=== PATIENT | female | born 1980 | race Caucasian/White ===

== ENCOUNTER 2023-12-16 10:34 | Outpatient (OUT) | payer OTHER, SELFPAY ==
--- NOTE | 2023-12-16 10:42 | XR_ITS ---
The [place] [id number] Patient Name: YUNIER GAINES MRN: [id number] date: 1980 Sex: F Assigned Patient Location: [facility] Current Patient Location: [facility] Accession/Order Number: [id number] Exam Date: 12/16/2023 10:50 Report Date: 12/16/2023 13:11 At the request of: BRAYDON VALADEZ Procedure: XR foot LT min 3V PROCEDURE: XR foot LT min 3V COMPARISON: None. HISTORY: History Left 5th Metatarsal Fracture FINDINGS: BONES:No acute fracture or dislocation. Remote fixation of the calcaneus with 2 cannulated screws. Remote fixation of the fifth metatarsal with a screw at the base. Mild degenerative changes most significant first metatarsal-phalangeal joint. Mild enthesopathic spurring plantar calcaneus SOFT TISSUES:Negative. No visible soft tissue swelling. EFFUSION:None visible. OTHER: Negative. XR/XR foot LT min 3V IMPRESSION: No acute fracture Electronically authenticated by: BELKYS DAVILA Date: 12/16/2023 13:11
== END 2023-12-16 10:35 | disposition home or self-care (01) ==
LOC: RAD 10:37
PROVIDERS: PCP Family Medicine; Visit Provider Nurse Practitioner Family
DX: M79.672 Pain in left foot (principal)
CPT/HCPCS: 73630

== ENCOUNTER 2024-03-02 15:14 | Outpatient (OUT) | payer OTHER, SELFPAY | END 2024-03-02 15:15 | disposition home or self-care (01) | LOC: CARD 15:19 | PROVIDERS: PCP Family Medicine; Visit Provider Family Medicine | DX: I10 Essential (primary) hypertension (principal) | CPT/HCPCS: 93246 ==

== ENCOUNTER 2024-03-16 08:49 | Outpatient (OUT) | payer OTHER, SELFPAY ==
--- NOTE | 2024-03-16 | XR_ITS ---
The [address] [address] Patient Name: YUNIER GAINES MRN: [id number] date: 1980 Sex: F Assigned Patient Location: Current Patient Location: Accession/Order Number: [id number] Exam Date: 03/16/2024 08:50 Report Date: 03/17/2024 13:01 At the request of: MO LAFLEUR Procedure: XR foot LT min 3V PROCEDURE: XR foot LT min 3V COMPARISON: 12/16/2023 HISTORY: LEFT FOOT PAIN FINDINGS: BONES:Acute calcaneal osteotomy transfixed with 2 cannulated screws. Remote fracture base of fifth metatarsal fixed with a single screw. No acute fracture or dislocation. Moderate degenerative change first metatarsal-phalangeal joint with subchondral cystic changes and joint space narrowing SOFT TISSUES:Negative. No visible soft tissue swelling. EFFUSION:None visible. OTHER: Negative. XR/XR foot LT min 3V IMPRESSION: Stable degenerative and postsurgical change Electronically authenticated by: BELKYS DAVILA Date: 03/17/2024 13:01
--- OUTSIDE RECORDS SUMMARY | 2024-03-16 09:06 | XMS_ITS | CCD ---
Author Organization [facility] CliniSynd Care Team Providers Care Certified Coding Specialist Name Role Phone Blake Dallas Unavailable RIMMA FISH Unavailable Unavailab RIMMA Quintana Unavailable Unavailab Blake Lagos Primary Care Provider [phone] BLAKE DALLAS Primary Care Unavailable RIMMA ARDON Attending Unavailable Blake Dallas Primary Care Provider COCO PINO Attending Unavailable BRONSON DAVE Consulting UnavailBLAKE Ordaz Primary Care Unavailable SYSTEM, PROVIDER NOT IN Referring Unavaila IGNACIO Piña Admitting Unavailable Blake Dallas MD Primary Care Provider [phone] FELICITAS FREEDMAN JR Attending Unavailable BLAKE DALLAS Primary Care Unavailable DR BLAKE DALLAS Primary Care Unavailable JADEN LARSEN Attending Unavailable JADEN LARSEN Admitting Unavailable Messi, DR Marcos Consulting Unavailable JADEN LARSEN Consulting Unavailable DR BLAKE DALLAS Primary Care Unavailable Messi, DR Marcos Consulting Unavailable JADEN LARSEN Attending Unavailable JADEN LARSEN Admitting Unavailable JADEN LARSEN Consulting Unavailable CELENA, DR MATTHEWS Consulting Unavailable CELENA, DR MATTHEWS Attending Unavailable DR BLAKE DALLAS Admitting Unavailable DR BLAKE DALLAS Primary Care Unavailable RADHA, DR ANNA Linares Admitting Unavailchilango GARCIA, DR ANNA Linares Attending UnavailMARIA ELENA Garces Consulting Unavailable CELENA, DR MATTHEWS Primary Care Unavailable VALERIE PUGA Consulting Unavailable DR BLAKE DALLAS Primary Care Unavailable MO LAFLEUR Attending Unavailable MO LAFLEUR Admitting Unavailable MO LAFLEUR Consulting Unavailable DR BLAKE DALLAS Primary Care Unavailable Messi, DR Marcos Consulting Unavailable MO LAFLEUR Attending Unavailable MO LAFLEUR Admitting Unavailable MO LAFLEUR Consulting Unavailable MYAH, LEATHA Consulting Unavailable DARWICH, MAAMUN Consulting Unavailable TARIK, AMAR Consulting Unavailable CELENA, DR MATTHEWS Attending Unavailable CELENA, DR MATTHEWS Admitting Unavailable HOY, DR MATTHEWS Primary Care Unavailable HOY, DR MATTHEWS Primary Care Unavailable CHAVA, JADEN Attending Unavailable CHAVA, JADEN Admitting Unavailable WEST, DR BELKYS Herzog Consulting Unavailable CHAVA, JADEN Consulting Unavailable CELENA, DR MATTHEWS Primary Care Unavailable WEST, DR BELKYS Herzog Consulting Unavailable CHAVA, JADEN Attending Unavailable CHAVA, JADEN Admitting Unavailable CHAVA, JADEN Consulting Unavailable Unavailable Primary Care Provider UnavailDarius Garcia MD Unavailable PROVIDER, UNKNOWN Attending Unavailable PROVIDER, UNKNOWN Admitting Unavailable BELBAYRON, DARIUS Toure Admitting Unavailable BELBAYRON, DARIUS Toure Attending Unavailable BELBAYRON, DARIUS Toure Referring Unavailable PROVIDER, UNKNOWN Attending Unavailable PROVIDER, UNKNOWN Admitting Unavailable PROVIDER, UNKNOWN Attending Unavailable DARIUS POOLE Admitting Unavailable PROVIDER, UNKNOWN Admitting Unavailable PROVIDER, UNKNOWN Attending Unavailable PROVIDER, UNKNOWN Attending Unavailable PROVIDER, UNKNOWN Admitting Unavailable PROVIDER, UNKNOWN Attending Unavailable PROVIDER, UNKNOWN Admitting Unavailable ZUMBAR, ERNA Referring Unavailable Unavailable Primary Care Provider UnavailErna Rivera Attending Unavailable Zumbar, Erna Referring Unavailable Zumbar, Erna Admitting Unavailable Blake Dallas Referring Unavailable ZumbarErna Attending Unavailable Zumbar, Erna Admitting Unavailable Homatilde Blake Referring Unavailable Mckeon, Brigitte Admitting Unavailable Mckeon Brigitte Attending Unavailable Linda Brigitte Attending Unavailable Linda Brigitte Admitting Unavailable lBake Dallas Referring Unavailable MD Erna Zavala Admitting Unavailable Zumbday, Erna Attending Unavailable BETSY BILLY Referring Unavailable Blake Dallas Referring Unavailable MD Erna Zavala Admitting Unavailable Zumbar, Erna Attending Unavailable Zumbar, Erna Attending Unavailable Zumbar, Erna Referring Unavailable Zumbar, Erna Admitting Unavailable Zumbar, Erna Admitting Unavailable Sally, Erna Attending Unavailable MARICEL CARABALLO Attending Unavailable Hoy MD, Blake M Primary Care Provider [phone] JEANNA XIAOXI Referring Unavailable NISREEN REY Attending Unavailable HOY, BLAKE M Primary Care Unavailable Celena CID, Blake M Primary Care Provider [phone] Darius Poole MD Unavailable JEANNA, XIAOXI Referring Unavailable HOY, BLAKE M Primary Care Unavailable JEANNA, XIAOXI Referring Unavailable ORLIN BOWMAN Attending Unavailable HOY, BLAKE M Primary Care Unavailable HALEY NICHOLSON Attending Unavailable HOY, BLAKE M Primary Care Unavailable JEANNA, XIAOXI Attending Unavailable HOY, BLAKE M Primary Care Unavailable GREG HIDALGO Attending Unavailable JEANNA, NEHAI Attending Unavailable JEANNA, XIAOXI Admitting Unavailable ALLYSON, BETSY Referring Unavailable ALLYSON, BETSY Referring Unavailable ALLYSON, BETSY Referring Unavailable ALLYSON, BETSY Referring Unavailable ALLYSON, BETSY Referring Unavailable HOY, BLAKE M Primary Care Unavailable GREG HIDALGO Referring Unavailable GREG HIDALGO Attending Unavailable ALLYSON, BETSY Referring Unavailable PEDRO JENKINSTH Garth Referring Unavailable ALLYSON, BETSY Referring Unavailable ALLYSON, BETSY Referring Unavailable FAY MILES Attending Unavailable FAY MILES Referring Unavailable HALEY NICHOLSON Attending Unavailable SELF Referring Unavailable SEEMA MAYNARD Attending Unavailable JIM CAMPOS Attending Unavailable HOY, BLAKE M Primary Care Unavailable JEANNA, XIAOXI Attending Unavailable JEANNA, XIAOXI Referring Unavailable DEVNANI, FAY Referring Unavailable KONYA, VIET L Attending Unavailable NENAEN, SYLVESTER Referring Unavailable ALLYSON, BETSY Referring Unavailable ALLYSON, BETSY Referring Unavailable ALLYSON, BETSY Referring Unavailable ALLYSON, BETSY Referring Unavailable ALLYSON, BETSY Referring Unavailable ALLYSON, BETSY Referring Unavailable ALLYSON, BETSY Referring Unavailable ALLYSON, BETSY Referring Unavailable ALLYSON, BETSY Referring Unavailable ALLYSON, BETSY Referring Unavailable ALLYSON, BETSY Referring Unavailable HOY, BLAKE M Primary Care Unavailable JEANNA, XIAOXI Referring Unavailable HOY, BLAKE M Primary Care Unavailable JEANNA, XIAOXI Referring Unavailable HOY, BLAKE M Primary Care Unavailable JEANNA, XIAOXI Attending Unavailable JEANNA, XIAOXI Referring Unavailable HOY, BLAKE M Primary Care Unavailable JEANNA, XIAOXI Referring Unavailable DEIRDRE SR Attending Unavailable HOY, BLAKE M Primary Care Unavailable KATIE DOOLEY Attending Unavailable JEANNA, XIAOXI Referring Unavailable BLANCO, JIM Referring Unavailable MALI, CYNTHIA Attending Unavailable ALLYSON, BETSY Referring Unavailable ALLYSON, BETSY Referring Unavailable ALLYSON, BETSY Referring Unavailable JEANNA, XIAOXI Attending Unavailable BLANCO, JIM Attending Unavailable MALI, CYNTHIA Attending Unavailable HOY, BLAKE M Primary Care Unavailable JEANNA, XIAOXI Referring Unavailable HOY, BLAKE M Primary Care Unavailable BULOW, ROSANNE Attending Unavailable JEANNA, XIAOXI Referring Unavailable HOY, BLAKE M Primary Care Unavailable JEANNA, XIAOXI Referring Unavailable ORLIN BOWMAN Attending Unavailable SANDI WEBER Attending Unavailable HOY, BLAKE M Primary Care Unavailable HOY, BLAKE M Primary Care Unavailable BULOW, ROSANNE Referring Unavailable DEVNANI, FAY Referring Unavailable ROYACHANDANI, HALEY Attending Unavailable LOUDEN, SYLVESTER Attending Unavailable HOY, BLAKE M Primary Care Unavailable JEANNA, XIAOXI Referring Unavailable LOUDEN, SYLVESTER Referring Unavailable DEVNANI, FAY Referring Unavailable DEVNANI, FAY Attending Unavailable LOUDEN, SYLVESTER Referring Unavailable MALI, CYNTHIA Attending Unavailable BLANCO, JIM Referring Unavailable EDWARD HERNANDEZ Attending Unavailable ALLYSON, BETSY Referring Unavailable MULANANDPRINCESS, HALEY Attending Unavailable VIET JENKINS Referring Unavailable Allergies Allergy Classification Reported Allergen(s) Allergy Type Date of Onset Reaction(s) Facility Penicillins (antibiotic) (2 sources) Penicillins Drug Allergy 6 Shortness Of Breath, GI Upset [facility] (20 sources) Penicillin G; 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: [PENICILLIN G] Drug Allergy 7 GI Upset [facility] Work Phone: (5 sources) Penicillins; 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: [PENICILLINS] Propensity to adverse reactions to drug 6 Shortness Of Breath, Rash, GI Intolerance [facility] [place], [place] (2 sources) Penicillin Drug Allergy 7 [facility] (7 sources) Penicillins Propensity to adverse reactions to drug 6 Upset Stomach, Rash, Difficulty Breathing [facility] Work Phone: (8 sources) Non-steroidal anti-inflammato ry agent; 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: [NSAIDS (NON-STEROIDAL ANTI-INFLAMMATO RY DRUG)] Propensity to adverse reactions to drug 4 Unknown [facility] Medications Current Medications Medication Drug Class(es) Dates Sig (Normalized) Sig (Original) acetaminophen 325 mg oral tablet (3 sources) Start: 11-20-2022 End: 12-20-2022 take 2 tablets by mouth every six hours as needed for pain acetaminophen (TYLENOL) 325 mg tablet Take 2 Tablets by mouth every 6 hours as needed for Pain or Fever. 240 Tablet 0 11/20/2022 12/20/2022 Active Start: 05-13-2020 End: 05-23-2020 take 2 tablets by mouth every four hours as needed acetaminophen (TYLENOL) 325 MG tablet Take 2 (two) tablets (650 mg total) by mouth every 4 (four) hours as needed . 30 tablet 0 05/13/2020 05/23/2020 Active Start: 05-12-2020 End: 05-13-2020 take 1 tablet by mouth every four hours as needed 650 mg, Oral, Every 4 hours PRN, mild pain, fever 100.4 F or greater, headaches, Starting 05/12/20 at 0305 apixaban 5 mg oral tablet (4 sources) Factor Xa Inhibitor Start: 05-13-2020 End: 06-12-2020 take 1 tablet by mouth twice daily apixaban (ELIQUIS) 5 mg Tab Take 1 (one) tablet (5 mg total) by mouth 2 (two) times a day . 60 tablet 2 05/13/2020 06/12/2020 Active Start: 05-13-2020 End: 05-20-2020 take 2 tablets by mouth twice daily apixaban (ELIQUIS) 5 mg Tab Take 2 (two) tablets (10 mg total) by mouth 2 (two) times a day for 7 days . 28 tablet 0 05/13/2020 05/20/2020 Active Start: 05-13-2020 End: 05-13-2020 apixaban (ELIQUIS) tablet 10 mg brexpiprazole 0.5 mg oral tablet (18 sources) Atypical Antipsychotic Start: 12-14-2023 take 1 tablet by mouth once REXULTI 0.5 mg tablet Take 1 tablet by mouth every afternoon. 12/14/2023 Active Start: 12-03-2023 take 1 tablet by mouth once RE XULTI 1 mg tablet Take 1 tablet by mouth every afternoon. 12/03/2023 Active busPIRone hydrochloride 10 mg oral tablet (20 sources) Start: 03-27-2023 take 1 tablet by mouth three times daily busPIRone (BUSPAR) 10 mg tablet Take 10 mg by mouth three times daily. 03/27/2023 Active Start: 03-12-2023 take 1 tablet by guille th every twelve hours busPIRone (BUSPAR) 5 mg tablet Take 1 tablet by mouth every 12 (twelve) hours. 0 03/12/2023 Active Comment on above: Take 1 tablet by guille th every 12 (twelve) hours. Take 10 mg by mouth three times daily. cetirizine hydrochloride 10 mg oral tablet (20 sources) Histamine-1 Receptor Antagonist Start: take 1 tablet by mouth once cetirizine (ZYRTEC) 10 mg tablet Take 1 tablet by mouth every afternoon. 01/16/2023 Active Comment on above: Take 1 tablet by guille th every afternoon. citalopram 40 mg oral tablet (7 sources) Serotonin Reuptake Inhibitor take 1 tablet by mouth once daily citalopram (CeleXA) 40 MG tablet citalopram 40 mg tablet TAKE 1 TABLET BY MOUTH EVERY DAY 0 Active CPAP/BIPAP/OTHER (20 sources) Start: End: CPAP/BIPAP/OTHER Auto [facility] 7 [facility] 08/11/2023 12/26/2050 Active Start: 08-11-2023 End: 12-26-2050 CPAP/BIPAP/OTHER Auto CPAP 7 to 15 cm H2O DME: [facility] 1 Each 0 08/11/2023 12/26/2050 Suspended Start: 08-11-2023 End: 12-26-2050 CPAP/BIPAP/OTHER Auto CPAP 7 to 15 cm H2O DME: [facility] 1 Each 0 08/11/2023 12/26/2050 Active Start: 07-13-2023 End: 08-11-2023 CPAP/BIPAP/OTHER Indications : PAKO (obstructive sleep apnea) Type .CPAPSettings into a note to see current settings/supplies/DME information. 1 Each 0 07/13/2023 08/11/2023 Discontinued Start: 07-13-2023 End: 11-27-2050 CPAP/BIPAP/OTHER Indications : PAKO (obstructive sleep apnea) Type .CPAPSettings into a note to see current settings/supplies/DME information. 1 Each 0 07/13/2023 11/27/2050 Active Start: 05-18-2023 End: 08-11-2023 CPAP/BIPAP/OTHER Indications : PAKO (obstructive sleep apnea) Type .CPAPSettings into a note to see current settings/supplies/DME information. 1 Each 0 05/18/2023 08/11/2023 Discontinued Start: 05-18-2023 End: 10-02-2050 CPAP/BIPAP/OTHER Indications : PAKO (obstructive sleep apnea) Type .CPAPSettings into a note to see current settings/supplies/DME information. 1 Each 0 05/18/2023 10/02/2050 Active Start: 03-30-2023 End: 08-11-2023 CPAP/BIPAP/OTHER Indications : PAKO (obstructive sleep apnea) , PAKO on CPAP Type .CPAPSettings into a note to see current settings/supplies/DME information. 1 Each 0 03/30/2023 08/11/2023 Discontinued Start: 03-30-2023 End: 08-14-2050 CPAP/BIPAP/OTHER Indications : PAKO (obstructive sleep apnea) , PAKO on CPAP Type .CPAPSettings into a note to see current settings/supplies/DME information. 1 Each 0 03/30/2023 08/14/2050 Active Start: 03-02-2023 End: 08-11-2023 CPAP/BIPAP/OTHER Indications : PAKO on CPAP Type .CPAPSettings into a note to see current settings/supplies/DME information. 1 Each 0 03/02/2023 08/11/2023 Discontinued Start: 03-02-2023 End: 07-17-2050 CPAP/BIPAP/OTHER Indications : PAKO on CPAP Type .CPAPSettings into a note to see current settings/supplies/DME information. 1 Each 0 03/02/2023 07/17/2050 Active Comment on above: Type .CPAPSettings i nto a note to see current settings/supplies/DME information. Auto CPAP 7 to 15 cm H2O DME: [facility] dienogest / Estradiol (4 sources) Progestin, Estrogen Start: 03-18-2018 estradiol Valerate-dienogest (NATAZIA) 3/2-2/2-3/1 MG TABS tablet Take 1 tablet by mouth 0 03/18/2018 Active Start: 03-18-2018 take 1 tablet by guille th once daily NATAZIA 3/2-2/2-3/1 MG Tab Take 1 tablet by mouth daily. 3 03/18/2018 Active End: 05-13-2020 take 1 tablet by mouth once daily estradiol valerate-dienogest (Natazia) 3 mg/2 mg-2 mg/ 2 mg-3 mg/1 mg Tab Take 1 tablet by mouth daily . 0 05/13/2020 Discontinued (Stop Taking at Discharge) docusate sodium 100 mg oral capsule (2 sources) Start: 05-13-2020 End: 05-24-2020 take 1 capsule by mouth once daily docusate sodium (COLACE) 100 MG capsule Take 1 (one) capsule (100 mg total) by mouth daily for 10 days Start: 05/14/20. 10 capsule 0 05/14/2020 05/24/2020 Active 0.4 ml enoxaparin sodium 100 mg/ml prefilled syringe (7 sources) Low Molecular Weight Heparin Start: 09-29-2023 End: 10-27-2023 inject 0.4 mL by subcutaneous injection twice daily enoxaparin (LOVENOX) 40 mg/0.4 mL Inject 0.4 mL subcutaneously two times a day for 28 days. (Inject entire contents of one(1) syringe) 22.4 mL 0 09/29/2023 10/27/2023 Active Start: 09-29-2023 End: 10-27-2023 inject 40 mg by subcutaneous injection every twelve hours enoxaparin (LOVENOX) 40 mg/0.4 mL Inject 0.4 mL subcutaneously every 12 hours for 28 days. 22.4 mL 0 09/29/2023 10/27/2023 Active Start: 05-11-2020 End: 05-11-2020 enoxaparin (LOVENOX) injecti on 135 mg Comment on above: Inject 0.4 mL subcut aneously two times a day for 28 days. (Inject entire contents of one(1) syringe) Inject 0.4 mL subcut aneously every 12 hours for 28 days. 1 ml hydrOXYzine hydrochloride 25 mg/ml injection (20 sources) Antihistamine inject 25 mg by intramuscular injection once hydrOXYzine HCl (VISTARIL) 25 mg/mL injection Inject 25 mg intramuscularly one time only. Active Comment on above: Inject 25 mg intramu scularly one time only. montelukast 10 mg oral tablet (20 sources) Leukotriene Receptor Antagonist Start: 2022 take 1 tablet by mouth once montelukast (SINGULAIR) 10 mg tablet Take 1 tablet by mouth every afternoon. 01/16/2023 Active Start: 03-19-2018 End: 05-13-2020 montelukast (SINGULAIR) 10 M G tablet Take 10 mg by mouth 0 03/19/2018 Active Comment on above: Take 1 tablet by guille th every afternoon. omeprazole 20 mg delayed release oral capsule (16 sources) Proton Pump Inhibitor Start: 4 End: 4 take 2 capsules by mouth once daily omeprazole (PRILOSEC) 20 mg capsule Take 2 capsules by mouth once daily. 61 capsule 5 09/29/2023 03/27/2024 Active Comment on above: Take 2 capsules by m outh once daily. ondansetron 4 mg oral tablet (16 sources) Serotonin-3 Receptor Antagonist Start: 4 take 1 tablet by mouth every six hours as needed ondansetron (ZOFRAN) 4 mg tablet Take 1 tablet by mouth every 6 hours as needed for nausea/vomiting 20 tablet 1 09/29/2023 Active Comment on above: Take 1 tablet by guille th every 6 hours as needed for nausea/vomiting polyethylene glycol 3350 19291 mg powder for oral solution (3 sources) Osmotic Laxative Start: 3 End: 3 polyethylene glycol (GNP ClearLax) 17 GM/SCOOP powder Dissolve 17 g in 8 ounces of liquid and drink daily. 510 g 0 11/20/2022 12/20/2022 Active Start: 05-13-2020 End: 05-20-2020 polyethylene glycol (MIRALAX ) 17 gram powder Take 17 (seventeen) g by mouth daily as needed (Constipation) . 7 packet 1 05/13/2020 05/20/2020 Active prazosin 1 mg oral capsule (20 sources) alpha-Adrenergic Joe Start: 03-12-2023 take 1 capsule by mouth once daily at bedtime prazosin (MINIPRESS) 1 mg cap Take 1 mg by mouth daily at bedtime. 03/12/2023 Active Comment on above: Take 1 mg by mouth d aily at bedtime. sertraline 50 mg oral tablet (20 sources) Serotonin Reuptake Inhibitor Start: 03-12-2023 take 1 tablet by mouth three times daily sertraline (ZOLOFT) 50 mg tablet Take 50 mg by mouth three times a day. 03/12/2023 Active Start: 03-12-2023 take 1 tablet by mouth once se rtraline (ZOLOFT) 50 mg tablet Take 1 tablet by mouth every afternoon. 0 03/12/2023 Active Comment on above: Take 1 tablet by guille th every afternoon. Take 50 mg by mouth three times a day. topiramate 25 mg oral tablet (20 sources) Start: 11-04-2023 topiramate (TOPAMAX) 25 mg tablet Indications: Class 3 obesity (HCC) Take 1 tablet nightly x 2 weeks and then increase to 2 tablets nightly 180 tablet 1 11/04/2023 Active Start: 08-12-2023 topiramate (TO PAMAX) 25 mg tablet Indications: Class 3 severe obesity with serious comorbidity and body mass index (BMI) of 45.0 to 49.9 in adult, unspecified obesity type (HCC) Take 1 tablet nightly x 2 weeks, then increase to 2 tablets nightly 180 tablet 0 08/12/2023 Suspended Comment on above: Take 1 tablet nightl y x 2 weeks, then increase to 2 tablets nightly ursodiol 300 mg oral capsule (16 sources) Bile Acid Start: 09-29-2023 End: 03-27-2024 take 1 capsule by mouth twice daily ursodiol (ACTIGALL) 300 mg capsule Take 1 capsule by mouth two times a day. 181 capsule 1 09/29/2023 03/27/2024 Active Comment on above: Take 1 capsule by mo uth two times a day. VITAMIN B COMPLEX-100 ORAL (20 sources) VITAMIN B COMPLEX-100 ORAL Take by mouth. Active VITAMIN B COMPLE X-100 ORAL Take by mouth. 0 Suspended VITAMIN B COMPLE X-100 ORAL Take by mouth. 0 Active Comment on above: Take by mouth. Completed/Discontinued Medications Medication Drug Class(es) Dates Sig (Normalized) Sig (Original) albuterol 0.833 mg/ml / ipratropium bromide 0.167 mg/ml inhalant solution (2 sources) Anticholinergic, beta2-Adrenergic Agonist Start: 05-11-2020 End: 05-11-2020 ipratropium-albute rol (DUONEB) nebulizer solution 1 ampule betamethasone 3 mg/ml / betamethasone acetate 3 mg/ml injectable suspension (2 sources) Corticosteroid Start: 03-03-2024 End: 03-03-2024 betamethasone acetate-betamethas one sodium phosphate 12 mg injection (CELESTONE) Start: 03-03-2024 End: 03-03-2024 inject 1 dose by intramuscular injection once 12 mg, INTRAMUSCULAR, ONCE, 1 dose, On [facility] 03/03/24 at 1030, Protect From Light. Bupivacaine (2 sources) Amide Local Anesthetic Start: 03-03-2024 End: 03-03-2024 bupivacaine 0.5 % 15 mg injection (MARCAINE MDV) Start: 03-03-2024 End: 03-03-2024 inject 1 dose by intramuscular injection once 15 mg (3 mL), INTRAMUSCULAR, ONCE, 1 dose, On [place] 03/03/24 at 1030 carvedilol 25 mg oral tablet (20 sources) alpha-Adrenergic Joe, beta-Adrenergic Joe Start: 01-14-2023 End: 09-29-2023 take 1 tablet by mouth every twelve hours carvedilol (COREG) 25 mg tablet Take 1 tablet by mouth every 12 hours 6am/6pm. 0 01/14/2023 09/29/2023 Discontinued Start: 05-12-2020 End: 05-13-2020 take 25 mg by mouth twice daily at mealtime 25 mg, Oral, Daily, First dose on 05/12/20 at 0900 Give carvedilol with food to reduce risk of hypotension / dizziness. Separate from admin of LUIS inhibitors by two hours. Start: 03-17-2018 take 1 tablet by guille th twice daily carvedilol (COREG) 25 MG tablet Take 25 mg by mouth 2 times daily 0 03/17/2018 Active take 1 tablet by guille once daily CARvedilol (COREG) 25 MG tablet carvedilol 25 mg tablet Take 1 tablet every day by oral route. 0 Active Comment on above: Take 1 tablet by guille every 12 hours 6am/6pm. celecoxib 200 mg oral capsule (20 sources) Nonsteroidal Anti-inflammatory Drug Start: 2022 End: 2023 take 1 capsule by mouth twice daily celecoxib (CELEBREX) 200 mg capsule take 1 capsule by mouth twice a day 60 capsule 0 05/15/2023 09/29/2023 Discontinued Comment on above: Take 1 capsule by [facility] twice daily. take 1 capsule by [facility] twice a day cyclobenzaprine hydrochloride 10 mg oral tablet (20 sources) Muscle Relaxant Start: 2022 End: 2023 cyclobenzaprine (FLEXERIL) 10 mg tablet doxepin hydrochloride 25 mg oral capsule (6 sources) Tricyclic Antidepressant doxepin capsule 25 mg Take 50 mg by mouth. 0 Active Comment on above: Take 50 mg by mouth. 0.5 ml dulaglutide 3 mg/ml auto-injector (14 sources) GLP-1 Receptor Agonist Start: 2022 inject 1.5 mg by subcutaneous injection every week dulaglutide (TRULICITY) 1.5 mg/0.5 mL pen injector Inject 1.5 mg subcutaneously one time a week. 4 Each 2 03/31/2023 Active Start: 03-18-2023 End: 04-17-2023 dulaglutide (TRULICITY) 0.75 mg/0.5 mL pen injector Indications: Class 3 severe obesity with serious comorbidity and body mass index (BMI) of 50.0 to 59.9 in adult, unspecified obesity type (HCC) Inject 0.75 mg subcutaneously one time a week. 4 Each 0 03/18/2023 03/31/2023 Discontinued Comment on above: Inject 0.75 mg subcu taneously one time a week. Inject 1.5 mg subcut aneously one time a week. dulaglutide (TRULICITY) 3 mg/0.5 mL pen injector (15 sources) Start: End: inject 3 mg by subcutaneous injection every week dulaglutide (TRULICITY) 3 mg/0.5 mL pen injector Indications: Body mass index 50.0-59.9, adult (HCC) Inject 3 mg subcutaneously one time a week. 4 Each 1 06/01/2023 06/16/2023 Discontinued Start: 06-01-2023 inject 3 mg by subcu taneous injection every week dulaglutide (TRULICITY) 3 mg/0.5 mL pen injector Indications: Body mass index 50.0-59.9, adult (HCC) Inject 3 mg subcutaneously one time a week. 4 Each 1 06/01/2023 Active Start: 05-04-2023 End: 06-01-2023 inject 3 mg by subcutaneous injection every week dulaglutide (TRULICITY) 3 mg/0.5 mL pen injector Inject 3 mg subcutaneously one time a week. 2 mL 0 05/04/2023 06/01/2023 Discontinued Start: 05-04-2023 End: 06-03-2023 inject 3 mg by subcutaneous injection every week dulaglutide (TRULICITY) 3 mg/0.5 mL pen injector Inject 3 mg subcutaneously one time a week. 2 mL 0 05/04/2023 06/03/2023 Active Comment on above: Inject 3 mg subcutan eously one time a week. dulaglutide (TRULICITY) 4.5 mg/0.5 mL pen injector (17 sources) Start: inject 4.5 mg by subcutaneous injection every week dulaglutide (TRULICITY) 4.5 mg/0.5 mL pen injector Indications: Obesity, Class III, BMI 40-49.9 (morbid obesity) (HCC) Inject 4.5 mg subcutaneously one time a week. 4 Each 2 09/14/2023 Suspended Start: 09-14-2023 inject 4.5 mg by sub cutaneous injection every week dulaglutide (TRULICITY) 4.5 mg/0.5 mL pen injector Indications: Obesity, Class III, BMI 40-49.9 (morbid obesity) (HCC) Inject 4.5 mg subcutaneously one time a week. 4 Each 2 09/14/2023 Active Start: 08-12-2023 End: 09-11-2023 inject 4.5 mg by subcutaneous injection every week dulaglutide (TRULICITY) 4.5 mg/0.5 mL pen injector Indications: Obesity, Class III, BMI 40-49.9 (morbid obesity) (HCC) Inject 4.5 mg subcutaneously one time a week. 4 Each 2 08/12/2023 09/11/2023 Discontinued Start: 08-12-2023 inject 4.5 mg by sub cutaneous injection every week dulaglutide (TRULICITY) 4.5 mg/0.5 mL pen injector Indications: Obesity, Class III, BMI 40-49.9 (morbid obesity) (HCC) Inject 4.5 mg subcutaneously one time a week. 4 Each 2 08/12/2023 Active Start: 06-16-2023 End: 08-12-2023 inject 4.5 mg by subcutaneous injection every week dulaglutide (TRULICITY) 4.5 mg/0.5 mL pen injector Indications: Obesity, Class III, BMI 40-49.9 (morbid obesity) (HCC) Inject 4.5 mg subcutaneously one time a week. 4 Each 2 06/16/2023 08/12/2023 Discontinued Start: 06-16-2023 inject 4.5 mg by sub cutaneous injection every week dulaglutide (TRULICITY) 4.5 mg/0.5 mL pen injector Indications: Obesity, Class III, BMI 40-49.9 (morbid obesity) (HCC) Inject 4.5 mg subcutaneously one time a week. 4 Each 2 06/16/2023 Active Comment on above: Inject 4.5 mg subcut aneously one time a week. gelatin adsorbable (GELFOAM) sponge 1 each (1 source) Start: 2020 End: 2020 gelatin adsorbable (GELFOAM) sponge 1 each 250 ml heparin sodium, porcine 100 unt/ml injection (1 source) Unfractionated Heparin, Anti-coagulant Start: 2019 End: 2019 heparin (porcine) 25,000 unit/250 mL in 0.45% NaCl infusion heparin bolus from bag 0-10,000 Units (1 source) Start: 2019 End: 2019 heparin bolus from bag 0-10,000 Units iopamidol (ISOVUE-370) 76 % injection 100 mL (1 source) Start: 2019 End: 2019 iopamidol (ISOVUE-370) 76 % injection 100 mL Lidocaine (2 sources) Antiarrhythmic, Amide Local Anesthetic Start: 2023 End: 2023 lidocaine 10 mg/mL (1 %) 50 mg injection (XYLOCAINE) lisinopril 40 mg oral tablet (2 sources) Angiotensin Converting Enzyme Inhibitor End: 2019 lisinopril (PRINIVIL;ZESTRIL) 40 MG tablet Take 40 mg by mouth 0 05/11/2020 Discontinued loratadine 10 mg oral tablet (1 source) Start: 2019 End: 2019 take 10 mg by mouth once daily 10 mg, Oral, Daily, First dose on 05/12/20 at 0900 methylPREDNISolone 125 mg injection (1 source) Corticosteroid Start: 2019 End: 2019 methylPREDNISolone sodium (SOLU-MEDROL) injection 125 mg perflutren lipid microspheres (DEFINITY) 0.143 mg/mL solution 0-10 mL of mixture (1 source) Start: 2019 End: 2019 perflutren lipid microspheres (DEFINITY) 0.143 mg/mL solution 0-10 mL of mixture perflutren lipid microspheres 1.3 mL in NaCl (PF) 0.9% 10 mL injection (DEFINITY) (1 source) Start: 2022 End: 2022 perflutren lipid microspheres 1.3 mL in NaCl (PF) 0.9% 10 mL injection (DEFINITY) 1 ml triamcinolone acetonide 40 mg/ml injection (2 sources) Corticosteroid Start: 2023 End: 2023 triamcinolone acetonide 40 mg injection (KeNALog 40) Problems Active Problems Problem Classification Problem Date Documented Da te Episodic/Chronic Abdominal pain (4 sources) Unspecified abdominal pain; 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: [UNSPECIFIED ABDOMINAL PAIN] Onset: 01-01-2022 Episodic Acquired foot deformities (20 sources) Hallux rigidus, right foot; 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: [Acquired right hallux valgus] Onset: 02-26-2021 04-02-2023 Chronic Acquired foot deformities (20 sources) Hallux valgus (acquired), left foot; 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: [Acquired left hallux valgus] Onset: 02-26-2021 04-02-2023 Chronic Acute bronchitis (1 source) Acute bronchitis, unspecified; 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: [ACUTE BRONCHITIS UNSPECIFIED] Onset: 02-06-2022 Episodic Administrative/social admission (5 sources) Patient encounter status; 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: [Dietary counseling and surveillance] 06-04-2023 Episodic Anxiety disorders (20 sources) Anxiety disorder, unspecified; 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: [Anxiety disorder] Onset: 02-26-2021 04-02-2023 Chronic Asthma (20 sources) Mild intermittent asthma; 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: [Mild intermittent asthma, uncomplicated] Onset: 09-22-2023 09-22-2023 Chronic Cardiac dysrhythmias (2 sources) Bradycardia; 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: [Bradycardia, unspecified] Onset: 10-22-2022 Episodic Essential hypertension (20 sources) Hypertensive disorder; 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: [Essential (primary) hypertension] Onset: 02-26-2021 04-02-2023 Chronic Fracture of lower limb (15 sources) Displaced fracture of fifth metatarsal bone, left foot, subsequent encounter for fracture with nonunion; 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: [Displaced fracture of fifth metatarsal bone, left foot, subsequent encounter for fracture with routine healing] Onset: 04-19-2020 Episodic Malaise and fatigue (1 source) Fatigue; 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: [Other fatigue] 03-02-2023 Episodic Mood disorders (20 sources) Moderate major depression, single episode; 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: [Major depressive disorder, single episode, moderate] Onset: 04-19-2020 06-05-2023 Chronic Nausea and vomiting (1 source) Nausea with vomiting, unspecified; 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: [NAUSEA WITH VOMITING UNSPECIFIED] Onset: 01-03-2022 Episodic Open wounds of extremities (1 source) Open wound of finger; 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: [Unspecified open wound of unspecified finger without damage to nail, initial encounter] Episodic Osteoarthritis (20 sources) Osteoarthritis of right patellofemoral joint; 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: [Unilateral primary osteoarthritis, right knee] Onset: 03-26-2023 03-24-2023 Chronic Other aftercare (1 source) Other correction (current) drug therapy; 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: [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] Onset: 01-03-2022 Episodic Other aftercare (1 source) jail (current) use of antithrombotics/anti platelets; 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: [LONG-TERM ANTITHROMBOT/ANTIPLA TLETS] Onset: 01-03-2022 Episodic Other connective tissue disease (1 source) Full thickness rotator cuff tear Episodic Other gastrointestinal disorders (1 source) Abnormal intestinal absorption; 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: [Intestinal malabsorption, unspecified] 10-14-2023 Chronic Other gastrointestinal disorders (3 sources) History of sleeve gastrectomy; 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: [Bariatric surgery status] 11-03-2023 Episodic Other gastrointestinal disorders (1 source) History of bariatric surgical procedure; 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: [Bariatric surgery status] 11-06-2023 Episodic Other hereditary and degenerative nervous system conditions (20 sources) Restless legs; 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: [Restless legs syndrome] Onset: 05-18-2023 03-02-2023 Chronic Other hereditary and degenerative nervous system conditions (1 source) Restless legs syndrome; 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: [RLS (restless legs syndrome)] Onset: 03-11-2023 Chronic Other lower respiratory disease (1 source) H/O: asthma; 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: [History of asthma] Episodic Other nervous system disorders (20 sources) Complex regional pain syndrome type I of left lower limb; 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: [Complex regional pain syndrome I of left lower limb] Onset: 02-12-2023 02-12-2023 Chronic Other nervous system disorders (5 sources) Complex regional pain syndrome of lower limb; 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: [Complex regional pain syndrome I of left lower limb] Onset: 04-19-2020 05-13-2023 Chronic Other nervous system disorders (1 source) Complex regional pain syndrome I of left lower limb; 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: [Complex regional pain syndrome type 1 of left lower extremity] Onset: 02-12-2023 Chronic Other non-traumatic joint disorders (1 source) Shoulder pain; 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: [Shoulder Pain] Onset: 06-23-2018 Episodic Other non-traumatic joint disorders (2 sources) Subtalar joint unstable; 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: [Other instability, left foot] 02-15-2024 Episodic Other nutritional; endocrine; and metabolic disorders (6 sources) Morbid (severe) obesity due to excess calories; 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: [MORBID SEVERE OBES D/T EXCESS TONIO] Onset: 02-26-2021 Chronic Other nutritional; endocrine; and metabolic disorders (4 sources) Body mass index (BMI) 45.0-49.9, adult; 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: [BODY MASS INDEX BMI 45.0-49.9 ADULT] Onset: 02-26-2021 Chronic Other nutritional; endocrine; and metabolic disorders (20 sources) Body mass index 40+ - severely obese; 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: [Morbid (severe) obesity due to excess calories] Onset: 05-05-2023 03-02-2023 Chronic Other nutritional; endocrine; and metabolic disorders (20 sources) Severe obesity; 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: [Morbid (severe) obesity due to excess calories] Onset: 09-28-2023 03-18-2023 Chronic Other nutritional; endocrine; and metabolic disorders (1 source) Obesity; 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: [Obesity, unspecified] 08-19-2023 Chronic Other nutritional; endocrine; and metabolic disorders (1 source) Obesity caused by energy imbalance; 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: [Morbid (severe) obesity due to excess calories] Onset: 09-28-2023 09-28-2023 Chronic Other nutritional; endocrine; and metabolic disorders (2 sources) Obese class III; 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: [Morbid (severe) obesity due to excess calories] 11-03-2023 Chronic Other nutritional; endocrine; and metabolic disorders (1 source) Obese class II; 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: [Obesity, unspecified] 12-22-2023 Chronic Other nutritional; endocrine; and metabolic disorders (1 source) Obesity, unspecified; 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: [Obesity, unspecified classification, unspecified obesity type, unspecified whether serious comorbidity present] Onset: 08-19-2023 Chronic Other nutritional; endocrine; and metabolic disorders (1 source) Body mass index (BMI) 50.0-59.9, adult; 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: [Class 3 severe obesity with serious comorbidity and body mass index (BMI) of 50.0 to 59.9 in adult, unspecified obesity type (HCC)] Onset: 04-30-2023 Chronic Residual codes; unclassified (1 source) Sleep apnea, unspecified; 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: [SLEEP APNEA UNSPECIFIED] Onset: 02-26-2021 Chronic Residual codes; unclassified (20 sources) Obstructive sleep apnea syndrome; 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: [Obstructive sleep apnea (adult) (pediatric)] Onset: 02-26-2021 03-02-2023 Chronic Residual codes; unclassified (1 source) Parasomnia; 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: [Parasomnia, unspecified] 03-02-2023 Chronic Residual codes; unclassified (2 sources) Obstructive sleep apnea (adult) (pediatric); 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: [PAKO (obstructive sleep apnea)] Onset: 03-12-2023 Chronic Residual codes; unclassified (1 source) Pain; 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: [Pain, unspecified] 03-24-2023 Episodic Spondylosis; intervertebral disc disorders; other back problems (20 sources) Post-surgery back pain; 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: [Postlaminectomy syndrome, not elsewhere classified] Onset: 09-26-2022 Chronic Unclassified (1 source) Shoulder Pain / [id number]() Onset: 06-23-2018 Unclassified (2 sources) CONTACT W/AND (SUSP) EXPOS COVID-19; 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: [CONTACT W/AND (SUSP) EXPOS COVID-19] Onset: 02-06-2022 Unclassified (13 sources) 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: 08-31-2023 08-31-2023 Viral infection (1 source) COVID-19; 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: [COVID-19] Onset: 02-06-2022 Past or Other Problems Problem Classification Problem Date Documented Da te Episodic/Chronic Acquired foot deformities (1 source) Other acquired deformities of left foot; 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: [OTHER ACQUIRED DEFORMITIES LT FOOT] Onset: 02-26-2021 Episodic Calculus of urinary tract (20 sources) Calculus of kidney; 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: [Kidney stone] Onset: 01-03-2022 04-02-2023 Episodic Fracture of lower limb (14 sources) Closed fracture of fifth metatarsal bone; 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: [Displaced fracture of fifth metatarsal bone, right foot, initial encounter for closed fracture] Onset: 02-18-2021 Resolved: 04-02-2023 04-02-2023 Episodic Other aftercare (1 source) jail (current) use of anticoagulants; 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: [LONG-TERM CURRNT USE ANTICOAGULANTS] Onset: 02-26-2021 Episodic Other aftercare (20 sources) Long-term current use of anticoagulant; 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: [jail (current) use of anticoagulants] Onset: 02-26-2021 Resolved: 09-22-2023 04-02-2023 Episodic Other connective tissue disease (13 sources) Myofascial pain; 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: [Myalgia, other site] Onset: 11-24-2023 11-24-2023 Episodic Other gastrointestinal disorders (1 source) Bariatric surgery status; 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: [S/P laparoscopic sleeve gastrectomy] Onset: 09-28-2023 Episodic Other infections; including parasitic (20 sources) Personal history of other infectious and parasitic diseases; 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: [History of 2019 novel coronavirus disease (COVID-19)] Onset: 02-06-2022 Resolved: 09-22-2023 04-02-2023 Episodic Phlebitis; thrombophlebitis and thromboembolism (20 sources) Personal history of other venous thrombosis and embolism; 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: [H/O: cardiovascular disease] Onset: 04-19-2020 04-02-2023 Episodic Pulmonary heart disease (20 sources) Acute pulmonary embolism; 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: [Other pulmonary embolism with acute cor pulmonale] Onset: 04-19-2020 Resolved: 09-22-2023 04-02-2023 Chronic Pulmonary heart disease (6 sources) Pulmonary embolism; 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: [Acute pulmonary embolism] Onset: 05-12-2020 05-13-2020 Episodic Residual codes; unclassified (1 source) Pain, unspecified; 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: [Pain] Onset: 03-24-2023 Episodic Screening and history of mental health and substance abuse codes (20 sources) Personal history of nicotine dependence; 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: [Personal history of tobacco use] Onset: 01-03-2022 Resolved: 09-22-2023 04-02-2023 Episodic Spondylosis; intervertebral disc disorders; other back problems (20 sources) Backache; 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: [Dorsalgia, unspecified] Onset: 08-25-2022 Episodic Sprains and strains (15 sources) Lumbar sprain; 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: [Sprain of ligaments of lumbar spine, initial encounter] Onset: 04-19-2020 05-13-2023 Episodic Unclassified (1 source) CONTACT W/AND (SUSP) EXPOS COVID-19; 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: [CONTACT W/AND (SUSP) EXPOS COVID-19] Onset: 02-03-2022 Results Test Name Value Interpretation Reference Range Facility CNOVon 03-03-[address] [facility] 25(OH)D3 SerPl-mCncon 2023 25-hydroxyvitamin D3 [Mass/Vol] 22.0 ng/mL Low 31.0-80.0 [facility] Comment on above: Order Comment: Speci men Type: BLOOD SPECIMENOrdering Facility: [facility] Address: [address] [place], [place] [address] [address] Result Comment: Clas sification of 25 OH Vitamin D status:Deficiency/Insufficiency: < or = 30 ng/ml.Sufficiency/Optimal Levels: 31-80 ng/mLToxicity: > 100 ng/mL.Test performed by chemiluminescent immunoassay. Performed By: #### 1 989-3 ####[facility] LABCLIA [id number] [place] [address] [place] CBC W Auto Differential pane l (Bld)on 03-02-2024 Basophils (Bld) [#/Vol] 0.05 10*3/uL Normal <0.11 [facility] Comment on above: Order Comment: Speci men Type: BLOOD SPECIMENOrdering Facility: [facility] Address: [address] [place] [address] Performed By: #### 5 7021-8 ####[facility] LABIA [id number] [place] [address] [place] Basophils/100 WBC (Bld) 0.6 % Normal [facility] Comment on above: Order Comment: Speci men Type: BLOOD SPECIMENOrdering Facility: [facility] Address: [address] [place] [address] Performed By: #### 5 7021-8 ####[facility] LABIA [id number] [place] [address] [place] Differential cell count method Nom (Bld) Auto Normal [facility] Comment on above: Order Comment: Speci men Type: BLOOD SPECIMENOrdering Facility: [facility] Address: [address] [place] [address] Performed By: #### 5 7021-8 ####[facility] LABIA [id number] [place] [address] [place] Eosinophils (Bld) [#/Vol] 0.26 10*3/uL Normal <0.46 [facility] Comment on above: Order Comment: Speci men Type: BLOOD SPECIMENOrdering Facility: [facility] Address: [address] [place] [address] Performed By: #### 5 7021-8 ####[facility] LABCLIA [id number] [place] [address] [place] Eosinophils/100 WBC (Bld) 3.0 % Normal [facility] Comment on above: Order Comment: Speci men Type: BLOOD SPECIMENOrdering Facility: [facility] Address: [address] [place] [address] Performed By: #### 5 7021-8 ####[facility] LABCLIA [id number] [place] [address] [place] Erythrocyte distribution width (RBC) [Ratio] 13.1 % Normal 11.5-15.0 [facility] Comment on above: Order Comment: Speci men Type: BLOOD SPECIMENOrdering Facility: [facility] Address: [address] [place] [address] Performed By: #### 5 7021-8 ####[facility] LABIA [id number] [place] [address] [place] Hematocrit (Bld) [Volume fraction] 41.9 % Normal 36.0-46.0 [facility] Comment on above: Order Comment: Speci men Type: BLOOD SPECIMENOrdering Facility: [facility] Address: [address] [place] [address] Performed By: #### 5 7021-8 ####[facility] LABCLIA [id number] [place] [address] [place] Hemoglobin (Bld) [Mass/Vol] 13.7 g/dL Normal 11.5-15.5 [facility] Comment on above: Order Comment: Speci men Type: BLOOD SPECIMENOrdering Facility: [facility] Address: [address] [place] [address] Performed By: #### 5 7021-8 ####[facility] LABIA [id number] [place] [address] [place] Immature granulocytes (Bld) [#/Vol] 10*3/uL Normal <0.10 [facility] Comment on above: Order Comment: Speci men Type: BLOOD SPECIMENOrdering Facility: [facility] Address: [address] [place] [address] Performed By: #### 5 7021-8 ####[facility] LABCLIA [id number] [place] [address] [place] Immature granulocytes/100 WBC (Bld) 0.2 % Normal [facility] Comment on above: Order Comment: Speci men Type: BLOOD SPECIMENOrdering Facility: [facility] Address: [address] [place] [address] Performed By: #### 5 7021-8 ####[facility] LABCLIA [id number] [place] [address] [place] Lymphocytes (Bld) [#/Vol] 2.20 10*3/uL Normal 1.00-4.00 [facility] Comment on above: Order Comment: Speci men Type: BLOOD SPECIMENOrdering Facility: [facility] Address: [address] [place] [address] Performed By: #### 5 7021-8 ####[facility] LABCLIA [id number] [place] [address] [place] Lymphocytes/100 WBC (Bld) 25.5 % Normal [facility] Comment on above: Order Comment: Speci men Type: BLOOD SPECIMENOrdering Facility: [facility] Address: [address] [place] [address] Performed By: #### 5 7021-8 ####[facility] LABCLIA [id number] [place] [address] [place] MCH (RBC) [Entitic mass] 29.8 pg Normal 26.0-34.0 [facility] Comment on above: Order Comment: Speci men Type: BLOOD SPECIMENOrdering Facility: [facility] Address: [address] [place] [address] Performed By: #### 5 7021-8 ####[facility] LABIA [id number] [place] [address] [place] MCHC (RBC) [Mass/Vol] 32.7 g/dL Normal 30.5-36.0 [facility] Comment on above: Order Comment: Speci men Type: BLOOD SPECIMENOrdering Facility: [facility] Address: [address] [place] [address] Performed By: #### 5 7021-8 ####[facility] LABIA [id number] [place] [address] [place] MCV (RBC) [Entitic vol] 91.1 fL Normal 80.0-100.0 [facility] Comment on above: Order Comment: Speci men Type: BLOOD SPECIMENOrdering Facility: [facility] Address: [address] [place] [address] Performed By: #### 5 7021-8 ####[facility] LABIA [id number] [place] [address] [place] Monocytes (Bld) [#/Vol] 0.46 10*3/uL Normal <0.87 [facility] Comment on above: Order Comment: Speci men Type: BLOOD SPECIMENOrdering Facility: [facility] Address: [address] [place] [address] Performed By: #### 5 7021-8 ####[facility] LABCLIA [id number] [place] [address] [place] Monocytes/100 WBC (Bld) 5.3 % Normal [facility] Comment on above: Order Comment: Speci men Type: BLOOD SPECIMENOrdering Facility: [facility] Address: [address] [place] [address] Performed By: #### 5 7021-8 ####[facility] LABCLIA [id number] [place] [address] [place] Neutrophils (Bld) [#/Vol] 5.65 10*3/uL Normal 1.45-7.50 [facility] Comment on above: Order Comment: Speci men Type: BLOOD SPECIMENOrdering Facility: [facility] Address: [address] [place] [address] Performed By: #### 5 7021-8 ####[facility] LABCLIA [id number] [place] [address] [place] Neutrophils/100 WBC (Bld) 65.4 % Normal [facility] Comment on above: Order Comment: Speci men Type: BLOOD SPECIMENOrdering Facility: [facility] Address: [address] [place] [address] Performed By: #### 5 7021-8 ####[facility] LABCLIA [id number] [place] [address] [place] Nucleated RBC (Bld) [#/Vol] 10*3/uL Normal <0.01 [facility] Comment on above: Order Comment: Speci men Type: BLOOD SPECIMENOrdering Facility: [facility] Address: [address] [place] [address] Performed By: #### 5 7021-8 ####[facility] LABCLIA [id number] [place] [address] [place] Nucleated RBC/100 WBC (Bld) [Ratio] 0.0 /[address] [facility] Comment on above: Order Comment: Speci men Type: BLOOD SPECIMENOrdering Facility: [facility] Address: [address] [place] [address] Performed By: #### 5 7021-8 ####[facility] LABCLIA [id number] [place] [address] [place] Platelet mean volume (Bld) [Entitic vol] 11.4 fL Normal 9.0-12.7 [facility] Comment on above: Order Comment: Speci men Type: BLOOD SPECIMENOrdering Facility: [facility] Address: [address] [place] [address] Performed By: #### 5 7021-8 ####[facility] LABCLIA [id number] [place] [address] [place] Platelets (Bld) [#/Vol] 215 10*3/uL Normal 150-400 [facility] Comment on above: Order Comment: Speci men Type: BLOOD SPECIMENOrdering Facility: [facility] Address: [address] [place] [address] Performed By: #### 5 7021-8 ####[facility] LABIA [id number] [place] [address] [place] RBC (Bld) [#/Vol] 4.60 10*6/uL Normal 3.90-5.20 [facility] Comment on above: Order Comment: Speci men Type: BLOOD SPECIMENOrdering Facility: [facility] Address: [address] [place] [address] Performed By: #### 5 7021-8 ####[facility] LABIA [id number] [place] [address] [place] WBC (Bld) [#/Vol] 8.64 10*3/uL Normal 3.70-11.00 [facility] Comment on above: Order Comment: Speci men Type: BLOOD SPECIMENOrdering Facility: [facility] Address: [address] [place] [address] Performed By: #### 5 7021-8 ####[facility] LABIA [id number] [place] [address] [place] Comprehensive metabolic 2000 panelon 03-02-2024 Albumin [Mass/Vol] 3.9 g/dL Normal 3.9-4.9 [facility] Comment on above: Order Comment: Speci men Type: BLOOD SPECIMENOrdering Facility: [facility] Address: [address] [place] [address] Performed By: #### 2 284-8, 9, 73635-0 ####[facility] LABCLIA [id number] [place] [address] [place] ALP [Catalytic activity/Vol] 70 U/L Normal 34-123 [facility] Comment on above: Order Comment: Speci men Type: BLOOD SPECIMENOrdering Facility: [facility] Address: [address] [place] [address] Performed By: #### 2 284-8, 9, ####[facility] LABCLIA [id number] [place] [address] [place] ALT [Catalytic activity/Vol] 14 U/L Normal 7-38 [facility] Comment on above: Order Comment: Speci men Type: BLOOD SPECIMENOrdering Facility: [facility] Address: [address] [place] [address] Performed By: #### 2 284-8, 9, ####[facility] LABCLIA [id number] [place] [address] [place] Anion gap [Moles/Vol] 7 mmol/L Low 8-15 [facility] Comment on above: Order Comment: Speci men Type: BLOOD SPECIMENOrdering Facility: [facility] Address: [address] [place] [address] Performed By: #### 2 284-8, 2132-03, 22335-8 ####[facility] LABCLIA [id number] [place] [address] [place] AST [Catalytic activity/Vol] 14 U/L Normal 13-35 [facility] Comment on above: Order Comment: Speci men Type: BLOOD SPECIMENOrdering Facility: [facility] Address: [address] [place] [address] Performed By: #### 2 284-8, 9, 52002-9 ####[facility] LABCLIA [id number] [place] [address] [place] Bilirubin [Mass/Vol] 0.6 mg/dL Normal 0.2-1.3 [facility] Comment on above: Order Comment: Speci men Type: BLOOD SPECIMENOrdering Facility: [facility] Address: [address] [place] [address] Performed By: #### 2 284-8, 9, ####[facility] LABCLIA [id number] [place] [address] [place] Calcium [Mass/Vol] 9.3 mg/dL Normal 8.5-10.2 [facility] Comment on above: Order Comment: Speci men Type: BLOOD SPECIMENOrdering Facility: [facility] Address: [address] [place] [address] Performed By: #### 2 284-8, 2132-03, ####[facility] LABIA [id number] [place] [address] [place] Chloride [Moles/Vol] 105 mmol/L Normal 98-107 [facility] Comment on above: Order Comment: Speci men Type: BLOOD SPECIMENOrdering Facility: [facility] Address: [address] [place] [address] Performed By: #### 2 284-8, 9, ####[facility] LABIA [id number] [place] [address] [place] CO2 [Moles/Vol] 28 mmol/L Normal 22-30 [facility] Comment on above: Order Comment: Speci men Type: BLOOD SPECIMENOrdering Facility: [facility] Address: [address] [place] [address] Performed By: #### 2 284-8, 9, 29142-9 ####[facility] LABCLIA [id number] [address] [address] [place] Creatinine [Mass/Vol] 0.72 mg/dL Normal 0.58-0.96 [facility] Comment on above: Order Comment: Alison wray Type: BLOOD SPECIMENOrdering Facility: [facility] Address: [address] [place] [address] Performed By: #### 2 284-8, 9, 98757-4 ####[facility] LABIA [id number] [address] Creatinine and Glomerular filtration rate.predicted panel (S/P/Bld) 107 mL/min/1.73m??? Normal >=60 [facility] Comment on above: Order Comment: Alison wray Type: BLOOD SPECIMENOrdering Facility: [facility] Address: [address] [place] [address] Result Comment: Becka mated Glomerular Filtration Rate (eGFR) is calculated using the 2020 CKD-EPI creatinine equation. This equation utilizes serum creatinine, sex, and age as parameters. The creatinine assay has traceable calibration to isotope dilution-mass spectrometry. Refer to KDIGO guidelines for clinical interpretation. In patients with unstable renal function, e.g. those with acute kidney injury, the eGFR may not accurately reflect actual GFR. Performed By: #### 2 284-8, 2132-03, ####[facility] LABIA [id number] [place] [address] [place] Glucose [Mass/Vol] 92 mg/dL Normal 74-99 [facility] Comment on above: Order Comment: Alison wray Type: BLOOD SPECIMENOrdering Facility: [facility] Address: [address] [place] [address] Result Comment: The [place] Diabetes Association (ADA) provides guidance for cutoff values for fasting glucose and random glucose. The ADA defines fasting as no caloric intake for at least 8 hours. Fasting plasma glucose results between 100 to 125 mg/dL indicate increased risk for diabetes (prediabetes).Fasting plasma glucose results greater than or equal to 126 mg/dL meet the criteria for diagnosis of diabetes. In the absence of unequivocal hyperglycemia, results should be confirmed by repeat testing. In a patient with classic symptoms of hyperglycemia or hyperglycemic crisis, random plasma glucose results greater than or equal to 200 mg/dL meet the criteria for diagnosis of diabetes.Reference: Standards of Medical Care in Diabetes 2016, [place] Diabetes Association. Diabetes Care. 2016.39(Suppl 1). Performed By: #### 2 284-8, 2132-03, ####[facility] LABCLIA [id number] [place] [address] [place] Potassium [Moles/Vol] 5.3 mmol/L High 3.7-5.1 [facility] Comment on above: Order Comment: Speci men Type: BLOOD SPECIMENOrdering Facility: [facility] Address: [address] [place] [address] Performed By: #### 2 284-8, 2132-03, ####[facility] LABCLIA [id number] [place] [address] [place] Protein [Mass/Vol] 6.1 g/dL Low 6.3-8.0 [facility] Comment on above: Order Comment: Speci men Type: BLOOD SPECIMENOrdering Facility: [facility] Address: [address] [place] [address] Performed By: #### 2 284-8, 2132-03, ####[facility] LABCLIA [id number] [place] [address] [place] Sodium [Moles/Vol] 140 mmol/L Normal 136-144 [facility] Comment on above: Order Comment: Speci men Type: BLOOD SPECIMENOrdering Facility: [facility] Address: [address] [place] [address] Performed By: #### 2 284-8, 2132-03, ####[facility] LABCLIA [id number] [address] [address] [place] Urea nitrogen [Mass/Vol] 14 mg/dL Normal 7-21 [facility] Comment on above: Order Comment: Speci men Type: BLOOD SPECIMENOrdering Facility: [facility] Address: [address] [place] [address] Performed By: #### 2 284-8, 9, 21558-4 ####[facility] LABCLIA [id number] [place] [address] [place] Ferritin SerPl-mCncon 2023 Ferritin [Mass/Vol] 178.0 ng/mL Normal 14.7-205.1 [facility] Comment on above: Order Comment: Speci men Type: BLOOD SPECIMENOrdering Facility: [facility] Address: [address] [place] [address] Performed By: #### 2 4331-1, 3016-3, 41454-7, 2276-4 ####[facility] LABCLIA [id number] [place] [address] [place] Folate SerPl-mCncon 03-02-20 Folate [Mass/Vol] 8.3 ng/mL Normal >4.7 [facility] Comment on above: Order Comment: Speci men Type: BLOOD SPECIMENOrdering Facility: [facility] Address: [address] [place] [address] Performed By: #### 2 284-8, 9, 30526-5 ####[facility] LABCLIA [id number] [place] [address] [place] HbA1c (Bld)on 03-02-2024 Average glucose Estimated from glycated hemoglobin (Bld) [Mass/Vol] 94 mg/dL Normal [facility] Comment on above: Order Comment: Speci men Type: BLOOD SPECIMENOrdering Facility: [facility] Address: [address] [place] [address] Result Comment: eAG: (Estimated average glucose) is a calculated value from HgbA1c and is nutrition representative of the average blood glucose level in the last 2-3 month period. Performed By: #### 5 5454-3 ####[facility] LABCLIA [id number] [place] [address] [place] HbA1c (Bld) [Mass fraction] 4.9 % Normal 4.3-5.6 [facility] Comment on above: Order Comment: Speci men Type: BLOOD SPECIMENOrdering Facility: [facility] Address: [address] [place] [address] Result Comment: [place] Diabetes Association guidelines indicate that patients with HgbA1c in the range 5.7-6.4% are at increased risk for development of diabetes, and intervention by lifestyle modification may be beneficial. HgbA1c greater or equal to 6.5% is considered diagnostic of diabetes. Performed By: #### 5 5454-3 ####[facility] [id number] [place] [address] [place] Iron and Iron binding capaci ty panelon 03-02-2024 Iron [Mass/Vol] 105 ug/dL Normal 41-186 [facility] Comment on above: Order Comment: Speci men Type: BLOOD SPECIMENOrdering Facility: [facility] Address: [address] [place] [address] Performed By: #### 2 4331-1, 3016-3, 99868-0, 2276-4 ####[facility] [id number] [place] [address] [place] Iron binding capacity [Mass/Vol] 269 ug/dL Normal 232-386 [facility] Comment on above: Order Comment: Speci men Type: BLOOD SPECIMENOrdering Facility: [facility] Address: [address] [place] [address] Performed By: #### 2 4331-1, 3016-3, 78843-3, 2276-4 ####[facility] LABIA [id number] [place] [address] [place] Iron/TIBC [Molar ratio] 39.0 % Normal 15.0-57.0 [facility] Comment on above: Order Comment: Speci men Type: BLOOD SPECIMENOrdering Facility: [facility] Address: [address] [place] [address] Performed By: #### 2 4331-1, 3016-3, 40250-2, 2275-10 ####[facility] LABCLIA [id number] [address] [address] [place] Lipid 1996 panelon 4 Cholesterol [Mass/Vol] 219 mg/dL High <200 [facility] Comment on above: Order Comment: Speci men Type: BLOOD SPECIMENOrdering Facility: [facility] Address: [address] [place] [address] Result Comment: <200 mg/dL, Desirable 200-239 mg/dL, Borderline high>239 mg/dL, High Performed By: #### 2 4331-1, 6-3, 75269-5, 2275-10 ####[facility] LABCLIA [id number] [place] [address] [place] Cholesterol in HDL [Mass/Vol] 51 mg/dL Normal >39 [facility] Comment on above: Order Comment: Speci men Type: BLOOD SPECIMENOrdering Facility: [facility] Address: [address] [place] [address] Result Comment: 40-5 9 mg/dL, Acceptable>59 mg/dL, High: Negative risk factor for coronary heart disease<40 mg/dL, Low: Positive risk factor for coronary heart disease Performed By: #### 2 4331-1, 6-3, 95064-7, 2275-10 ####[facility] LABCLIA [id number] [address] [address] [place] Cholesterol in LDL [Mass/Vol] 150 mg/dL High <100 [facility] Comment on above: Order Comment: Speci men Type: BLOOD SPECIMENOrdering Facility: [facility] Address: [address] [place] [address] Result Comment: <100 mg/dL, Optimal 100-129 mg/dL, Near optimal/above optimal 130-159 mg/dL, Borderline high 160-189 mg/dL, High>189 mg/dL, Very highSecondary prevention optimal LDL Cholesterol levels are recommended to be < 70 mg/dL Performed By: #### 2 4331-1, 3016-3, 33401-4, 2275-4 ####[facility] LABCLIA [id number] [address] [address] [place] Cholesterol in LDL/Cholesterol in HDL [Mass ratio] 2.94 {ratio} High <2.54 [facility] Comment on above: Order Comment: Speci men Type: BLOOD SPECIMENOrdering Facility: [facility] Address: [address] [place] [address] Result Comment: Kristin barreto:1. National Cholesterol Education Program ATP III Guideline At-A-Glance Quick Desk Reference: National Heart, Lung, and Blood Ismay. National Institutes of Health. 2001: NIH Publication No. 01-3305.2. An International Atherosclerosis Society position paper: global recommendations for the management of dyslipidemia: executive summary, Atherosclerosis. 2014: 232(2):410-413. Performed By: #### 2 4331-1, 3016-3, 30602-3, 2275-4 ####[facility] LABIA [id number] [place] [address] [place] Cholesterol in VLDL [Mass/Vol] 18 mg/dL Normal <30 [facility] Comment on above: Order Comment: Speci men Type: BLOOD SPECIMENOrdering Facility: [facility] Address: [address] [place] [address] Performed By: #### 2 4331-1, 3016-3, 32959-7, 2275-4 ####[facility] LABCLIA [id number] [address] [address] [place] Cholesterol non HDL [Mass/Vol] 168 mg/dL High <130 [facility] Comment on above: Order Comment: Speci men Type: BLOOD SPECIMENOrdering Facility: [facility] Address: [address] [place] [address] Result Comment: <130 mg/dL, Optimal 130-159 mg/dL, Near optimal/above optimal 160-189 mg/dL, Borderline high 190-219 mg/dL, High>219 mg/dL, Very highSecondary prevention optimal non HDL Cholesterol levels are recommended to be <100 mg/dL Performed By: #### 2 4331-1, 3016-3, 56020-4, 2275-4 ####[facility] LABCLIA [id number] [address] [address] [place] Cholesterol.total/Ch olesterol in HDL [Mass ratio] 4.29 {ratio} Normal <5.10 [facility] Comment on above: Order Comment: Speci men Type: BLOOD SPECIMENOrdering Facility: [facility] Address: [address] [place] [address] Performed By: #### 2 4331-1, 6-3, 74332-0, 2275-10 ####[facility] LABCLIA [id number] [place] [address] [place] FASTING TIME [address] [facility] Comment on above: Order Comment: Speci men Type: BLOOD SPECIMENOrdering Facility: [facility] Address: [address] [place] [address] Performed By: #### 2 4331-1, 6-3, 93316-7, 2275-10 ####[facility] LABCLIA [id number] [place] [address] [place] Triglyceride [Mass/Vol] 92 mg/dL Normal <150 [facility] Comment on above: Order Comment: Speci men Type: BLOOD SPECIMENOrdering Facility: [facility] Address: [address] [place] [address] Result Comment: <150 mg/dL, Normal 150-199 mg/dL, Borderline high 200-499 mg/dL, High>499 mg/dL, Very high Performed By: #### 2 4331-1, 3016-3, 70351-1, 2275-4 ####[facility] LABCLIA [id number] [place] [address] [place] TSH SerPl-aCncon 03-02-2024 TSH Qn 2.530 m[IU]/L Normal 0.270-4.[address] [facility] Comment on above: Order Comment: Alison wray Type: BLOOD SPECIMENOrdering Facility: [facility] Address: [address] [place] [address] Result Comment: If t he patient is , TSH reference range varies by gestational period:First Trimester (weeks 9-12): 0.180-2.990 mIU/LSecond Trimester: 0.110-3.980 mIU/LThird Trimester: 0.480-4.710 mIU/Beryl Liang et al. A Practical Approach for the Verifications and Determination of Site- and Trimester-Specific Reference Intervals for Thyroid Function tests in . Thyroid, 2019:29:3:412-420. Rihcard E, et al. 2017 Guidelines of the [place] Thyroid Association for the Diagnosis and Management of Thyroid Disease during and the . Thyroid, 2017:27:3:315-389. Performed By: #### 2 4331-1, 3016-3, 46828-1, 2276-4 ####[facility] LABCLIA [id number] [place] [address] [place] VITAMIN B1 (THIAMINE), WHOLE BLOODon 03-02-2024 Thiamine (Bld) [Moles/Vol] 147.3 nmol/L Normal 84.3-213.3 [facility] Comment on above: Order Comment: Speci men Type: BLOOD SPECIMENOrdering Facility: [facility] Address: [address] [place] [address] Result Comment: This assay measures the concentration of thiamine diphosphate (TDP), the primary active form of vitamin B1. Approximately 90 percent of vitamin B1 present in whole blood is TDP. Thiamine and thiamine monophosphate, which comprise the remaining 10 percent, are not measured.This test was developed and its performance characteristics determined by [facility] Path[facility] Laboratory [facility] ([facility]). It has not been cleared or approved by the FDA. [facility] is regulated under CLIA as qualified to perform high-complexity testing. This test is used for clinical purposes. It should not be regarded as investigational or for research. Performed By: #### B 1WB ####[facility] LABCLIA [id number] [place] [address] [place] Vit B12 SerPl-ncon 03-02-2 024 Cobalamin (Vitamin B12) [Mass/Vol] 696 pg/mL Normal 232-1245 [facility] Comment on above: Order Comment: Speci men Type: BLOOD SPECIMENOrdering Facility: [facility] Address: [address] [place] [address] Performed By: #### 2 284-8, 2132-9, 67171-4 ####[facility] LABCLIA [id number] [place] [address] [place] CNOVon 02-29-[address] [facility] CNPNon 02-17-[address] [facility] CNOVon 11-24-[address] [facility] CNOVon 11-04-[address] [facility] CNPNon 10-05-[address] [facility] Basic metabolic 2000 panelon 09-29-2023 Anion gap [Moles/Vol] 7 mmol/L Low 9-18 [facility] Comment on above: Order Comment: Speci men Type: BLOOD SPECIMENOrdering Facility: [facility] Address: [address] [place] [address] Performed By: #### 2 777-1, 58589-6, ####[facility] LABIA [id number] [place] [address] [place] Calcium [Mass/Vol] 9.2 mg/dL Normal 8.5-10.2 [facility] Comment on above: Order Comment: Speci men Type: BLOOD SPECIMENOrdering Facility: [facility] Address: [address] [place] [address] Performed By: #### 2 777-1, , ####[facility] LABCLIA [id number] [address] [address] [place] Chloride [Moles/Vol] 106 mmol/L High 97-105 [facility] Comment on above: Order Comment: Speci men Type: BLOOD SPECIMENOrdering Facility: [facility] Address: [address] [place] [address] Performed By: #### 2 777-1, , ####[facility] LABIA [id number] [place] [address] [place] CO2 [Moles/Vol] 25 mmol/L Normal 22-30 [facility] Comment on above: Order Comment: Speci men Type: BLOOD SPECIMENOrdering Facility: [facility] Address: [address] [place] [address] Performed By: #### 2 777-1, , ####[facility] LABIA [id number] [place] [id number] [place] Creatinine [Mass/Vol] 0.58 mg/dL Normal 0.58-0.96 [facility] Comment on above: Order Comment: Speci men Type: BLOOD SPECIMENOrdering Facility: [facility] Address: [address] [place] [address] Performed By: #### 2 777-1, , ####[facility] LABIA [id number] [address] [address] [place] Creatinine and Glomerular filtration rate.predicted panel (S/P/Bld) 115 mL/min/1.73m??? Normal >=60 [facility] Comment on above: Order Comment: Speci men Type: BLOOD SPECIMENOrdering Facility: [facility] Address: [address] [place] [address] Result Comment: Becka mated Glomerular Filtration Rate (eGFR) is calculated using the 2021 CKD-EPI creatinine equation. This equation utilizes serum creatinine, sex, and age as parameters. The creatinine assay has traceable calibration to isotope dilution-mass spectrometry. Refer to KDIGO guidelines for clinical interpretation. In patients with unstable renal function, e.g. those with acute kidney injury, the eGFR may not accurately reflect actual GFR. Performed By: #### 2 777-1, 71781-6, ####[facility] LABCLIA [id number] [facility] [address] [address] [place] Glucose [Mass/Vol] 105 mg/dL High 74-99 [facility] Comment on above: Order Comment: Speci men Type: BLOOD SPECIMENOrdering Facility: [facility] Address: [address] [place] [address] Result Comment: The [place] Diabetes Association (ADA) provides guidance for cutoff values for fasting glucose and random glucose. The ADA defines fasting as no caloric intake for at least 8 hours. Fasting plasma glucose results between 100 to 125 mg/dL indicate increased risk for diabetes (prediabetes).Fasting plasma glucose results greater than or equal to 126 mg/dL meet the criteria for diagnosis of diabetes. In the absence of unequivocal hyperglycemia, results should be confirmed by repeat testing. In a patient with classic symptoms of hyperglycemia or hyperglycemic crisis, random plasma glucose results greater than or equal to 200 mg/dL meet the criteria for diagnosis of diabetes.Reference: Standards of Medical Care in Diabetes 2016, [place] Diabetes Association. Diabetes Care. 2016.39(Suppl 1). Performed By: #### 2 777-1, 40735-2, ####[facility] LABCLIA [id number] [facility] [address] [address] [place] Potassium [Moles/Vol] 4.2 mmol/L Normal 3.7-5.1 [facility] Comment on above: Order Comment: Alison wray Type: BLOOD SPECIMENOrdering Facility: [facility] Address: [address] [place] [address] Performed By: #### 2 777-1, 25877-0, ####[facility] LABCLIA [id number] [place] [address] [place] Sodium [Moles/Vol] 138 mmol/L Normal 136-144 [facility] Comment on above: Order Comment: Speci men Type: BLOOD SPECIMENOrdering Facility: [facility] Address: [address] [place] [address] Performed By: #### 2 777-1, 82663-3, 58344-9 ####[facility] LABCLIA [id number] [place] [address] [place] Urea nitrogen [Mass/Vol] 6 mg/dL Low 7-21 [facility] Comment on above: Order Comment: Speci men Type: BLOOD SPECIMENOrdering Facility: [facility] Address: [address] [place] [address] Performed By: #### 2 777-1, 40773-9, ####[facility] LABCLIA [id number] [place] [address] [place] CASE MANAGEMon 09-29-[address] [facility] CBC W Auto Differential pane l (Bld)on 09-29-2023 Basophils (Bld) [#/Vol] 10*3/uL Normal <0.11 [facility] Comment on above: Order Comment: Speci men Type: BLOOD SPECIMENOrdering Facility: [facility] Address: [address] [place] [address] Performed By: #### 5 7021-8 ####[facility] LABCLIA [id number] [place] [address] [place] Basophils/100 WBC (Bld) 0.2 % Normal [facility] Comment on above: Order Comment: Speci men Type: BLOOD SPECIMENOrdering Facility: [facility] Address: [address] [place] [address] Performed By: #### 5 7021-8 ####[facility] LABCLIA [id number] [place] [address] [place] Differential cell count method Nom (Bld) Auto Normal [facility] Comment on above: Order Comment: Speci men Type: BLOOD SPECIMENOrdering Facility: [facility] Address: [address] [place] [address] Performed By: #### 5 7021-8 ####[facility] LABCLIA [id number] [place] [address] [place] Eosinophils (Bld) [#/Vol] 10*3/uL Normal <0.46 [facility] Comment on above: Order Comment: Speci men Type: BLOOD SPECIMENOrdering Facility: [facility] Address: [address] [place] [address] Performed By: #### 5 7021-8 ####[facility] LABCLIA [id number] [place] [address] [place] Eosinophils/100 WBC (Bld) 0.1 % Normal [facility] Comment on above: Order Comment: Speci men Type: BLOOD SPECIMENOrdering Facility: [facility] Address: [address] [place] [address] Performed By: #### 5 7021-8 ####[facility] LABCLIA [id number] [place] [address] [place] Erythrocyte distribution width (RBC) [Ratio] 12.5 % Normal 11.5-15.0 [facility] Comment on above: Order Comment: Speci men Type: BLOOD SPECIMENOrdering Facility: [facility] Address: [address] [place] [address] Performed By: #### 5 7021-8 ####[facility] LABCLIA [id number] [place] [address] [place] Hematocrit (Bld) [Volume fraction] 35.5 % Low 36.0-46.0 [facility] Comment on above: Order Comment: Speci men Type: BLOOD SPECIMENOrdering Facility: [facility] Address: [address] [place] [address] Performed By: #### 5 7021-8 ####[facility] LABCLIA [id number] [place] [address] [place] Hemoglobin (Bld) [Mass/Vol] 11.7 g/dL Normal 11.5-15.5 [facility] Comment on above: Order Comment: Speci men Type: BLOOD SPECIMENOrdering Facility: [facility] Address: [address] [place] [address] Performed By: #### 5 7021-8 ####[facility] LABCLIA [id number] [place] [address] [place] Immature granulocytes (Bld) [#/Vol] 0.04 10*3/uL Normal <0.10 [facility] Comment on above: Order Comment: Speci men Type: BLOOD SPECIMENOrdering Facility: [facility] Address: [address] [place] [address] Performed By: #### 5 7021-8 ####[facility] LABCLIA [id number] [place] [address] [place] Immature granulocytes/100 WBC (Bld) 0.4 % Normal [facility] Comment on above: Order Comment: Speci men Type: BLOOD SPECIMENOrdering Facility: [facility] Address: [address] [place] [address] Performed By: #### 5 7021-8 ####[facility] LABCLIA [id number] [place] [address] [place] Lymphocytes (Bld) [#/Vol] 1.31 10*3/uL Normal 1.00-4.00 [facility] Comment on above: Order Comment: Speci men Type: BLOOD SPECIMENOrdering Facility: [facility] Address: [address] [place] [address] Performed By: #### 5 7021-8 ####[facility] LABCLIA [id number] [address] [place] Lymphocytes/100 WBC (Bld) 11.9 % Normal [facility] Comment on above: Order Comment: Speci men Type: BLOOD SPECIMENOrdering Facility: [facility] Address: [address] [place] [address] Performed By: #### 5 7021-8 ####[facility] LABCLIA [id number] [place] [address] [place] MCH (RBC) [Entitic mass] 28.9 pg Normal 26.0-34.0 [facility] Comment on above: Order Comment: Speci men Type: BLOOD SPECIMENOrdering Facility: [facility] Address: [address] [place] [address] Performed By: #### 5 7021-8 ####[facility] LABCLIA [id number] [place] [address] [place] MCHC (RBC) [Mass/Vol] 33.0 g/dL Normal 30.5-36.0 [facility] Comment on above: Order Comment: Speci men Type: BLOOD SPECIMENOrdering Facility: [facility] Address: [address] [place] [address] Performed By: #### 5 7021-8 ####[facility] LABIA [id number] [place] [address] [place] MCV (RBC) [Entitic vol] 87.7 fL Normal 80.0-100.0 [facility] Comment on above: Order Comment: Speci men Type: BLOOD SPECIMENOrdering Facility: [facility] Address: [address] [place] [address] Performed By: #### 5 7021-8 ####[facility] LABCLIA [id number] [place] [address] [place] Monocytes (Bld) [#/Vol] 0.69 10*3/uL Normal <0.87 [facility] Comment on above: Order Comment: Speci men Type: BLOOD SPECIMENOrdering Facility: [facility] Address: [address] [place] [address] Performed By: #### 5 7021-8 ####[facility] LABCLIA [id number] [place] [address] [place] Monocytes/100 WBC (Bld) 6.3 % Normal [facility] Comment on above: Order Comment: Speci men Type: BLOOD SPECIMENOrdering Facility: [facility] Address: [address] [place] [address] Performed By: #### 5 7021-8 ####[facility] LABCLIA [id number] [place] [address] [place] Neutrophils (Bld) [#/Vol] 8.94 10*3/uL High 1.45-7.50 [facility] Comment on above: Order Comment: Speci men Type: BLOOD SPECIMENOrdering Facility: [facility] Address: [address] [place] [address] Performed By: #### 5 7021-8 ####[facility] LABCLIA [id number] [place] [address] [place] Neutrophils/100 WBC (Bld) 81.1 % Normal [facility] Comment on above: Order Comment: Speci men Type: BLOOD SPECIMENOrdering Facility: [facility] Address: [address] [place] [address] Performed By: #### 5 7021-8 ####[facility] LABCLIA [id number] [place] [address] [place] Nucleated RBC (Bld) [#/Vol] 10*3/uL Normal <0.01 [facility] Comment on above: Order Comment: Speci men Type: BLOOD SPECIMENOrdering Facility: [facility] Address: [address] [place] [address] Performed By: #### 5 7021-8 ####[facility] LABCLIA [id number] [place] [address] [place] Nucleated RBC/100 WBC (Bld) [Ratio] 0.0 /[address] [facility] Comment on above: Order Comment: Speci men Type: BLOOD SPECIMENOrdering Facility: [facility] Address: [address] [place] [address] Performed By: #### 5 7021-8 ####[facility] LABCLIA [id number] [place] [address] [place] Platelet mean volume (Bld) [Entitic vol] 10.6 fL Normal 9.0-12.7 [facility] Comment on above: Order Comment: Speci men Type: BLOOD SPECIMENOrdering Facility: [facility] Address: [address] [place] [address] Performed By: #### 5 7021-8 ####[facility] LABCLIA [id number] [place] [address] [place] Platelets (Bld) [#/Vol] 199 10*3/uL Normal 150-400 [facility] Comment on above: Order Comment: Speci men Type: BLOOD SPECIMENOrdering Facility: [facility] Address: [address] [place] [address] Performed By: #### 5 7021-8 ####[facility] LABIA [id number] [place] [address] [place] RBC (Bld) [#/Vol] 4.05 10*6/uL Normal 3.90-5.20 [facility] Comment on above: Order Comment: Speci men Type: BLOOD SPECIMENOrdering Facility: [facility] Address: [address] [place] [address] Performed By: #### 5 7021-8 ####[facility] LABCLIA [id number] [place] [address] [place] WBC (Bld) [#/Vol] 11.01 10*3/uL High 3.70-11.00 [facility] Comment on above: Order Comment: Speci men Type: BLOOD SPECIMENOrdering Facility: [facility] Address: [address] [place], [place] [address] Performed By: #### 5 7021-8 ####[facility] LABIA [id number] [place] [id number] [place] CNCOon 09-29-[address] [facility] CNDSon 09-29-[address] [facility] ECG COMPLETEon 09-29-[address] [facility] Magnesium SerPl-mCncon 09-28 Magnesium [Mass/Vol] 2.1 mg/dL Normal 1.7-2.3 [facility] Comment on above: Order Comment: Speci men Type: BLOOD SPECIMENOrdering Facility: [facility] Address: [address] [place] [address] Performed By: #### 2 777-1, 49063-7, ####[facility] LABIA [id number] [place] [id number] [place] PT EDon 09-29-[address] [facility] Phosphate SerPl-mCncon 09-28 Phosphate [Mass/Vol] 2.6 mg/dL [facility]8 [facility] Comment on above: Order Comment: Speci men Type: BLOOD SPECIMENOrdering Facility: [facility] Address: [address] [place] [address] Performed By: #### 2 777-1, 35925-9, 37222-2 ####[facility] LABIA [id number] [place] [id number] [place] ALLIED HEALTHon 09-28-[address] [facility] ANES POSTPROC EVALon 024 ANES POSTPROC EVAL Normal [facility] ANES PRE-OPon 09-28-2023 ANES PRE-OP Normal [facility] BRIEF OP NOTon 09-28-2023 [address] NOT Normal [facility] OPERATIVE NOon 09-28-[address] [facility] SURGICAL PATHOLOGYon [address] [facility] Comment on above: Order Comment: Speci men Type: TISSUE SPECIMENOrdering Facility: [facility] Address: [address] [place] [address] Result Comment: Surg ical Pathology Report Case: [id number] Provider: Huan Meeks MD Collected: 09/28/2023 11:40 AMOrdering Location: Admitting Received: 09/28/2023 02:04 PMPathologist: Nory Winters MDSpecimen: STOMACH RESECTION, partial gastrectomy Performed By: #### S ####[facility] LABCLIA [id number] [address] [place] CLINICAL HISTORY Normal [facility] Comment on above: Order Comment: Speci men Type: TISSUE SPECIMENOrdering Facility: [facility] Address: [address] [place] [address] Result Comment: Pre- op diagnosis:Class 3 severe obesity due to excess calories with body mass index (BMI) of 45.0 to 49.9 in adult, unspecified whether serious comorbidity present (HCC) [E66.01, Z68.42] Performed By: #### S ####[facility] LABCLIA [id number] [address] [place] FINAL DIAGNOSIS Normal [facility] Comment on above: Order Comment: Speci men Type: TISSUE SPECIMENOrdering Facility: [facility] Address: [address] [place] [address] Result Comment: Leon Wolfe tompawel, partial gastrectomy:- Gastric oxyntic-type tissue with Helicobacter pylori-induced gastritis.- Negative for intestinal metaplasia. Performed By: #### S ####[facility] LABCLIA [id number] [address] [place] FINAL PERFORMING LAB Normal [facility] Comment on above: Order Comment: Speci men Type: TISSUE SPECIMENOrdering Facility: [facility] Address: [address] [place] [address] Result Comment: Diag nostic interpretation performed at [facility], [address] [place] [address] CLIA# [id number] Director: Jimmie Reyes M.D. Performed By: #### S ####[facility] LABCLIA [id number] [address] GROSS DESCRIPTION Normal [facility] Comment on above: Order Comment: Speci men Type: TISSUE SPECIMENOrdering Facility: [facility] Address: [address] [place] [address] Result Comment: A. S TOMACH RESECTIONReceived fresh labeled with the patient's name, medical record number, and partial gastrectomy is a 16.0 x 4.0 x 2.5 cm partial gastrectomy specimen demonstrating a single staple line. The serosal surface is cruz and smooth. Opening reveals cruz-pink velvety mucosa with the usual rugal folds and a wall thickness ranging from 0.1 to 0.2 cm. No polyps or mass lesions are identified. Deck Scaler sections are submitted in A1.Gross examination performed at [facility], [address] [place] [address] CLIA# [id number] 09/28/23 Performed By: #### S ####[facility] LABCLIA [id number] [address] [place] CBC W Auto Differential pane l (Bld)on 09-22-2023 Basophils (Bld) [#/Vol] 0.03 10*3/uL Normal <0.11 [facility] Comment on above: Order Comment: Speci men Type: BLOOD SPECIMENOrdering Facility: [facility] Address: [address] [place] [address] Performed By: #### 5 7021-8 ####[facility] LABCLIA [id number] [place] [address] [place] Basophils/100 WBC (Bld) 0.4 % Normal [facility] Comment on above: Order Comment: Speci men Type: BLOOD SPECIMENOrdering Facility: [facility] Address: [address] [place] [address] Performed By: #### 5 7021-8 ####[facility] LABCLIA [id number] [place] [address] [place] Differential cell count method Nom (Bld) Auto Normal [facility] Comment on above: Order Comment: Speci men Type: BLOOD SPECIMENOrdering Facility: [facility] Address: [address] [place] [address] Performed By: #### 5 7021-8 ####[facility] LABCLIA [id number] [place] [address] [place] Eosinophils (Bld) [#/Vol] 0.25 10*3/uL Normal <0.46 [facility] Comment on above: Order Comment: Speci men Type: BLOOD SPECIMENOrdering Facility: [facility] Address: [address] [place] [address] Performed By: #### 5 7021-8 ####[facility] LABCLIA [id number] [place] [address] [place] Eosinophils/100 WBC (Bld) 3.3 % Normal [facility] Comment on above: Order Comment: Speci men Type: BLOOD SPECIMENOrdering Facility: [facility] Address: [address] [place] [address] Performed By: #### 5 7021-8 ####[facility] LABCLIA [id number] [place] [address] [place] Erythrocyte distribution width (RBC) [Ratio] 12.5 % Normal 11.5-15.0 [facility] Comment on above: Order Comment: Speci men Type: BLOOD SPECIMENOrdering Facility: [facility] Address: [address] [place] [address] Performed By: #### 5 7021-8 ####[facility] LABCLIA [id number] [place] [address] [place] Hematocrit (Bld) [Volume fraction] 39.8 % Normal 36.0-46.0 [facility] Comment on above: Order Comment: Speci men Type: BLOOD SPECIMENOrdering Facility: [facility] Address: [address] [place] [address] Performed By: #### 5 7021-8 ####[facility] LABIA [id number] [place] [address] [place] Hemoglobin (Bld) [Mass/Vol] 13.0 g/dL Normal 11.5-15.5 [facility] Comment on above: Order Comment: Speci men Type: BLOOD SPECIMENOrdering Facility: [facility] Address: [address] [place] [address] Performed By: #### 5 7021-8 ####[facility] LABIA [id number] [place] [address] [place] Immature granulocytes (Bld) [#/Vol] 10*3/uL Normal <0.10 [facility] Comment on above: Order Comment: Speci men Type: BLOOD SPECIMENOrdering Facility: [facility] Address: [address] [place] [address] Performed By: #### 5 7021-8 ####[facility] LABCLIA [id number] [place] [address] [place] Immature granulocytes/100 WBC (Bld) 0.1 % Normal [facility] Comment on above: Order Comment: Speci men Type: BLOOD SPECIMENOrdering Facility: [facility] Address: [address] [place] [address] Performed By: #### 5 7021-8 ####[facility] LABCLIA [id number] [place] [address] [place] Lymphocytes (Bld) [#/Vol] 1.95 10*3/uL Normal 1.00-4.00 [facility] Comment on above: Order Comment: Speci men Type: BLOOD SPECIMENOrdering Facility: [facility] Address: [address] [place] [address] Performed By: #### 5 7021-8 ####[facility] LABCLIA [id number] [place] [address] [place] Lymphocytes/100 WBC (Bld) 25.4 % Normal [facility] Comment on above: Order Comment: Speci men Type: BLOOD SPECIMENOrdering Facility: [facility] Address: [address] [place] [address] Performed By: #### 5 7021-8 ####[facility] LABCLIA [id number] [place] [address] [place] MCH (RBC) [Entitic mass] 28.9 pg Normal 26.0-34.0 [facility] Comment on above: Order Comment: Speci men Type: BLOOD SPECIMENOrdering Facility: [facility] Address: [address] [place] [address] Performed By: #### 5 7021-8 ####[facility] LABCLIA [id number] [place] [address] [place] MCHC (RBC) [Mass/Vol] 32.7 g/dL Normal 30.5-36.0 [facility] Comment on above: Order Comment: Speci men Type: BLOOD SPECIMENOrdering Facility: [facility] Address: [address] [place] [address] Performed By: #### 5 7021-8 ####[facility] LABCLIA [id number] [place] [address] [place] MCV (RBC) [Entitic vol] 88.4 fL Normal 80.0-100.0 [facility] Comment on above: Order Comment: Speci men Type: BLOOD SPECIMENOrdering Facility: [facility] Address: [address] [place] [address] Performed By: #### 5 7021-8 ####[facility] LABCLIA [id number] [place] [address] [place] Monocytes (Bld) [#/Vol] 0.50 10*3/uL Normal <0.87 [facility] Comment on above: Order Comment: Speci men Type: BLOOD SPECIMENOrdering Facility: [facility] Address: [address] [place] [address] Performed By: #### 5 7021-8 ####[facility] LABCLIA [id number] [place] [address] [place] Monocytes/100 WBC (Bld) 6.5 % Normal [facility] Comment on above: Order Comment: Speci men Type: BLOOD SPECIMENOrdering Facility: [facility] Address: [address] [place] [address] Performed By: #### 5 7021-8 ####[facility] LABCLIA [id number] [place] [address] [place] Neutrophils (Bld) [#/Vol] 4.94 10*3/uL Normal 1.45-7.50 [facility] Comment on above: Order Comment: Speci men Type: BLOOD SPECIMENOrdering Facility: [facility] Address: [address] [place] [address] Performed By: #### 5 7021-8 ####[facility] LABCLIA [id number] [place] [address] [place] Neutrophils/100 WBC (Bld) 64.3 % Normal [facility] Comment on above: Order Comment: Speci men Type: BLOOD SPECIMENOrdering Facility: [facility] Address: [address] [place] [address] Performed By: #### 5 7021-8 ####[facility] LABCLIA [id number] [place] [address] [place] Nucleated RBC (Bld) [#/Vol] 10*3/uL Normal <0.01 [facility] Comment on above: Order Comment: Speci men Type: BLOOD SPECIMENOrdering Facility: [facility] Address: [address] [place] [address] Performed By: #### 5 7021-8 ####[facility] LABCLIA [id number] [place] [address] [place] Nucleated RBC/100 WBC (Bld) [Ratio] 0.0 /[address] [facility] Comment on above: Order Comment: Speci men Type: BLOOD SPECIMENOrdering Facility: [facility] Address: [address] [place] [address] Performed By: #### 5 7021-8 ####[facility] LABCLIA [id number] [place] [address] [place] Platelet mean volume (Bld) [Entitic vol] 10.4 fL Normal 9.0-12.7 [facility] Comment on above: Order Comment: Speci men Type: BLOOD SPECIMENOrdering Facility: [facility] Address: [address] [place] [address] Performed By: #### 5 7021-8 ####[facility] LABIA [id number] [place] [address] [place] Platelets (Bld) [#/Vol] 225 10*3/uL Normal 150-400 [facility] Comment on above: Order Comment: Speci men Type: BLOOD SPECIMENOrdering Facility: [facility] Address: [address] [place] [address] Performed By: #### 5 7021-8 ####[facility] LABCLIA [id number] [place] [address] [place] RBC (Bld) [#/Vol] 4.50 10*6/uL Normal 3.90-5.20 [facility] Comment on above: Order Comment: Speci men Type: BLOOD SPECIMENOrdering Facility: [facility] Address: [address] [place] [address] Performed By: #### 5 7021-8 ####[facility] LABCLIA [id number] [place] [address] [place] WBC (Bld) [#/Vol] 7.68 10*3/uL Normal 3.70-11.00 [facility] Comment on above: Order Comment: Speci men Type: BLOOD SPECIMENOrdering Facility: [facility] Address: [address] [place] [address] Performed By: #### 5 7021-8 ####[facility] LABCLIA [id number] [place] [address] [place] CNCNPATEDon 09-22-[address] [facility] CNOVon 09-22-[address] [facility] CONFIRM BLOOD TYPEon [address] [facility] Comment on above: Order Comment: Speci men Type: BLOOD SPECIMENOrdering Facility: [facility] [facility] Address: [address] [place] [address] Performed By: #### C ONABO ####CC [facility] BLOOD BANKCLIA [id number] [place] [address] [place] Rh Nom (Bld) Positive Normal [facility] Comment on above: Order Comment: Speci men Type: BLOOD SPECIMENOrdering Facility: [facility] Address: [address] [place] [address] Performed By: #### C ONABO ####CC [facility] BLOOD BANKCLIA [id number] [place] [address] [place] Comprehensive metabolic 2000 panelon 09-22-2023 Albumin [Mass/Vol] 4.2 g/dL Normal 3.9-4.9 [facility] Comment on above: Order Comment: Speci men Type: BLOOD SPECIMENOrdering Facility: [facility] Address: [address] [place], [place] [address] Performed By: #### 2 4323-8 ####[facility] LABCLIA [id number] [place] [address] [place] ALP [Catalytic activity/Vol] 65 U/L Normal 34-123 [facility] Comment on above: Order Comment: Speci men Type: BLOOD SPECIMENOrdering Facility: [facility] Address: [address] [place] [address] Performed By: #### 2 4323-8 ####[facility] LABCLIA [id number] [place] [address] [place] ALT [Catalytic activity/Vol] 19 U/L Normal 7-38 [facility] Comment on above: Order Comment: Speci men Type: BLOOD SPECIMENOrdering Facility: [facility] Address: [address] [place] [address] Performed By: #### 2 4323-8 ####[facility] LABCLIA [id number] [place] [address] [place] Anion gap [Moles/Vol] 14 mmol/L Normal 9-18 [facility] Comment on above: Order Comment: Speci men Type: BLOOD SPECIMENOrdering Facility: [facility] Address: [address] [place] [address] Performed By: #### 2 4323-8 ####[facility] LABCLIA [id number] [place] [id number] [place] AST [Catalytic activity/Vol] 23 U/L Normal 13-35 [facility] Comment on above: Order Comment: Speci men Type: BLOOD SPECIMENOrdering Facility: [facility] Address: [address] [place], [place] [address] Performed By: #### 2 4323-8 ####[facility] LABCLIA [id number] [place] [id number] [place] Bilirubin [Mass/Vol] 0.4 mg/dL Normal 0.2-1.3 [facility] Comment on above: Order Comment: Speci men Type: BLOOD SPECIMENOrdering Facility: [facility] Address: [address] [place] [address] Performed By: #### 2 4323-8 ####[facility] LABCLIA [id number] [facility] [place] [address] [place] Calcium [Mass/Vol] 10.1 mg/dL Normal 8.5-10.2 [facility] Comment on above: Order Comment: Speci men Type: BLOOD SPECIMENOrdering Facility: [facility] Address: [address] [place] [address] Performed By: #### 2 4323-8 ####[facility] LABCLIA [id number] [place] [address] [place] Chloride [Moles/Vol] 103 mmol/L Normal 97-105 [facility] Comment on above: Order Comment: Speci men Type: BLOOD SPECIMENOrdering Facility: [facility] Address: [address] [place] [address] Performed By: #### 2 4323-8 ####[facility] LABCLIA [id number] [place] [address] [place] CO2 [Moles/Vol] 23 mmol/L Normal 22-30 [facility] Comment on above: Order Comment: Speci men Type: BLOOD SPECIMENOrdering Facility: [facility] Address: [address] [place] [address] Performed By: #### 2 4323-8 ####[facility] LABCLIA [id number] [place] [address] [place] Creatinine [Mass/Vol] 0.73 mg/dL Normal 0.58-0.96 [facility] Comment on above: Order Comment: Speci men Type: BLOOD SPECIMENOrdering Facility: [facility] Address: [address] [place] [address] Performed By: #### 2 4323-8 ####[facility] LABCLIA [id number] [place] [address] [facility] [place] Creatinine and Glomerular filtration rate.predicted panel (S/P/Bld) 105 mL/min/1.73m??? Normal >=60 [facility] Comment on above: Order Comment: Alison wray Type: BLOOD SPECIMENOrdering Facility: [facility] Address: [address] [place] [address] Result Comment: Becka mated Glomerular Filtration Rate (eGFR) is calculated using the 2020 CKD-EPI creatinine equation. This equation utilizes serum creatinine, sex, and age as parameters. The creatinine assay has traceable calibration to isotope dilution-mass spectrometry. Refer to KDIGO guidelines for clinical interpretation. In patients with unstable renal function, e.g. those with acute kidney injury, the eGFR may not accurately reflect actual GFR. Performed By: #### 2 4323-8 ####[facility] LABCLIA [id number] [place] [address] [place] Glucose [Mass/Vol] 91 mg/dL Normal 74-99 [facility] Comment on above: Order Comment: Alison wray Type: BLOOD SPECIMENOrdering Facility: [facility] Address: [address] [place] [address] Result Comment: The [place] Diabetes Association (ADA) provides guidance for cutoff values for fasting glucose and random glucose. The ADA defines fasting as no caloric intake for at least 8 hours. Fasting plasma glucose results between 100 to 125 mg/dL indicate increased risk for diabetes (prediabetes).Fasting plasma glucose results greater than or equal to 126 mg/dL meet the criteria for diagnosis of diabetes. In the absence of unequivocal hyperglycemia, results should be confirmed by repeat testing. In a patient with classic symptoms of hyperglycemia or hyperglycemic crisis, random plasma glucose results greater than or equal to 200 mg/dL meet the criteria for diagnosis of diabetes.Reference: Standards of Medical Care in Diabetes 2016, [place] [employer] Association. Diabetes Care. 2016.39(Suppl 1). Performed By: #### 2 4323-8 ####[facility] LABCLIA [id number] [place] [address] [place] Potassium [Moles/Vol] 4.1 mmol/L Normal 3.7-5.1 [facility] Comment on above: Order Comment: Speci men Type: BLOOD SPECIMENOrdering Facility: [facility] Address: [address] [place] [address] Performed By: #### 2 4323-8 ####[facility] LABCLIA [id number] [place] [address] [place] Protein [Mass/Vol] 7.1 g/dL Normal 6.3-8.0 [facility] Comment on above: Order Comment: Speci men Type: BLOOD SPECIMENOrdering Facility: [facility] Address: [address] [place] [address] Performed By: #### 2 4323-8 ####[facility] LABIA [id number] [place] [address] [place] Sodium [Moles/Vol] 140 mmol/L Normal 136-144 [facility] Comment on above: Order Comment: Speci men Type: BLOOD SPECIMENOrdering Facility: [facility] Address: [address] [place] [address] Performed By: #### 2 4323-8 ####[facility] LABIA [id number] [place] [address] [place] Urea nitrogen [Mass/Vol] 14 mg/dL Normal 7-21 [facility] Comment on above: Order Comment: Speci men Type: BLOOD SPECIMENOrdering Facility: [facility] Address: [address] [place], [place] [address] Performed By: #### 2 4323-8 ####[facility] LABCLIA [id number] [place] [address] [place] HISTORY PHYSICALon HISTORY PHYSICAL Normal [facility] TYPE AND SCREEN,30 DAYon ABO A Normal [facility] Comment on above: Order Comment: Speci men Type: BLOOD SPECIMENOrdering Facility: [facility] Address: [address] [place] [address] Performed By: #### T SCR30 ####CC [facility] BLOOD BANKCLIA [id number] [place] [address] [place] HISTORICAL AB SCR STATUS Negative Normal [facility] Comment on above: Order Comment: Speci men Type: BLOOD SPECIMENOrdering Facility: [facility] Address: [address] [place] [address] Performed By: #### T SCR30 ####CC [facility] BLOOD BANKCLIA [id number] [place] [address] [place] Rh Nom (Bld) Positive Normal [facility] Comment on above: Order Comment: Speci men Type: BLOOD SPECIMENOrdering Facility: [facility] Address: [address] [place] [address] Performed By: #### T SCR30 ####CC [facility] BLOOD BANKCLIA [id number] [place] [address] [place] CNPNon 08-31-[address] [facility] CNCOon 08-19-[address] [facility] CNOVon 08-19-[address] [facility] CNOVon 08-12-[address] [facility] CNTHERAPYon 07-30-[address] [facility] CNPNon 07-28-[address] [facility] CNTHERAPYon 07-28-[address] [facility] CNPNon 07-27-[address] [facility] CNTHERAPYon 07-23-[address] [facility] CNTHERAPYon 07-21-[address] [facility] CNTHERAPYon 07-16-[address] [facility] CNTHERAPYon 07-14-[address] [facility] THERAPY NTon 07-14-[address] [facility] CNPNon 07-13-[address] [facility] CNTHERAPYon 07-09-[address] [facility] CNTHERAPYon 06-25-[address] [facility] CNOVon 06-16-[address] [facility] CT KNEE WO IVCON RTon 2022 CT KNEE WO IVCON RT Normal [facility] CNCOon 06-05-[address] [facility] CNPNon 06-05-[address] [facility] CNTHERAPYon 06-05-[address] [facility] CNOVon 06-04-[address] [facility] ECHOon 06-04-2023 [facility] CNPNon 05-27-[address] [facility] CNTHERAPYon 05-22-[address] [facility] Folate SerPl-mCncon 05-21-20 23 Folate [Mass/Vol] 5.5 ng/mL Normal >4.7 [facility] Comment on above: Order Comment: Speci men Type: BLOOD SPECIMENOrdering Facility: [facility] Address: [address] [place] [address] Performed By: #### 3 3762-6, 2132-9, 2284-8 ####[facility] LABCLIA [id number] [place] [address] [place] HCG Preg Ur Qlon 05-21-2023 HCG ( test) Ql (U) Negative Normal Negative [facility] Comment on above: Order Comment: Speci men Type: URINE SPECIMENOrdering Facility: [facility] Address: [address] [place] [address] Result Comment: This test is intended to aid in the early detection of . Very dilute urine samples, as indicated by a low specific gravity, may not contain nutrition representative levels of hCG. This test detects intact hCG only. This test does not reliably detect hCG degradation products, including free-beta subunit and beta-core fragment. Therefore, this test may show reduced reactivity in urine after 8 weeks gestation. A number of conditions other than , including trophoblastic disease and certain non-trophoblastic neoplasms cause elevated levels of hCG. As with any assay employing mouse antibodies, the possibility exists for interference by human anti-mouse antibodies (HAMA) in the specimen. The test provides a presumptive diagnosis for . Performed By: #### 2 106-3 ####[facility] LABCLIA [id number] [facility] [place] [address] [place] NICOTINE AND METAB, URon URIN ANABASINE QUANT <5 Normal [facility] Comment on above: Order Comment: Speci men Type: URINE SPECIMENOrdering Facility: [facility] Address: [address] [place] [address] Performed By: #### U NICOT ####[facility]IES[facility] [id number] [place] [address] URIN COTININE QUANT <15 Normal [facility] Comment on above: Order Comment: Speci men Type: URINE SPECIMENOrdering Facility: [facility] Address: [address] [place] [address] Performed By: #### U NICOT ####[facility]OR[facility]IESCLIA [id number] [place] [address] URIN NICOTINE QUANT <15 Normal [facility] Comment on above: Order Comment: Speci men Type: URINE SPECIMENOrdering Facility: [facility] Address: [address] [place] [address] Result Comment: INTE RPRETIVE INFORMATION: Nicotine and Metabolites, Urine, QuantitativeMethodology: Quantitative Liquid Chromatography-Tandem MassSpectrometryPositive cutoff:Nicotine 15 ng/mLCotinine 15 ng/zI2-DK-Fqehrxoi 50 ng/mLAnabasine 5 ng/mLFor medical purposes only; not valid for forensic use.This test is designed to evaluate recent use ofnicotine-containing products. Passive and active exposure cannotbe discriminated definitively, although a cutoff of 100 ng/mLcotinine is frequently used for surgery qualification purposes.For smoking cessation programs or compliance testing, the absenceof expected drug(s) and/or drug metabolite(s) may indicatenon-compliance, inappropriate timing of specimen collectionrelative to drug administration, poor drug absorption,diluted/adulterated urine, or limitations of testing. Theconcentration value must be greater than or equal to the cutoff kylie reported as positive. Anabasine is included as a biomarker oftobacco use, versus nicotine replacement. Interpretive questionsshould be directed to the laboratory.This test was developed and its performance characteristicsdetermined by [employer]. It has not been cleared orapproved by the [place] Food and Drug Administration. This test wasperformed in a CLIA certified laboratory and is intended forclinical purposes.Performed By: [facility] [place], [place] [address]Iqwhtybsas Director: Darius Boyer MD, PhDCLIA Number: [id number] Performed By: #### U NICOT ####[facility] [id number] [place] [address] URINE 3 [place] COTININE <50 Normal [facility] Comment on above: Order Comment: Speci men Type: URINE SPECIMENOrdering Facility: [facility] Address: [address] [place] [address] Performed By: #### U NICOT ####[facility] [id number] [place] [address] NT-proBNP [facility] 05-21 Natriuretic peptide.B prohormone N-Terminal [Mass/Vol] 42 pg/mL Normal <125 [facility] Comment on above: Order Comment: Speci men Type: BLOOD SPECIMENOrdering Facility: [facility] Address: [address] [place] [address] Performed By: #### 3 3762-6, 2132-9, 2284-8 ####[facility] LABCLIA [id number] [place] [address] [place] TOX SCREEN ROUT URon 11-16-2 023 Amphetamines Confirm (U) [Mass/Vol] Negative Normal Negative [facility] Comment on above: Order Comment: Speci men Type: URINE SPECIMENOrdering Facility: [facility] Address: [address] [place] [address] Result Comment: Cuto ff threshold at 1000 ng/mL. Performed By: #### U TOX2 ####[facility] LABCLIA [id number] [place] [address] [place] BARBITURATES, URINE Negative Normal Negative [facility] Comment on above: Order Comment: Speci men Type: URINE SPECIMENOrdering Facility: [facility] Address: [address] [place] [address] Result Comment: Cuto ff threshold at 200 ng/mL. Performed By: #### U TOX2 ####[facility] LABCLIA [id number] [place] [address] [place] BENZODIAZEPINES, UR Negative Normal Negative [facility] Comment on above: Order Comment: Speci men Type: URINE SPECIMENOrdering Facility: [facility] Address: [address] [place] [address] Result Comment: Cuto ff threshold at 200 ng/mL. Performed By: #### U TOX2 ####[facility] LABCLIA [id number] [place] [address] [place] Cannabinoids Screen Ql (U) Negative Normal Negative [facility] Comment on above: Order Comment: Speci men Type: URINE SPECIMENOrdering Facility: [facility] Address: [address] [place] [address] Result Comment: Cuto ff threshold at 50 ng/mL. Performed By: #### U TOX2 ####[facility] LABCLIA [id number] [place] [address] [place] Cocaine Ql (U) Negative Normal Negative [facility] Comment on above: Order Comment: Speci men Type: URINE SPECIMENOrdering Facility: [facility] Address: [address] [place] [address] Result Comment: Cuto ff threshold at 300 ng/mL. Performed By: #### U TOX2 ####[facility] LABCLIA [id number] [place] [address] [place] Ethanol (U) [Mass/Vol] <11 Normal <11 [facility] Comment on above: Order Comment: Speci men Type: URINE SPECIMENOrdering Facility: [facility] Address: [address] [place] [address] Performed By: #### U TOX2 ####[facility] LABIA [id number] [place] [address] [place] Opiates Screen Ql (U) Negative Normal Negative [facility] Comment on above: Order Comment: Speci men Type: URINE SPECIMENOrdering Facility: [facility] Address: [address] [place] [address] Result Comment: Cuto ff threshold at 300 ng/mL. Performed By: #### U TOX2 ####[facility] LABIA [id number] [place] [address] [place] oxyCODONE cutoff Screen (U) [Mass/Vol] Negative Normal Negative [facility] Comment on above: Order Comment: Speci men Type: URINE SPECIMENOrdering Facility: [facility] Address: [address] [place] [address] Result Comment: Cuto ff threshold at 100 ng/mL. Performed By: #### U TOX2 ####[facility] LABIA [id number] [place] [address] [place] Phencyclidine Ql (U) Negative Normal Negative [facility] Comment on above: Order Comment: Speci men Type: URINE SPECIMENOrdering Facility: [facility] Address: [address] [place] [address] Result Comment: Cuto ff threshold at 25 ng/mL. Performed By: #### U TOX2 ####[facility] LABIA [id number] [place] [address] [place] VITAMIN B1 (THIAMINE), WHOLE BLOODon 05-21-2023 Thiamine (Bld) [Moles/Vol] 132.9 nmol/L Normal 84.3-213.3 [facility] Comment on above: Order Comment: Speci men Type: BLOOD SPECIMENOrdering Facility: [facility] Address: [place] [address] Result Comment: This assay measures the concentration of thiamine diphosphate (TDP), the primary active form of vitamin B1. Approximately 90 percent of vitamin B1 present in whole blood is TDP. Thiamine and thiamine monophosphate, which comprise the remaining 10 percent, are not measured.This test was developed and its performance characteristics determined by [facility] [place] ([facility]). It has not been cleared or approved by the FDA. [facility] is regulated under CLIA as qualified to perform high-complexity testing. This test is used for clinical purposes. It should not be regarded as investigational or for research. Performed By: #### B 1WB ####[facility] LABCLIA [id number] [place] [address] [place] Vit B12 [facility] 11-16-2 023 Cobalamin (Vitamin B12) [Mass/Vol] 674 pg/mL Normal 232-1245 [facility] Comment on above: Order Comment: Alison wray Type: BLOOD SPECIMENOrdering Facility: [facility] Address: [address] [facility] [place] [address] Performed By: #### 3 3762-6, 2132-9, 2284-8 ####[facility] LABIA [id number] [place] [address] [place] CNPNon 05-19-[address] [facility] CNPNon 05-18-[address] [facility] CNTHERAPYon 05-18-[address] [facility] CNOVon 05-05-[address] [facility] ECG COMPLETEon 05-05-[address] [facility] US ABD RIGHT UPPER QUADRANTo n 04-30-2023 US ABD RIGHT UPPER QUADRANT Normal [facility] XR CHEST 2V FRONTAL/LATon XR CHEST 2V FRONTAL/LAT Normal [facility] CNTHERAPYon 04-22-[address] [facility] CNTHERAPYon 04-20-[address] [facility] CNTHERAPYon 04-15-[address] [facility] CNTHERAPYon 04-13-[address] [facility] CNTHERAPYon 04-08-[address] [facility] CNTHERAPYon 04-06-[address] [facility] CNTHERAPYon 04-01-[address] [facility] CNPNon 03-31-[address] [facility] CNPNon 03-30-[address] [facility] CNTHERAPYon 03-26-[address] [facility] CNTHERAPYon 03-25-[address] [facility] CNOVon 03-24-[address] [facility] XR KNEE 4V AP/PA BOTH+LAT/ME R RTon 03-24-2023 XR KNEE 4V AP/PA BOTH+LAT/CRISTOFER RT Normal [facility] XR KNEE GENERAL 4V AP BOTH/P A BOTH/LAT/MERC RIGHTon 03-24-2023 [facility] CNOVon 03-18-[address] [facility] CNTHERAPYon 03-18-[address] [facility] CNTHERAPYon 03-16-[address] [facility] Ferritin SerPl-mCncon 2022 Ferritin [Mass/Vol] 128.0 ng/mL Normal 14.7-205.1 [facility] Comment on above: Order Comment: Speci men Type: BLOOD SPECIMENOrdering Facility: [facility] Address: [address] [place] [address] Performed By: #### 2 276-4, 25640-5, 3034-6 ####[facility] LABCLIA [id number] [place] [address] [place] Iron and Iron binding capaci ty panelon 03-11-2023 Iron [Mass/Vol] 68 ug/dL Normal 41-186 [facility] Comment on above: Order Comment: Speci men Type: BLOOD SPECIMENOrdering Facility: [facility] Address: [address] Performed By: #### 2 276-4, 34887-5, 3034-6 ####[facility] LABCLIA [id number] [place] [address] [place] Iron binding capacity [Mass/Vol] 281 ug/dL Normal 232-386 [facility] Comment on above: Order Comment: Speci men Type: BLOOD SPECIMENOrdering Facility: [facility] Address: [address] [place], [place] [address] Performed By: #### 2 276-4, 75362-7, 3034-6 ####[facility] LABCLIA [id number] [place] [address] [place] Iron/TIBC [Molar ratio] 24.2 % Normal 15.0-57.0 [facility] Comment on above: Order Comment: Speci men Type: BLOOD SPECIMENOrdering Facility: [facility] Address: [address] [place] [address] Performed By: #### 2 276-4, 34185-8, 303-6 ####[facility] LABCLIA [id number] [place] [address] [place] Transferrin SerPl-mCncon Transferrin [Mass/Vol] 241 mg/dL Normal 200-360 [facility] Comment on above: Order Comment: Speci men Type: BLOOD SPECIMENOrdering Facility: [facility] Address: [address] Performed By: #### 2 276-4, 64678-8, 3034-6 ####[facility] LABCLIA [id number] [address] [address] [place] Consent for Treatmenton 02-04 Consent for Treatment [id number]:127 Normal [facility] Consultation Noteon 02-28-20 Consultation Note Patient: JULES GAINES [facility]: [id number] Age: 42 years Sex: Female : 1980 Associated Diagnoses: None Author: Brigitte Mckeon PA-C Subjective Chief complaint 02/27/2023 14:58 EDT Back pain/tenderness around incision . Patient is a 42-year-old female. She has a past medical history significant for a [facility] claim. The approved diagnosis codes are G90.522. The injury was sustained on 04/19/2020. Patient underwent her spinal cord stimulator paddle lead implantation with Dr. Poole in November. She states that recently she began to notice burning with both of her scars when touching them. No redness, no fluctuance, no warmth, no other problems. No fevers. Just burning type sensation when she touches her scar. She has previously been on gabapentin and Lyrica. Both caused side effects that were not tolerable. She really does not want to be on any medications if she does not have to but she wants to feel better. She shared with me that she is getting ready to see a psychiatrist. She is getting ready to see her sleep doctor. She states that some medications are going to be started to help with her anxiety and depression as well as her sleep patterns. Health Status Allergies: Allergic Reactions (Selected) Severity Not Documented Penicillins- Rash., Allergies (1) Active Reaction penicillins Rash Current medications: (Selected) Documented Medications Documented Singulair 10 mg Tab: 10 mg = 1 tab(s), Oral, Daily, Refills(s) 0 Zyrtec: 10 mg, Oral, Daily, Refills(s) 0 carvedilol 25 mg Tab: 25 mg = 1 tab(s), Oral, BID, Refills(s) 0 citalopram 40 mg Tab: 40 mg = 1 tab(s), Oral, Daily, Refills(s) 0 cyclobenzaprine 10 mg Tab: TAKE 1 TABLET BY MOUTH THREE TIMES A DAY NEEDED FOR MUSCLE SPASMS Problem list: All Problems CARPAL TUNNEL SYNDROME / ICD-9-CM 354.0 / Confirmed bilateral Cough / SNOMED CT 66891860 / Complaint of Smoker / SNOMED CT 342930893 / Confirmed Added secondary to documentation in Social History. Resolved: Ovarian cystectomy / SNOMED CT 8988196972 Objective Vital Signs 02/27/2023 14:58 EDT Peripheral Pulse Rate 70 bpm Respiratory Rate 14 br/min Systolic Blood Pressure 127 mmHg Diastolic Blood Pressure 67 mmHg Mean Arterial Pressure, Cuff 87 mmHg General: Alert and oriented, No acute distress. Overweight Eye: Normal conjunctiva. HENT: Normocephalic, Normal hearing. Cardiovascular: No edema. Musculoskeletal Normal range of motion. Normal strength. 5/5 upper and lower extremity strength Integumentary: Warm, Dry, Braham. 2 incisions are well-healed. No redness, no warmth, no fluctuance, no issues on examination just tenderness when I lightly touched the incisions Neurologic: Alert, Oriented. Psychiatric: Cooperative, Appropriate mood & affect. Impression and Plan Patient is a 42-year-old female with a past medical history seen for [facility] claim with improved diagnosis code of G90.522. She had a spinal cord stimulator paddle lead implant in November with Dr. Poole. She states that things are going well with this. She is happy with her choices. Unfortunate, she is noticing a lot of tenderness with her scars. On examination I feel that they are just irritated. I do not note any signs of infection. We discussed possible blood work versus x-rays but at this time, she does not want to do them. I feel that this is appropriate. We had a long session about scar desensitization. How to do so was discussed. Other OTC treatments were also discussed. At this time, she is going to start out with scar desensitization and some lidocaine cream to the area. She is going to follow-up in 3 to 4 weeks. Call the clinic sooner if necessary. LESLIE score: 40% Normal [facility] Comment on above: Result Comment: Elec tronically Signed By: Brigitte Mckeon PA-C\.br\Date and Time Signed: 02/27/23 15:31 EDT\.br\Electronically Co-Signed By: Herb Crenshaw MD\.br\Date and Time Co-Signed: 03/10/23 07:26 EDT Office/Clinic Note-Physician on 02-27-2023 Office/Clinic Note-Physician [id number]:127 Normal [facility] Patient Correspondenceon Patient Correspondence [id number]:127 Normal [facility] Patient Correspondence [id number]:127 Normal [facility] Patient History Officeon Patient History Office [id number]:127 Normal [facility] Patient History Office [id number]#[id number]:127 [facility] Progress Noteson 01-14-2023 Glassware Defect Repairer Authentication Interface Message Text ------ HISTORY OF PRESENT ILLNESS Health Record Technician: not needed - patient preferred language is Belarusian. HIPAA: Verbal permission granted from patient to discuss case, including protected health information, in front of family / friends in room at the time of the evaluation. Yunier Gaines is a very pleasant 42 year old female here for follow-up s/p Spinal Cord stimulator paddle placement done on 11/20/22, which she feels has helped her symptoms. She is working on fine tuning her spinal stimulator with her spinal stimulator nutrition representative. She would like to begin physical therapy. -------- REVIEW OF SYSTEMS The following systems were reviewed and are negative except as noted: Constitutional, Eye, ENT, Cardiovascular, Respiratory, GI, , Musculoskeletal, Skin, Neurologic (No bowel/bladder incontinence, gait instability, or hand dexterity issues), Endocrine, Hematology/Lymphatic and Allergic/Immunologic PAST HISTORY Past Medical History: No past medical history on file. Past Surgical History: Review of patient's past surgical history indicates: INSERTION, STIMULATOR, ELECTRODE (11/20/2022) Procedure: INSERTION, STIMULATOR, ELECTRODE; Surgeon: Darius Poole MD; Location: PERIOPERATIVE SERVICES; Service: Neurosurgery Social History: Social History Socioeconomic History Marital status: Single Highest education level: 12th grade Tobacco Use Smoking status: Every Day Types: Cigarettes Smokeless tobacco: Never Tobacco comments: vapes Substance and Sexual Activity Alcohol use: Not Currently Drug use: Not Currently Social Determinants of Health Financial Resource Strain: Medium Risk (10/15/2022) Overall Financial Resource Strain (CARDIA) Difficulty of Paying Living Expenses: Somewhat hard Food Insecurity: No Food Insecurity (10/15/2022) Hunger Vital Sign Worried About Running Out of Food in the Last Year: Never true Ran Out of Food in the Last Year: Never true Transportation Needs: No Transportation Needs (10/15/2022) PRAPARE - Transportation Lack of Transportation (Medical): No Lack of Transportation (Non-Medical): No Physical Activity: Inactive (10/15/2022) Exercise Vital Sign Days of Exercise per Week: 0 days Minutes of Exercise per Session: 0 min Stress: Stress Concern Present (10/15/2022) [place] - Occupational Stress Questionnaire Feeling of Stress : Very much Social Connections: Moderately Isolated (10/15/2022) Social Connection and Isolation Panel [NHANES] Frequency of Communication with Friends and Family: More than three times a week Frequency of Social Gatherings with Friends and Family: Once a week Attends Anabaptism Services: Never Active Member of Clubs or Organizations: No Attends Club or Organization Meetings: Never Marital Status: Living with partner Intimate Partner Violence: Not At Risk (10/15/2022) Humiliation, Afraid, Rape, and Kick questionnaire Fear of Current or Ex-Partner: No Emotionally Abused: No Physically Abused: No Sexually Abused: No Family History: No family history on file. Medications: The patient's home medications have been reviewed. Allergies: Penicillins PHYSICAL EXAM Constitutional: Awake AND alert. No distress. Head: Atraumatic. Eyes: No scleral icterus. ENT: Normal external inspection. Airway patent. Neck: Supple. No cervical midline bony tenderness, deformities, or step-offs. Cardiovascular: Equal pulses. Well perfused. Pulmonary/Chest: No respiratory distress. Abdominal: Non-distended. Musculoskeletal: No peripheral edema. Back: No midline bony tenderness, deformities, or step-offs of the thoracic, lumbar, and sacral spine. No abrasions or bruising. No erythema, induration or fluctuance. Skin: Normal color. Neurological: Alert, awake, and appropriate. 5/5 strength bilateral upper and lower extremities. No myelopathic reflexes. No sensory deficits to light touch. DTR's 2+ and equal. Normal gait. IMAGING Imaging reviewed: None -------- ASSESSMENT AND PLAN Failed back syndrome Today the patient and I discussed the nature and progression of their condition. Both pt and I are happy with her level of improvement from the spinal cord stimulator. However, I agree that she would benefit from physical therapy and core strengthening, which she is amenable to. Please call with any concerns. Return to clinic 6 months Patient to return sooner if worsening or if there are any changes. Orders: Orders AND Meds Signed Dur (more content not included)... Normal [facility] Glassware Defect Repairer Authentication Interface Message Text Patient was identified by name and date of . Cecelia Hurt RN Patient at risk for falls:NoNo Falls Risk protocol implemented: No Normal [facility] Progress Noteson 12-03-2022 Glassware Defect Repairer Authentication Interface Message Text Patient at risk for falls:No Falls Risk protocol implemented: No Normal [facility] Glassware Defect Repairer Authentication Interface Message Text HISTORY OF PRESENT ILLNESS Yunier Gaines is a 42 year old female here as 2 week follow-up for 2 week follow-up for Spinal Cord stimulator paddle placement done on 11/20/22. Doing well, taking no pain meds. Denies difficulty with bowel movements. PHYSICAL EXAM Musculoskeletal: No peripheral edema. Back: No deformities or step-offs. No tenderness to palpation of midline spine or paraspinal musculature. Able to flex and extend, twist, and sideways bend. Well healing incisions. Neurological: 5/5 strength bilateral lower extremity muscle groups including hip flexion, knee flexion and extension, ankle plantar and dorsiflexion, toe flexion and extension. No sensory deficits to light touch. DTRs 2+ and equal including patellar, achilles, biceps, and brachioradialis. Normal Gait. IMAGING Imaging reviewed: None ASSESSMENT AND PLAN S/p Stimulator placement I feel that this patient is doing well at this point. Good wound care was discussed. Ordered some flexeril. Miya from [employer] also saw the patient is did some programming adjustments. Continue current restrictions: No bending, lifting more than 10lbs, twisting. Walk more every day. Return to clinic in 4 weeks Patient to return sooner if worsening or if there are any changes. Normal [facility] Anesthesia Postprocedure Poornima peñaon 11-21-2022 Glassware Defect Repairer Authentication Interface Message Text Anesthesia Postoperative Assessment: Vital Signs (most recent): BP 126/97 (BP Location: left forearm) Pulse 61 Temp 36.5 ???C (97.7 ???F) (Oral) Resp 16 SpO2 95% Anesthesia Post Evaluation Level of consciousness: awake Post-procedure exam normal. Body temperature, hydration status, PONV and pain evaluated and addressed. Pain management: adequate Hydration status: normal PONV:No nausea/vomiting reported Cardiopulmonary status stable Respiratory status: acceptable Cardiovascular status: acceptable ANESTHESIA NOTABLE EVENTS: No notable events documented. Normal [facility] Anesthesia Preprocedure Eval uationon 11-20-2022 Glassware Defect Repairer Authentication Interface Message Text ASA: 4 No history of anesthetic complications NPO status: Greater than 8 hours Past Medical History and Review of Systems Pulmonary (+) sleep apnea on CPAP, asthma, a smoker Comment: Moderate PAKO Dental Endo (+) obesity legend maker (-) not Neuro/Psych Cardiovascular (+) Surgical risk: low; Cardiac condition: stable, (-) angina ECG reviewed GI/Hepatic/Renal (-) no GERD Heme/Other (+) DVT, Comment: PE in 2019, not currently on AC Other ROS: History of chronic left leg and foot pain and CRPS. EK10/22/2022 Sinus bradycardia Low voltage QRS, consider pulmonary disease, pericardial effusion, or normal variant Borderline No previous ECGs available Confirmed by HERNAN LEWIS ([id number]) on 10/22/2022 4:38:19 PM ??? ECHO: 05/12/2020 at [facility] Summary ?1. This study was technically limited, Definity IV contrast was used to enhance endocardial definition. ?2. The left ventricular diastolic function is grade I diastolic dysfunction, consistent with low or normal atrial pressures. ?3. Left ventricular systolic function is normal, with ejection fraction estimated at 60 +/- 5%. ?4. Right ventricular systolic function is mildly reduced, on very limited views. ?5. There is borderline pulmonary hypertension, estimated right ventricle systolic pressure is 40 mmHg. ?6. There is no comparison study available. Physical Exam Airway Mallampati: I TM distance: Adequate Micrognathia: Not present Jaw opening: Not adequate Neck flexion: Adequate Dental Dentition: R top back broken tooth. Pulmonary - pulmonary exam normal Comment: Chest clear to auscultation bilaterally Cardiovascular - cardiovascular exam normal Comment: RRR with S1S2; no murmurs, gallops, or rubs Neuro - neurological exam normal Comment: Awake, alert, oriented, No motor deficits and sensation grossly intact Plan Anesthesia plan: general (ETT) Medications may include (but not limited to): anxiolytics, narcotic analgesics, IV hypnotics, neuromuscular blockers and inhalational analgesics Pain management: May include (but not limited to): anxiolytics and narcotic analgesics Anesthesia risks / alternatives discussed pre-op Questions answered / anesthesia plan accepted Past medical history, surgical history, allergies, and medications reviewed. Pertinent laboratory tests, EKG, imaging, and consults reviewed and I have personally seen and evaluated the patient, repeating cannon portions of the history and physical examination. Attestation: Anesthesia options were discussed with the patient and/or legal nutrition representative. The risks, benefits and alternatives were reviewed. Questions regarding anesthesia were answered. Patient and/or legal nutrition representative knows such anesthetics and procedures may be performed by Resident physicians, Certified Anesthesiologist Assistants, or Certified Nurse Anesthetists under the supervision of a physician. The patient /or the patient's legal nutrition representative agree with the plan for anesthesia. Normal [facility]esthesia [facility] 11-20-2022 Glassware Defect Repairer Authentication Interface Message Text Patient taken to PACU. Patient was awake, comfortable and stable on arrival. Anesthesia Transfer of Care Note Past Medical History: No past medical history on file. Sleep Apnea/Positive STOP-BANG: Yes Problem List: Patient Active Problem List: Back pain [M54.9] Failed back syndrome [M96.1] Past Surgical History: There is no previous surgical history on file. Allergies: Penicillins Basic Operating Room Facts: Surgeon(s): Darius Poole MD Anesthesiologist: Yazan Quiroz MD CAA: Ophelia Lubin CAA INSERTION, STIMULATOR, ELECTRODE (Back) Intraoperative Events: Hypertension ASA: 4 EBL: 20 mL Urine Not documented Lactated Ringers and NaCl 0.9%: Fluid Totals (Filter: LR and NaCl 0.9% Medications Shown) Medication Calculated Total Lactated Ringers 750 mL / 1 bag Lactated Ringers 1,050 mL / 2 bags Cell Saver: Not documented Blood Volume Values: Blood Products None MTP Blood: MTP PRBC: Not documented MTP FFP: Not documented MTP PLT: Not documented MTP Cryo: Not documented MTP Whole Blood: Not documented Current Vasoactive Medications: {Vasoactive Medications: None Lines, Drains, Airways Peripheral IV Access: 11/20/22 22 gauge Posterior;Right Hand (Active) Peripheral IV Access: 11/20/22 1306 20 gauge Right Forearm (Active) Site Assessment WNL;Dressing intact 11/20/22 1306 Infusion Status Port #1 Infusing;Patent;Positive blood return 11/20/22 1306 Airway Insertion Details [REMOVED] Advanced Airway: ETT, Oral;Cuffed # 7.5 (Removed) 11/20/22 1256 Pre-Oxygenation/ Induction: Mask Rapid Sequence Induction?: Mask Ventilation: Easy;w/oral airway Blade size: S3 Visualization: Grade 1 Airway Type: ETT, Oral;Cuffed Airway Size: # 7.5 Post Insertion Assessment: Confirmation: Equal bilateral breath sounds, CO2 confirmed # Attempts >1: Special Equipment: Glidescope;Bite block placed Present on Admission?: Previously Removed / Not Present: Removal Reason: Not Removed at Discharge: Removed 11/20/22 1504 Location (cm) 21 11/20/22 1256 Measured from: Teeth 11/20/22 1256 Secured via: Taped 11/20/22 1256 Site Assessment WNL 11/20/22 1256 All non-working IVs have been removed: N/A Laboratory Data: CBC (last 3 years, up to 5 values) WBC RBC Hgb Hct MCV RDW Plt 10/22/22 1006 7.0 4.35 12.9 38.9 90 13.3 230 Basic Metabolic Panel Na K Cl CO2 Gap Glu BUN Cr Ca 10/22/22 1006 136 4.6 103 21 17 91 19 0.53 9.4 Basic Metabolic Panel None INR (no units) Date Value 10/22/2022 1.11 (H) No result for BNP LFT's (last 3 years, up to 5 values) None Arterial Blood Gases None Hand off Completed: Yes 1. The patient was identified. 2. Pertinent medical history was relayed. 3. A brief discussion was had about any pertinent surgical/ procedural issues. 4. Intraoperative/ anesthetic management issue and concerns were discussed. 5. Plans for the early post-operative period relayed. 6. An opportunity for questions and acknowledgment of understanding of the report was received. ZI Dale Normal [facility] Blood Attestationon 11-21-19 Glassware Defect Repairer Authentication Interface Message Text Blood Attestation ATTESTATION OF INFORMED CONSENT FOR BLOOD The transfusion of blood and/or blood components were discussed with the patient and/or legal nutrition representative. The risks, benefits and alternatives were reviewed. Questions regarding blood transfusions were answered. The patient /or the patient's legal nutrition representative agree with the plan for transfusion of blood and/or blood components. Normal [facility] Brief Operative Noteon 11-20 Glassware Defect Repairer Authentication Interface Message Text Brief Operative Note MAIN OR 06 Yunier Gaines 42 year old female Surgical Contact Serial Number: [id number] Preoperative Diagnosis: Back pain, unspecified back location, unspecified back pain laterality, unspecified chronicity [M54.9] Failed back syndrome [M96.1] Postoperative Diagnosis: * Back pain, unspecified back location, unspecified back pain laterality, unspecified chronicity [M54.9] * Failed back syndrome [M96.1] Procedures: Spinal cord stimulator implantation Surgeon(s): Surgeon(s): Darius Poole MD Staff: Scrub: Leonor Ramirez RN Sorting Livestock Worker Nurse: Nadya Hernandez Spinal Cord Monitor: Lesley Alves Clay Worker: Andry Conde MD Anesthesia: General Anesthesiologist: Yazan Quiroz MD CAA: Ophelia Lubin CAA Specimen(s): * No specimens in log * Estimated Blood Loss: 5-10 cc Lines/Drains: Peripheral IV Access: 11/20/22 22 gauge Posterior;Right Hand (Active) Peripheral IV Access: 11/20/22 1306 20 gauge Right Forearm (Active) Site Assessment WNL;Dressing intact 11/20/22 1306 Infusion Status Port #1 Infusing;Patent;Positive blood return 11/20/22 130 Temporarily Retained Foreign Object: No Location: Object: Anticipated removal date: Findings: Ortho Stenosis Complications: None Status at end of surgery: Stable Activity: weight bearing as tolerated and progressive ambulation Surgical wound class: Yes, wound was clean. Patient Class: Planned Extended Recovery. Is this a patient scheduled as an outpatient that needs to be admitted as an inpatient? No Dr. Darius Poole was present in the OR for the critical portion of the procedure and procedure sign-out. Signed by Andry Conde MD 11/20/2022 3:02 PM Normal [facility] OP Noteon 11-20-2022 Glassware Defect Repairer Authentication Interface Message Text Name: Yunier Gaines MR #: [id number] [facility] #: [id number] Date of Procedure: 11/20/22 ATTENDING SURGEON: Darius Poole MD HEALTH ANALYTICS CONSULTANT SURGEON: Elton PREOPERATIVE DIAGNOSIS: failed back POSTOPERATIVE DIAGNOSIS: same PROCEDURES: 1.Deep paddle spinal stimulator T9 2. Battery pack URINE OUTPUT / INTRAVENOUS FLUIDS: Measured per Anesthesia IMPLANTS: [place] SCI 4 lead SPECIMENS: none COMPLICATIONS:none* DRAINS: none ESTIMATED BLOOD LOSS: 75 cc INDICATIONS: Patient is a very pleasant, 42 year old female struggling with back and leg pain. We had a long discussion about the nature of the disease. Offered surgery to stabilize condition. Had positive trial implant.She wished to proceed. She understood the risks of bleeding, infection, failure to heal, and need for another surgery. OPERATIVE REPORT: Patient identified in the preoperative holding area and consent was reviewed. Brought back into the operating room after informed consent was reviewed. Once in the operating room, was put to sleep and intubated in the standard fashion. A breathing tube was placed. Position prone on the bumpy Benoit frame, all bony prominences well padded in the arms and in the superman position. We had good SSEPS throughout. A time out procedure was performed verifying the patient name and imaging. We prepped and draped in the standard fashion. A midline incision was made, centered around the levels for insertion. Bovie was used for meticulous hemostasis and the fascia was opened in line with meticulous hemostasis. Dissected to the level of the pars and facets with careful preservation of all. We then verified level on AP fluoroscopy our level and placed deep retractors. We then removed spinous process and lamina inferior to the implant placement with a Ronguer and high-speed Levi at T10-11. We then teased ligamentum flavum away from thecal sack and used a hockey stick to open canal. We then placed paddle and verified top of contact. We then checked leads and used two locking anchors to secure in position on lead 1 and 4 with a fix it device. We then made a small incision over the flank and created a pocket 2 cm deep for battery. We tunneled the wires and then locked them into place checking contact. We were satisfied and took final placement xray and began closure. Copiously irrigated and Closed in layers and was dressed with derma arredondo. Patient awoken from anesthesia with no further complication and discharged to the PACU. Darius Poole MD Normal [facility] OR Nursingon 11-20-2022 Glassware Defect Repairer Authentication Interface Message Text NO duque noted on patient's ear with earring after surgery Normal [facility] Glassware Defect Repairer Authentication Interface Message Text Glasses returning with patient to PACU Normal [facility] Glassware Defect Repairer Authentication Interface Message Text Patient came to operating room with glasses. Glasses were removed prior to induction, placed in bag and labeled with patient sticker Normal [facility] Glassware Defect Repairer Authentication Interface Message Text Patient has earring in her right ear that is unable to be removed. Discussed possible outcomes including burn from using electrocautery. Patient stated that she understood risks and was willing to proceed with earring in place. Normal [facility] BASIC METABOLIC PANELon 10-04 Anion gap [Moles/Vol] 17 mmol/L Normal 10-20 [facility] Comment on above: Performed By: #### C H8 ####S PATHOLOGY [id number] [place], [place], Calcium [Mass/Vol] 9.4 mg/dL Normal 8.4-10.4 [facility] Comment on above: Performed By: #### C H8 ####S PATHOLOGY [id number] [place], [place], Chloride [Moles/Vol] 103 mmol/L Normal 97-111 [facility] Comment on above: Performed By: #### C H8 ####S PATHOLOGY [id number] [place], CO2 [Moles/Vol] 21 mmol/L Normal 21-30 [facility] Comment on above: Performed By: #### C H8 ####S PATHOLOGY [id number] [place], Creatinine [Mass/Vol] 0.53 mg/dL Normal 0.50-1.10 [facility] Comment on above: Performed By: #### C H8 ####[facility] PATH[facility]Y [id number] [place], ESTIMATED GFR (CKD-EPI) 118 mL/min/1.73sqm Normal >=60 [facility] Comment on above: Result Comment: 2020 CKD EPI Equation using Creatinine without Race Comment: Estimated glomerular filtration rate (eGFR) is calculated without a race coefficient. Values should be interpreted in the context of the patient's full clinical presentation. Reference: 1. Gene Evangelista, Elbert M, Hanna PARISI, et al.. A Unifying Approach for GFR Estimation: Recommendations of the NKF-ASN Task Force on Reassessing the Inclusion of Race in Diagnosing Kidney Disease. [place] Journal of Kidney Diseases 2021;79(2):268-88.e1. 2. N Engl J Med 2020 Vol. 385 Issue 19 Pages 5509-0569 Performed By: #### C H8 ####S PATHOLOGY [id number] [place], Glucose [Mass/Vol] 91 mg/dL Normal 68-110 [facility] Comment on above: Performed By: #### C H8 ####S PATHOLOGY [id number] [place], Potassium [Moles/Vol] 4.6 mmol/L Normal 3.3-5.3 [facility] Comment on above: Performed By: #### C H8 ####S PATHOLOGY [id number] [place], Sodium [Moles/Vol] 136 mmol/L Normal 135-148 [facility] Comment on above: Performed By: #### C H8 ####S PATHOLOGY [id number] [place], Urea nitrogen [Mass/Vol] 19 mg/dL Normal 8-22 [facility] Comment on above: Performed By: #### C H8 ####S PATHOLOGY [id number] [place], [place], Basic metabolic 2000 panelon 10-22-2022 Anion gap [Moles/Vol] 17 mmol/L 10 - 20 [facility] Calcium [Mass/Vol] 9.4 mg/dL 8.4 - 10. 4 mg/dL [facility] Chloride [Moles/Vol] 103 mmol/L 97 - 11 1 mmol/L [facility] CO2 [Moles/Vol] 21 mmol/L 21 - 30 mmol/L [facility] Creatinine [Mass/Vol] 0.53 mg/dL 0.50 - 1.10 mg/dL [facility] GFR/1.73 sq M.predicted MDRD (S/P/Bld) [Vol rate/Area] 118 mL/min/{1.73_m2} - PINF [facility] Comment on above: 2020 CKD EPI Equatio n using Creatinine without Race Comment: Estimated glomerular filtration rate (eGFR) is calculated without a race coefficient. Values should be interpreted in the context of the patient's full clinical presentation. Reference: 1. Gene C, Elbert M, Hanna PARISI, et al.. A Unifying Approach for GFR Estimation: Recommendations of the NKF-ASN Task Force on Reassessing the Inclusion of Race in Diagnosing Kidney Disease. [place] Journal of Kidney Diseases 2021;79(2):268-88.e1. 2. N Engl J Med 2020 Vol. 385 Issue 19 Pages 2767-1915 Glucose [Mass/Vol] 91 mg/dL 68 - 110 mg/dL [facility] Interpretation and review of laboratory results Normal [facility] Potassium [Moles/Vol] 4.6 mmol/L 3.3 - 5.3 mmol/L [facility] Sodium [Moles/Vol] 136 mmol/L 135 - 148 mmol/L [facility] Urea nitrogen [Mass/Vol] 19 mg/dL 8 - 22 mg/dL [facility] CBC WITH DIFFERENTIALon 10-04 Basophils (Bld) [#/Vol] 0.05 10*3/uL 0.00 - 0.20 K/uL [facility] Basophils/100 WBC (Bld) 0.7 % NINF - 1.9 % [facility] Eosinophils (Bld) [#/Vol] 0.30 10*3/uL 0.00 - 0.70 K/uL [facility] Eosinophils/100 WBC (Bld) 4.3 % High 0.1 - 4.0 % [facility] Erythrocyte distribution width (RBC) [Ratio] 13.3 % 11.5 - 14.5 % [facility] Hematocrit (Bld) [Volume fraction] 38.9 % 36.0 - 46.0 % [facility] Hemoglobin (Bld) [Mass/Vol] 12.9 g/dL 12.0 - 15.0 g/dL [facility] Interpretation and review of laboratory results Abnormal [facility] Lymphocytes (Bld) [#/Vol] 1.70 10*3/uL 1.00 - 4.80 K/uL [facility] Lymphocytes/100 WBC (Bld) 24.2 % 24.0 - 44.0 % [facility] MCH (RBC) [Entitic mass] 29.6 pg 26.0 - 34.0 pg [facility] MCHC (RBC) [Mass/Vol] 33.1 g/dL 32.0 - 35.9 g/dL [facility] MCV (RBC) [Entitic vol] 90 fL 80 - 100 fL [facility] Monocyte distribution width Auto (Bld) [Entitic vol] [facility] Monocytes (Bld) [#/Vol] 0.36 10*3/uL 0.20 - 1.00 K/uL [facility] Monocytes/100 WBC (Bld) 5.2 % 2.0 - 11.0 % [facility] Neutrophils (Bld) [#/Vol] 4.61 10*3/uL 1.50 - 8.00 K/uL [facility] Neutrophils/100 WBC (Bld) 65.7 % 31.0 - 76.0 % [facility] Platelet mean volume (Bld) [Entitic vol] 9.7 fL 7.5 - 11.2 fL [facility] Platelets (Bld) [#/Vol] 230 10*3/uL 150 - 400 K/uL [facility] RBC (Bld) [#/Vol] 4.35 10*6/uL [facility] WBC (Bld) [#/Vol] 7.0 10*3/uL 4.5 - 11.5 K/uL [facility] Basophils (Bld) [#/Vol] 0.05 10*3/uL Normal 0.00-0.20 [facility] Comment on above: Performed By: #### C BCDSAT ####S PATHOLOGY [id number] [place] [address], Basophils/100 WBC (Bld) 0.7 % Normal <=1.9 [facility] Comment on above: Performed By: #### C BCDSAT ####S PATHOLOGY [id number] [place], Eosinophils (Bld) [#/Vol] 0.30 10*3/uL Normal 0.00-0.70 [facility] Comment on above: Performed By: #### C DINADSAT ####[facility] PATHOLOGY [id number] [place], Eosinophils/100 WBC (Bld) 4.3 % High 0.1-4.0 [facility] Comment on above: Performed By: #### C DINADSAT ####[facility] PATHOLOGY [id number] [place] [address], Erythrocyte distribution width (RBC) [Ratio] 13.3 % Normal 11.5-14.5 [facility] Comment on above: Performed By: #### C HARPERAT ####[facility] PATHOLOGY [id number] [place] [address], Hematocrit (Bld) [Volume fraction] 38.9 % Normal 36.0-46.0 [facility] Comment on above: Performed By: #### C HARPERAT ####[facility] PATHOLOGY [id number] [place] [address], Hemoglobin (Bld) [Mass/Vol] 12.9 g/dL Normal 12.0-15.0 [facility] Comment on above: Performed By: #### C BCDSAT ####[facility] PATHOLOGY [id number] [place] [address], Lymphocytes (Bld) [#/Vol] 1.70 10*3/uL Normal 1.00-4.80 [facility] Comment on above: Performed By: #### C BCDSAT ####[facility] PATHOLOGY [id number] [place] [address], Lymphocytes/100 WBC (Bld) 24.2 % Normal 24.0-44.0 [facility] Comment on above: Performed By: #### C BCGUICHOAT ####[facility] PATHOLOGY [id number] [place], MCH (RBC) [Entitic mass] 29.6 pg Normal 26.0-34.0 [facility] Comment on above: Performed By: #### C BCGUICHOAT ####[facility] PATHOLOGY [id number] [place], MCHC (RBC) [Mass/Vol] 33.1 g/dL Normal 32.0-35.9 [facility] Comment on above: Performed By: #### C HARPERAT ####[facility] PATHOLOGY [id number] [place], MCV (RBC) [Entitic vol] 90 fL Normal 80-100 [facility] Comment on above: Performed By: #### C HARPERAT ####[facility] PATHOLOGY [id number] [place], MONOCYTE DISTRIBUTION WIDTH Normal [facility] Comment on above: Performed By: #### C HARPERAT ####[facility] PATHOLOGY [id number] [place], Monocytes (Bld) [#/Vol] 0.36 10*3/uL Normal 0.20-1.00 [facility] Comment on above: Performed By: #### Tonja SALEEMAT ####[facility] PATHOLOGY [id number] [place] [address], Monocytes/100 WBC (Bld) 5.2 % Normal 2.0-11.0 [facility] Comment on above: Performed By: #### Tonja SALEEMAT ####[facility] PATHOLOGY [id number] [place] [address], Neutrophils (Bld) [#/Vol] 4.61 10*3/uL Normal 1.50-8.00 [facility] Comment on above: Performed By: #### C BCGUICHOAT ####[facility] PATHOLOGY [id number] [place] [address], Neutrophils/100 WBC (Bld) 65.7 % Normal 31.0-76.0 [facility] Comment on above: Performed By: #### C HARPERAT ####S PATHOLOGY [id number] [place], Platelet mean volume (Bld) [Entitic vol] 9.7 fL Normal 7.5-11.2 [facility] Comment on above: Performed By: #### C BCDSAT ####[facility] PATH[facility]Y [id number] [place], Platelets (Bld) [#/Vol] 230 10*3/uL Normal 150-400 [facility] Comment on above: Performed By: #### C BCDSAT ####[facility] PATHOLOGY [id number] [place], RBC (Bld) [#/Vol] 4.35 10*6/uL Normal 4.00-5.20 [facility] Comment on above: Performed By: #### C BCDSAT ####[facility] PATHOLOGY [id number] [place], WBC (Bld) [#/Vol] 7.0 10*3/uL Normal 4.5-11.5 [facility] Comment on above: Performed By: #### C BCDSAT ####[facility] PATHOLOGY [id number] [place], EKG 12 LEAD - PERFORMon 10-04 Diagnosis Sinus bradycardia Low voltage QRS, consider pulmonary disease, pericardial effusion, or normal variant Borderline No previous ECGs available Confirmed by HERNAN LEWIS ([id number]) on 10/22/2022 4:38:19 PM [facility] P wave Atrium by EKG 55 BPM Met[facility] P wave axis 9 degrees [facility] P-R Interval 196 ms [facility] Q-T interval 424 ms [facility] Q-T interval corrected 405 ms [facility] QRS axis 19 degrees [facility] QRS duration 74 ms [facility] T wave axis 44 degrees [facility] No Panel InformationOrdered By: Kelly Robertson on 10-22-2022 [facility] PARTIAL THROMBOPLASTIN TIMEo n 10-22-2022 aPTT Coag (Bld) [Time] 33 s [facility] Interpretation and review of laboratory results Normal [facility] aPTT Coag (Bld) [Time] 33 s Normal 25-37 [facility] Comment on above: Performed By: #### P T, APTT ####[facility] [address] [place], [address] PROTHROMBIN TIME AND INROrde red By: Kelly Robertson on 10-22-2022 INR Coag (PPP) [Relative time] 1.11 {INR} High 0.90 - 1.10 [facility] Interpretation and review of laboratory results Abnormal [facility] PT Coag (PPP) [Time] 12.1 s Met[facility]al PROTHROMBIN TIME AND INRon 0 10-22-2022 INR Coag (PPP) [Relative time] 1.11 {INR} High 0.90-1.10 [facility] Comment on above: Performed By: #### P T, APTT ####[facility] [address] [place], [address] PT Coag (PPP) [Time] 12.1 s Normal 9.4-12.5 [facility] Comment on above: Performed By: #### P T, APTT ####[facility] [address] [place], [address] PSE Appt H AND Harry Glassware Defect Repairer Authentication Interface Message Text Patient was identified by name and date of . Brooke Guthrie Performed EKG pt tolerated well, results given to Doctor for review Patient at risk for falls:No Falls Risk protocol implemented: N/A Normal [facility] Patient Instructionson 10-22 Glassware Defect Repairer Authentication Interface Message Text On the morning of your surgery please take only the following medications, with a small sip of water: CARvedilol (COREG) 25 MG tablet cetirizine (ZyrTEC) 10 MG tablet citalopram (CeleXA) 40 MG tablet montelukast (SINGULAIR) 10 MG tablet Do not take any Aspirin after 11/12. Do not take any Ibuprofen, Aleve, Advil, or Motrin or any other NSAIDS after 11/16. May take over the counter Acetaminophen (Tylenol) as needed for pain Please hold all Vitamin E, [place] 3, fish oil and herbal supplements for 1 week prior to surgery Normal [facility] TYPE AND SCREENon 10-22-2022 ABO and Rh group Nom (Bld) Blood group A Rh(D) positive [facility] ABO and Rh group Nom (Bld) No Previous Results [facility] Blood group antibody screen Ql Negative [facility] ABO and Rh group Nom (Bld) Blood group A Rh(D) positive Normal [facility] Comment on above: Performed By: #### T S ####S PATHOLOGY [id number] [place], ABO and Rh group Nom (Bld) No Previous Results Normal [facility] Comment on above: Performed By: #### T S ####[facility] PATH[facility]Y [id number] [place], ABSC INT Negative Normal [facility] Comment on above: Performed By: #### T S ####[facility] PATH[facility]Y [id number] [place], VITAMIN D, 25-HYDROXYon 10-04 25-hydroxyvitamin D IA [Mass/Vol] 19.4 ng/mL Low 30 - 100 ng/mL [facility] Interpretation and review of laboratory results Abnormal [facility] VITD25 19.4 ng/mL Low 30-100 [facility] Comment on above: Performed By: #### V ITD25 ####[facility] PATHOLOGY [id number] [place], [place], Progress Noteson 08-20-2022 Glassware Defect Repairer Authentication Interface Message Text ------ HISTORY OF PRESENT ILLNESS Health Record Technician: not needed - patient preferred language is Belarusian. HIPAA: Verbal permission granted from patient to discuss case, including protected health information, in front of family / friends in room at the time of the evaluation. Yunier Gaines is a very pleasant 42 year old female here as new patient. She is here today with her partner. She has a very sordid history with her left ankle. She has had a back strain that stems from a work injury. She has had a paddle trial that gave good relief of her foot pain. -------- REVIEW OF SYSTEMS The following systems were reviewed and are negative except as noted above and per scanned intake form: Constitutional, Eye, ENT, Cardiovascular, Respiratory, GI, , Musculoskeletal, Skin, Neurologic (No bowel/bladder incontinence, gait instability, or hand dexterity issues), Endocrine, Hematology/Lymphatic and Allergic/Immunologic PAST HISTORY Past Medical History: No past medical history on file. Past Surgical History: There is no previous surgical history on file. Social History: Social History Socioeconomic History Marital status: Single Tobacco Use Smoking status: Every Day Types: Cigarettes Smokeless tobacco: Never Tobacco comments: vapes Family History: No family history on file. Medications: The patient's home medications have been reviewed. Allergies: Penicillins PHYSICAL EXAM Constitutional: Awake AND alert. No distress. Head: Atraumatic. Eyes: No scleral icterus. ENT: Normal external inspection. Airway patent. Neck: Supple. No cervical midline bony tenderness, deformities, or step-offs. Cardiovascular: Equal pulses. Well perfused. Pulmonary/Chest: No respiratory distress. Abdominal: Non-distended. Musculoskeletal: No peripheral edema. Back: No midline bony tenderness, deformities, or step-offs of the thoracic, lumbar, and sacral spine. No abrasions or bruising. No erythema, induration or fluctuance. Skin: Normal color. Neurological: Alert, awake, and appropriate. 5/5 strength bilateral upper and lower extremities. No myelopathic reflexes. No sensory deficits to light touch. DTR's 2+ and equal. Normal gait. IMAGING Imaging reviewed: MRI from outside hospital shows stenosis L4-5 and a mild spondylolisthesis -------- ASSESSMENT AND PLAN Back pain Today the patient and I discussed the nature and progression of their condition. I am happy to do that surgery for her. I discussed the higher risk of complications given her body habitus. If this helps her pain I am happy to do it. She understands the risks and benefits. As far as her MRI goes she has stenosis L4-5 and a mild spondylolisthesis. She has plenty of space in her T spine for paddle. We will get her set up for the surgery. Please call with any concerns. Return to clinic for paddle placement surgery Patient to return sooner if worsening or if there are any changes. Orders: Orders AND Meds Signed During This Encounter Download [employer] SCRIBE ATTESTATION --------- 08/20/2022, 2:45 PM. This note is prepared by Jraod Ram acting as Scribe for Dr. Darius Poole All medical record entries made by the Scribe were at my direction and personally dictated by me. I have reviewed the record and confirm that the note above accurately reflects all work, treatment, procedures, and medical decision making performed by me. Dr. Darius Poole. Normal [facility] Glassware Defect Repairer Authentication Interface Message Text Patient was identified by name and date of . Cecelia Hurt RN Patient at risk for falls:No Falls Risk protocol implemented: No Normal [facility] Referrals Officeon Referrals Office [phone] [id number]#[id number]:127 Normal [facility] Coding Summary.on 07-28-2022 Coding Summary. [id number] Gh0bWw+ PGhlYWQ+SO2GULAcF06hpZCkxX6 RG9dYXR0ABDYPMAIKRF1SGG1mhM M0ZGceW4VbqgUq VklopEQtVN44JDw3DGW4uVwnXPo tkA3xeNIyX0y8DhNpNW05bL21GI ubIMCoDgF7PcZbrvminGNh F6caIxPwiYHoUes+PHRhYmxlIHd tWLRpLKbxSKWbYaWntOisBH6qDz 9yZGVyLWNvbGxhcHNlOiBj c7asGWWmJQrlFF9hePjhX6UjbUL 2LFAep6r8Ys77kIC+WBIkLNQ3eV moOIqvp454UbSgp6nlEWT7 kUQoMOofMJV6J85wz0M1PNAnXFP oFJV6pGC0mE7ooGuujtktW2DeeE PoIaG4KBO8nYTkuF3hnRcn mdpuuN2cKqs+L94NQJ1YZJOVRP8 RQvf2U8RbTwfnaPN+VH50MMHiCG 98uBRkyVMda3nvcEc7FvCp BHBxVHC7tDtgYWsqh6FqPPJaV13 mqLAbs8Q4KDMpnBnczGPwJjJayU X6uL9iKZegrmygl8snxbid Sdama7wagt56pQ15N07hQAddVFA kPPM9KOAmCPKoqBxqyd2ifI8fCh 8+GUvlj5yaf3rspTx5OzLa AMOvafNqhMeyAPB3u1XeSc34Q1T zvQtnf4PlLoc5dw54sSAyn6L4gB P0EKxuKSXhvS6zNQitMwM0 WBDhYdGczJ31fNLrGSgkYc6ypRm rdQckMQ1cDQAjvjmnNGFjhU3qJT SdfRMcaEuvKY9vIVArrlln x326DvAeVDO8ISBedGPuJ9CdtO6 dHvUmDRRhJQKsL8QftEUsDCnyJ1 84EVjuOpY7XXFchvJzA9Oc GXTgrMsbNlB3n5N1Zv3Jh3Whaik bEXA5RFviJULdPwItBqFzTeO3R8 WnTde2HNPgxPimMN3eI9Lj SOXpiprqqqceaWZ7LMUaMDZleK8 0mQOhZVhoZw9rt4Q0g000TAVmMT AlcJ66Uu9hdCgdOGJddRGL xP5tmpqje1rbonalXjNgIPMsZXm 2EEb8ADGkfRdoIsMtXVP8PyX8XS U2aGQrsF8qwBmwskroaT9d Oyc+C00aeX4qURX8IRL0bjdzGYG jxhDdYY21YT09O5HuEhekgMZgqV U+JKHdecBmuZaeXB8hVtPx u3jez6XbJKptW5EyOCZlAKmwQwj 0LAMsLJY1kGZ3kZ8hJMMpFHlvd4 D5sNF9J3RnmpAurs5hi2os NIOjGJxiM63luHVou2E1LKNpiLN 0AHSizUycZyYwtQ15Ihk+PGNvbG irk2QiWrcbt8ukj6lukWk3 KjNtMOQfajEwjAxaZKJ5j5HeJq1 3W35yOArnUWFwRABiBHXcUWYmoP runj3rsG3wOh2+PGNvbCB3 lEW1gN7yCYSoFsH5SOksJ874CmK gpRSkBdkvg5ykm0mibRm0XdQvUH HcwiLoaCzyTIN2i1TpSh20 R96dMErfFJWwFLZxBQJuNGKtgWh zhj6dwN2pGo4+OD8ro1hggl35bG 48dHI+WRXmKBM7xWvaIEbb CLEbmY9hBKyfTyH1BNNmWzGbvK8 7tCBrRRgtPy1suTqufFarAK6iZQ Qtxtrid149JvZxp4sxMASn tCAgMOafOAZ7O68jr0U5OUWwBVD cZBQ2bOJ0oV7udUezapyhdXUcfL ugjaNzrJwaVMphWZvkV090 IHRvcDsnPlBhdGllbnQgTmFtZTo 3D2PnUez5XJZrnFjdNO7irNTkRV vxDa3awUzxyNqkUW4dLCJv slcjo654AzLue6hkBDWwtDIqJIw oYAP1L82rp0K7IENuCZDhOWS2gP L9zP8mqIfbcxmwgIHfaEmr uvAxlZheAMnwYGgqW335IVFrhMm vVbVgveLwHXZrtSM6FW40RB90lN Cxl2M9qPB8Z9HyJSIdabaj ocjjjQY3FAIaJKIqzC68Ah4kaDh lNx7cWWMyJOI3GLHviVHjJ4GxtE 2xYlMiSNGnRHCrV7FgqAGk QHzpC987BLkiJuF8UVNzshBeD1H xFAYwvFjoSrV7f8K7Fh1ZM9Q6WR 04KG88lIRky4M6qSC8T8Qd BNVgkemowujcrXP0VYOwVBCffS2 0Nr5izBsuHm5rCHHeWTV1NSFvvW VrI4QbyD6eWbTvFGKnRKYk E7AfvXPkXUqbZ334USzgOnP5YYN ghiImK0ObJCYniKgxQaH7l6E7Ut 0CWZr1TU57KV52mVDnj4V7 xRC3J7JcIBKpljhvwvprfJZ7FAN kWKSnrL21Hr6fyJsaJd3pKLIhBI T7YMLyxOSlW3EkzK4mZpDu DEUmSBVcF7GdkYDbEEefV744JLr cGyK5DUJixvAuS3KzNHRyrIejFx C7v4P0Kj2SSPVqDU73OXH5 zKR1WF69FM20I3SuYybguLVmfCL +PHRhYmxlIHdpZHRoPScxMDAlJy VzsQdtKN8pQq2hTGSdHUVh uQzvlVLcBvXzd1cdGCLwVBxbLS6 nsCxzW2UfmQH8TNQhu6m6Oj31B5 2fT4NylBV+LYXmkNF9uNN0 xZ6vQbAcWzJ4TNmxV229QxSpaFA oYvjmv4kuf6jybGe7FcV6EJJath ZgpYetVSU9z8CwGi14C12r IHdpZHRoPSIxNSUiIHZhbGlnbj0 ujF0iAq8+DGRwgHM4vTF4fP0hWv HnPlP1IIqzT403XyFbrYOf Hhylo5qye0kevBd5RkXjVVJkgyS dgBngAOH9r4FsGt29X8AdrJeof2 JbSbu6dk74fFIqe0W9zQP8 W7ZlRUIcwufqtPBiaJceHO2zTSV fuzkfYHEwyT3kVMRiG7x6XsWhYv K9TNrgV0WmjqD7KVPerKZr MOpjVIY2O88yt5G6ZSHrBZArYCS 6tPG7zX2ozQfopmbawIDxkVndhf RnrAmgHBehXSixR543YSUj eHgwWAYfaJ6aWNKyxFGtaAhxGF8 eSCEwiewjYbHKBEVjUK9NFDeUND EgUzwvdGQ+YKSbXVU4tKgq UAihBJCzmS2oPZCtG9u9OhCyUxM 4KRegA6OnMOStvtayPx82yN6mZb MqFhX9LYuvA1UyfhS7LXIk eEYoKErxBAS2S92lh7W7TQQtSYD uLSV9kUK4oE0mzUihtkjiwTXmqT swtvSigVgtRBlmQOyjG620 QGYteRckBnFlCsNoGkU5POJ1P6D dAns1NZXdsNjuWK7ufWAaGTvcDv 7xkZisaJxwRA3tJIHtclqt YOVfjA1vHYCblTDmbLnkCU5eOWO chgjjq377VdOlSSG7PMBvtQXeH3 MraS1nCxBxDMIqYVClF0Zl hKZwSScgQ523JOkqJbY4WQFgunH hM8LjURCgyLunVvV2m9A3Gp50BY BZZWFyczwvdGQ+PHRkIHN0 yOovCQjwWWTwkV3fNBLmW6u9XtS fPdU3SCseS7WlCZWrdsnqBl16yB 4qHjXqBrX2DMeyM2BnwqW1 SBAynTUiVXlxHXR6W83uj0R2DYZ wEXFcTMK5jMU3vG4kbWiaohdgjJ VmdDsgdmVydGljYWwtYWxp Y996DOYzeWkaZwHxmYVqIBtujUW +NQOzNQW7nJgvFQrtANYsvJ6uQT QdY3t6EwAwQqV6VEkdH8No FRSnkwzzJo98rK4vKtBvErH7ZXp qU7TxseD2RISpmKDqHLmyGQI6Q0 7dp0H0VPOhZQOpCBQ7oGQ4 kB1gvNxyavpbeXVqlAtlnbJcbIs rFJnfFMtzH177MQOahPuaFd83pO ZunGsbvqH1C0SnLowffXH+ BD47XEYbQY76iMMgeFPlt8beeUb 0HqReGIPqIMI6pHszZLgmo1WrGI WbO29oiNCjw7Z8DUOhlQxq aIYhHqNmqFD5sR4qOYyduwbkl4p zftpcBtkbk5wqlr00sO53E89qFC dpZHRoPSIzMCUiIHZhbGln yl1olW0uBx5+ZOXfmGD8lUU9aL8 lJkEvCkT0HSmnF970GkYnnPAxUz rlw9qns0eyzIl2EbQuUBQb uuTaiMhkWXO4o2RlFk72L09pHGf dRFXmSUHaRUNsYDXsmYbhap6tfL 9wIi8+XF1bc6ezju12uM35 dHI+WNXqADU5kAtdICnfAHNtjL1 bGRvgFbP6ECHaWgTteC95tRAiEU xkJs5qhFguePtyRY1mVUWz bvtff987JgYin4wfDRMbrDXnNUh uACW6J76ai9C5PFTiOXZvDBW0dS Q5mO7lxCjjypmjcUYhsCgr amEpkSqgUHydEYyyN611ZBVwwVs tMvTveCUgN5xedyIWIK0vOnoqlP Q+XXQhVKL6nFavMYdaYPEw nF1uOCXfY7i1PcSzNoI1SDbqA5C ctwK9QFMheZJhAOIrhLOLtA8pcm lzx0djfipzQyGtCMFbNNg6 LXj4NZVrlXyoApBiINH0XwV2OXF 1wEJquJ3hvNqudcgmmI9mYyd+Rk lOOjwvdGQ+JSMaXDE1oSfs LXvuUOLefV9xLNWvN9p0KgCoBfX 6SDhpI4BipiG7BSUpsIPbYPOerS HUrD9ehupai4vneebmAcYq ONIiCOo7DUp0ISFxuPxzVkExLVO 4KvG9OGW3yXQxmS1wvOwrpoylsS 9wOyc+TVJOOjwvdGQ+PHRk FBE0hLiuNSwyOJTlxE2kPIFqN8q 3YtSfWcA7HRqgM8ErhhA6DFBbaZ OnOFTfcZUGlM9ohtmee3ir qvrjPzEuIOWcMAl8LYl8DNBhxAp sAeMhWSI5OeH8UEC4aSKhvW1tmT htahnaxU3kPyy+DVA5QYI4 VD93MA49Y9IsAizmpNWctNE+PHR hYmxlIHdpZHRoPScxMDAlJyBzdH jeQE5zWb1qYAQaGLVorAxa cHNl (more content not included)... Normal [facility] IntraOperative Documentson 0 07-28-2022 IntraOperative Documents [id number] Normal [facility] Workers' Comp Officeon 07-28 Workers' Comp Office [id number] Normal [facility] Coding Summary.on 07-25-2022 Coding Summary. CD:[id number] Gh0bWw+ PGhlYWQ+HO6CAILvM98qoLRqeD0 CV2rKMY7RSYJRMFXDHP5BZR6nxI W1TBodQ9DevnTx EksssLDeDE44ZWd8AML1dYyfPBj bxP0ccNAhU9n7NzYaGV92oS94DL tgWFHxRkL9RlDrjpaciMOe P9qfNoCscJYhVzz+PHRhYmxlIHd cFHEhKDpnHAHeLpLboNimKY0lGw 9yZGVyLWNvbGxhcHNlOiBj i2pmUJOaKFzuYY5ojQjfK8MmjDG 5PTAuz0r4Pr50yQZ+IZJdUII2cT czCOlsb299XaMmf8qhJCH9 pXXpPWbiEYY1G61px1I6OAJvGYQ wFST9rMH4hC3olXzapessF9TdgU NyFiS9ZEB5aRXtwB3hfTui kiwbnJ0mLjk+I80PVM0AZUSUWG1 BNkq1N7KeRfvwhQS+KO22EMTxKV 72eBFryDBft5zaxHp1ZcUc NBYmIMM7gGptIAfzt1WjBUHjB06 qfGRxx5E9JPIxbBaiqEZfVaCoqO F7zJ7jOGmiylztu1rstunn Hipyw4tpod23kE26R43wQMckFJP mWJW2ISEyXCTetFwsop6sgM6gJj 8+LJzio9rar6jheUn8SkBq FHQmxpMmbZvtALJ7a7LrQp24L6M gtSoad6FaIng9xx68aMBer9J7hN B8OQooQFYtxW0tGZhjFnI8 SJVxOjYqwG29yYKmVUmwAp6ttZb fuQbsSF8wEZOvrbwaDOQuuQ6sFX WybTMvtPegSD6xKQLaugws j983CaTmBRE6LBHtaOMyE2ZzxI1 jBxLfWERfZDQuU0JlgGUyFIllD9 41RZfbZmY9VRUtbhQcF6Vo VDNrbKguPqX3p0O3Xo9Pc4Vencw aBDS5HEtoIRWqBmUzYxUpDoT1W9 KmPsa4SPFtlGlkLA6dK2Be KUMfqvrbwwgnxUR4IHFfJKDxtD0 0eWCqFXmsAa0ek7Z9t331JEEaGG WddE44Gj5lsHywFEVeoNIQ pP1tnvekl7zwklgjKbVpGOLbUTr 4QSg1MFJwaSanLqHsBPO1WmV4PX W1zUEyxO1wqQswlppiwP9h Oyc+H39fzW0rIZA5HBA5vmcfHYW dggOqBF07FC50M9NdKbpvdABvxI U+ZUHapjVxlHgtYL9lXtGk d6mqp9FvLUloB3AyIMHvJBwfRow 9MAFkNUJ8sZE4dS8uAURoEAfim8 H7zQA3H0IsttGzgg2zw0jp PVZfKJriK88nvOXih3V4ECYcrCA 4CUBqlNxuHtIjzZ28Qxm+PGNvbG tpz7GyJbcjx3hxh5fqeSz9 RuKiDOFpdcSxyChvBLU8c6JiJn5 4Y55xOOqwHAJgKXYdOPLnZGRvaO kxmu1jmB5bQu5+PGNvbCB3 qIY7tL8tHZQlJpK3DNgpG404QdZ ziVMtHxdns1cee1jyfCh1EkHgSB ZkloNgxDxgHAM9p9YyVa78 Z55sIQhhCIQsFTYyENGfPHJvkLk eak5ktU0fOg1+OP4xi9arhv72jD 48dHI+DJEbCVV3aZrkXHsl GEUfnB1xZVjaNuR3LSBiYiZcoU3 8cYEdTMyxEn6zsHcifNnkGX6iSV Kpbehab544IsOnx8sbWXXd uIScAIqbZSL4G41zv0R4RXLpCEV hOOJ5rXX5xI7xzHdgjoydqQOzvK biegLphGbxGMtiZIfaS699 IHRvcDsnPlBhdGllbnQgTmFtZTo 3P2NmVfc4GDJupRvaOQ7sqQTkAQ bmTy7zlNnriSjnPE8kBCGh fxpli318HjAjg9wzYMOekIHaCKb fHOF9W49mx9D4FCPnLJZuEVV7hA R6zT7yeGcahjdooWUgwVun riYpbAprVKrfGTieM943AHDorFk lKlKdunTcGOYqoQW6SN33CG12wW Fkk4U3jGA1L8JyEVPginzx dsztuFL2UQZnGRSfzW50Wc8cyPu mNi3fFJElIIW3MBVmuQAmY2SpoT 8xMpWzDJGsFIHkS1PaxHVr IBhjB768ZNmvRuN1FUIibrNjS2S dLWDyfDpiYoQ1z0A9Cw3DT2T8CJ 68MS91dLXcs0S7dZS1Y5Rg RNKztrconppksMW4SITjXELthT8 5Lp9giFboAu7wPQQxNZV2HWPfgR JzG6IssS5nJrTpZSWcGWNc D0FxtMHxKTrtL358WLoqXjR1JRV lgwCyQ2JyLAKmbFbkSzZ9s5T1Jf 0FDPb9RL66KB92fEWub9G5 jUI2Q6OhAEWtljtjzwefqGX4RMQ cJUAizL53Lo2xmYrjFm6mISEtDT S9OWXmnZRhC8CeuP6mKaCx VKPxBEDiT9YhcHOjYPgoV049IKs uMtP9DBHydhPaO3SoFFPvpHoqYt N9j2Q1Cv2VXTGbTA71XJE9 yOE6VW11PI15V8EuBtwfbHPsqBF +PHRhYmxlIHdpZHRoPScxMDAlJy SnrHumBR3rSu2zBFTmMDWm kZlslFKeXdBwk5agXYUqNQgvNY0 ixKrhJ6CtaFU4KMQiv3n5Pu05X7 9nX3JpcYN+SICmcOY1uGN5 iJ4vKfBvZdB6RKnoQ748AjHjtDO nNatdx2hbn8jtqFl6NyZ7BRAndn ObwRkgWIC3i0RfRl54G88g IHdpZHRoPSIxNSUiIHZhbGlnbj0 aqF3aUx6+HXJjeEV3yIY8fH2hXq XtYwG0BTzlJ009HeCmzAKg Fmmyp1low1hicEk5UnBiYNRiucI deIdlTBA5v6LeRy68A1YghEddy3 CbDys8mb24vZTrb3R0hRS5 C4PoHQKgpywylGAjzVgyTM2wFXX zqqszKBPiuG7fXFBxH9f3QjOzFk E5NLldL8YpbxV5SIDzhRUm THsjZXT1J92yx8E3LJViIYFwSFF 8jQW3qI1ejHkqyfunzFOttRqdbo EseAdxAGraHPdzS758XFQs sSxkXHAorW4bNKVodVKfcHofJR9 xHEEekigfVrOHQZQkTO1ANYnHJZ EgUzwvdGQ+EHGmBEN5pLty OPpwVBBrnK6cURCoS3b5RsXoOaX 3JYhmK1RoMFSdvaiaSe92sP0jVq ZsNeC0ODttN0UdrhW4KMQi bSMpSMvcTHG8B55bb7R4JAEgQPO uPQX7gQZ0sD3ncEhtcfeabEAfhU ltqyEqjHidRCibKApeA523 PUKrhDkgUoYsWwJaLaJ8XGW0B3K sHrj1JNEqgYorZA5qgSWrQPccIc 5ffEzwiNmpSE1vQCAtqbyn CDCdrG7nJWKiwYIrvQvjAE8wXLC dzzowm581CsXcSJO1YXPbmHGgQ7 UjjF9hXiFoXJZgGGVhR8Zs vPWyMThzE607WAqlXhO5PKErdqY gC6ZeQMJgpXzeUaY5h8U1Ms60JU BZZWFyczwvdGQ+PHRkIHN0 zZmyZXefWJBkrV3qIYUpQ2v8JjD cSdX6SWbqZ0RsKSOdbvreQd65uE 1aFfHnMhE0XGktY3YdidU2 VYHwrZUlKTlhJPV1I19so8W3LQM uNSNeLAX0nJO6eU6ugQnrmzciqQ VmdDsgdmVydGljYWwtYWxp U900BKGoyYenNcKviGVwDSrvdUJ +ZMLnNNR5zEupTKkbMRKhnO1cXV OvR4y0OnDtZoY9LXpfW3Ld OFUnrvwaNr87oL5dPsQxJmJ7REc gJ0ZhasV3AMWzoWJoSUfmFXF3U7 9sm7S3PLQqPIWwSAT8dFM0 yD7fqBpfdtcwxTWggLcjztXnpNq sFTbbKOeuV861XOCcoIcxVaVtdB 4gTWFuYWdlbWVudDwvdGQ+ QH99ip18N6XbTtdpPcz4QQIjEHU 2vAN4zE5jQMTbIPaub2H1nDY5X1 WabhEjld6mw6bkVOObMAme C40mfMCsv9F0WRQgcNA2SOIwbUp tUuPtjE36Won+PKIwoFada9VmFk anr9fbr3ztxYf1XnLnCMOi mmLwfKryZKJ5u9QqEo69L21wXXj sCKNhYSEbVPJmNBWocLszvl8qxU 9wIi8+QBImqFU5iFV1nV4c UqQcRuJ1CHezA416VtKkbVYmAzk aa1pvg5tywVt5WfHvHRMqanFggR luKDC3d5RfMy26S6RqyXob n3ZaOih2fu47fREqq4N3nNB4K6L wMKQvmfifzFLivGddZG5gWNBatg mxKGRytA7eAWZoK9i8GnKx VtG9BVqaP1TuswI2LNMzmOKhTGA lbWBTfJ9fgvocw5nktujwNgFiNW WpKLw0NTt7KJYejXeiRoGw YQH4PjE7JOE6fGBsyP6zcRusjmg azF3rDcw+SLp8i8qmzCRzLW7ltR M6DU98RX70fZQuh4P2aJL2 R5DaJGAjyoavwofuvBP5ZMLpXEW efS07Xy3htFmqIz4bSHAoYFG3NA FtjVIaH6HcyT9vFcFiCVXd LFWaA1TsjTYpKZivY165JCqiSxX 4JDYmsuBjF8RoYELxzNyjVrB1d4 U0Db1SQV86WK65JQ52oOZg z6O9wJF4Q6QvGPIbhhzhrrhusIT 5XWBpMMUujR98Bp9heZyhTw5sEC PpQVI7FSDiwAHhC2EqjF9c WhJrOFMtCVIoV0UhsGFgADyoW01 4DQxzDfO1IMNvmaUeL4MbTXPzjP hqGtI8p6F6Tg8SCr86MC12 BG23rYPex5E1uDX6S7QtBUOrzon gpnhsoHW8QVFmXRNxaH68Fs3vcQ wjFc9yKTYeVRI9GDQpnTVi X8DsfH3bQoLhMVYsODMcZ0QnaJK eMIhtH081FKulCnN4GZFruaXpR8 AkBXShhZmzUeL5p3K4Et8X DQnczhl0K1NrCjgtgRG+AA30WXT qOG78kCUnmBIze8yxlAs2MkRdYY UiCHV9kJjvFQvlj4TjUKFm Y29s (more content not included)... [facility] Consultation Noteon 07-23-19 Consultation Note Patient: JULES GAINES Age: 41 years Sex: Female : 1980 Associated Diagnoses: None Author: Brigitte Mckeon PA-C Subjective Chief complaint 07/22/2022 13:08 EST F/u from [facility] trial-lead pull . Patient is a 41-year-old female. She has a past medical history significant for a [facility] claim. The approved diagnosis codes are G90.522. The injury was sustained on 04/19/2020. She is here today after undergoing a spinal cord stimulator trial. Only 1-lead was able to be placed. She got over 60% improvement and states that she was much better. Her quality of life and activities of daily are both significantly improved. At this time she rates her discomfort a 4/10. She is very eager to have the full implant placed. Due to the difficult anatomy she will need to be referred for a paddle lead. They would like this to be done closer to [place]. She is going to be staying in [place]. Health Status Allergies: Allergic Reactions (Selected) Severity Not Documented Penicillins- Rash., Allergies (1) Active Reaction penicillins Rash Current medications: (Selected) Documented Medications Documented Singulair 10 mg Tab: 10 mg = 1 tab(s), Oral, Daily, Refills(s) 0 Zyrtec: 10 mg, Oral, Daily, Refills(s) 0 carvedilol 25 mg Tab: 25 mg = 1 tab(s), Oral, BID, Refills(s) 0 citalopram 40 mg Tab: 40 mg = 1 tab(s), Oral, Daily, Refills(s) 0 Problem list: All Problems CARPAL TUNNEL SYNDROME / ICD-9-CM 354.0 / Confirmed bilateral Cough / SNOMED CT 56148789 / Complaint of Smoker / SNOMED CT 843019612 / Confirmed Added secondary to documentation in Social History. Resolved: Ovarian cystectomy / SNOMED CT 4215463351 Objective Vital Signs 07/22/2022 13:08 EST Peripheral Pulse Rate 73 bpm Systolic Blood Pressure 116 mmHg Diastolic Blood Pressure 68 mmHg Mean Arterial Pressure, Cuff 84 mmHg General: Alert and oriented, No acute distress. Eye: Normal conjunctiva. HENT: Normocephalic, Normal hearing. Cardiovascular: No edema. Musculoskeletal Normal range of motion. Normal strength. Integumentary: Warm, Dry, [place]. Spinal cord stimulator lead was removed without difficulty. The suture was cut and the lead was pulled. It was intact. A new clean and dry dressing was placed. Neurologic: Alert, Oriented. Psychiatric: Cooperative, Appropriate mood & affect. Results Review Thoracic and lumbar x-rays done today showing the lead placement. Impression and Plan Patient is a 41-year-old female. She has a past medical history significant for a [facility] claim. The approved diagnosis codes are G90.522. The injury was sustained on 04/19/2020. She underwent a spinal cord stimulator trial and had over 60% relief. She was better able to do things. Her quality of life was improved and she was very happy. She would like to have the full implant. We are going to refer her for a paddle lead placement. She would like to go to the [facility]. We will refer her to Dr. Stanley Poole. She is going to obtain her imaging on a disc to take with her. She will follow-up with her services after the paddle lead is placed. LESLIE score: 26 I agree with the PA assessment and plan. I was available for consultation. 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 ANESTHESIA: Monitored anesthesia care COMPLICATIONS: None PROCEDURE: After informed consent was obtained the patient was brought to the Operating Room and placed in the prone position. The area in question was prepped and draped in sterile fashion. An AP fluoroscopic view of the lower thoracic and upper lumbar spine was obtained and after local anesthetic was administered into the skin a 14 gauge needle was inserted into the skin and advanced toward the T11-12 interspace using a left paramedian approach. The epidural space was identified and a 16 contact stimulator lead was then advanced through the needle and into the epidural space. The lesion was advanced until the tip was at the top of the T8 vertebral body. A second lead was placed in the same manner using a left paramedian approach at the T12-L1 interspace and was advanced until its tip was at the top of the T9 vertebral body just to the left of midline. Proper lead position was confirmed via AP and lateral fluoroscopy. Once the leads were in place the patient was awoken from anesthesia and test stimulation was conducted in the Operating Room. Impedances were good, however, at that point we were unable to obtain adequate coverage of the patient's pain in the left lower leg. The leads were trolled inferiorly but we were still unable to obtain adequate coverage. At that point the needles and leads were removed and the patient was reanesthetized. A 14 gauge needle was then inserted in the midline and advanced toward the T11-12 interspace and after the epidural space was identified a 16 contact stimulator lead was then advanced through the needle and into the epidural space. The lead was advanced until its tip was at the top of the T10 vertebral body just to the left of midline. Proper lead position was confirmed via AP and lateral fluoroscopy. The patient was then awoken from anesthesia again and this time we were able to obtain good coverage in the patient's painful area. Impedances were good. The patient was then reanesthetized and the needle and stylette were removed. The single lead was then secured to the skin using a Cook anchor and a 2-0 Silk suture. A sterile dressing was placed and the patient was awoken from anesthesia and transferred to the Recovery Room in good condition. Complex neurostimulator programming was then performed in the Recovery Room. Rina Ferraro Dictated: 07/16/2022 [id number] Transcribed: 07/16/2022 [facility] Comment on above: Result Comment: Elec tronically Signed By: Sally CID, Erna\.br\Date and Time Signed: 07/23/22 08:25 EST Consent for Treatmenton 07-06 Consent for Treatment [id number]#1.00CD:127 [facility] Consent for Treatment [id number]#1.00CD:127 [facility] Legal Correspondence Officeo n 07-22-2022 Legal Correspondence Office [id number]#1.00CD:127 [facility] Office/Clinic Note-Physician on 07-22-2022 Office/Clinic Note-Physician [id number]#1.00CD:127 [facility] Patient Correspondenceon Patient Correspondence [id number]#1.00CD:127 [facility] Patient Correspondence [id number]#1.00CD:127 [facility] Patient Correspondence [id number]#1.00CD:127 [facility] Patient History Officeon Patient History Office [id number]#1.00CD:127 [facility] Physician Orderon 07-22-2022 Physician Order [id number]#1.00CD:127 [facility] XR Spine Lumbosacral 2 or 3 Viewson 07-22-2022 XR Spine Lumbosacral 2 or 3 Views Exam Date/Time: 07/22/2022 12:44 EST Reason for Exam: G90.522 Report IMPRESSION: Grade 1 L4 spondylolisthesis. Degenerative change lower lumbar spine. CLINICAL HISTORY: G90.522 COMPARISON: NONE FINDINGS: 3 views of the lumbosacral spine. Neural stimulating wire identified with tip posterior to the superior endplate of T10. Lumbar vertebral bodies are normal in height area 7 mm anterolisthesis, L4 on L5. Diffuse disc space narrowing L5-S1. Increased facet sclerosis L4 and L5. No acute fracture. No bone lesion. FINAL REPORT Dictated: 07/22/2022 5:17 pm Jean Carlos Garcia MD Signed (Electronic Signature): 07/22/2022 5:17 pm Signed by: Jean Carlos Garcia MD Transcribed by: MAGALY Technologist: ADAM, Normal [facility] XR Spine Thoracic 3 Viewson 07-22-2022 XR Spine Thoracic 3 Views Exam Date/Time: 07/22/2022 12:44 EST Reason for Exam: G90.522 Report IMPRESSION: NEGATIVE THORACIC SPINE CLINICAL INFORMATION: G90.522 COMPARISON: NONE. FINDINGS: 3 views of the thoracic spine were obtained. Vertebral bodies normal in height and alignment. Neural stimulating probe lies posterior to the 11th thoracic vertebral body. No fracture, dislocation, bone lesion. FINAL REPORT Dictated: 07/22/2022 5:02 pm Jean Carlos Garcia MD Signed (Electronic Signature): 07/22/2022 5:02 pm Signed by: Jean Carlos Garcia MD Transcribed by: MAGALY Technologist: Mark MEDINA [facility] Coding Summary.on 07-21-2022 Coding Summary. CD:[id number] Gh0bWw+ PGhlYWQ+DS8QXSWhY46miGTzfY1 XI8zQFT3ZNMRXRMIIUI7WFI5zfH P8PDhsA6QdmyPg SagmuODnNC43WGa3GPE0cCwwNOq mcQ3juDNkL7p3SiBsUZ08uG87SL ecNGPrCdA1XaEytwoqaYRd B7hiHwLqdKPiHor+PHRhYmxlIHd lXACmDRzcJQLeMmFqwAmcIW4iHd 9yZGVyLWNvbGxhcHNlOiBj s0zmSXSsWBzgCG5boFzcN1VmaNY 5SYYlb4b7Xl63pDN+GSKaJND2fR weLRwlv810KsDcm4jfYFZ7 oPZuOLhfBIF2Q14lr9K6UNOvFYM cUOH9rFR5bG3zlDprrxebI4PoiM XiJpI5THB4tQYalI6vcCda reesgN6hZtl+L18WJU7NHQCTMX1 VSux5J8JsWgvjeNV+UA46FRYgGL 64qPEeqFWzx2oruSh0PyFj UTJeJHG9wMygNGehl3UdSYJhS80 ntHJqx1V3FKKojEpmyJLuVqAdrG J9pU0gBNyutbxup9atznew Libsx8laco99nR39M82vIFzcUKP fFJS8QYHwNKDouAflph8rjO1vQo 8+OMdzj6bml1cxuNd3HgZv JCUfuuCrcOudMWJ4y5WrMs85I9O whBqjv6BsYvy0wa60gPXwr4Z4qD K6WJpyMYCrlP3oNPewNbD1 GJEuLlBulL77gEKfTEwxRc9qrAt hrVloMM9hFAByvkniLJMxbU8lAW GrpJVjuFrlRY9rZTMqisue w653EnYbGGZ1GPOezTRxM6AtrP4 rYnSlQWKsMZGpV4RpkOXxWGliS5 19WSjzNzG5ZOWujtQeB9Ra HKNqkFtjCwB1b8C8Sq8Qd0Felwo pIRS9JRwcKQXnIhF8MzYySeB6O3 WtBtx1YEMikIlnLC9vO9Rw IQEbvpfbnkuxyZW7GWMxIERhjD1 0nBXbGPieSe6ux6F5s839ARXlAY DybQ22Ss1auYzpHCRlfMRB lE4tfotlm2omzyfnWhFaUAFrCNu 6EJr3JLRdjPjnKsNhFEZ3WsK4UY J8hMWxjG3owQvhejhopA2j Oyc+K58rwL9iMUB0SBY5efhyFOO uxdAeYS18TY56Y0WrZhjyaDOzbX U+HFPikuNsqTbfLS0lUlWu d7htp1NzLFhhL9QbGRUzIWehKjp 2POQxZWU3nDF3pP4jJBDvFFpia3 D8xYL9F5EtbjSxtk4uu0gr BARiYDrkB36wkQSdd5V2DBFukSB 6ZCDesTxrDeOexS37Exm+PGNvbG ngu7YdKienq2nar0jshJf2 DeYiKLIlvwXebEnwPEK4j7DzJs9 8I71gMGafSQKcADDkSPAxIQIvsB zlqq6qxD6fCf6+PGNvbCB3 kYE9tM6hYXQsWcC9POgbQ462CrC jyZLnKkkdn9ioh0lkvTo3LbOwOI KrngZzzYbmDQU9w1WcSd27 X34uZXagPBQuGJWvSFNwOVNxlKw kkx8fzY8eRp2+GF1ra8vlfw22bR 48dHI+MLYpYSX1eWlyVHgx DBQalR9dTOdeEfA7GKAfVbInkU1 8aCRuSHklEm5cuIwglBqjPE9yDA Omhfmht827UxMnk0qpSSOy kNNvHNauXJC5Y73kh5V3ORXlNTD qUON2mHU6yN9kkEswrtnewNRwvC fhedAshQiwTUygFLbmD089 IHRvcDsnPlBhdGllbnQgTmFtZTo 3U7WiPiv2YADweMobIG3blNVjOL llWx5lpVuvmCdtZP8wTMMy gckcz281XkOpq3toVVZyiPHoAGd sKXM3C98rw9V8NIShWQYjMKC0kT S2sL7ybQhserjthZCygXfs kzCqiBuzACgsVTshQ336NMRozDf vPcQpukUiOPUjtGI4JI50UI96tG Knz5N5rKP8K3CcHKMwenqo hrfolTH8KNDoJCWjuF94Xa6ouHp fKy7fLFVlSIW4VPCakJDjK5SrdJ 2mNxRxTHCoOTAxI1NalJEx GRayS043VUstApW6TDCtmlVcS0M gZCUmzDaqJbF8g7B5Ax6RZ8Z8YT 11SP17kTMrs9R2qNO1U8Un YPHaqaxohipsyAJ9WATaLTYzkG9 1Ts6mtHtpOj8zSNWfOTG9EUAyhK RoU6SzvJ5jWzLcPNIjDTRv S5LmjTNjNZihQ057TXpsOzA6BNY vhjCeQ7UcTDVhoTgzEeL9b1F7Om 2DEVa2XC19FA92zXEbw7E0 hZZ4U9BnXGBlvcfxmkydjEL0RII hFFCglY39Tp5myTxmXx3pDKNeJF D9EBSlbSQfJ7CmnM6rNjOj ADZqUEGqL1OkwHBiERcaF716CVy cNrU8LDRslkXoU6OwNQOclPuaGc E0e0C9Un0ONKToVM57IAH3 dJJ4FR91MY33K0FgRpgarFKncOE +PHRhYmxlIHdpZHRoPScxMDAlJy HtdRrqJO6rEe1dNHXcQDMa bSsgmZRwUuNoy1psZPWbRRryBD1 lyScpE6UecAV4FZOlq3m3Bk20C3 4oE6VlpHM+GXYxbFR3nBI8 fA8rVfEdWjL6SMgfG605RbNvfFO kNbspx1iea7dbdNt4WjO4RAXtxr RxyAykKBY4z0TjFt42X75x IHdpZHRoPSIxNSUiIHZhbGlnbj0 vhJ6zPk2+TFKohTZ8jKZ5iU5nNv BxLbP5PUggX692YuJrzEBe Rjriz3ewx2fzyPn1PjMsFISbsqM cmMhdXFX3u4ApPb70N7TirStkh8 QeLkj2ks81rVOhp1S8fER9 O6EfUEJugotrmTKwsAqbVW3dHPD jgbngLBQkjB8cITPnQ9a4HpUnGh D3LAhmQ8GsaiM7REMsmLJl KMxtFLA3X18yg8I7ESLwMAZsZHZ 3hZJ8hH9fuFbvrysusXIlmTibrw XsqUdyDJmgGQqyO173IHGj vJieURJrmG8kEUKxrMAtfEzmRS0 wMFAukqhtBiGEHTRrOF1HRSnSLE EgUzwvdGQ+XZUoCJK5yGvl PKrpATGzaF3fDUNhC1g6QtPqNsC 7QLczB9RiKKBkihyhTo69yM9vZn VeZtS7ZEpzO0HazlE6WXUs kMEyDRumAJG5K82ps1P5LOXoABX zUNO2dQG0jZ9hhAncbpbrdUKhiS rrtpFzzZgiSHsaEDdyZ901 GLRzeAxaCjSyKvFaPcG3IUA5Y6X qDbs6QDPqoNwnHU2soHIyOJusYt 3ohEaxfIllUE0hUAJnvjqa TDXjrD3gWQUhxCNdlKvpFY5nZNO jzdkfq045EgHbDTZ9PGUabUOwI2 PwxQ8iHxTkLFCfJSClA1Uw iUDlXEceY394NXxlEtE8FRReysE fZ9FcLJLcfKhkCyR3m3W2Po16EL BZZWFyczwvdGQ+PHRkIHN0 aXogJXvbQINivY9aVEQgM7i1TrC nFeS9CSlsV0WvGRLrsncgGe50uK 1bMgGsYwN8TZbiQ1SkfeO6 SLGhuKEpRVcsQIS4K20qy6Y1PNT eYKRdIVO7hKR7cX5ejAquixfigW VmdDsgdmVydGljYWwtYWxp H996YTQzdAedPbImhVQhBYfoiYC +EGUxZVL2bKfdWWpeZIMzbM4kUI FrM4e5NrArDjT4WLzhZ7As PGMhmpodOb70gU1bEaRoQmG5CMt nU5YedoE9DYWdrXCvFMqzIIO9Z2 5ps4U7AHCjMQFhVWV3jFF9 sD8siDfvhzjelIMhyGlyrnQdzKy sKHiiDHwjQ646QNIngIjpShNcbB 4gTWFuYWdlbWVudDwvdGQ+ TQ52ah04S5AuJbgfUep8AZSpSZR 8mGR0vG8kERRyYDpur4Y9rYT5H3 FwqhUpgr9gx6yvXTZtTIaj S98pdCLyv6H8UAQgwBZ7HMZbsCn xJyKcvP79Lax+WSXmqTgoe7SzYn xvw6wct7vfrAq8LzWsTJVh utDhcZquSEP5p3JbCn35O36kGAo rIEOgVJBuSKCtYBZmqRqpjl2yrR 9wIi8+ZNSupHZ0wXM4dV9e BwMiZnP8TQrgT437PxYamECcKug cb7ktg2ydlDb0HvOhLZGyhuSbyO uiFYD9v7ZtKw71S9NstYpe i3IxGge7ew24sDHab5S5dBX8R4M qLJLjrjsmmOOozSdrXJ9kGZYgjz lqCRVjrB0qEETbW6u3FqOm CaU6TTerE1RrteW5BHUiwXOvFYE ntNNTtP8xhuxtk7rgemhgTsSwWQ VcLEv2MEz4GTFjpEdjWmBj RWD6NkR7KCX6wTUsbJ5twFptkqv ihV0gVmp+CAh8t8jspKWhYB8ldN I3PF25BG68qSMib8I8zNW7 A0RgGQFtozmsmjeoiVV3NPSiVFX dpA05It0cgQmaLg4mXZGeOBI2AY IbbNNmZ7IneE6qTnIkKCZy UEQgK6CbaEOjQDbjO300ZWzrVnZ 4EOXdrjOvY9OzTPOlwVcfKwE3n9 R4Wf3EUG87YQ13CX35yFCj c3C7qXS9F0WmISTjsxsosdruqJN 3VOKwWNAzmF64Az5qpRtbYi7nNN LnLCS5VPCmqKIgD5BkiM4g VaMzAOLaYZEcF9GtvMMiLRkrO94 3AUenDhK5VUNbmmPtE4XnWKVobX ygNdY6n9I0Hc9UZk71PP24 BR36aDRrk4T4aPJ7X9WgCBZdtvt gtirxmEK8UFOqSBGfhO66Mw2teL rwWd7lTNUkQRS0KPCgoPKn Y8MxnI2vLeOoPKAeNGQwO6HhhJZ dVVckK897VLkrOcN1MWCpvpAiQ4 DuZTFqyUvcQeZ4w3P3Xu9O ACnefhz1Y2RvIrqeuTS+UQ90PNI jZS59fLKjnROoq8mdgIe8TcZlEN JvXQC7nSmmRFmfx7CrLNZo Y29s (more content not included)... [facility] Workers' Comp Officeon 07-18 Workers' Comp Office [id number]#2.00CD:127 [facility] Consent for Anesthesiaon Consent for Anesthesia [id number]#1.00CD:127 [facility] Consent for Procedure/Surger yon 07-16-2022 Consent for Procedure/Surgery [id number]#1.00CD:127 [facility] Consent for Treatmenton 07-06 Consent for Treatment [id number]#1.00CD:127 [facility] Discharge Instructionson Discharge Instructions [id number]#1.00CD:127 [facility] IntraOperative Documentson 0 07-16-2022 IntraOperative Documents [id number]#1.00CD:127 [facility] IntraOperative Documents [id number]#1.00CD:127 [facility] Main OR Intraoperative Recor don 07-16-2022 Main OR Intraoperative Record IntraOp Document Type FTPM Summary Primary Physician: Erna Zavala MD Finalized Date/Time: 07/16/22 09:36:20 Pt. Name: YUNIER GAINES Yaneth Syed/Sex: 1980 Female Med Rec #: [id number] Physician: Erna Zavala MD Financial #: [id number] Pt. Type: P Room/Bed: / Admit/Disch: 07/16/22 06:58:11 - Institution: Case Times FTPM Entry 1 Patient Times In Room 07/16/22 08:20:00 Out Room 07/16/22 09:34:00 Procedure Times Start 07/16/22 08:30:00 Stop 07/16/22 09:32:00 Anesthesia Times Start 07/16/22 08:20:00 Stop 07/16/22 09:34:00 Last Modified By: Rosanne Vega RN 07/16/22 09:36:15 Case Attendance FTPM Entry 1 Entry 2 Entry 3 Case Attendee Mckinley CID, Addison Zavala MD, Rosanne Macdonald RN Role Performed Anesthesiologist of Surgeon - Primary Sorting Livestock Worker - Primary Record Time In 07/16/22 08:20:00 07/16/22 08:20:00 07/16/22 08:20:00 Time Out 07/16/22 09:34:00 07/16/22 09:34:00 07/16/22 09:34:00 Procedure SPINAL CORD STIMULATOR SPINAL CORD STIMULATOR SPINAL CORD STIMULATOR TRIAL(.) TRIAL(.) TRIAL(.) Comments [facility] rep Last Modified By: Gary RN, Rosanne Vega RN, Rosanne Villegas RN 07/16/22 09:36:15 07/16/22 09:36:15 07/16/22 09:36:15 Entry 4 Entry 5 Case Attendee Braulio GAVIRIA, Ernestine Gordon Role Performed Scrub - Primary As400 Consultant Time In 07/16/22 08:20:00 07/16/22 08:20:00 Time Out 07/16/22 09:34:00 07/16/22 09:34:00 Procedure SPINAL CORD STIMULATOR SPINAL CORD STIMULATOR TRIAL(.) TRIAL(.) Comments Last Modified By: Rosanne Vega RN, RN, Emily C 07/16/22 09:36:15 07/16/22 09:36:15 Perioperative Protocols FTPM Pre-Care Text: Implements protective measures prior to operative or invasive procedure, confirms identity before the operative or invasive procedure, verifies operative procedure, surgical site, and laterality Entry 1 Procedure(s) SPINAL CORD STIMULATOR Patient Identity Birthday, ID Band TRIAL(.) Verified (select at Check, Patient least 2): Participation Consents / H and P Anesthesia Consent, Operative Site Present Verified HandP, Surgery/Procedure Marking Verified Consent Surgical Site Yes Laterality Verified Yes Verified Procedure Verified Yes Correct Patient Yes Position Verified Availability Equipment, Medication, Prep Dry Yes Verified (If X-ray Applicable) PreOp Antibiotic Yes Time Out Mckinley CID, Addison Larsen, Given Participants Erna Zavala MD, Myers RN, Braulio Calvin RN, Rebeka Alegria Amy Time Out Complete 07/16/22 08:22:00 Outcomes Met? Yes Last Modified By: Rosanne Vega RN 07/16/22 08:27:49 Post-Care Text: The patient is free from signs and symptoms of injury caused by extraneous objects Allergy Information FTPM Pre-Care Text: Verifies allergies Entry 1 Allergies Reviewed? Yes Allergies Reviewed Self/Patient With Outcomes Met? Yes Last Modified By: Rosanne Vega RN 07/16/22 08:12:56 Post-Care Text: The patient received appropriate medication(s) safely administered during the perioperative period Surgical Procedures FTPM Entry 1 Procedure Description Procedure SPINAL CORD STIMULATOR Modifiers . TRIAL Surgeon Description SCS TRIAL 2 LEADS THORACOLUMBAR Primary Procedure Yes Primary Surgeon Erna Zavala MD Start 07/16/22 08:30:00 Stop 07/16/22 09:32:00 Anesthesia Type MAC Surgical Service Pain Management Wound Class 1 - Clean Last Modified By: Rosanne Vega RN 07/16/22 09:36:17 General Case Data FTPM Pre-Care Text: Classifies surgical wound, implements aseptic technique, initiates traffic control Entry 1 Case Information OR Pain Proc Room Case Level Level 2 Wound Class 1 - Clean Specialty Pain Management Preop Diagnosis G90.522 Postop Same As Preop Yes Postop Diagnosis G90.522 Outcomes Met? Yes Last Modified By: Rosanne Vega RN 07/16/22 08:27:59 Post-Care Text: The patient is free from signs and symptoms of infection Skin Assessment (Pre Procedure) FTPM Pre-Care Text: Implements protective measures to prevent skin/ tissue injury due to thermal or mechanical sources Evaluates for signs and symptoms of physical injury to skin and tissue Entry 1 Skin Integrity Intact, Braham, Warm, and Skin Abnormality No Dry Outcomes Met? Yes Last Modified By: Rosanne Vega RN 07/16/22 08:13:04 Post-Care Text: The patient is free from signs and symptoms of injury caused by extraneous objects Patient Positioning FTPM Pre-Care Text: Identifies physical alterations that require additional precautions for procedure-specific positioning, verifies presence of prosthetics or corrective devices, positions the patient, evaluates the patient for signs and symptoms of injury as a result of positioning Entry 1 Procedure SPINAL CORD STIMULATOR Body Position Prone TRIAL(.) Feet Uncrossed? Yes Left Arm Position Resting at Side Right Arm Position Resting at Side Left Leg Position Extended Right Leg Position (more content not included)... Normal [facility] Main OR Preoperative Recordo n 07-16-2022 Main OR Preoperative Record Holding Area Document Type FTPM Summary Primary Physician: Erna Zavala MD Finalized Date/Time: 07/16/22 07:30:04 Pt. Name: YUNIER GAINES/Sex: 1980 Female Med Rec #: [id number] Physician: Erna Zavala MD Financial #: [id number] Pt. Type: P Room/Bed: / Admit/Disch: 07/16/22 06:58:11 - Institution: Case Times Holding FTPM Pre-Care Text: Verifies consent for planned procedure, identifies individual values and wishes concerning care, includes family members in perioperative teaching Secures patient's records' belongings, and valuables, maintains patient's dignity and privacy, and maintains patient confidentiality Entry 1 In Holding 07/16/22 07:27:00 Outcomes Met? Yes Last Modified By: Maria Esther Merida RN 07/16/22 07:27:29 Post-Care Text: The patient participates in decisions affecting his or her perioperative plan of care The patient's right to privacy is maintained Surgery Checklist FTPM Entry 1 Patient Birthday, ID Band Procedure History and Physical, Identification: Check, Patient Verification: Surgical Consent, With Participation Patient NPO after Midnight: Yes Date/Time: 07/16/22 07:27:00 Results Reviewed N/A Personal Items: Glasses Comments: Personal Items Pt. wearing glasses. Complaints of Pain: Yes Comment: Pain Comment: 02/12 left foot pain Operative Site Yes Marking: Marked By: Dr. Zavala Location: [facility] trial Availability Equipment, X-Ray Verified: Does Patient Smoke No Patient states Yes Comment - Adult girlfriend-Brigitte postop adult Supervision supervision available Case Cancelled in No Holding Area see comments below for reason Last Modified By: Maria Esther Merida RN 07/16/22 07:29:59 Finalized By: Maria Esther Merida RN Document Signatures Signed By: Maria Esther Merida RN 07/16/22 07:30 Maria Esther Merida RN 07/16/22 07:30 Normal [facility] Officeon 07-16-2022 Pharmacy Office [id number]#1.00CD:127 Normal [facility] Physician Orderon 07-16-2022 Physician Order [id number]#1.00CD:127 Normal [facility] Progress Note-Physicianon Progress Note-Physician Patient: YUNIER GAINES Age: 41 years Sex: Female : 1980 Associated Diagnoses: None Author: Addison Sen MD Postoperative Information Postoperative disposition: Postoperative disposition: To PACU. Anesthetic utilized: Monitored anesthesia care. Health Status Problem list: All Problems CARPAL TUNNEL SYNDROME / ICD-9-CM 354.0 / Confirmed bilateral Cough / SNOMED CT 82929929 / Complaint of Smoker / SNOMED CT 621139766 / Confirmed Added secondary to documentation in Social History. Physical Examination Vital Signs 07/16/2022 9:44 EST Heart Rate Monitored 60 bpm SpO2 92 % 07/16/2022 9:44 EST Respiratory Rate 16 br/min 07/16/2022 9:44 EST Temperature Axillary 36.3 DegC 07/16/2022 9:44 EST Systolic Blood Pressure 115 mmHg Diastolic Blood Pressure 76 mmHg Mean Arterial Pressure, Monitered 89 mmHg 07/16/2022 9:36 EST Heart Rate Monitored 55 bpm LOW SpO2 94 % 07/16/2022 9:36 EST Systolic Blood Pressure 98 mmHg Diastolic Blood Pressure 66 mmHg Mean Arterial Pressure, Monitered 77 mmHg 07/16/2022 9:36 EST Respiratory Rate 16 br/min Pain Assessment: Absent facial, vocal or non-verbal evidence of pain, Controlled. General: Awake, Alert, Appropriate. Respiratory: Adequate air exchange. Cardiovascular: Stable. Neurological: Normal sensory function, Normal motor function. Assessment Anesthetic outcome No anesthetic complications noted. Adequate pain relief. Review / Management Condition: Stable. Plan Transfer/Discharge: Transfer/Discharge Discharge when meets criteria ( To home ). Normal [facility] Comment on above: Result Comment: Elec tronically Signed By: Addison Sen MD\.br\Date and Time Signed: 07/16/22 17:51 EST Progress Note-Physician Patient: YUNIER GAINES Age: 41 years Sex: Female : 1980 Associated Diagnoses: None Author: Addison Sen MD Preoperative Information Anesthesia Preop Info: Time patient last ate or drank 07/15/2022 23:00:00. Anesthesia history: Patient history: None. Family history+: None. Anesthesia results: Anesthesia results from flowsheet : Results 07/09/2022 11:00 EST Height/Length Measured 180 cm Height/Length Dosing 180.0 cm Weight Dosing 174.6 kg BSA Measured 2.95 m2 Body Mass Index Measured 53.9 kg/m2 Weight Measured 174.63 kg Peripheral Pulse Rate 65 bpm Respiratory Rate 18 br/min Systolic Blood Pressure 130 mmHg Diastolic Blood Pressure 83 mmHg Primary Pain Location Other: left foot Patient Preferred Pain Tool-Amb/Rehab Numeric rating Numeric Pain Scale 7 . Informed consent: Signed by patient. Including risks, benefits, and alternatives related to the: Anesthetic plan, Postoperative pain management plan. Re-evaluation prior to induction: Addison Sen MD. Review of Systems Eye: Negative. Ear/Nose/Mouth/Throat: Negative. Respiratory: Negative. Cardiovascular: Negative. Gastrointestinal: Negative. Genitourinary: Negative. Hematology/Lymphatics: Negative. Endocrine: Negative. Musculoskeletal: Negative except as documented in history of present illness. Neurologic: Negative except as documented in history of present illness. Health Status Allergies: Allergic Reactions (Selected) Severity Not Documented Penicillins- Rash., Allergies (1) Active Reaction penicillins Rash Current medications: (Selected) Documented Medications Documented Singulair 10 mg Tab: 10 mg = 1 tab(s), Oral, Daily, Refills(s) 0 Zyrtec: 10 mg, Oral, Daily, Refills(s) 0 carvedilol 25 mg Tab: 25 mg = 1 tab(s), Oral, BID, Refills(s) 0 citalopram 40 mg Tab: 40 mg = 1 tab(s), Oral, Daily, Refills(s) 0, Home Medications (4) Active carvedilol 25 mg Tab 25 mg = 1 tab(s), Oral, BID citalopram 40 mg Tab 40 mg = 1 tab(s), Oral, Daily Singulair 10 mg Tab 10 mg = 1 tab(s), Oral, Daily Zyrtec 10 mg, Oral, Daily , No qualifying data available Problem list: All Problems CARPAL TUNNEL SYNDROME / ICD-9-CM 354.0 / Confirmed bilateral Cough / SNOMED CT 26268403 / Complaint of Smoker / SNOMED CT 082918414 / Confirmed Added secondary to documentation in Social History., Active Problems (3) CARPAL TUNNEL SYNDROME Cough Smoker Histories Past Medical History: Active CARPAL TUNNEL SYNDROME (354.0) Comments: 08/29/2011 EST 12:48 Velma Cavanaugh RN bilateral Resolved Ovarian cystectomy (5664099824): Resolved. Family History: Entire family history is negative. Procedure history: Ovarian cystectomy (7325100647). Rotator cuff repair (510534872). Carpal tunnel (533326485). Foot reconstruction (436860198). Social History Social & Psychosocial Habits Alcohol 08/29/2011 Use: Current Type: Beer Frequency: 1-2 times per month 11/27/2011 Use: Current Frequency: 1-2 times per year 07/09/2022 Risk Assessment: Denies Alcohol Use Substance Abuse 08/29/2011 Risk Assessment: Denies Substance Abuse Tobacco 08/29/2011 Tobacco Use: Current Type: Cigarettes 08/29/2011 Tobacco Use: Current Type: Cigarettes Tobacco use per day: 20 11/27/2011 Tobacco Use: Current Type: Cigarettes Comment: 2 ppd - 11/27/2011 10:13 - Perla GAVIRIA, Raina LEMONS 06/11/2022 Type: Vaping Comment: vaping - 06/11/2022 09:45 - Rosanne Vega RN 07/09/2022 Smokeless tobacco use: Current vaping or e-cigar Type: Vaping . Physical Examination No qualifying data available Airway: Mallampati classification: IV (hard palate only). Distance: Adequate. HENT: Normocephalic. Respiratory: Lungs are clear to auscultation. Cardiovascular: Regular rhythm. Review / Management Results review: No qualifying data available . Interpretation: Labs unremarkable. Plan [place] [employer] (ASA) physical status classification: Class III. Anesthetic Preoperative Plan: Anesthesia Monitored anethesia care. Normal [facility] Comment on above: Result Comment: Elec tronically Signed By: Mckinley CID, Addison Shay.br\Date and Time Signed: 07/16/22 07:32 EST Consent for Treatmenton Consent for Treatment [id number]#1.00CD:127 [facility] Patient Correspondenceon Patient Correspondence [id number]#1.00CD:127 [facility] Workers' Comp Officeon 07-04 Workers' Comp Office [id number]#2.00CD:127 [facility] Coding Summary.on 06-13-2022 Coding Summary. CD:[id number]:[id number] Gh0bWw+ PGhlYWQ+TA1LWECsS68fxOVdgP5 JE1fKXH4MUHTIMKCETD6KEE4zyJ W1ITlbW4IbtwCa UqluqQQvTO94PLw8CAC5nKfbCOu prM3trZTgB8v8PeXgTG25bF81XW cmEBUwIdP3FaGgmcwksKRv J0mvJsUbwBXePkw+PHRhYmxlIHd eKCKbIQmdLKCrLsOslTttDG5bBu 9yZGVyLWNvbGxhcHNlOiBj o8dxZDXoZFopDA5scJbiL3JegMJ 8EDVxe1i6Ig09sDV+FOLjGNC3kZ ohQVoyr937CmJtq8rtVQP9 xPCxMJpsGEP9P16ex4J9STLaRQT bRIZ3yNH9iP6ggGzpttraX3FasJ CfLtB3WDJ9nPPjvX2adJdx sfjakH4jLhx+E23MLI2ACLJZJL9 QBrf7L0GhKnnmuNZ+SJ73UKVwXK 65zYRwsILlz8fiyNz0TxFa XJAvPWE5aYecUPbxq4DeDKRhI59 ixWWkt3B4QTAnyWqnyUCpFlNsvE C6gG7wXDrowoaym9ennrva Wkhug0knxa83mM50O46bPNisKCM pATW3OLUjJTRbkVmgkn5hnL1kSe 8+JFvfi8hnc8uftDz1AfAr XHMnmnUveZouLGR3x8RfKk39X5K arHamu5DtSeu8gx16tDNcl1P5nD F5DWtwJHSvyN7tWYomRiU0 TDAnRmVwaG74uAUpXFquWm2dvRt coLbdTQ5qYGMxouqsZOKslI1aKW UifURyjOodPI7eHCRayyhe y634ZjLdKNQ2ZJXxyGNfP5AjiN0 oIyXsCOIkZFWtR8HjdINaIIslS6 21OSyrUiL0WIQzeySkW4Wn ZFQorAooVjF1u1H3Qf3Zi7Mifju xKUJ2CTneNKDwHsJ5VdMhTmE1K5 XuWky1YAMojPmuUF1pT0Bq OXPtbcyfjlwezIY1BMFjDIIvcQ0 3oMCzXConYo4ir4O2n752DXHpUI DldR11Vs8liEmoPJUilYTN yW0xyawxx3hvbxpdHqJsVTOnLNj 4FZr8IPZokDnmPlWfDBS0CwB0HC Z1vKUrpS2yjWfygkgklT1v Oyc+E85uvF7oMXO4VKH7luxkICR zhsYmSF79XK49A7EvTvnsfUYksH U+DYWeqeSjaEowYA2pTyYm r1pdq5CfSIzlF3VdHCNfONjbZgp 3SQXnOLU0pRJ9xK1xAXNdADzko9 S5hWN5H4LzqgLnhp1ww1yy JXWzUZbbZ11ccNLdx6Z2SPWeaLK 9LVSnbUsqErNdgC66Uqm+PGNvbG bsa0EkQywqx2dfo3ewcHd5 ZsKuLFYhpzOjbTftBEU8i5XqBj1 2W67gAIbxNNIrWCBbINDjOZCygJ fhqp8kvH3gHa9+PGNvbCB3 wPW5hX2uQUGyFvB3VEsbA648TrY tgTJnDdism1ert5sexIh8IvVvDT MgsrVpbOpoGQB5y6FwKt91 H71hGApvKCTqOKVzFVIzZZDwyNj vmq2cpX0aHi7+DB3sm2ccqf64aV 48dHI+EVYhHFK3uEurLBql PQPxyF8sNPecEvS0DRMdGiGdxT7 2eHLvYCpfSm2jkNxtjGveRA2uHR Cwbwhkc437RdJmw8weLRLu bGVuICofVMQ8B98ty8Z5TZZrBZO iTRL2zYK3iZ8epDyrkyhxiMUcdH frikQnuPksOOerGZsaV662 IHRvcDsnPlBhdGllbnQgTmFtZTo 7G0FoIep1YKHjnYlvPT7xyGYkHX ttYy0weMnfjJuePW3kVNCr tiisu783AoEua2zaLFLmiAYtWJb iZUF7U13ou6L6YHMyBONzFJT2nU B3aG7eyNpfwbgvkOQyaDvk ydQlhQlsWCmpAOovG631IUCxdEe hQpTcaaKyWVEzlTG8QJ32EB20cY Dvk2Y9dOU0T9ShRGFeyhev kgwwiSA2CNKrBRQdcC90Sz5hjFh dFk8iFWTfKPZ9RRIwwPTvT1SiaK 1uRiHqNVBuWAHoE6OgoXUi CTxcB161LAksBbT3YFMnieCkE1M lLFAfyFflViZ2r9L0Sf5DT9Q7IJ 93VG60iTApz8A4nWG0P5Dy NXSirlrjzugqvVJ9XRNvAQGdmM6 2Rb0kdFmiLd5tJVMpUGO2FHJedX FjU2RdgH4uYiYgOFMmBXAt H3AoiSHoNKdxD703VAzcRyS6RNC cysSmA1LsVPZmfRjuPeP1a1N6Mq 7VFVq5BE40JI25vYYgw0X2 bBX1X6LwIPEjxpwpgntprTQ6VIY gXNIhqF37Vk5ttMvyUc8lADUtXZ J6ILWmvVCpV5InjB9dSiNo EBTkAEEkQ3PpwCDlIOsyD628MBk qIpT6GWZlvdFbQ9WbJUDgzJnwMp P6g6V7Wz6GJJXbXS78EGL8 hGW3BG81FI11P8GtMykvxIGljPV +PHRhYmxlIHdpZHRoPScxMDAlJy RkcSyrRX3bFj4bIZXvSSDd qFwivQNhQqWzj6pnUSOpSMfxMU1 euPuvH7TreIT7KQGrs4c6Nj84T6 5uZ2LwoDW+MZAfjZQ2jAB2 qX7vBiHySgK5SFpjE489IoTciKR xYsynf0udu4eyiWx0EbY1UBJtah TntMciOXI2d8IgEd86X49l IHdpZHRoPSIxNSUiIHZhbGlnbj0 vnG6oCl2+ZJKutQZ3fRC1qR6sVp XxRxT6LYqjT677XcBlvWAj Kioai7qhn8ppqZb2LmZkIVUixsW uzAytUHH4t6LnRx86Z0MbkHmct7 YpAfa4ss80sSAsm7R8hLA3 I8JrRJByugwjjUExsNlhBH0sHNL ooxlbWXIupU3gBXHxF4o7KiZhPl P9UKpnJ1FczsV8YDQqbKCh KQxbYYY9X42ch3H9PIOoDKInAAD 0qCK5zT3seJlvsislmLMvrZzzkx UsiMfpGRnaNSyfY315DGUw mLoaKYApkV2sHQLhkMYbzNcbQZ1 aKJZsckfeRsJLQTLwEY4ZLVcHEA EgUzwvdGQ+OZNqXAZ6kGjf RFzlRAIjpX7dJFYjP8k2HuGxBvX 9IUwoC3VkPILbzbfzYx78vA6lNm VpQjK6VYshK7GpvsD4UZSk lFXvOMtxQNE8M69wz6W1DRRaBIO mWWB7fHT9nK4olTgjidqgsISmzQ enjyBqyLhmYVghDOvvG878 SYWqmBnlUgHuPtXwIaB7RQH5R4Y oOns9IONupOrvHP0atGXaQAqsBi 6tzFjzfAavPV5hTNMjwtxz UHGtaW5jGUZlnTNoaWteWU8uWKZ rscfga476TdNwYNV9IOFetFGkA1 FoiY0pCxUxOBJoXXRtB6Ro uPUkHFmsU535JUkpJfX7RJSxanH eK4VfZZBueOtsUrZ0l6D3Xh64QV BZZWFyczwvdGQ+PHRkIHN0 bAbiXNehTVIbwE2gFCZlY6y8IdT cRqT5PAhtS8FaJFHmtmqpRw76qT 9wOiDrHdD5RFpqK6CymtX4 QLBdwGQlTZegFYD5T98kx8F2PHB eBJTyGJV5eOS6dK2tyQrdwswxgY VmdDsgdmVydGljYWwtYWxp E437KJEjnTyhZaLdsSBvZWonuQN +MDUsTXO4xHcpWGqpHOVsqA5nTR DoF9k5BmImEiJ5LMcaQ6Xg OJFmosivQk12vM9zJzWuBcK7KHi fR5XeofO0NQFtsMHgKUcxOKF8V3 4di0K0LVHnKVHiKTV6iEU2 cP0eoZxamzibgFDtgQbseyWgcQt sNIufVUdsP904TOBqdQoqPjAriD 4gTWFuYWdlbWVudDwvdGQ+ MG98zd33X4QkHjwtLwj7FTTxCIH 2pCP4aI4fMEOfLNepy5D5bIX1Z9 UuuwOvlr0zg5poMVKaFFgn Z84tiBQil4G2CFLlaGF0ISYhwYt qMkFlkU47Tyy+FKJpjNero9ZrUt unq3lgo3jqzFi3RuGnPSQg ixVxlEgdYOJ9b4TdBh08U63jSXd fGZTsBMKsWPObZQAbqTxuop3whD 9wIi8+CHJnnVC4lHM1kS1g QgChWuE3KTbjO956OvUwoLFrBhs fi4ogg7evqKd0KhLtZXOwnrUbaP uxPMH5p7GyBg89N5UeyIrq z3RmIci5be50yCIkp9Z2yOL1C1J wFRWyjeznxFQvtBkmZF8wJDXeot kyBZMaiB9iWUKwB0v6MnKu XjO8DKqxD8StsvR1PDGmrNWlDTB phVBQeN2qoqrgf4zlionlPsQqDI PwOIi6JOd0ZKNdkVhyCrOe SCG0RwE8ZHI1yJEvwK9qxPyutoa hlU9kCvi+DVk3f1phpOYiUS2xvV D4NE34KY70tUZjj8E1kWZ8 Z3ScJNVmvcaskoqgvIF1BRDmYWG rbH96Vw0mbVeoCi9oQPSsYBE1BZ KhdNPlB5AigS3uKoDbEWWj YHZfF8DtgSNkIUstU082ORakJsP 8YPUljiAbP6CsZODohSunMvO2u3 V1Rv4QLK43FE67DM87iOWo w7L4sPN6M4RuVCLyprrirreeuXE 0HISqVPImyB86Tz1bpTosWv0gSY LqRPQ9GDGpmOPxU7RgcM3a ZsPjXLUvFKIhU6WxuRScMSswE48 1TXvnHtW1KTZuetDcL7HzGLUxxE hjYfQ8k3R5Ex9PCf95QI59 MF65cAHfb8K6wXE0R8ApOOZrgyg xhzrsrTG2QYFqPWJsdR13Yo4seY vrSt5wYDVwKYH8XPHllEGp Z9PdiI1jLgDtTMYhMBIlE4LutMG qBQarB352QRqwBeC6RXJpzbPmO7 CjRHSqeJirTxI1b0L6Ue5O GDmkwer5D5UhKzjrwWS+ZT17GZT mYK04fZPmeKTrb1txcYf1PeGaEI OaRUP4hZjkYCerk9GkVSTh Y29s (more content not included)... Normal [facility] Consent for Treatmenton Consent for Treatment [id number]#1.00CD:127 Normal [facility] Office/Clinic Note-Physician on 06-11-2022 Office/Clinic Note-Physician [id number]#1.00CD:127 Normal [facility] Patient Correspondenceon Patient Correspondence [id number]#1.00CD:127 Normal [facility] Patient History Officeon Patient History Office [id number]#1.00CD:127 Normal [facility] Outside Records Officeon Outside Records Office [id number]#1.00CD:127 Normal [facility] Coding Summary.on 05-21-2022 Coding Summary. CD:506762ZK:4785156Y Gh0bWw+ PGhlYWQ+QX3UTNYuO06dmNDliK7 QF3hDXG6UFUGKYMIAVM8DEQ2yfF A4NRhsW1MfsxLn LthldVCjIH89VVs9QLP4vXmvMXq mvU1bqEGsT7b4UfKuZF04vC52BF eqNYMuIiL1WjQpxhasyWOy I5vnGkMczBFoZgz+PHRhYmxlIHd gRDTlPIkpOYWkWsLpoHoiGL3zBt 9yZGVyLWNvbGxhcHNlOiBj u4spTLTmARuaKZ5bqEwrD3FiqGS 7UWOou3u4Mr67kNI+LEJgTIW4bI ncXRvjs441HjQmy6cbJCV7 hCAqYQvoLRB5V59ky6L0KYOcWUN cDZP2bYJ6rZ2gsSqabzxxV9OmbN AvDuK6YJE6wYUzrO0jpTdw gposzL7lEkj+Z58OKC4RNMNOOH3 ILcy8Q2CdNajwdYF+OY38RDLaWK 08gQHdeGYhn2zaeLr4WxEv XZWdZDK5gEelKBgqy1PdMXSgQ42 trIGfk2P8QJZwuIciyNEbMvPytK X7kE0oNAgbeqine1trcvzk Kwvxg5jmhh17pJ32O61dDRtjWON wPYW1OEAfCZFqvTgvgc4noK0tCl 8+ARppj9kgo8pchHu2BpGp HWExkbOnaYgqQAN1j4SrFz93L3Q siTxks6SwOqi7gk28iGMgi0Z8dE J9JCgfMGRczJ7qKXwgZuK0 CBAdMyAhrV83yNOsKFfdZw9qcNh kwMpdBP8mRPFipofjEVDupU1pPR DciRWjfEusJI1pDGWufnqx m208KfYgUDV7MLFafXQsJ1BrcD1 rBzTuHPGnGLPtS8RbkYHsDJdzA6 88URfqCfD3EVNyzeWcI4Dz VRZgsZcfWoM2n6Q9Fv9Rg2Hcapo hJQB2QGxrXIObGsE7MdXyBlD4Z9 JuVlt3XWWrnVodXE9iX0Vy EXHwdqamixznnHS2RYFrGKZmnX8 7jFUaHHqeWo8fh0J4k349JTQhNW ZiaJ78Gn3lvEfiKGAepUYN aB8yhlccf4nqgdyvXgTxRRYjGZy 6IBj4RICqmSmbIkHrIHX8BzW2MX C6aGNgxM7tnPqcqoswkI8g Oyc+F23xlJ0vHUE4RUW5vbufLTX btmBmXC04FW32Q4FgMathkGLabN U+GKEpqcQxpDznNQ7aRmSs a0vrh5CkORjtE4XeOPGfGOojRme 4TTTbMMH7bDT1nV4dVSKrLXnye9 A5pBD5J7ZimwOyda4os8jl QNDvKNnbG24dqUHnn2E2IFMmnTF 1DGPbkPpkDyWeeD75Mut+PGNvbG njl9UnJdqcz4oad1wjaYl5 KrVeXARjncLtyBovSRB7t8WdSz2 0R11zYYkuAKQnAETpTEXwVOQltP vxam6duX0oGi5+PGNvbCB3 gJT7hO4mFWKiZdA4ZFpzO499WiK wwYZeNdzgv4oyv5vjaGz4YmAoGC WoqyVxdEoxPNQ6l8LdWp53 H14qJWnrMURlKFReLSVmHOYcaSc qki0lgO5mAj1+LZ9nm7kquo24gG 48dHI+DLLgELW0sDifTLdh PNBiiM8kXAtoQmY2JPDuEqJniL9 3nCNeTMnhMo4fpDytjGqhNV3uVK Gcbifns378DdIpy3pnRRCf mKIgMZxgGEK7J75at4M8XAIvVDV dZWB1oRC8oP0xmNljeeqwzEQzvC mibwThzWqpZFdgRSeqC115 IHRvcDsnPlBhdGllbnQgTmFtZTo 7P8ZvKlk0VUZjiCabVW9xrXWcAC zpPq5guEmsvGkkMR8uZAYk wasfx311PdHln5vaBUQupBKhRSx qWBD8W05eg9Y2EUBvEUIkWJM6kX B5dC3vlIcaerzwpVNdeWat tqIndUntUAhtJGknP634PGAjzVk xUrQwvvZsOEEmaFY6QH97FV76lV Ovd1X6rVW4Y3DsIBJcddzy ccccfEP3AVLhAIXqqP90Lm1jdRh wKn4bZLQiBAQ0GRVdzGTbB9OtqR 4eUxEwAVGkUMMxA4DfuYMa YBztC193ZIcoAmC0PJWwmgMaW8Y bOMQtkJyrZsP4v8Y7Hx8UN2B4GD 16YC91kOEzu4Y5aFJ0L6Xi NMSwlwzxvmzztRB6KAQeKRQgeJ2 2Zu7kwQsuHt9xZEHgGGK5XGQleI CtM6JzmN6pYaMwFQZeSKMj D8ZcfHHyYAvwP481NXvoTjF8BVS yryPrD0KxHSJkcAwrHyA5f5D6Wv 6UAQd7YT34YC79hULad1A5 qGO6Q8IoPGDhqycjirbfhGV1DIT eHHAtrP46Sm5ruMsiSl0jZNWqHD I8NLNdjGBfX9SzkS9lXiEo WFEbJJTqY0XekAIqWAtaO477UEc hTfQ3PCHuslMyL9IpBOBauUxiJb S4p1D9Bm1YQFBuQL06YIO8 lYR2AW61HQ70V3AkJvhvcTFsqPE +PHRhYmxlIHdpZHRoPScxMDAlJy RbjYatVL3uXl4sVEZzUEAx vViynCJyPcPrr8doAUMeJXiqZI3 exNvkL9JjdDI4YITfo8a8Ny44U2 8qB4PflOB+ACLiyVK2yMY0 nU5wLiMmTaC2COakI287ArGxhLC nNbllo1wpc8yyiBn4SiT5IFJgxc CttKhlCTM6q0LxYo91X00z IHdpZHRoPSIxNSUiIHZhbGlnbj0 ozT0bMu1+SOLazZH1dPH4bB7rBl TaDtP0EKaeN589GmDbvYWr Epeur3oqj7syyFu9VuCmVCOgngY wmFivIWE3r4LiBd82H0NyfAisa8 BdXuh6gp00kDOkl5Q4wFV4 J7UqFQBmhdcsvKYwoYesEP1lESV sadnvKPDwmO0mHYOpE1q4NiHrPt U9EMdxX7ExvjE2FDTvjGUs NRilVMQ9I93ok4P1KNNqKZNnJCN 8oRO0uA5tuTpbfmgsjKBhjXkfgn PsvKtjEZwqVYixZ820AMBj uEtjFAZorP8pOAQbjEVzdGxkMC2 uHGZikfmkFcXJOYAnML1ALGmXJG EgUzwvdGQ+TOZpGFX8nPip QCswDHOjuG0cDELhI8d6ShMeQcB 8GVazY6HeMBPzhgurAw27kU7mWk CfIkD3CGvbR8RmgtZ4SYEo rHVpXFqtVSZ8A93xg0O2HHUoANR eNMF1iIM2kP1msMaoieccsZKjlJ txaeUnuOjcAYwfRTmgT600 OUWpcRfiDsJzQmAmSsN6LVD2M2T iTri6JVWrsMapSN9kgAVbPBgaDc 9mxUdikBzxNM9bLZHogtvr SBIseP8dDGMvkDSigFwaKN6xZWG fpsvlz251TiUwCOI9OEPrtBNnL3 AmwP8iFdBiBUYxEHYvH3Zr cZEdSXghP894ORuqHcP3HQCtlvW iN7ZyORRgvOmdAuU3u1A8Jq89QX BZZWFyczwvdGQ+PHRkIHN0 sYyyJXbjAHFyeE4wEUYvA1m1FoW lAiQ4LQyoV3YaKPSyllqeLc33qC 7eRwPdZjB0TMouC5GkuvS6 GOPubUWzTYebGUC0T60uf8K6ERC qHFDvUBY5kLD9pD0ppQpgfvjsqP VmdDsgdmVydGljYWwtYWxp L801EEZmqQqpYuHayTAgINmbkLC +AEDeVJD1cTmvUTnrHZRbkG4qZK HuC2s4ErAcVsI9MFzeO8Pb KAKwkyrpLy69fW7yGkFmNuO8QRf bO2XwqiA8ONFvcJYpPPygIRL8J6 0jy8W0WRDhAZUuRNA0vZS3 xS2llZawrenysHPggTcppyPunFx oREcmCKchO205WDDweTqfBh20vI VruHxdugT0D3SrSyjhzXN+ WV98XVOpSZ95tSLwqUCyt0czzPk 9EcZoMKRpSCU0sLirRArub7UpWV MwH20feXBcv7Q9HUOziGzy jUBbOaMlqIK4bV1iAUxjsowun7r wkoprImkwt7gvry23vT27U18dDD dpZHRoPSIzMCUiIHZhbGln ca2gzW1kYn1+GRRyaGF8xBL6fR6 qDnSeKnF4JMgcA228AtXdgDEiDp kce8kcn2aceJd8UeVdGTFl udVueMamFQM4e3LuYc02B34tTKt tSVUiBWGrADGaIPOgaDckox5kfU 9wIi8+KU4ta3pign79iN16 dHI+VETrULP1rNbmRAwyPDQslM3 nPDlfDbA5GNXcRsGpyQ04jUXaWF uqVc7woMlxwXvoAT0jBKYp irbqo804TnXny1czJMOtxUWiYYg hYUW2Y59xu4Z7AXBkCAEcNHT3kE A7zH6nnGylszianXMvlJrr ysBlsAnrPVutCMxsT292HFHndBo aZgVumQHbF0hbpyANNV2sXvdvpD Q+WIJrGVD0cQemWHwsGONc tZ5cPIVuQ2p4ZqFxJjA1IIjnS0A lebN7RUSatQQyBYMdjQMZyH1ixt kis0fymgidNmNiKYPmKSn9 DIx9NGCwwAjnBhDrYAI6PtD4ECG 1yFGymZ9iyGhgmzzawY3jRhr+Rk lOOjwvdGQ+ZRCkLLM2nSag ELrgZTUtpY6uEIKgV5b3VyVpRfU 3OBnaE5AxxrO9BSYpnPCkGRBkyA CEyE2rulyrd1ajtgpkEdDo XEOfVZb1KDv9JXJhcNbqJyIhBCG 1NkD2RHT1yARmgG6ccSalrkzgsN 9wOyc+TVJOOjwvdGQ+PHRk HAP1tXisVRjzDQMgwH4pGCTbS5u 0IiWsCrM5KPudK4ZkofH3OQNhlB PdEVEjgCDZlD8uhstyu8dz cvrgHcYcZSKfYEg0BXm3OJHsoKl vTyNpABC0ZtI7CNT2jIIsgW5jxZ jiqkrinW9vXwk+UBM8FWP6 BP70MH75L2KiLvbwsBAtiLC+PHR hYmxlIHdpZHRoPScxMDAlJyBzdH iaVO3pKk4kGNHhNQQyxHws cHNl (more content not included)... Normal [facility] Consent for Treatmenton 05-06 Consent for Treatment [id number]#[id number]:127 Normal [facility] MRI Spine Lumbar w/o Contras ton 05-15-2022 MRI Spine Lumbar w/o Contrast Exam Date/Time: 05/15/2022 08:30 EST Reason for Exam: G90,522, S33.5XXA Report EXAMINATION: MRI Spine Lumbar w/o Contrast CLINICAL HISTORY: G90,522, S33.5XXA COMPARISONS: NONE AVAILABLE TECHNIQUE: Multiplanar multisequence images of the lumbar spine were obtained without contrast. FINDINGS: Counting reference: Skull base The spine is in anatomic alignment. There is grade 1 anterolisthesis of L4 on L5 There is no acute fracture. There is preservation of the vertebral body heights. The intervertebral discs are unremarkable. The bone marrow signal is within normal limits. The distal cord and conus medullaris are within normal limits. The cauda equina is unremarkable. There is no prevertebral soft tissue swelling. The visualized retroperitoneal structures are unremarkable. T12-L1: There is no disc herniation, central canal narrowing, or neural foraminal narrowing. There is mild bilateral facet arthrosis. L1-2: There is no disc herniation, central canal narrowing, or neural foraminal narrowing. There is mild bilateral facet arthrosis. L2-3: There is no disc herniation, central canal narrowing, or neural foraminal narrowing. There is mild bilateral facet arthrosis. L3-4: There is a less than 2 mm symmetric disc bulge and moderate bilateral facet arthrosis and mild ligamentum flavum hypertrophy producing mild central canal narrowing and mild bilateral neural foraminal narrowing. L4-5: There is grade 1 anterolisthesis of L4 on L5. There is a less than 2 mm symmetric disc bulge. There is severe bilateral facet arthrosis and mild ligamentum flavum hypertrophy. There is mild narrowing of central canal and the neural foramina. L5-S1: There is no disc herniation, central canal narrowing, or neural foraminal narrowing. There is mild bilateral facet arthrosis. Report The visualized portions of the sacrum and iliac bones are within normal limits. IMPRESSION: There is spondylosis of the lumbar spine mostly affecting the facets. There is no significant narrowing of the central canal or the neural foramina. FINAL REPORT Dictated: 05/15/2022 11:48 am Hal Olivares MD, V. Signed (Electronic Signature): 05/15/2022 11:48 am Signed by: Hal Olivares MD, V. Transcribed by: MAGALY Technologist: BENNETT Technical Comments None Normal [facility] MRI Spine Thoracic w/o Contr ty 05-15-2022 MRI Spine Thoracic w/o Contrast Exam Date/Time: 05/15/2022 08:30 EST Reason for Exam: G90,522, S33.5XXA Report IMPRESSION: NEGATIVE STUDY EXAM: MRI Spine Thoracic w/o Contrast DATE: 05/15/2022 6:46 AM TECHNIQUE: Multiplanar multisequence MR images of the thoracic spine were obtained without IV contrast. CLINICAL HISTORY: G90,522, S33.5XXA. COMPARISON: None available. FINDINGS: There is no acute fracture or subluxation. There is no loss of vertebral body height. The spine is in anatomic alignment, there is preservation of the kyphotic curvature of the thoracic spine. The intervertebral disc spaces are preserved. The bone marrow signal is within normal limits. The spinal cord is normal in course and caliber without areas of signal abnormality. There is no evidence of central canal narrowing. The paraspinal structures and soft tissues are within normal limits. FINAL REPORT Dictated: 05/15/2022 11:43 am Hal Olivares MD, V. Signed (Electronic Signature): 05/15/2022 11:43 am Signed by: Hal Olivares MD, V. Transcribed by: MAGALY Technologist: BENNETT Technical Comments None Normal [facility] RAD - MRI Screening Formon 1 07-15-2021 RAD - MRI Screening Form [id number]:127 Normal [facility] XR Spine Lumbosacral 2 or 3 Viewson 05-15-2022 XR Spine Lumbosacral 2 or 3 Views Exam Date/Time: 05/15/2022 08:22 EST Reason for Exam: G90,522, S33.5XXA Report IMPRESSION: Grade 1 L4 spondylolisthesis, with degenerative change lower lumbar spine. CLINICAL HISTORY: G90,522, S33.5XXA COMPARISON: NONE FINDINGS: 3 views of the lumbosacral spine. Lumbar vertebral bodies are normal in height. 8 mm anterolisthesis L4 on L5. Diffuse disc space narrowing L5-S1. No acute fracture. No bone lesion. Intrauterine device partially imaged. FINAL REPORT Dictated: 05/15/2022 10:39 am Jean Carlos Garcia MD Signed (Electronic Signature): 05/15/2022 10:39 am Signed by: Jean Carlos Garcia MD Transcribed by: MAGALY Technologist: SANTOSH Normal [facility] XR Spine Thoracic 2 Viewson 05-15-2022 XR Spine Thoracic 2 Views Exam Date/Time: 05/15/2022 08:22 EST Reason for Exam: G90,522, S33.5XXA Report IMPRESSION: NEGATIVE THORACIC SPINE CLINICAL INFORMATION: G90,522, S33.5XXA COMPARISON: NONE. FINDINGS: 3 views of the thoracic spine were obtained. The thoracic spine appears normal without evidence of fracture. additional comment FINAL REPORT Dictated: 05/15/2022 10:40 am SignJean Carlos rizzo MD Signed (Electronic Signature): 05/15/2022 10:40 am Signed by: Jean Carlos Garcia MD Transcribed by: MAGALY Technologist: SANTOSH Normal [facility] Physician Orderon 05-12-2022 Physician Order [id number]#1.00CD:127 Normal [facility] Physician Order [id number]#1.00CD:127 Normal [facility] Workers' Comp Officeon 05-12 Workers' Comp Office [id number]#2.00CD:127 Normal [facility] Workers' Comp Office [id number]#2.00CD:127 Normal [facility] Workers' Comp Officeon 05-08 Workers' Comp Office [id number]#1.00CD:127 Normal [facility] Coding Summary.on 04-04-2022 Coding Summary. CD:[id number] Gh0bWw+ PGhlYWQ+CD1IXWAtM91qtDSvuC3 CE5bXZB2RHTPHLSAUUD3CVN8sqD D9ZDkiN9FkvsUl DwmevATzDP89AIu1ZQZ1vDvjLGn rpA0hsULvV2s9EyCiPZ33qE80DO jeAUCsKsZ4MdCuudkbmLXh N5ctMsEjnTItDci+PHRhYmxlIHd aBXVcDWirUDLaDlWdzOlbAE7gTh 9yZGVyLWNvbGxhcHNlOiBj o1edHPFwYPgnPQ3oeVltO2AibSY 6RNSgm9d1Cr58vWQ+RBVlJVI2oI psQEbhl721ZcMzz0miMNM2 aHToNGhtNLP2I57be6B6OORdFUL lFUK2iFF8vS1zmYitjwrhF9NykM IpMuS7LLI7gLGbfK9rpMzo gcumjZ1eTpq+L63DWI4TTWMUNM6 ANmz4Y8PwWvxrcAO+YC99UMAoVU 29gQIwcVXgf1jsdXi6XbXo QNJkOIB6dSvlQBifs0OuKYMxB84 zkBGnh8K8GDKsiRnrpUPiOpDryP Y6rH4eAGxscpwtg0lspuer Mjioc9hitp22rB96R97sSExnVWD cVSM3BXSiQIGgqDoqny0iiM6mVd 8+VKgrz1nhr1iojIa0DhYh USFtsqVuxNafGTB1q2TvDt32D6V ikLhqr0FeNqn2fn82kMHgb1Q2vL V5HYueFXFmcO8oJDooYxT2 VTUeDtNqdD75xMHxJUclKt1olSd rlRutZB9bDBCtzsumFVGfeK1vWA PzwKDklWuqJZ8nYZVqfzbj i270LqBkEXV7DIIkwTTwJ1ZygQ2 sJoQxAKNgCTPmN0EweTQwFKeeU2 35XRzwZiE3GGZlbvRhZ8Fc XXBnrNjmFnJ8b1M6Kn6Er1Jkenc fUFP5PTjtQQK4RlXrMiYhWdM7R9 DwCeb4FWVqeGmuTK3yK7Mz ABZpunsewawlrFC8YSEmQNQwhP6 9eKSvJRggVz8xz4F4i928DWOdFK DazP73Kz7rwLroNJGllSPW oE4ygkpxm7vnhqdmDrXaIQJtXPj 5OEj0LPFrvNvsSwWxBVV9OsO9II B1eUQobS8slDbvfrspfX0j Oyc+Z32tnQ1xSAI1GMD4pbniDUJ axgDeHZ31JU97K8GkOqnibOQejN U+MOKqbiJryEiuNA5cDjNm q9tei3MgTXxuU7XxJIHhXNscOnf 1GEKaWKJ7sRS6mX9rZCEnQMrqe2 Z4sPL2G7MwuwThlh4bg1kc DNEfJDbhR92dfEEth4J5GFVszTR 9IIRctVefJuQvhL18Rga+PGNvbG oub2QpKegij0voc3brdOg9 UtXrPCCqbuTyrThqBGJ6z4DrFn6 0Q32fKZidJFJfUNJoLZEtQPVdmY wnkr3gkM9qGr0+PGNvbCB3 jBC6pM2sVODlSlS6QOnzM995NdH jdUXvTvkup8rvu3couBe5AyUrLK QmcyFzjJhpYDE7r7DfZc38 X62yMEvjJOXfCKWiKEUxTTKfkSg wnx2tcH2eLc6+FW6ff5wvlj38kN 48dHI+EEJhECM4cUhuJJce TIYsyJ1xMYajZgA5MLGzOcQygW2 8bHAwUQnyUz8txMnquJevOH5wLT Upuhnig742BlCtq7whRFGl xMVbWQjwTYR9Q07az5Q2YCPzMOR jSJH4dSC1oV9vtIjnjxmuvTMgzJ qbjmIhgHauNXkgFGltS528 IHRvcDsnPlBhdGllbnQgTmFtZTo 0K9OdBya5UJVfmSymEJ8guEHhMD tyTz0uuZmtgXlhWQ2dWZOe jsuai611XaFpw0bvTHSkgPTaGZp bQSI3X09ap5E8ELMdSLZpTNE4nF H7pX0vmOkjkuwvaFMzjMhb iwSczWkwAKhjCOblA157YWXwyEd iSqErihVjSZFiiCL4SO02KU53zO Smq0J2mCK2R8AyFXJnlhmy xtglpZI6QSEgPDRvyV56Lt6lnEv kOh1uXZMgXFR9IZHzeBDbA9SfmY 9sOrXwWLXiBWRpU6EthLRl VMpwC832JRarEkY4DUIlvlHtY7C zRFRghFidTqW4h6F9Yj2UU5I2VX 43ST59yXNkj4U3wLO7W3Sb QOEryoumxvtqmJZ1RZLuGCXzhI0 5Zu2hdTyiLg6dRCEdZJH9AGTobH LqA8OrmD3oRtZkIDDkRUAx T3CrmVNoXTryT134IWrnCpE0AIK meyEbK9AySCMgfBzmCaC0p7G8Hq 2KGSc2XH36OO60tEFtz1T3 dGF7N1QqERDwkrqqppsrgGW3WHT kNETazS78Hm9tgBgvJi9pUGMxMQ E2FYDsbJGhR4GciB6pWlCj LHOtLQToY9VfnMSpBDudX681YSo nTuP7LGFsvaWlY1VqEDYxvBmwLc I5f3E4Ro9ITDSoIY53MLX2 eAQ4BK54AS15M2QhIimtjANnfTS +PHRhYmxlIHdpZHRoPScxMDAlJy NnxUvvLC1rCc3sTBAyCEYt pZovdNPdHrEgn0pwDOOzWSmjZE7 mmMvsM3GacEJ6NFZqe4z5Fw45X4 1tW7SptMF+ZIVosNZ7uXZ8 iY5qDwRbJoR3QOpsA191GfYmpPA bRnxlu1klo1rysQj5XcM9IFDxfb SctXrnSKD7x7YmTp18X30r IHdpZHRoPSIxNSUiIHZhbGlnbj0 apW9iCa9+SYGhgFB7aPE0iM2mEn IgRmG1XVroD663MxDegKRc Vxics2yyf2qexMx3NsUgLELumjP huUtrRQW6v5EzRi13C0IbcMshi3 EuIxu0dz43kZTzr5H6gTF8 H6NsGUQgmgdthUEjzPcxRV3sPTC gmcnwCTYcpV0pCEQqB7w7ArPuIe Y7AQxwM8KkguQ5QZJvpNQi CScaMIF1G52el9E1SSItZGReHGT 2hNE9tT5hpAcrcehlnQMdwKnsww JkdXczPDbjDCiwX364RRYs zEzhOKPfoJ7kWJBpnKPuuPmbFI1 lLWHcxailTgNDFWVrAM1CSDtQOM EgUzwvdGQ+BGGfSNV3cMrx PWlwUDEupC7dMYNoB4v1NkPzHgM 9HBuxW7QhTYSqzvsgGe89hT4fId NaSgZ9DTekK6UrsbX8MYGd uUEgESucOBR8C12ni8H5RGSqXBR dKZJ5mAM7rC5jkXvlhgxaqPGutN rnirKgyUjtQDfyVXfiA675 EQVzrBzbFqQoXfEhGyK6AEC0X0A mCwi8JHGaaVcoEO0rdEYaWRuhHr 0shZczdZacQO4uOBFgidch FRKyaZ3mDUPoiPXslOckVY0gTNW dqlqxg229LbTwRDV5MNTttFOoF6 GjwT7mQiDnIVVrIQLoZ1Cq wKWlFBbbF717BIhvJyJ6VIVpauY xO8HfOBUmzOtbGjK5k9B5Kz46NM BZZWFyczwvdGQ+PHRkIHN0 kOxxRKcbRIWqrU7hRMRbY8d4FuF yLeJ9ORjvV9AeVITjnzkkTd06rB 4wAcXaSjV5BNmvW4QtciJ3 VNSfrOBuAXklMPX3Y60ua0K9TKW nOVDoHBC9zQZ6xW7dkZhkfjacnJ VmdDsgdmVydGljYWwtYWxp M895TNMtyLlsKsHtmASpNYylgEH +GWHbNJO6nDfpHObfVOQdxM3bLD UmP6o6PlJzOpD1TFmqL3Lp YBIkxnlyHy47eY7pOfFiUmL2PRf yH6UgvuR1WDKswQTwIBwySTK1A2 1ia2F0DKUhTYQpQQB8bKD0 tX7grAndxsgoiKHnaRhlylVktIj vYBmpCOldA664BDMtyCosUdGzuK 4gTWFuYWdlbWVudDwvdGQ+ YR05wp81V0YrGsgmVll2XHOiHAV 2iLP8zQ3oMBIgVQrit3B9fRO5S5 XpquAeyg4pt9suQQWbPFik L47xaNHub0T3LKDxqQW6VMTegUl dNrOflY71Off+HSDvbQtrc3BzTd xvj2tip8wzyWi7UqVwZWTn mtGtxYmlKPV6l5EcXg26C67sUGt uQLXpQKAoGWTzVNSisTxpps0liQ 9wIi8+CUAbyCB9kKR8yO7g OvAqSxN2YScfH907MuBygSXqIxe wh4mdp4qlwMb8PvInKALppnKflG xeLWY5e7YdHx95S4JidGgv r9OeIaw5jo34tGSzg6S0sYV3X8E sFJMrwrzpuIVhlYeiFF6dEKQvli hmCOHgmX4xPDEdM6s1AtMe LrW3COiwU2ObowT4HKGyqNPtCPE cnNGPcZ9szustz7fanfnrTzQkPG PjMXu4JMp0CWEypUgaFkLb AHN3ZpM4MAY5lYJgfV4oeVbdihl rgH0nXjm+VIm6g5styQVoBD2kiG H5WY51RF41sMSdl4Z8qED1 D6LjLKDxpyclhdqmwDQ8JPNwKFR ofT79Pk8krEupHi0fLYOjFZY2UJ OraTEkM3EdsG4fWgTzZHIu SAUgS6IbrIYbHOgbC637NHscEqU 7NAQwxtDjA2DsNTYwlRadPaA9e6 Y6De9ZRL14QZ06US61sVGj n0B6lOG8T7RiSDRnipsuagyfbPN 6GBDwLHLaiX66Ue9caYfpCy1cRS AoNKF8GVWroLBsO1PcaD7e BeLqKQHzVTBnY0IlqDVfJUyaX30 5CUptIqU7UKBdqvFdP2NgSFWglP kzZwX4j7I3Gu8VOp87OF51 LM24gSIrv4K5vHG7P6VnVQBxkig ujcynbTS2HAKrURYokQ31Vs6ngU klUl5lSBJrSYS5GUNkpHBk O0TbpQ4oCrVhVPUoIDLlG5TvrIT xWWjmP373HXygYkZ8AZLnplWlW7 KpDYVcwVyrYzS3o5F4Lr4Q LXudfbr0T0FwNnarsQB+UA72NEH aEA44qPMwsYRjb5wulTs2MtDdXU WjXSW6zLgvKRjfm8ItSNZj Y29s (more content not included)... Normal [facility] Legal Correspondence Officeo n 04-04-2022 Legal Correspondence Office [id number]#1.00CD:127 [facility] Consent for Treatmenton 03-07 Consent for Treatment [id number]#1.00CD:127 [facility] HIPAA Forms Officeon 022 HIPAA Forms Office [id number]#1.00CD:127 Normal [facility] Legal Correspondence Officeo n 04-03-2022 Legal Correspondence Office [id number]#1.00CD:127 Normal [facility] Office/Clinic Note-Physician on 04-03-2022 Office/Clinic Note-Physician [id number]#1.00CD:127 Normal [facility] Patient Correspondenceon Patient Correspondence [id number]#1.00CD:127 Normal [facility] Patient Correspondence [id number]#1.00CD:127 Normal [facility] Patient Correspondence [id number]#1.00CD:127 Normal [facility] Patient Correspondence [id number]#1.00CD:127 Normal [facility] Patient Correspondence [id number]#1.00CD:127 Normal [facility] Patient History Officeon Patient History Office [id number]#1.00CD:127 Normal [facility] Outside Records Officeon Outside Records Office [id number]#1.00CD:127 Normal [facility] Workers' Comp Officeon 04-01 Workers' Comp Office [id number]#1.00CD:127 Normal [facility] Covid-19 PCR (CVDTB)on SARS-CoV-2 (COVID-19) RNA VINCENT+probe Ql (Unsp spec) Detected Critically abnormal NOT DETECTED [facility] Comment on above: Result Comment: This test is not yet approved or cleared by the [place] FDA. When there are no FDA-approved or cleared tests available, and other criteria are met, FDA can make tests available under an emergency access mechanism called an Emergency Use Authorization (EUA). The EUA for this test is supported by the [place] of Health and Human Service's declaration that circumstances exist to justify the emergency use of in vitro diagnostics for the detection and/or diagnosis of the virus that causes COVID-19. This EUA will remain in effect for the duration of the COVID-19 declaration justifying emergency of IVDs, unless it is terminated or revoked by the FDA (after which the test may no longer be used). Performed By: #### C VDTB #### [facility] [address] [place] [address] Dr. Liz Tillman CBC AUTO DIFFon 01-01-2022 BASO # 0.1 103/ul Normal 0.0-0.1 [facility] Comment on above: Performed By: #### C BC #### [facility] [address] [place] [address] Dr. Liz Tillman Basophils/100 WBC (Bld) 0.5 % Normal 0.2-2.0 [facility] Comment on above: Performed By: #### C BC #### [facility] [address] [place] [address] Dr. Liz Tillman EO # 0.5 103/ul Normal 0.0-0.7 [facility] Comment on above: Performed By: #### C BC #### [facility] [address] [place] [address] Dr. Liz Tillman Eosinophils/100 WBC (Bld) 4.7 % Normal 0.9-7.0 [facility] Comment on above: Performed By: #### C BC #### [facility] [address] [place] [address] Dr. Liz Tillman Erythrocyte distribution width (RBC) [Ratio] 12.4 % Normal 11.0-15.0 [facility] Comment on above: Performed By: #### C BC #### [facility] [address] [place] [address] Dr. Liz Tillman Hematocrit (Bld) [Volume fraction] 40.5 % Normal 36.0-48.0 [facility] Comment on above: Performed By: #### C BC #### [facility] [address] [place] [address] Dr. Liz Tillman Hemoglobin (Bld) [Mass/Vol] 13.7 g/dL Normal 12.0-16.0 [facility] Comment on above: Performed By: #### C BC #### [facility] [address] [address] [address] Liz Tillman IG # 0.04 10e3/ul Critically high 0.00-0.03 [facility] Comment on above: Performed By: #### C BC #### [facility] [address] [place] [address] Dr. Liz Tillman IG % 0.4 % Normal 0.0-0.5 [facility] Comment on above: Performed By: #### C BC #### [facility] [address] [place] [address] Dr. Liz Tillman LYMPH # 2.0 103/ul Normal 1.2-3.8 [facility] Comment on above: Performed By: #### C BC #### [facility] [address] [place] [address] Dr. Liz Tillman Lymphocytes/100 WBC (Bld) 20.6 % Normal 20.5-60.0 [facility] Comment on above: Performed By: #### C BC #### [facility] [address] [place] [address] Dr. Liz Tillman MANUAL DIFF REQ NO Normal [facility] Comment on above: Performed By: #### C BC #### [facility] [address] [place] [address] Dr. Liz Tillman MCH (RBC) [Entitic mass] 29.8 pg Normal 26.7-34.0 [facility] Comment on above: Performed By: #### C BC #### [facility] [address] [place] [address] Dr. Liz Tillman MCHC (RBC) [Mass/Vol] 33.8 g/dL Normal 29.9-35.2 [facility] Comment on above: Performed By: #### C BC #### [facility] [address] [place] [address] Dr. Liz Tillman MCV (RBC) [Entitic vol] 88.0 fL Normal 81.0-99.0 [facility] Comment on above: Performed By: #### C BC #### [facility] [address] [place] [address] Dr. Liz Tillman MONO # 0.8 103/ul Normal 0.3-0.8 [facility] Comment on above: Performed By: #### C BC #### [facility] [address] [place] [address] Dr. Liz Tillman Monocytes/100 WBC (Bld) 7.8 % Normal 1.7-12.0 [facility] Comment on above: Performed By: #### C BC #### [facility] [address] [place] [address] Dr. Liz Tillman NEUT # 6.3 103/ul Normal 1.4-6.5 [facility] Comment on above: Performed By: #### C BC #### [facility] [address] [place] [address] Dr. Liz Tillman Neutrophils/100 WBC (Bld) 66.0 % Normal 43.0-75.0 [facility] Comment on above: Performed By: #### C BC #### [facility] [address] [place] [address] Dr. Liz Tillman Platelet mean volume (Bld) [Entitic vol] 10.2 fL Normal 9.5-13.5 [facility] Comment on above: Performed By: #### C BC #### [facility] [address] [place] [address] Dr. Liz Tillman PLT 238 103/ul Normal 150-450 [facility] Comment on above: Performed By: #### C BC #### [facility] [address] [place] [address] Dr. Liz Tillman RBC 4.60 106/ul Normal 4.20-5.40 [facility] Comment on above: Performed By: #### C BC #### [facility] [address], [place] [address] Dr. Liz Tillman WBC 9.6 103/ul Normal 4.0-11.0 [facility] Comment on above: Performed By: #### C BC #### [facility] [address], [place] [address] ABD/PELVIS WO CONon 01-01 CT ABD/PELVIS WO CON EXAM: CT abdomen an d Pelvis without contrast dated 01/01/2022 6:41 PM EDT HISTORY: 41 years old Female with right flank pain reported.. COMPARISON STUDY: None available at time of dictation. TECHNIQUE: Multidetector spiral CT of the abdomen and pelvis was performed from lung bases to pubic symphysis. Imaging was performed without IV contrast. Axial, coronal and sagittal multiplanar reformats were obtained from the axial data set by the technologist. Dose reduction techniques were achieved by using automated exposure control and/or adjustment of mA and/or kV according to patient size and/or use of iterative reconstruction technique. FINDINGS: Evaluation of solid organs is limited due to lack of intravenous contrast use. Lung Bases: No acute or significant lung base finding. Normal heart size. No pleural or pericardial effusion. Liver: The liver is normal in size. No focal lesions. Gallbladder and Biliary Tree: Unremarkable Spleen: Unremarkable. Small splenule identified. Pancreas: The pancreas is grossly normal in appearance. Adrenal Glands: Unremarkable Kidneys: The left kidney demonstrates no evidence of nephrolithiasis or hydronephrosis. Focal lesions cannot be entirely excluded on either side as no contrast is utilized however no definite focal abnormality is seen. The bladder is mildly thickened or underdistended. There is moderate hydroureteronephrosis on the right with perinephric and periureteric edema identified. Slight periureteric stranding to the level of the urinary bladder is appreciated, where a very subtle density on image 137 of series 3 and image 61 of series 5 is noted measuring less than 2 mm suggesting a possible stone at this level. No other definite stones are seen along the course of the ureter. This may reflect recent stone passage however this is nonspecific Bowel: The stomach is grossly normal in appearance. Small bowel and colon are normal in caliber and distribution. The appendix is normal in caliber without findings to suggest acute appendicitis appreciated. Scattered diverticulosis without diverticulitis involving the descending colon. Identified. There is a fat-containing ventral umbilical hernia defect on images 92 through 96 series 3 with slight stranding on image 100 at the inferior aspect of this region with minimal cutaneous thickening of the umbilicus on image 106 series 3. Although no definite significant fluid or inflammation is seen, slight inflammatory change may be present and correlation for cellulitis or very mild/early fat necrosis is suggested. (Image 51 series 6). Vasculature: The visualized abdominal aorta is normal in size and caliber. Evaluation of abdominal and pelvic vessels is limited due to lack of intravenous contrast. Pelvic Organs: There is an IUD noted in the uterus. A low-attenuation structure is seen in the pelvis posteriorly on the left measuring up to 5.1 cm. This may represent adnexal etiology however consider targeted ultrasound for better characterization as the pelvic structures are poorly evaluated on this noncontrast CT. Musculoskeletal: No aggressive focal bony lesions, acute fractures or dislocation. Body habitus obscures evaluation however there appears to be grade 1 anterolisthesis of L4 and L5 with bilateral neural foraminal encroachment and a posterior disc bulge. Mild scoliosis to the left of the thoracolumbar junction. Hypoplastic ribs at the level of what shall be called L1 for the purposes of this examination are appreciated. IMPRESSION: Bladder wall thickening with mild to moderate right-sided hydroureteronephrosis. Perinephric and periureteric fat stranding is appreciated, and these findings may be secondary to a 2 mm stone which is noted at the level of the terminal ureter/ureterovesicular junction on the right. Recommend laboratory correlation for infection. No other stones are seen in the kidneys on either side. IUD in the uterus. Low-attenuation structure in the left adnexa/posterior pelvis as described may reflect ovarian etiology however if clinically indicated consider correlation with targeted ultrasound for better characterization of the pelvic structures. Electronically authenticated by: VALERIE PUGA Date: 2022-01-01 19:41 Normal [facility] PROF 14(COMP METB)on 022 Albumin [Mass/Vol] 3.5 g/dL Normal 3.4-5.0 [facility] Comment on above: Performed By: #### C MP #### [facility] [address] [place] [address] Dr. Liz Tillman Albumin/Globulin [Mass ratio] 0.9 {ratio} Normal [facility] Comment on above: Performed By: #### C MP #### [facility] [address] [place] [address] Dr. Liz Tillman ALP [Catalytic activity/Vol] 52 U/L Normal 46-116 [facility] Comment on above: Performed By: #### C MP #### [facility] [address] [place] [address] Dr. Liz Tillman ALT [Catalytic activity/Vol] 26 U/L Normal 14-59 [facility] Comment on above: Performed By: #### C MP #### [facility] [address] [place] [address] Dr. Liz Tillman Anion gap [Moles/Vol] 12.3 mmol/L Normal [facility] Comment on above: Performed By: #### C MP #### [facility] [address] [place] [address] Dr. Liz Tillman AST [Catalytic activity/Vol] 20 U/L Normal 15-37 [facility] Comment on above: Performed By: #### C MP #### [facility] [address] [place] [address] Dr. Liz Tillman Bilirubin [Mass/Vol] 0.3 mg/dL Normal 0.2-1.0 [facility] Comment on above: Performed By: #### C MP #### [facility] [address] [place] [address] Dr. Liz Tillman Calcium [Mass/Vol] 8.6 mg/dL Normal 8.5-10.1 [facility] Comment on above: Performed By: #### C MP #### [facility] [address] [place] [address] Dr. Liz Tillman Chloride [Moles/Vol] 105 mmol/L Normal 98-107 [facility] Comment on above: Performed By: #### C MP #### [facility] [address] [place] [address] Dr. Liz Tillman CO2 [Moles/Vol] 24.7 mmol/L Normal 21.0-32.0 [facility] Comment on above: Performed By: #### C MP #### [facility] [address] [place] [address] Dr. Liz Tillman Creatinine [Mass/Vol] 0.94 mg/dL Normal 0.55-1.02 [facility] Comment on above: Performed By: #### C MP #### [facility] [address] [place] [address] Dr. Liz Tillman EGFR-AF MICRONESIAN >60 Normal >=60 [facility] Comment on above: Performed By: #### C MP #### [facility] [address] [address] [address] Liz Tillman EGFR-NON AF MICRONESIAN >60 Normal >=60 [facility] Comment on above: Performed By: #### C MP #### [facility] [address] [place] [address] Dr. Liz Tillman Globulin (S) [Mass/Vol] 3.7 g/dL Normal [facility] Comment on above: Performed By: #### C MP #### [facility] [address] [place] [address] Dr. Liz Tillman Glucose [Mass/Vol] 112 mg/dL Critically high 74-106 [facility] Comment on above: Performed By: #### C MP #### [facility] [address] [place] [address] Dr. Liz Tillman Potassium [Moles/Vol] 4.0 mmol/L Normal 3.5-5.1 [facility] Comment on above: Performed By: #### C MP #### [facility] [address] [place] [address] Dr. Liz Tillman Protein [Mass/Vol] 7.2 g/dL Normal 6.4-8.2 [facility] Comment on above: Performed By: #### C MP #### [facility] [address] [place] [address] Dr. Liz Tillman Sodium [Moles/Vol] 138 mmol/L Normal 136-145 [facility] Comment on above: Performed By: #### C MP #### [facility] [address], [place] [address] Dr. Liz Tillman Urea nitrogen [Mass/Vol] 16.0 mg/dL Normal 7.0-18.0 [facility] Comment on above: Performed By: #### C MP #### [facility] [address] [place], [place] [address] Dr. Liz Tillman Urea nitrogen/Creatinine [Mass ratio] 17.0 mg/mg Normal [facility] Comment on above: Performed By: #### C MP #### [facility] [address], [place] [address] Dr. Liz Tillman PREG HCG QUALon 02-18-2021 , QUAL Negative Normal NEGATIVE [facility] Comment on above: Performed By: #### P REG #### [facility] [address], [place] [address] Graciela Barragan [facility] 05-13-2020 aPTT Coag (Bld) [Time] Therapeutic range for APTT's is 68 - 104 seconds [facility] aPTT Coag (Bld) [Time] 92 s High [facility] Interpretation and review of laboratory results Abnormal [facility] ECG 12-LEADon 05-13-2020 Atrial Rate 79 BPM [facility] P Kitzmiller 41 degrees [facility] P-R Interval 182 ms [facility] Q-T Interval 396 ms [facility] QRS Duration 88 ms [facility] QTC Calculation (Bezet) 454 ms [facility] R [place] 50 degrees [facility] T Kitzmiller 29 degrees [facility] Ventricular Rate 79 BPM [facility] Normal sinus rhythm Nonspecific T wave abnormality Abnormal ECG Confirmed by Rubio Wells M.D. ([id number]) on 05/13/2020 7:43:12 AM [facility] Coag (Bld) [Time] Therapeutic range for APTT's is 68 - 104 seconds [facility] aPTT Coag (Bld) [Time] 110 s High [facility] Interpretation and review of laboratory results Abnormal [facility] aPTT Coag (Bld) [Time] 53 s High [facility] aPTT Coag (Bld) [Time] Therapeutic range for APTT's is 68 - 104 seconds [facility] Interpretation and review of laboratory results Abnormal [facility] Basic Metabolic Panelon Anion gap [Moles/Vol] 12 mmol/L 10 - 20 mmol/L [facility] Calcium [Mass/Vol] 9.7 mg/dL 8.4 - 10. 2 mg/dL [facility] Chloride [Moles/Vol] 108 mmol/L 98 - 10 8 mmol/L [facility] Creatinine [Mass/Vol] 0.42 mg/dL 0.40 - 1.10 [facility] GFR/1.73 sq M predicted among non-blacks MDRD (S/P/Bld) [Vol rate/Area] The eGFR should be used for monitoring renal function only and not for medication dosing. [facility] GFR/1.73 sq M.predicted CKD-EPI (S/P/Bld) [Vol rate/Area] 130 >=60 mL/min/1.7 3 m2 [facility] Glucose [Mass/Vol] 161 mg/dL High 65 - 99 mg/dL [facility] HCO3 [Moles/Vol] 22 mmol/L 21 - 32 mmol/L [facility] Interpretation and review of laboratory results Abnormal [facility] Potassium [Moles/Vol] 4.4 mmol/L 3.5 - 5.1 mmol/L [facility] Sodium [Moles/Vol] 138 mmol/L 135 - 145 mmol/L [facility] Urea nitrogen [Mass/Vol] 13 mg/dL 8 - 25 mg/dL [facility] Urea nitrogen/Creatinine [Mass ratio] 31.0 mg/mg High [facility] CBCon 05-12-2020 Erythrocyte distribution width (RBC) [Entitic vol] 12.5 % 11.6 - 14.8 % [facility] Hematocrit (Bld) [Volume fraction] 44.6 % 36 - 46 % [facility] Hemoglobin (Bld) [Mass/Vol] 14.6 g/dL 12 - 16 g/dL [facility] Interpretation and review of laboratory results Abnormal [facility] MCH (RBC) [Entitic mass] 28.0 pg 26 - 34 pg [facility] MCHC (RBC) [Mass/Vol] 32.7 g/dL 31 - 37 g/dL [facility] MCV (RBC) [Entitic vol] 85.6 fL 80 - 100 fL [facility] Nucleated RBC (Bld) [#/Vol] 0.00 10*3/uL [facility] Nucleated RBC/100 WBC (Bld) [Ratio] 0.0 % [facility] Platelet mean volume (Bld) [Entitic vol] 10.4 fL 9.4 - 12.4 fL [facility] Platelets (Bld) [#/Vol] 247 10*3/uL [facility] RBC (Bld) [#/Vol] 5.21 10*6/uL [facility] ealt WBC (Bld) [#/Vol] 13.40 10*3/uL [facility] CT COMPARISON IMPORTon 05-12 This order has been auto-finalized and does not contain a result. [facility] ECHOCARDIOGRAM 2D COMPLETEon 05-12-2020 Patient Info Name: Letitia GAINES Age: 39 years : 1980 Gender: Female Ht: 180 cm Wt: 133 kg BSA: 2.64 m2 HR: 82 bpm BP: 112 / 75 mmHg Technical Quality: Technically difficult Exam Date: 05/12/2020 12:59 PM Patient Status: Inpatient Belt Brander: Joselyn Jain, RENETTA, CATIA Exam Type: ECHOCARDIOGRAM COMPLETE W CONTRAST Study Info Indications R07.89 - Other chest pain I26.09 - Other pulmonary embolism with acute cor pulmonale - Chest pain/tightness Attending Physician: PHYSICIANS, [facility] [phone] Primary Nurse: Julieta Cunha RN BMI: 41.00 kg/m2 Summary 1. This study was technically limited, Definity IV contrast was used to enhance endocardial definition. 2. The left ventricular diastolic function is grade I diastolic dysfunction, consistent with low or normal atrial pressures. 3. Left ventricular systolic function is normal, with ejection fraction estimated at 60 +/- 5%. 4. Right ventricular systolic function is mildly reduced, on very limited views. 5. There is borderline pulmonary hypertension, estimated right ventricle systolic pressure is 40 mmHg. 6. There is no comparison study available. History/Risk Factors Asthma. Procedure(s): Complete two-dimensional, color flow and Doppler transthoracic echocardiogram is performed. Definity explained to patient. Patient verbalizes understanding and agrees to proceed. Definity 1.3ml/8.7ml normal sterile saline 3 ml total given IV over 30-60 seconds. Left Ventricle Left ventricular systolic function is normal, with ejection fraction estimated at 60 +/- 5%. Left ventricular chamber dimension is normal. Normal left ventricular mass. Left ventricular segmental wall motion is normal. The left ventricular diastolic function is grade I diastolic dysfunction, consistent with low or normal atrial pressures. E/e' 3.93 is not elevated consistent with normal LA pressure. Right Ventricle Right ventricular chamber dimension is mildly enlarged. Right ventricular systolic function is mildly reduced, on very limited views. Left Atria Left atrial chamber dimension is normal. Right Atria Right atrial chamber dimension is normal. Aortic Valve The aortic valve is trileaflet. There is no aortic valve sclerosis. There is no aortic valve stenosis. There is no aortic valve regurgitation. Pulmonic Valve The pulmonic valve is normal. There is no pulmonic valve stenosis. There is trace pulmonic regurgitation. Mitral Valve The mitral valve has normal leaflets. There is no mitral valve stenosis. There is no mitral valve regurgitation. Tricuspid Valve The tricuspid valve leaflets are normal. There is no significant tricuspid valve stenosis. There is trace tricuspid valve regurgitation. There is borderline pulmonary hypertension, estimated right ventricle systolic pressure is 40 mmHg. Pericardium/Pleural The pericardium appears normal. There is no pericardial effusion. Inferior Vena Cava Normal inferior vena cava with >50% collapse upon inspiration consistent with normal right atrial pressure. Aorta The aortic measurements are indexed to age and body surface area. The aortic root is normal measuring 2.70 cm with an index of 1.02 cm/m2. The proximal ascending aorta is normal measuring 3.3 cm with an index of 1.25 cm/m2. Mitral Valve Name Value Normal MV Doppler MV Decel [place] 164.00 cm/s2 MV PHT 90 ms MV Area (PHT) 2.46 cm2 4.00-5.00 MV Diastolic Function MV E Peak Velocity 0.51 m/s MV A Peak Velocity 0.82 m/s MV E/A 0.62 MV Decel Time 309 ms MV Annular TDI MV Septal e' Velocity 11.90 cm/s >=8.00 MV E/e' (Septal) 4.25 <=8.00 MV Lateral e' Velocity 14.00 cm/s >=10.00 MV E/e' (Lateral) 3.61 <=8.00 MV e' Average 12.95 MV E/e' (Average) 3.93 Tricuspid Valve Name Value Normal TV Regurgitation Doppler TR Peak Velocity 2.71 m/s Estimated PAP/RSVP PA Systolic Pressure 40 mmHg <=36 Aorta Name Value Normal Ascending Aorta Ao Root Diameter (2D) 2.70 cm 2.70-3.30 Ao Root Diam Index (2D) 1.02 cm/m2 1.60-2.00 Prox Asc Ao Diameter 3.3 cm 2.3-3.1 Prox Asc Ao Diameter Index 1.25 cm/m2 1.30-1.90 Ventricles Name Value Normal LV Dimensions 2D/MM IVS Diastolic Thickness (2D) 1.24 cm 0.60-0.90 LVID Diastole (2D) 3.92 cm 3.80-5.20 LVIW Diastolic Thickness (2D) 1.02 cm 0.60-0.90 LVID Systole (2D) 2.58 cm 2.20-3.50 LV Mass (2D Cubed) 147 g 67-162 LV Mass Index (2D Cubed) 56 g/m2 43-95 Relative Wall Thickness (2D) 0.52 <=0.42 LV Fractional Shortening/Ejection Fraction 2D/MM LV EF (2D Teicholz) 63 % 54-74 RV Dimensions 2D/MM TAPSE 1.55 cm >=1.70 RV Systolic Function RV s' Velocity 0.10 m/s 0.10-0.19 Atria Name Value Normal LA Dimensions LA Dimension (2D) 3.50 cm 2.70-3.80 LA Dimen Index (2D) 1.32 cm/m2 Report Signatures Finalized by Radha Cespedes MD on 05/12/2020 03:08 PM [facility] Interface, Rad In artlab Xper Echopacs - 05/12/2020 3:09 PM EST Patient Info Name: YUNIER GAINES Age: 39 years : 1980 Gender: Female Ht: 180 cm Wt: 133 kg BSA: 2.64 m2 HR: 82 bpm BP: 112 / 75 mmHg Technical Quality: Technically difficult Exam Date: 05/12/2020 12:59 PM Patient Status: Inpatient Belt Brander: Joselyn Jain, RENETTA, RVT Exam Type: ECHOCARDIOGRAM COMPLETE W CONTRAST Study Info Indications R07.89 - Other chest pain I26.09 - Other pulmonary embolism with acute cor pulmonale - Chest pain/tightness [phone] Primary Nurse: Julieta Cunha RN BMI: 41.00 kg/m2 Summary 1. This study was technically limited, Definity IV contrast was used to enhance endocardial definition. 2. The left ventricular diastolic function is grade I diastolic dysfunction, consistent with low or normal atrial pressures. 3. Left ventricular systolic function is normal, with ejection fraction estimated at 60 +/- 5%. 4. Right ventricular systolic function is mildly reduced, on very limited views. 5. There is borderline pulmonary hypertension, estimated right ventricle systolic pressure is 40 mmHg. 6. There is no comparison study available. History/Risk Factors Asthma. Procedure(s): Complete two-dimensional, color flow and Doppler transthoracic echocardiogram is performed. Definity explained to patient. Patient verbalizes understanding and agrees to proceed. Definity 1.3ml/8.7ml normal sterile saline 3 ml total given IV over 30-60 seconds. Left Ventricle Left ventricular systolic function is normal, with ejection fraction estimated at 60 +/- 5%. Left ventricular chamber dimension is normal. Normal left ventricular mass. Left ventricular segmental wall motion is normal. The left ventricular diastolic function is grade I diastolic dysfunction, consistent with low or normal atrial pressures. E/e' 3.93 is not elevated consistent with normal LA pressure. Right Ventricle Right ventricular chamber dimension is mildly enlarged. Right ventricular systolic function is mildly reduced, on very limited views. Left Atria Left atrial chamber dimension is normal. Right Atria Right atrial chamber dimension is normal. Aortic Valve The aortic valve is trileaflet. There is no aortic valve sclerosis. There is no aortic valve stenosis. There is no aortic valve regurgitation. Pulmonic Valve The pulmonic valve is normal. There is no pulmonic valve stenosis. There is trace pulmonic regurgitation. Mitral Valve The mitral valve has normal leaflets. There is no mitral valve stenosis. There is no mitral valve regurgitation. Tricuspid Valve The tricuspid valve leaflets are normal. There is no significant tricuspid valve stenosis. There is trace tricuspid valve regurgitation. There is borderline pulmonary hypertension, estimated right ventricle systolic pressure is 40 mmHg. Pericardium/Pleural The pericardium appears normal. There is no pericardial effusion. Inferior Vena Cava Normal inferior vena cava with >50% collapse upon inspiration consistent with normal right atrial pressure. Aorta The aortic measurements are indexed to age and body surface area. The aortic root is normal measuring 2.70 cm with an index of 1.02 cm/m2. The proximal ascending aorta is normal measuring 3.3 cm with an index of 1.25 cm/m2. Mitral Valve Name Value Normal MV Doppler MV Decel [place] 164.00 cm/s2 MV PHT 90 ms MV Area (PHT) 2.46 cm2 4.00-5.00 MV Diastolic Function MV E Peak Velocity 0.51 m/s MV A Peak Velocity 0.82 m/s MV E/A 0.62 MV Decel Time 309 ms MV Annular TDI MV Septal e' Velocity 11.90 cm/s >=8.00 MV E/e' (Septal) 4.25 <=8.00 MV Lateral e' Velocity 14.00 cm/s >=10.00 MV E/e' (Lateral) 3.61 <=8.00 MV e' Average 12.95 MV E/e' (Average) 3.93 Tricuspid Valve Name Value Normal TV Regurgitation Doppler TR Peak Velocity 2.71 m/s Estimated PAP/RSVP PA Systolic Pressure 40 mmHg <=36 Aorta Name Value Normal Ascending Aorta Ao Root Diameter (2D) 2.70 cm 2.70-3.30 Ao Root Diam Index (2D) 1.02 cm/m2 1.60-2.00 Prox Asc Ao Diameter 3.3 cm 2.3-3.1 Prox Asc Ao Diameter Index 1.25 cm/m2 1.30-1.90 Ventricles Name Value Normal LV Dimensions 2D/MM IVS Diastolic Thickness (2D) 1.24 cm 0.60-0.90 LVID Diastole (2D) 3.92 cm 3.80-5.20 LVIW Diastolic Thickness (2D) 1.02 cm 0.60-0.90 LVID Systole (2D) 2.58 cm 2.20-3.50 LV Mass (2D Cubed) 147 g 67-162 LV Mass Index (2D Cubed) 56 g/m2 43-95 Relative Wall Thickness (2D) 0.52 <=0.42 LV Fractional Shortening/Ejection Fraction 2D/MM LV EF (2D Teichsofy) 63 % 54-74 RV Dimensions 2D/MM TAPSE 1.55 cm >=1.70 RV Systolic Function RV s' Velocity 0.10 m/s 0.10-0.19 Atria Name Value Normal LA Dimensions LA Dimension (2D) 3.50 cm 2.70-3.80 LA Dimen Index (2D) 1.32 cm/m2 Report Signatures Finalized by Radha Cespedes MD on 05/12/2020 03:08 PM [facility] ECHOCARDIOGRAM COMPLETE W CO NTRASTon 05-12-2020 ECHOCARDIOGRAM COMPLETE W CONTRAST Patient Info Name: YUNIER GAINES Age: 39 years : 1980 Gender: Female Ht: 180 cm Wt: 133 kg BSA: 2.64 m2 HR: 82 bpm BP: 112 / 75 mmHg Technical Quality: Technically difficult Exam Date: 05/12/2020 12:59 PM Patient Status: Inpatient Belt Brander: Joselyn Jain, RENETTA, RVT Exam Type: ECHOCARDIOGRAM COMPLETE W CONTRAST Study Info Indications R07.89 - Other chest pain I26.09 - Other pulmonary embolism with acute cor pulmonale - Chest pain/tightness Attending Physician: [facility] [phone] Primary Nurse: Julieta Cunha RN BMI: 41.00 kg/m2 Summary 1. This study was technically limited, Definity IV contrast was used to enhance endocardial definition. 2. The left ventricular diastolic function is grade I diastolic dysfunction, consistent with low or normal atrial pressures. 3. Left ventricular systolic function is normal, with ejection fraction estimated at 60 +/- 5%. 4. Right ventricular systolic function is mildly reduced, on very limited views. 5. There is borderline pulmonary hypertension, estimated right ventricle systolic pressure is 40 mmHg. 6. There is no comparison study available. History/Risk Factors Asthma. Procedure(s): Complete two-dimensional, color flow and Doppler transthoracic echocardiogram is performed. Definity explained to patient. Patient verbalizes understanding and agrees to proceed. Definity 1.3ml/8.7ml normal sterile saline 3 ml total given IV over 30-60 seconds. Left Ventricle Left ventricular systolic function is normal, with ejection fraction estimated at 60 +/- 5%. Left ventricular chamber dimension is normal. Normal left ventricular mass. Left ventricular segmental wall motion is normal. The left ventricular diastolic function is grade I diastolic dysfunction, consistent with low or normal atrial pressures. E/e' 3.93 is not elevated consistent with normal LA pressure. Right Ventricle Right ventricular chamber dimension is mildly enlarged. Right ventricular systolic function is mildly reduced, on very limited views. Left Atria Left atrial chamber dimension is normal. Right Atria Right atrial chamber dimension is normal. Aortic Valve The aortic valve is trileaflet. There is no aortic valve sclerosis. There is no aortic valve stenosis. There is no aortic valve regurgitation. Pulmonic Valve The pulmonic valve is normal. There is no pulmonic valve stenosis. There is trace pulmonic regurgitation. Mitral Valve The mitral valve has normal leaflets. There is no mitral valve stenosis. There is no mitral valve regurgitation. Tricuspid Valve The tricuspid valve leaflets are normal. There is no significant tricuspid valve stenosis. There is trace tricuspid valve regurgitation. There is borderline pulmonary hypertension, estimated right ventricle systolic pressure is 40 mmHg. Pericardium/Pleural The pericardium appears normal. There is no pericardial effusion. Inferior Vena Cava Normal inferior vena cava with >50% collapse upon inspiration consistent with normal right atrial pressure. Aorta The aortic measurements are indexed to age and body surface area. The aortic root is normal measuring 2.70 cm with an index of 1.02 cm/m2. The proximal ascending aorta is normal measuring 3.3 cm with an index of 1.25 cm/m2. Mitral Valve Name Value Normal MV Doppler MV Decel [place] 164.00 cm/s2 MV PHT 90 ms MV Area (PHT) 2.46 cm2 4.00-5.00 MV Diastolic Function MV E Peak Velocity 0.51 m/s MV A Peak Velocity 0.82 m/s MV E/A 0.62 MV Decel Time 309 ms MV Annular TDI MV Septal e' Velocity 11.90 cm/s >=8.00 MV E/e' (Septal) 4.25 <=8.00 MV Lateral e' Velocity 14.00 cm/s >=10.00 MV E/e' (Lateral) 3.61 <=8.00 MV e' Average 12.95 MV E/e' (Average) 3.93 Tricuspid Valve Name Value Normal TV Regurgitation Doppler TR Peak Velocity 2.71 m/s Estimated PAP/RSVP PA Systolic Pressure 40 mmHg <=36 Aorta Name Value Normal Ascending Aorta Ao Root Diameter (2D) 2.70 cm 2.70-3.30 Ao Root Diam Index (2D) 1.02 cm/m2 1.60-2.00 Prox Asc Ao Diameter 3.3 cm 2.3-3.1 Prox Asc Ao Diameter Index 1.25 cm/m2 1.30-1.90 Ventricles Name Value Normal LV Dimensions 2D/MM IVS Diastolic Thickness (2D) 1.24 cm 0.60-0.90 LVID Diastole (2D) 3.92 cm 3.80-5.20 LVIW Diastolic Thickness (2D) 1.02 cm 0.60-0.90 LVID Systole (2D) 2.58 cm 2.20-3.50 LV Mass (2D Cubed) 147 g 67-162 LV Mass Index (2D Cubed) 56 g/m2 43-95 Relative Wall Thickness (2D) 0.52 <=0.42 LV Fractional Shortening/Ejection Fraction 2D/MM LV EF (2D Teicholz) 63 % 54-74 RV Dimensions 2D/MM TAPSE 1.55 cm >=1.70 RV Systolic Function RV s' Velocity 0.10 m/s 0.10-0.19 Atria Name Value Normal LA Dimensions LA Dimension (2D) 3.50 cm 2.70-3.80 LA Dimen Index (2D) 1.32 cm/m2 Report Signatures Finalized by Radha Cespedes MD on 05/12/2020 03:08 PM Normal [facility] Comment on above: Order Comment: PE wi th right heart strain Magnesiumon 05-12-2020 Interpretation and review of laboratory results Normal [facility] Magnesium [Mass/Vol] 2.1 mg/dL 1.6 - 2 .4 mg/dL [facility] POC Glucoseon 05-12-2020 Glucose [Mass/Vol] 95 mg/dL 65 - 99 mg/dL [facility] Interpretation and review of laboratory results Normal [facility] Glucose [Mass/Vol] 117 mg/dL High 65 - 99 mg/dL [facility] Interpretation and review of laboratory results Abnormal [facility] Glucose [Mass/Vol] 132 mg/dL High 65 - 99 mg/dL [facility] Interpretation and review of laboratory results Abnormal [facility] Glucose [Mass/Vol] 162 mg/dL High 65 - 99 mg/dL [facility] Interpretation and review of laboratory results Abnormal [facility] PT/INRon 05-12-2020 INR Coag (PPP) [Relative time] 1.1 {INR} [facility] Interpretation and review of laboratory results Normal [facility] PT Coag (PPP) [Time] 14.3 s [facility] During the induction phase of oral anticoagulation, the INR may not reflect the anticoagulation status of the patient. Therapeutic ranges for INR's are: Most clinical situations: INR 2.0-3.0 Mechanical Prosthetic Valve: INR 2.5-3.5 Critical: INR >5.0 [facility] TROPONINon 05-12-2020 Interpretation and review of laboratory results Abnormal [facility] Troponin T.cardiac [Mass/Vol] 33 ng/L Critically high <=14 [facility] Troponin T.cardiac [Mass/Vol] Probable non-acute cardiac injury or late presentation of acute injury. [facility] Troponin T.cardiac [Mass/Vol] -13 % <20% of Baseline Troponin [facility] Interpretation and review of laboratory results Abnormal [facility] Troponin T.cardiac [Mass/Vol] Possible acute cardiac injury. [facility] Troponin T.cardiac [Mass/Vol] 38 ng/L Critically high <=[address] [facility] DUPLEX VENOUS LEGS BILATE RALon 05-12-2020 US DUPLEX VENOUS LEGS BILATERAL Patient Info Name: YUNIER GAINES Age: 39 years : 1980 Gender: Female Exam Date: 05/12/2020 4:14 AM Patient Status: Inpatient Institutional Asset Manager: Joan Cunningham RVT Referring Physician: ALONSO Saavedra; Attending Physician: PHYSICIANS, [facility] Indications I26.99 - Other pulmonary embolism without acute cor pulmonale Procedure Description 66510 Duplex examination using B-mode, color and spectral Doppler of extremity veins including responses to compression and other maneuvers; complete bilateral study. Conclusions * No evidence of deep or superficial vein thrombosis in the right lower extremity. * Acute deep vein thrombosis in the distal femoral, popliteal, one of the paired posterior tibial, peroneal, and soleal veins of the left lower extremity. . Notification of Results: Results called to Joan Sandra RN at 05/12/2020 4:14:00 AM. Report Signatures Finalized by NANDO Vargas MD on 05/12/2020 08:47 AM [facility] US DUPLEX VENOUS LEGS BILATERAL Patient Info Name: YUNIER GAINES Age: 39 years : 1980 Gender: Female Exam Date: 05/12/2020 4:14 AM Patient Status: Inpatient Institutional Asset Manager: Joan Cunningham RVT Referring Physician: ALONSO Saavedra; Attending Physician: SAM, [facility] Indications I26.99 - Other pulmonary embolism without acute cor pulmonale Procedure Description 57144 Duplex examination using B-mode, color and spectral Doppler of extremity veins including responses to compression and other maneuvers; complete bilateral study. Conclusions * No evidence of deep or superficial vein thrombosis in the right lower extremity. * Acute deep vein thrombosis in the distal femoral, popliteal, one of the paired posterior tibial, peroneal, and soleal veins of the left lower extremity. . Notification of Results: Results called to Joan Sandra RN at 05/12/2020 4:14:00 AM. Report Signatures Finalized by NANDO Vargas MD on 05/12/2020 08:47 AM Dictated by: BRONSON DAVE on ThuMay 12, 2020 8:48:21 AM EST Transcribed by: BRONSON DAVE on Sat May 12, 2020 8:48:21 AM EST Finalized by: BRONSON DAVE on [facility] May 12, 2020 8:48:21 AM EST Normal [facility] Ultrasound duplex venous leg s bilaton 05-12-2020 Patient Info Name: Letitia GAINES Age: 39 years : 1980 Gender: Female Exam Date: 05/12/2020 4:14 AM Patient Status: Inpatient Institutional Asset Manager: Joan Cunningham RVT Referring Physician: ALONSO Saavedra; Attending Physician: PHYSICIANS, [facility] Indications I26.99 - Other pulmonary embolism without acute cor pulmonale Procedure Description 20219 Duplex examination using B-mode, color and spectral Doppler of extremity veins including responses to compression and other maneuvers; complete bilateral study. Conclusions * No evidence of deep or superficial vein thrombosis in the right lower extremity. * Acute deep vein thrombosis in the distal femoral, popliteal, one of the paired posterior tibial, peroneal, and soleal veins of the left lower extremity. . Notification of Results: Results called to Joan Sandra RN at 05/12/2020 4:14:00 AM. Report Signatures Finalized by Basilio Dave MD, RPVI on 05/12/2020 08:47 AM [facility], Rad In artlab Xper Echopacs - 05/12/2020 8:48 AM EST Patient Info Name: YUNIER GAINES Age: 39 years : 1980 Gender: Female Exam Date: 05/12/2020 4:14 AM Patient Status: Inpatient Institutional Asset Manager: Joan Cunningham RVT Referring Physician: ALONSO Saavedra; Attending Physician: PHYSICIANS, [facility] Indications I26.99 - Other pulmonary embolism without acute cor pulmonale Procedure Description 55147 Duplex examination using B-mode, color and spectral Doppler of extremity veins including responses to compression and other maneuvers; complete bilateral study. Conclusions * No evidence of deep or superficial vein thrombosis in the right lower extremity. * Acute deep vein thrombosis in the distal femoral, popliteal, one of the paired posterior tibial, peroneal, and soleal veins of the left lower extremity. . Notification of Results: Results called to Joan Sandra RN at 05/12/2020 4:14:00 AM. Report Signatures Finalized by Basilio Dave MD, RPVI on 05/12/2020 08:47 AM [facility] XR COMPARISON IMPORTon 05-12 This order has been auto-finalized and does not contain a result. [facility] hCG Urine, Qualitativeon HCG ( test) Ql (U) Negative Negative [facility] Interpretation and review of laboratory results Normal [facility] Basic Metab w/rfx MGon 05-11 (cont.) Normal [facility] Comment on above: Result Comment: Aver age GFR for 30-39 years old: 107 mL/min/1.73sq m Chronic Kidney Disease: <60 mL/min/1.73sq m Kidney failure: <15 mL/min/1.73sq m eGFR calculated using average adult body mass. Additional eGFR calculator available at: http://www.[employer]/multiple_crcl_2012.htm Performed By: #### C DP, BMPX, TROPI, DIME #### [facility] [address] [place] [address] Combatant Swimmer: Quentin Ruiz MD Anion gap [Moles/Vol] 12 mmol/L Normal - [facility] Comment on above: Performed By: #### C DP, BMPX, TROPI, DIME #### [facility] [address] [place] [address] Combatant Swimmer: Quentin Ruiz MD BUN/CRE Ratio 36 High - [facility] Comment on above: Performed By: #### C DP, BMPX, TROPI, DIME #### [facility] [address] [place] [address] Combatant Swimmer: Quentin Ruiz MD Calcium [Mass/Vol] 9.7 mg/dL Normal 8.6-10.4 [facility] Comment on above: Performed By: #### C DP, BMPX, TROPI, DIME #### [facility] [address] [place] [address] Combatant Swimmer: Quentin Ruiz MD Chloride [Moles/Vol] 105 mmol/L Normal 98-107 [facility] Comment on above: Performed By: #### C DP, BMPX, TROPI, DIME #### [facility] [facility] [address] [place], [place] [id number] [employer] Swimmer: Quentin Ruiz MD CO2 [Moles/Vol] 20 mmol/L Normal 20-31 [facility] Comment on above: Performed By: #### C DP, BMPX, TROPI, DIME #### [facility] [address] [place] [address] Combatant Swimmer: Quentin Ruiz MD Creatinine [Mass/Vol] 0.56 mg/dL Normal 0.50-0.90 [facility] Comment on above: Performed By: #### C DP, BMPX, TROPI, DIME #### [facility] [address] [place], [place] [id number] Combatant Swimmer: Quentin Ruiz MD GFR, Amer >60 Normal >60 [facility] Comment on above: Performed By: #### C DP, BMPX, TROPI, DIME #### [facility] [address] [place] [address] Combatant Swimmer: Quentin Ruiz MD GFR,non Amer >60 Normal >60 [facility] Comment on above: Performed By: #### C DP, BMPX, TROPI, DIME #### [facility] [address] [place] [address] Combatant Swimmer: Quentin Ruiz MD Glucose [Mass/Vol] 118 mg/dL High 70-99 [facility] Comment on above: Performed By: #### C DP, BMPX, TROPI, DIME #### [facility] [address] [place] [address] Combatant Swimmer: Quentin Ruiz MD Potassium [Moles/Vol] 4.1 mmol/L Normal 3.7-5.3 [facility] Comment on above: Performed By: #### C DP, BMPX, TROPI, DIME #### [facility] [address] [place] [address] Combatant Swimmer: Quentin Ruiz MD Sodium [Moles/Vol] 137 mmol/L Normal 135-144 [facility] Comment on above: Performed By: #### C DP, BMPX, TROPI, DIME #### [facility] [address] [place] [address] Combatant Swimmer: Quentin Ruiz MD Urea nitrogen [Mass/Vol] 20 mg/dL Normal 6-20 [facility] Comment on above: Performed By: #### C DP, BMPX, TROPI, DIME #### [facility] [address] [place] [address] Combatant Swimmer: Quentin Ruiz MD Staging: NOT REPORTED Normal [facility] Comment on above: Performed By: #### C DP, BMPX, TROPI, DIME #### [facility] [address] [place] [address] Combatant Swimmer: Quentin Ruiz MD Basic Metabolic Panel w/ Ref petros to MGon 05-11-2020 Anion gap [Moles/Vol] 12 mmol/L 9 - 17 mmol/L [place] Bun/Cre Ratio 36 High [place] Calcium [Mass/Vol] 9.7 mg/dL 8.6 - 10. 4 mg/dL [place] Chloride [Moles/Vol] 105 mmol/L 98 - 10 7 mmol/L [place] CO2 [Moles/Vol] 20 mmol/L 20 - 31 mmol/L [place] Creatinine [Mass/Vol] 0.56 mg/dL 0.5 - 0.9 mg/dL [place] GFR >60 >60 mL/min [place] GFR Non- >60 >60 mL/min [place] GFR/1.73 sq M predicted among non-blacks MDRD (S/P/Bld) [Vol rate/Area] [place] Comment on above: Average GFR for 30-3 9 years old: 107 mL/min/1.73sq m Chronic Kidney Disease: <60 mL/min/1.73sq m Kidney failure: <15 mL/min/1.73sq m eGFR calculated using average adult body mass. Additional eGFR calculator available at: http://www.[employer]/multiple_crcl_2012.htm GFR/1.73 sq M predicted among non-blacks MDRD (S/P/Bld) [Vol rate/Area] NOT REPORTED [place] Glucose [Mass/Vol] 118 mg/dL High 70 - 99 mg/dL [place] Interpretation and review of laboratory results Abnormal [place] Potassium [Moles/Vol] 4.1 mmol/L 3.7 - 5.3 mmol/L [place] Sodium [Moles/Vol] 137 mmol/L 135 - 144 mmol/L [place] Urea nitrogen [Mass/Vol] 20 mg/dL 6 - 20 mg/dL [place] CBC Auto Differentialon 11-0 62020 Basophils (Bld) [#/Vol] 0.00 10*3/uL [place] Basophils/100 WBC (Bld) 0 % 0 - 2 % [place] Differential Type YES [place] Eosinophils (Bld) [#/Vol] 0.30 10*3/uL [place] Eosinophils/100 WBC (Bld) 2 % 0 - 5 % [place] Erythrocyte distribution width (RBC) [Ratio] 13.3 % 12.1 - 15.2 % [place] Hematocrit (Bld) [Volume fraction] 43.8 % 36 - 46 % [place] Hemoglobin (Bld) [Mass/Vol] 14.6 g/dL 12 - 16 g/dL [place] Interpretation and review of laboratory results Abnormal [place] Lymphocytes (Bld) [#/Vol] 1.90 10*3/uL [place] Lymphocytes/100 WBC (Bld) 13 % Low 15 - 40 % [place] MCH (RBC) [Entitic mass] 28.2 pg 26 - 34 pg [place] MCHC (RBC) [Mass/Vol] 33.3 g/dL 31 - 37 g/dL [place] MCV (RBC) [Entitic vol] 84.6 fL 80 - 100 fL [place] Monocytes (Bld) [#/Vol] 0.60 10*3/uL [place] Monocytes/100 WBC (Bld) 4 % 4 - 8 % [place] Platelet mean volume (Bld) [Entitic vol] NOT REPORTED 6 - 12 fL [place] Platelets (Bld) [#/Vol] NOT REPORTED [place] Platelets (Bld) [#/Vol] 241 10*3/uL [place] RBC (Bld) [#/Vol] 5.18 10*6/uL 4 - 5.2 m/uL [place] RBC morphology finding Nom (Bld) NOT REPORTED [place] Segmented neutrophils/100 WBC (Bld) 81 % High 47 - 75 % [place] Segs Absolute 11.50 [place] WBC (Bld) [#/Vol] 14.3 10*3/uL [place] WBC (Bld) [#/Vol] NOT REPORTED per 100 WBC [place] WBC Morphology NOT REPORTED [place] CBC with Diffon 05-11-2020 Abs. Basophil 0.00 k/uL Normal 0.0-0.2 [facility] Comment on above: Performed By: #### C MONICA MCKENZIE TROPI, DIME #### [facility] [address] [place] [address] Combatant Swimmer: Quentin Ruiz MD Abs.Neutrophil (Seg) 11.50 k/uL High 2.5-7.0 [facility] Comment on above: Performed By: #### C DP, BMPX, TROPI, DIME #### [facility] [address] [place] [id number] Combatant Swimmer: Quentin Ruiz MD Auto Diff Performed YES Normal [facility] Comment on above: Performed By: #### C DP, BMPX, TROPI, DIME #### [facility] [address] [place] [address] Combatant Swimmer: Quentin Ruiz MD Basophils/100 WBC (Bld) 0 % Normal 0-2 [facility] Comment on above: Performed By: #### C DP, BMPX, TROPI, DIME #### [facility] [address] [place] [address] Combatant Swimmer: Quentin Ruiz MD Eosinophils (Bld) [#/Vol] 0.30 10*3/uL Normal 0.0-0.4 [facility] Comment on above: Performed By: #### C DP, BMPX, TROPI, DIME #### [facility] [address] [place] [id number] Combatant Swimmer: Quentin Ruiz MD Eosinophils/100 WBC (Bld) 2 % Normal 0-5 [facility] Comment on above: Performed By: #### C DP, BMPX, TROPI, DIME #### [facility] [address] [place] [address] Combatant Swimmer: Quentin Ruiz MD Erythrocyte distribution width (RBC) [Ratio] 13.3 % Normal 12.1-15.2 [facility] Comment on above: Performed By: #### C DP, BMPX, TROPI, DIME #### [facility] [address] [place] [address] Combatant Swimmer: Quentin Ruiz MD Hematocrit (Bld) [Volume fraction] 43.8 % Normal 36-46 [facility] Comment on above: Performed By: #### C DP, BMPX, TROPI, DIME #### [facility] [address] [place] [address] Combatant Swimmer: Quentin Ruiz MD Hemoglobin (Bld) [Mass/Vol] 14.6 g/dL Normal 12.0-16.0 [facility] Comment on above: Performed By: #### C DP, BMPX, TROPI, DIME #### [facility] [address] [place] [address] Combatant Swimmer: Quentin Ruiz MD Lymphocytes (Bld) [#/Vol] 1.90 10*3/uL Normal 1.0-4.8 [facility] Comment on above: Performed By: #### C DP, BMPX, TROPI, DIME #### [facility] [address] [place] [address] Combatant Swimmer: Quentin Ruiz MD Lymphocytes/100 WBC (Bld) 13 % Low 15-40 [facility] Comment on above: Performed By: #### C DP, BMPX, TROPI, DIME #### [facility] [address] [place] [address] Combatant Swimmer: Quentin Ruiz MD MCH (RBC) [Entitic mass] 28.2 pg Normal 26-34 [facility] Comment on above: Performed By: #### C DP, BMPX, TROPI, DIME #### [facility] [address] [place] [address] Combatant Swimmer: Quentin Ruiz MD MCHC (RBC) [Mass/Vol] 33.3 g/dL Normal 31-37 [facility] Comment on above: Performed By: #### C DP, BMPX, TROPI, DIME #### [facility] [address] [place] [address] Combatant Swimmer: Quentin Ruiz MD MCV (RBC) [Entitic vol] 84.6 fL Normal 80-100 [facility] Comment on above: Performed By: #### C DP, BMPX, TROPI, DIME #### [facility] [address] [place] [address] ([address]) Combatant Swimmer: Quentin Ruiz MD Monocytes (Bld) [#/Vol] 0.60 10*3/uL Normal 0.0-1.0 [facility] Comment on above: Performed By: #### C DP, BMPX, TROPI, DIME #### [facility] [address] [place] [id number] Combatant Swimmer: Quentin Ruiz MD Monocytes/100 WBC (Bld) 4 % Normal 4-8 [facility] Comment on above: Performed By: #### C DP, BMPX, TROPI, DIME #### [facility] [address] [place] [address] Combatant Swimmer: Quentin Ruiz MD Neutrophil (Seg) 81 % High 47-75 [facility] Comment on above: Performed By: #### C DP, BMPX, TROPI, DIME #### [facility] [address] [place] [id number] Combatant Swimmer: Quentin Ruiz MD Platelets (Bld) [#/Vol] 241 10*3/uL Normal 140-450 [facility] Comment on above: Performed By: #### C DP, BMPX, TROPI, DIME #### [facility] [address] [place] [address] Combatant Swimmer: Quentin Ruiz MD RBC (Bld) [#/Vol] 5.18 10*6/uL Normal 4.0-5.2 [facility] Comment on above: Performed By: #### C DP, BMPX, TROPI, DIME #### [facility] [address] [place] [id number] Combatant Swimmer: Quentin Ruiz MD WBC (Bld) [#/Vol] 14.3 10*3/uL High 3.5-11.0 [facility] Comment on above: Performed By: #### C DP, BMPX, TROPI, DIME #### [facility] [address] [place] [address] Combatant Swimmer: Quentin Ruiz MD Abs.Imm.Granulocyte NOT REPORTED Normal 0.00-0.30 [facility] Comment on above: Performed By: #### C DP, BMPX, TROPI, DIME #### [facility] [address] [place] [address] Combatant Swimmer: Quentin Ruiz MD Immature granulocytes (Bld) [#/Vol] NOT REPORTED Normal 0 [facility] Comment on above: Performed By: #### C DP, BMPX, TROPI, DIME #### [facility] [address] [place] [address] Combatant Swimmer: Quentin Ruiz MD NRBC Automated NOT REPORTED Normal [facility] Comment on above: Performed By: #### C DP, BMPX, TROPI, DIME #### [facility] [address] [place] [id number] Combatant Swimmer: Quentin Ruiz MD Platelet mean volume (Bld) [Entitic vol] NOT REPORTED Normal 6.0-12.0 [facility] Comment on above: Performed By: #### C DP, BMPX, TROPI, DIME #### [facility] [address] [place] [address] Combatant Swimmer: Quentin Ruiz MD Platelets (Bld) [#/Vol] NOT REPORTED Normal [facility] Comment on above: Performed By: #### C DP, BMPX, TROPI, DIME #### [facility] [address] [place] [id number] Combatant Swimmer: Quentin Ruiz MD RBC morphology finding Nom (Bld) NOT REPORTED Normal [facility] Comment on above: Performed By: #### C DP, BMPX, TROPI, DIME #### [facility] [address] [place] [address] Combatant Swimmer: Quentin Ruiz MD WBC Morphology NOT REPORTED Normal [facility] Comment on above: Performed By: #### C DP, BMPX, KATHIE BAUGH #### [facility] [address] [place] [address] Combatant Swimmer: Quentin Ruiz MD COVID-19, PCRon 05-11-2020 SARS-CoV-2, Rapid Not Detected Not Detected [place] Comment on above: Rapid NAAT: The specimen is NEGATIVE for SARS-CoV-2, the novel coronavirus associated with COVID-19. The ID NOW COVID-19 assay is designed to detect the virus that causes COVID-19 in patients with signs and symptoms of infection who are suspected of COVID-19. An individual without symptoms of COVID-19 and who is not shedding SARS-CoV-2 virus would expect to have a negative (not detected) result in this assay. Negative results should be treated as presumptive and, if inconsistent with clinical signs and symptoms or necessary for patient management, should be tested with an alternative molecular assay. Negative results do not preclude SARS-CoV-2 infection and should not be used as the sole basis for patient management decisions. Fact sheet for Healthcare Providers: https://www.fda.gov/media/840021/download Fact sheet for Patients: https://www.fda.gov/media/987425/download Methodology: Isothermal Nucleic Acid Amplification Source .THROAT [place] CTA CHEST W CONTRASTon 05-11 CTA CHEST W CONTRAST EXAMINATION: CTA CH EST W CONTRAST HISTORY: Reason for exam:->chest pain, dyspnea, possible PE COMPARISON: None. TECHNIQUE: CT angiography of the pulmonary arteries following the administration of 100 mL Isovue-370 intravenous contrast. Coronal and sagittal MIP (maximum intensity projection) images were performed. Dose reduction techniques were achieved by using automated exposure control and/or adjustment of mA and/or kV according to patient size and/or use of iterative reconstruction technique. FINDINGS: Extensive bilateral pulmonary arterial emboli are noted within the distal aspect of the right and left main pulmonary artery, lobar, segmental and subsegmental branches involving all lobes of the lungs. There is associated right heart strain. No enlarged lymph nodes are visualized within the chest. The lungs and the pleural spaces are clear. IMPRESSION: Extensive bilateral pulmonary arterial emboli with associated right heart strain. Critical results were called by Dr. Calvin Lion to Dr. Ardon At 05/11/2020 8:25 PM EST. Interpreted by: Calvin Lion MD Signed by: Calvin Lion MD 05/11/20 Final result Normal [facility] Extensive bilateral pulmonary arterial emboli with associated right heart strain. Critical results were called by Dr. Calvin Lion to Dr. Ardon At 05/11/2020 8:25 PM EST. [place] EXAMINATION: CTA [facility] [facility] W CONTRAST HISTORY: Reason for exam:->chest pain, dyspnea, possible PE COMPARISON: None. TECHNIQUE: CT angiography of the pulmonary arteries following the administration of 100 mL Isovue-370 intravenous contrast. Coronal and sagittal MIP (maximum intensity projection) images were performed. Dose reduction techniques were achieved by using automated exposure control and/or adjustment of mA and/or kV according to patient size and/or use of iterative reconstruction technique. FINDINGS: Extensive bilateral pulmonary arterial emboli are noted within the distal aspect of the right and left main pulmonary artery, lobar, segmental and subsegmental branches involving all lobes of the lungs. There is associated right heart strain. No enlarged lymph nodes are visualized within the chest. The lungs and the pleural spaces are clear. [place], [place] He, Mhpn Incoming R adiant Results From [facility] - 05/11/2020 8:39 PM EST EXAMINATION: CTA CHEST W CONTRAST HISTORY: Reason for exam:->chest pain, dyspnea, possible PE COMPARISON: None. TECHNIQUE: CT angiography of the pulmonary arteries following the administration of 100 mL Isovue-370 intravenous contrast. Coronal and sagittal MIP (maximum intensity projection) images were performed. Dose reduction techniques were achieved by using automated exposure control and/or adjustment of mA and/or kV according to patient size and/or use of iterative reconstruction technique. FINDINGS: Extensive bilateral pulmonary arterial emboli are noted within the distal aspect of the right and left main pulmonary artery, lobar, segmental and subsegmental branches involving all lobes of the lungs. There is associated right heart strain. No enlarged lymph nodes are visualized within the chest. The lungs and the pleural spaces are clear. IMPRESSION: Extensive bilateral pulmonary arterial emboli with associated right heart strain. Critical results were called by Dr. Calvin Lion to Dr. Ardon At 05/11/2020 8:25 PM EST. [place] D-Dimer Teston 05-11-2020 D-Dimer Test 7.61 mg/L FEU High 0.00-0.59 [facility] Comment on above: Result Comment: When combined with a low clinical probability, a D dimer value of <0.50 mg/L FEU is considered negative for DVT and PE (negative predictive value of 98%, sensitivity of 97%). If this test is not being used to help rule out DVT and PE, then the following reference range should be utilized: 0.00 - 0.59 mg/L FEU. The D-Dimer assay is intended for use as an aid in the diagnosis of venous thromboembolism (DVT and PE) and the results should be interpreted in conjunction with the patient's medical history, clinical presentation, and other findings. Elevated levels of D-dimer activity can be seen in any state of coagulation activation and is not recommended in patients with therapeutic dose anticoagulant therapy for >24 hours, fibrinolytic therapy within the previous 7 days, trauma or surgery within the previous 4 weeks, disseminated malignancies, aortic aneurysm, sepsis, severe infections, pneumonia, severe skin infections, liver cirrhosis, advanced age, coronary disease, diabetes, and . A very low percentage of patients with DVT may yield D-dimer results below the cutoff of 0.5 mg/L FEU. This is known to be more prevalent in patients with distal DVT. Performed By: #### C DP, BMPX, TROPI, KATHIE #### [facility] [address] [place] [address] Combatant Swimmer: Quentin Ruiz MD D-Dimer, Quantitativeon D-Dimer, Quant 7.61 High [place], [place] Comment on above: When combined with a low clinical probability, a D dimer value of <0.50 mg/L FEU is considered negative for DVT and PE (negative predictive value of 98%, sensitivity of 97%). If this test is not being used to help rule out DVT and PE, then the following reference range should be utilized: 0.00 - 0.59 mg/L FEU. The D-Dimer assay is intended for use as an aid in the diagnosis of venous thromboembolism (DVT and PE) and the results should be interpreted in conjunction with the patient's medical history, clinical presentation, and other findings. Elevated levels of D-dimer activity can be seen in any state of coagulation activation and is not recommended in patients with therapeutic dose anticoagulant therapy for >24 hours, fibrinolytic therapy within the previous 7 days, trauma or surgery within the previous 4 weeks, disseminated malignancies, aortic aneurysm, sepsis, severe infections, pneumonia, severe skin infections, liver cirrhosis, advanced age, coronary disease, diabetes, and . A very low percentage of patients with DVT may yield D-dimer results below the cutoff of 0.5 mg/L FEU. This is known to be more prevalent in patients with distal DVT. Interpretation and review of laboratory results Abnormal [place] Otheron 05-11-2020 SARS-CoV-2 [place] Immature granulocytes (Bld) [#/Vol] NOT REPORTED [place] [id number] 05-11-2020 SARS-CoV-2 Normal [facility] Comment on above: Performed By: #### C OVID #### [facility] [address] [place] [address] Combatant Swimmer: Quentin Ruiz MD SARS-CoV-2,Rapid Not Detected Normal [facility] Comment on above: Result Comment: Rapid NAAT: The specimen is NEGATIVE for SARS-CoV-2, the novel coronavirus associated with COVID-19. The ID NOW COVID-19 assay is designed to detect the virus that causes COVID-19 in patients with signs and symptoms of infection who are suspected of COVID-19. An individual without symptoms of COVID-19 and who is not shedding SARS-CoV-2 virus would expect to have a negative (not detected) result in this assay. Negative results should be treated as presumptive and, if inconsistent with clinical signs and symptoms or necessary for patient management, should be tested with an alternative molecular assay. Negative results do not preclude SARS-CoV-2 infection and should not be used as the sole basis for patient management decisions. Fact sheet for Healthcare Providers: https://www.fda.gov/media/570912/download Fact sheet for Patients: https://www.fda.gov/media/147428/download Methodology: Isothermal Nucleic Acid Amplification Performed By: #### C OVID #### [facility] [address] [place] [id number] Combatant Swimmer: Quentin Ruiz MD SARS-CoV-2 Source .THROAT Normal [facility] Comment on above: Performed By: #### C OVID #### [facility] [address] [place] [id number] Combatant Swimmer: Quentin Ruiz MD Troponinon 05-11-2020 Troponin I.cardiac [Mass/Vol] 0.07 ng/mL High <0.03 [facility] Comment on above: Result Comment: Trop onin T results cannot be compared to Troponin-I results. Performed By: #### T ROPI #### [facility] [address] [place] [id number] Combatant Swimmer: Quentin Ruiz MD Troponin I.cardiac [Mass/Vol] Normal [facility] Comment on above: Result Comment: Refe rence Range: <0.03 Within reference range. 0.03-0.09 Possible myocardial damage. Repeat at appropriate intervals to rule out chronic elevation. >= 0.10 Indicative of myocardial damage. Patients with high levels of Biotin oral intake (i.e >5mg/day) may have falsely decreased Troponin T levels. Samples collected within 8 hours of biotin intake may require additional information for diagnosis. Performed By: #### T ROPI #### [facility] [address] [place] [id number] Combatant Swimmer: Quentin Ruiz MD Troponin I.cardiac [Mass/Vol] 0.06 ng/mL High <0.03 [facility] Comment on above: Result Comment: Trop onin T results cannot be compared to Troponin-I results. Performed By: #### C DP, BMPX, TROPI, DIME #### [facility] [address] [place] [address] Combatant Swimmer: Quentin Ruiz MD Troponin I.cardiac [Mass/Vol] Normal [facility] Comment on above: Result Comment: Refe rence Range: <0.03 Within reference range. 0.03-0.09 Possible myocardial damage. Repeat at appropriate intervals to rule out chronic elevation. >= 0.10 Indicative of myocardial damage. Patients with high levels of Biotin oral intake (i.e >5mg/day) may have falsely decreased Troponin T levels. Samples collected within 8 hours of biotin intake may require additional information for diagnosis. Performed By: #### C DP, BMPX, TROPI, DIME #### [facility] [address] [place] [address] Combatant Swimmer: Quentin Ruiz MD Interpretation and review of laboratory results Abnormal [place] Troponin I.cardiac [Mass/Vol] [place] Comment on above: Reference Range: <0.03 Within reference range. 0.03-0.09 Possible myocardial damage. Repeat at appropriate intervals to rule out chronic elevation. >= 0.10 Indicative of myocardial damage. Patients with high levels of Biotin oral intake (i.e >5mg/day) may have falsely decreased Troponin T levels. Samples collected within 8 hours of biotin intake may require additional information for diagnosis. Troponin T.cardiac [Mass/Vol] 0.07 ng/mL High <0.03 [place] Comment on above: Troponin T results c annot be compared to Troponin-I results. Troponin, High Sensitivity NOT REPORTED 0 - 14 ng/L [place] Troponin I.cardiac [Mass/Vol] NOT REPORTED Normal 0-14 [facility] Comment on above: Performed By: #### T ROPI #### [facility] [address] [place] [address] Combatant Swimmer: Quentin Ruiz MD Performed By: #### C DP, BMPX, TROPI, DIME #### [facility] [address] [place] [address] Combatant Swimmer: Quentin Ruiz MD Interpretation and review of laboratory results Abnormal [place] Troponin I.cardiac [Mass/Vol] [place] Comment on above: Reference Range: <0.03 Within reference range. 0.03-0.09 Possible myocardial damage. Repeat at appropriate intervals to rule out chronic elevation. >= 0.10 Indicative of myocardial damage. Patients with high levels of Biotin oral intake (i.e >5mg/day) may have falsely decreased Troponin T levels. Samples collected within 8 hours of biotin intake may require additional information for diagnosis. Troponin T.cardiac [Mass/Vol] 0.06 ng/mL High <0.03 [place], [place] Comment on above: Troponin T results c annot be compared to Troponin-I results. Troponin, High Sensitivity NOT REPORTED 0 - 14 ng/L [place] XR CHEST PORTABLEon 05-11-20 XR CHEST PORTABLE EXAM: XR CHEST KATHERINE BLE HISTORY: Reason for exam:->SOB/asthma attack COMPARISON: None. TECHNIQUE: AP portable chest radiograph. FINDINGS: The heart, mediastinum, lungs and pleural spaces appear within normal limits. IMPRESSION: No acute cardiopulmonary disease. Interpreted by: Felicitas Samuel MD Signed by: Felicitas Samuel MD 05/11/20 Final result Normal [facility] EXAM: XR CHEST KATHERINE BLE HISTORY: Reason for exam:->SOB/asthma attack COMPARISON: None. TECHNIQUE: AP portable chest radiograph. FINDINGS: The heart, mediastinum, lungs and pleural spaces appear within normal limits. [place], [place] He, Mhpn Incoming R adiant Results From F[facility]ae/Pacs - 05/11/2020 7:14 PM EST EXAM: XR CHEST PORTABLE HISTORY: Reason for exam:->SOB/asthma attack COMPARISON: None. TECHNIQUE: AP portable chest radiograph. FINDINGS: The heart, mediastinum, lungs and pleural spaces appear within normal limits. IMPRESSION: No acute cardiopulmonary disease. [place], [place] No acute cardiopulmo nary disease. [place] Vital Signs Date Time Vital Sign Value Performing Clinician Facility 03-03-2024 09:09-0400 Body height 180.3 cm Greg Hidalgo [employer] Work Phone: [facility] 03-03-2024 09:09-0400 Body mass index (BMI) [Ratio] 39.19 kg/m2 Greg Hidalgo DO Work Phone: [facility] 03-03-2024 09:09-0400 Body weight 127.46 kg Greg Frankicco DO Work Phone: [facility] 03-03-2024 09:09-0400 Respiratory rate 16 /min Greg Demicco DO Work Phone: [facility] 02-29-2024 09:40-0400 Body mass index (BMI) [Ratio] 39.2 kg/m2 Sandi Weber MD Work Phone: [facility] 02-29-2024 09:40-0400 Body weight 127.5 kg Sandi Weber MD Work Phone: [facility] 01-04-2024 11:06-0400 Body height 180.3 cm France Bernardo DPM Work Phone: [facility] 01-04-2024 11:06-0400 Body mass index (BMI) [Ratio] 39.33 kg/m2 France Bernardo DPM Work Phone: [facility] 01-04-2024 11:06-0400 Body weight 127.91 kg France Bernardo DPM Work Phone: [facility] 12-22-2023 14:59-0400 Body height 180.[address] Work Phone: [facility] 12-22-2023 14:59-0400 Body mass index (BMI) [Ratio] 39.61 kg/m2 Orlin Paramjito RD Work Phone: [facility] 12-22-2023 14:59-0400 Body weight 128.[address] Work Phone: [facility] Comment on above: per patient report 12-22-2023 09:53-0400 Body height 180.3 cm Rosanne Palacio 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.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 Work Phone: [facility] 12-22-2023 09:53-0400 Body mass index (BMI) [Ratio] 39.63 kg/m2 Rosanne Palacio 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.[employer] 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 Work Phone: [facility] 12-22-2023 09:53-0400 Body weight 128.82 kg Rosanne Palacio 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.[employer] 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 Work Phone: [facility] 11-24-2023 10:22-0400 Body height 180.3 cm Greg Frankicco DO Work Phone: [facility] 11-24-2023 10:22-0400 Body mass index (BMI) [Ratio] 41.59 kg/m2 Greg Demicco DO Work Phone: [facility] 11-24-2023 [id number] Body weight 135.2 kg Greg Frankicco DO Work Phone: [facility] 11-24-2023 [id number] Respiratory rate 16 /min Greg Frankicco DO Work Phone: [facility] 11-04-2023 14:19-0400 Body height 180.3 cm Haley Nicholson MD Work Phone: [facility] 11-04-2023 14:19-0400 Body mass index (BMI) [Ratio] 42.77 kg/m2 Haley Nicholson MD Work Phone: [facility] 11-04-2023 14:19-0400 Body weight 139.03 kg Haley Nicholson MD Work Phone: [facility] 11-04-2023 14:19-0400 Diastolic blood pressure 68 mm[Hg] Haley Nicholson MD Work Phone: [facility] 11-04-2023 14:19-0400 Heart rate 90 /min Haley Nicholson MD Work Phone: [facility] 11-04-2023 14:19-0400 Systolic blood pressure 115 mm[Hg] Haley Nicholson MD Work Phone: [facility] 11-03-2023 08:00-0400 Body height 180.[address] Work Phone: [facility] 11-03-2023 08:00-0400 Body mass index (BMI) [Ratio] 42.54 kg/m2 Orlin Bowman RD Work Phone: [facility] 11-03-2023 08:00-0400 Body weight 138.[address] Work Phone: [facility] Comment on above: per patient report 10-14-2023 09:24-0400 Body weight 142.[address] Work Phone: [facility] 09-22-2023 09:00-0400 Body weight 152.41 kg Huan Meeks MD Work Phone: [facility] 09-22-2023 07:24-0400 Body height 180.3 cm Pacc 9 Work Phone: [facility] 09-22-2023 07:24-0400 Body temperature 97.2 [degF] Pacc 9 Work Phone: [facility] 09-22-2023 07:24-0400 Body weight 152.5 kg Pacc 9 Work Phone: [facility] 09-22-2023 07:24-0400 Diastolic blood pressure 57 mm[Hg] Pacc 9 Work Phone: [facility] 09-22-2023 07:24-0400 Heart rate 65 /min Pacc 9 Work Phone: [facility] 09-22-2023 07:24-0400 SaO2% (BldA) [Mass fraction] 95 % Pacc 9 Work Phone: [facility] 09-22-2023 07:24-0400 Systolic blood pressure 102 mm[Hg] Pacc 9 Work Phone: [facility] 09-10-2023 14:08-0500 Body height 180.[address] Work Phone: [facility] 08-19-2023 11:07-0500 Body height 180.3 cm Jim Campos MD Work Phone: [facility] 08-19-2023 11:07-0500 Body weight 157.49 kg Jim Campos MD Work Phone: [facility] 08-19-2023 11:07-0500 Diastolic blood pressure 80 mm[Hg] Jim Campos MD Work Phone: [facility] 08-19-2023 11:07-0500 Heart rate 75 /min Jim Campos MD Work Phone: [facility] 08-19-2023 11:07-0500 SaO2% (BldA) [Mass fraction] 96 % Jim Campos MD Work Phone: [facility] 08-19-2023 11:07-0500 Systolic blood pressure 121 mm[Hg] Jim Campos MD Work Phone: [facility] 08-12-2023 14:25-0500 Body height 180.3 cm Haley Nicholson MD Work Phone: [facility] 08-12-2023 14:25-0500 Body weight 157.99 kg Haley Nicholson MD Work Phone: [facility] 08-12-2023 14:25-0500 Diastolic blood pressure 83 mm[Hg] Haley Nicholson MD Work Phone: [facility] 08-12-2023 14:25-0500 Heart rate 78 /min Haley Nicholson MD Work Phone: [facility] 08-12-2023 14:25-0500 Systolic blood pressure 139 mm[Hg] Haley Nicholson MD Work Phone: [facility] 06-16-2023 16:11-0500 Body height 180.3 cm Haley Nicholson MD Work Phone: [facility] 06-16-2023 16:11-0500 Body weight 161.03 kg Haley Nicholson MD Work Phone: [facility] 06-16-2023 16:11-0500 Diastolic blood pressure 70 mm[Hg] Haley Nicholson MD Work Phone: [facility] 06-16-2023 16:11-0500 Heart rate 80 /min Haley Nicholson MD Work Phone: [facility] 06-16-2023 16:11-0500 Systolic blood pressure 118 mm[Hg] Haley Nicholson MD Work Phone: [facility] 06-04-2023 14:57-0500 Body height 180.[address] Work Phone: [facility] 06-04-2023 14:57-0500 Body weight 159.[address] Work Phone: [facility] 05-05-2023 09:02-0400 Body height 180.3 cm Jim Campos MD Work Phone: [facility] 05-05-2023 09:02-0400 Body weight 164.11 kg Jim Campos MD Work Phone: [facility] 05-05-2023 09:02-0400 Diastolic blood pressure 76 mm[Hg] Jim Campos MD Work Phone: [facility] 05-05-2023 09:02-0400 Heart rate 86 /min Jim Campos MD Work Phone: [facility] 05-05-2023 09:02-0400 SaO2% (BldA) [Mass fraction] 99 % Jim Campos MD Work Phone: [facility] 05-05-2023 09:02-0400 Systolic blood pressure 119 mm[Hg] Jim Campos MD Work Phone: [facility] 04-10-2023 07:14-0400 Body height 180.3 cm Sleep [facility] Work Phone: [facility] 04-10-2023 07:14-0400 Body weight 163.75 kg Sleep Main Work Phone: [facility] 03-18-2023 09:17-0400 Body height 180.3 cm Haley Nicholson MD Work Phone: [facility] 03-18-2023 09:17-0400 Body weight 165.97 kg Haley Nicholson MD Work Phone: [facility] 03-18-2023 09:17-0400 Diastolic blood pressure 70 mm[Hg] Haley Nicholson MD Work Phone: [facility] 03-18-2023 09:17-0400 Heart rate 70 /min Haley Nicholson MD Work Phone: [facility] 03-18-2023 09:17-0400 Systolic blood pressure 130 mm[Hg] Haley Nicholson MD Work Phone: [facility] 10-22-2022 16:38-0400 Heart rate 55 /min Natan Franz 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-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 Work Phone: [facility] 10-22-2022 10:11-0400 Body height 180.3 cm Natan Franz 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-[employer] 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 Work Phone: [facility] 10-22-2022 10:11-0400 Body mass index (BMI) [Ratio] 53 kg/m2 Natan Franz 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-[employer] 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 Work Phone: [facility] 10-22-2022 10:11-0400 Body temperature 95.5 [degF] Natan Franz 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-[employer] 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 Work Phone: [facility] 10-22-2022 10:11-0400 Body weight 172.37 kg Natan Franz 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-[employer] 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 Work Phone: [facility] 10-22-2022 10:11-0400 Diastolic blood pressure 50 mm[Hg] Natan Franz 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-[employer] 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 Work Phone: [facility] 10-22-2022 10:11-0400 Heart rate 57 /min Natan Franz APRN-[employer] 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 Work Phone: [employer] 10-22-2022 10:11-0400 Respiratory rate 18 /min aNtan Franz APRN-CLOTH 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 [facility] 10-22-2022 10:11-0400 SaO2% (BldA) [Mass fraction] 96 % Natan Franz APRN-CLOTH 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 [facility] 10-22-2022 10:11-0400 Systolic blood pressure 121 mm[Hg] Natan Franz APRN-CLOTH 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 [facility] 12-14-2020 13:59-0400 Diastolic blood pressure 90 mm[Hg] Felicitas Freedman Jr., MD Work Phone: [employer] Work Phone: 12-14-2020 13:59-0400 Systolic blood pressure 132 mm[Hg] Felicitas Freedman Jr., MD Work Phone: [employer] Work Phone: 12-14-2020 13:56-0400 Body temperature 97.3 [degF] Felicitas Freedman Jr., MD Work Phone: [employer] Work Phone: 12-14-2020 13:56-0400 Heart rate 73 /min Felicitas Freedman Jr., MD Work Phone: [employer] Work Phone: 12-14-2020 13:56-0400 Respiratory rate 16 /min Felicitas Freedman Jr., MD Work Phone: [employer] Work Phone: 12-14-2020 13:56-0400 SaO2% (BldA) [Mass fraction] 96 % Felicitas Freedman Jr., MD Work Phone: [employer] Work Phone: 05-13-2020 12:04-0500 Pulse Oximetry 91 % [facility] 05-13-2020 12:00-0500 Pulse (Heart Rate) 66 /min [facility] 05-13-2020 12:00-0500 Respiratory Rate 12 /min [facility] 05-13-2020 11:00-0500 Body Temperature 97.59 [degF] [facility] 05-13-2020 11:00-0500 BP Diastolic 69 mm[Hg] [facility] 05-13-2020 11:00-0500 BP Systolic 114 mm[Hg] [facility] 05-12-2020 01:51-0500 Height 180.3 cm [facility] 05-12-2020 01:45-0500 BMI (Body Mass Index) 41.11 kg/m2 [facility] 05-12-2020 01:45-0500 Body weight 133.7 kg [facility] 05-11-2020 21:39-0500 Pulse (Heart Rate) 111 /min [facility] [place] 05-11-2020 21:39-0500 Pulse Oximetry 94 % [facility] [place] 05-11-2020 21:39-0500 Respiratory Rate 17 /min [facility] [place] 05-11-2020 19:18-0500 BP Diastolic 86 mm[Hg] [facility] [place] 05-11-2020 19:18-0500 BP Systolic 140 mm[Hg] [facility] 05-11-2020 18:08-0500 Body Temperature 97.7 [degF] [facility] [place] 05-11-2020 18:08-0500 Body weight 132 kg [place], [place] Encounters Encounter Date Encounter Type Care Provider Facility Start: 03-10-2024 End: 03-11-2024 Transcribe Orders Transcribed Order Provider Cardiology Comment on above: Primary hypertension (Primary Dx) Start: 03-03-2024 End: 03-03-2024 ambulatory BLAKE DALLAS Facility:[facility] Start: 03-03-2024 End: 03-03-2024 Patient encounter procedure Greg Hidalgo DO Work Phone: Spine Medicine Comment on above: Myofascial pain (Ines gutiérrez Dx); Lumbar sprain, subsequent encounter Start: 03-02-2024 End: 03-02-2024 ambulatory BLAKE DALLAS Facility:[facility] Start: 02-29-2024 End: 02-29-2024 ambulatory SANDI WEBER Facility:[facility] Start: 02-29-2024 End: 02-29-2024 Office outpatient new 45 minutes Sandi Weber MD Work Phone: Otolaryngology Comment on above: PAKO (obstructive sle ep apnea) (Primary Dx) Start: 02-17-2024 Telephone encounter Sandi mehta MD Work Phone: Otolaryngology Start: 02-15-2024 End: 02-15-2024 Patient encounter procedure France Chang DPM Work Phone: Bronson Alonso DPM, [employer] Comment on above: Instability of subta lar joint, left (Primary Dx); Subtalar joint instability, right Start: 01-11-2024 ambulatory Greg Frankmalik o DO Work Phone: Spine Medicine Comment on above: C9 Start: 01-04-2024 End: 01-04-2024 Office outpatient new 30 minutes France Chang DPM Work Phone: Bronson Alonso DPM, [employer] Comment on above: Closed displaced fra cture of fifth metatarsal bone of left foot, initial encounter (Primary Dx); Reflex sympathetic dystrophy of right leg Start: 12-22-2023 End: 12-22-2023 Admission to same day surgery center Rosanne Palacio APRN.CNP Work Phone: General Surgery BMI Comment on above: S/P laparoscopic sle michoacano gastrectomy (Primary Dx) Class 2 obesity (Ines gutiérrez Dx); Dietary counseling and surveillance; S/P laparoscopic sleeve gastrectomy Start: 12-22-2023 End: 12-22-2023 ambulatory BLAKE DALLAS Facility:[facility] Start: 12-22-2023 End: 12-22-2023 Telemedicine consultation with patient Rosanne Palacoi APRN.[employer] 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 Work Phone: General Surgery BMI Start: 11-24-2023 End: 11-24-2023 ambulatory [facility] Facility:[facility] Start: 11-24-2023 End: 11-24-2023 Patient encounter procedure Greg Hidalgo DO Work Phone: Spine Medicine Comment on above: Myofascial pain (Ines brock Dx); Lumbar sprain, subsequent encounter; Complex regional pain syndrome type 1 of left lower extremity Start: 11-15-2023 Letter encounter Darius adair MD Work Phone: [facility] Start: 11-06-2023 End: 11-06-2023 Admission to same day surgery center Huan Meeks MD Work Phone: General Surgery Comment on above: Bariatric surgery [facility] (Primary Dx) Start: 11-06-2023 End: 11-06-2023 ambulatory [facility] Facility:[facility] Start: 11-06-2023 End: 11-06-2023 Telemedicine consultation with patient Huan Meeks MD Work Phone: General Surgery Start: 11-04-2023 End: 11-04-2023 Office outpatient visit 25 minutes Haley Nicholson MD Work Phone: General Surgery Comment on above: Class 3 obesity (HCC ) (Primary Dx) Start: 11-04-2023 End: 11-04-2023 ambulatory [facility] Facility:[facility] Start: 11-02-2023 End: 11-02-2023 Admission to same day surgery center Orlin Bowman RD Work Phone: General Surgery Comment on above: Class 3 obesity (HCC ) (Primary Dx); Dietary counseling and surveillance; S/P laparoscopic sleeve gastrectomy Start: 11-02-2023 End: 11-02-2023 ambulatory [facility] Facility:[facility] Start: 11-02-2023 End: 11-02-2023 Telemedicine consultation with patient Orlin Bowman RD Work Phone: General Surgery Start: 11-02-2023 End: 11-02-2023 ambulatory BLAKE DALLAS Facility:[facility] Start: 10-14-2023 End: 10-14-[address] Work Phone: [facility] [place] Comment on above: Dietary counseling ( Primary Dx); BMI 40.0-44.9, adult (HCC); Impaired intestinal absorption Start: 10-14-2023 Patient encounter procedure Haley Nicholson MD Work Phone: General Surgery Comment on above: Appointment Start: 10-14-2023 End: 10-14-2023 ambulatory HUAN MEEKS Facility:[facility] Start: 10-14-2023 End: 10-14-2023 Telemedicine consultation with patient Nisreen Rey RD Work Phone: [facility] Start: 10-09-2023 End: 10-09-2023 ambulatory BLAKE M Matilde Facility:[facility] Start: 10-05-2023 Telephone encounter Katina Palomares General Surgery Comment on above: Post Op Call Start: 09-28-2023 Chart abstracting Calvin mccray Research Coordinator [facility] Comment on above: Research F/U (IRB [id number] Biorepository Surgery) Start: 09-28-2023 End: 09-29-2023 Evaluation and management of inpatient HUAN MEEKS Facility:[facility] Start: 09-22-2023 End: 09-22-2023 [address] [facility] [address] Work Phone: Pre Anesthesia Comment on above: Preop examination (P rimary Dx); Complex regional pain syndrome type 1 of left lower extremity; Personal history of other venous thrombosis and embolism; PAKO (obstructive sleep apnea); Essential (primary) hypertension; Mild intermittent asthma, unspecified whether complicated; Obesity, Class III, BMI >= 40 Pre-op education Start: 09-22-2023 Chart abstracting Calvin mccray Research Coordinator [facility] Comment on above: Research (IRB [id number] iorepository) Start: 09-22-2023 End: 09-22-2023 Patient encounter procedure Huan Meeks MD Work Phone: General Surgery Comment on above: Body mass index 45.0 -49.9, adult (HCC) (Primary Dx) Start: 09-22-2023 End: 09-22-[address] [facility] [address] Work Phone: [facility] Start: 09-22-2023 End: 09-22-[address] [facility] Main 9 Work Phone: [facility] Work Phone: Start: 09-22-2023 Encounter for other preprocedural examination HUAN MEEKS [facility] Start: 09-11-2023 Refill Haley murdock MD Work Phone: General Surgery Comment on above: Refill Request Start: 09-10-2023 End: 09-10-2023 Telemedicine consultation with patient Deirdre Banegasmahendra MORALES Work Phone: [facility] Start: 09-10-2023 End: 09-10-2023 ambulatory Deirdre Banegasmahendra MORALES Work Phone: General Surgery Comment on above: Obesity, Class III, BMI 40-49.9 (morbid obesity) (HCC) (Primary Dx); Dietary counseling and surveillance Start: 08-19-2023 End: 08-19-2023 Office outpatient visit 15 minutes Jim Campos MD Work Phone: Cardiology Comment on above: Essential (primary) hypertension (Primary Dx); History of pulmonary embolism; PAKO (obstructive sleep apnea); Obesity, unspecified classification, unspecified obesity type, unspecified whether serious comorbidity present Start: 08-19-2023 End: 08-19-2023 ambulatory JIM CAMPOS Facility:[facility] Start: 08-18-2023 End: 08-18-2023 ambulatory Mansi Douglas RN Home Respiratory Therapy Comment on above: Mask refit (Primary Dx) Start: 08-18-2023 End: 08-18-2023 Telemedicine consultation with patient Virtual Pap 1 [facility] Work Phone: Home Care Services Start: 08-12-2023 End: 08-12-2023 Office outpatient visit 25 minutes Haley Nicholson MD Work Phone: General Surgery Comment on above: Class 3 severe obesi ty with serious comorbidity and body mass index (BMI) of 45.0 to 49.9 in adult, unspecified obesity type (HCC) (Primary Dx); Obesity, Class III, BMI 40-49.9 (morbid obesity) (HCC); History of DVT in adulthood Start: 08-12-2023 End: 08-12-2023 ambulatory HALEY NICHOLSON Facility:[facility] Start: 08-11-2023 End: 08-11-2023 ambulatory Seema Maynard PA-C Work Phone: Neurology Comment on above: PAKO (obstructive sle ep apnea) (Primary Dx); RLS (restless legs syndrome) Start: 08-11-2023 End: 08-11-2023 Telemedicine consultation with patient Seema Maynard PA-C Work Phone: [facility] Start: 08-09-2023 Letter encounter Darius adair MD Work Phone: [facility] Start: 2023 ambulatory Fay Miles MD Work Phone: Neurology Comment on above: Cpap compliance Start: 07-31-2023 End: 07-31-2023 ambulatory CYNTHIA SAMSON Facility:[facility] Start: 07-30-2023 End: 07-30-2023 ambulatory BETSY BILLY Facility:[facility] Start: 07-28-2023 End: 07-28-2023 ambulatory BETSY BILLY Facility:[facility] Start: 07-23-2023 End: 07-23-2023 ambulatory BETSY BILLY Facility:[facility] Start: 07-21-2023 End: 07-21-2023 ambulatory BETSY BILLY Facility:[facility] Start: 07-16-2023 End: 07-16-2023 ambulatory BETSY BILLY Facility:[facility] Start: 07-14-2023 End: 07-14-2023 ambulatory BETSY BILLY Facility:[facility] Start: 07-09-2023 End: 07-09-2023 ambulatory BETSY BILLY Facility:[facility] Start: 07-01-2023 End: 07-01-2023 ambulatory MARICELSURESH CARABALLO Facility:[facility] Start: 06-26-2023 End: 06-26-2023 ambulatory NEHAVicente MEEKS Facility:[facility] Start: 06-25-2023 End: 06-25-2023 ambulatory Yazan Gaitan PT [facility] Physical Therapy Comment on above: Complex regional rickey n syndrome type 1 of left lower extremity (Primary Dx) Start: 06-22-2023 ambulatory BESTY HANERLY Facilit y:[facility] Start: 06-16-2023 End: 06-16-2023 Office outpatient visit 25 minutes Haley Nicholosn MD Work Phone: General Surgery Comment on above: Obesity, Class III, BMI 40-49.9 (morbid obesity) (HCC) (Primary Dx) Start: 06-16-2023 End: 06-16-2023 ambulatory HALEY NICHOLSON Facility:[facility] Start: 06-08-2023 End: 06-08-2023 ambulatory EDWARD HERNANDEZ Facility:[facility] Start: 06-05-2023 End: 06-05-2023 ambulatory Sylvester Jefferson APRN.CNP Work Phone: General Surgery Comment on above: Medially optimized Start: 06-05-2023 E-mail encounter fro m caregiver Sylvester Jefferson APRN.CNP Work Phone: [facility] Start: 06-05-2023 Telephone encounter Jim del toro MD Work Phone: Cardiovascular Medicine [facility] Start: 06-04-2023 End: 06-04-2023 ambulatory JIM CAMPOS Facility:[facility] Start: 06-04-2023 Encounter for preprocedural cardiovascular examination HUAN MEEKS [facility] Start: 06-04-2023 End: 06-04-2023 Patient encounter procedure Echo Lab [facility] Cardiovascular Medicine [facility] Comment on above: Preoperative cardiov ascular examination Start: 06-04-2023 End: 06-04-2023 [facility] Start: 06-04-2023 End: 06-04-[address] Work Phone: General Surgery Comment on above: Obesity, Class III, BMI 40-49.9 (morbid obesity) ([facility]) (Primary Dx); Dietary counseling and surveillance Start: 06-04-2023 End: 06-04-2023 Telemedicine consultation with patient Cynthia Samson RD Work Phone: [facility] Start: 06-01-2023 ambulatory Fay Miles MD Work Phone: Neurology Comment on above: Cpap Refill Request Start: 05-29-2023 Refill Sylvester Jefferson APRN.[employer]OTH 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 Work Phone: General Surgery Comment on above: Refill Request Start: 05-27-2023 Telephone encounter Haley taylor MD Work Phone: General Surgery Comment on above: Medication Problem Start: 05-22-2023 End: 05-22-2023 ambulatory Stephania Alvarez PT Work Phone: [facility] Physical Therapy Comment on above: Complex regional rickey n syndrome type 1 of left lower extremity (Primary Dx) Start: 05-21-2023 End: 05-21-2023 ambulatory SYLVESTER JEFFERSON Facility:[facility] Start: 05-19-2023 Telephone encounter Fay huntley MD Work Phone: Neurology Comment on above: PAP Rx Faxed (DME: [facility]) Start: 05-18-2023 Telephone encounter Fay huntley MD Work Phone: Neurology Comment on above: PAP Therapy Follow U p (04/11/23 - 05/10/23) Start: 05-18-2023 End: 05-18-2023 ambulatory Yazan Gaitan PT [facility] Comment on above: Complex regional rickey n syndrome type 1 of left lower extremity (Primary Dx); Chronic midline low back pain without sciatica PAKO on CPAP (Primary Dx); RLS (restless legs syndrome); PAKO (obstructive sleep apnea); Morbid obesity with BMI of 50.0-59.9, adult (HCC) Start: 05-18-2023 End: 05-18-2023 Telemedicine consultation with patient Fay Miles MD Work Phone: [facility] Start: 05-15-2023 Refill Viet espana MD Work Phone: Orthopaedics Comment on above: Refill Request Start: 05-05-2023 End: 05-05-2023 Office outpatient new 30 minutes Jim Campos MD Work Phone: Cardiovascular Medicine [facility] Comment on above: Preoperative cardiov ascular examination (Primary Dx); Essential (primary) hypertension; Obesity, Class III, BMI >= 40 Start: 05-05-2023 End: 05-05-2023 Patient encounter status Jim Campos MD Work Phone: [facility] Work Phone: Start: 05-05-2023 End: 05-05-2023 ambulatory JIM CAMPOS Facility:[facility] Start: 05-01-2023 E-mail encounter fro m caregiver Katherine Goodman MA [facility] Start: 05-01-2023 Patient encounter procedure Katherine Goodman MA Cardiovascular Medicine [facility] Comment on above: Cardiology Appointme nt Start: 05-01-2023 End: 05-01-2023 ambulatory Huan Meeks MD Work Phone: General Surgery Comment on above: Body mass index 50.0 -59.9, adult (HCC) (Primary Dx); Obstructive sleep apnea (adult) (pediatric) Start: 05-01-2023 End: 05-01-2023 Telemedicine consultation with patient Huan Meeks MD Work Phone: [facility] Start: 04-30-2023 Encounter for other preprocedural examination HUAN MEEKS [facility] Start: 04-30-2023 End: 04-30-2023 ambulatory SYLVESTER JEFFERSON Facility:[facility] Start: 04-27-2023 End: 04-27-2023 ambulatory CYNTHIA SAMSON Facility:[facility] Start: 04-22-2023 End: 04-22-2023 ambulatory Quentin Zaragoza [employer] Work Phone: [facility] Physical Therapy Comment on above: Complex regional rickey n syndrome type 1 of left lower extremity (Primary Dx) Start: 04-20-2023 End: 04-20-2023 ambulatory Miya Crockett [employer] PSYCHI[employer]RIST Work Phone: [facility] Physical Therapy Comment on above: Complex regional rickey n syndrome type 1 of left lower extremity (Primary Dx) Start: 04-17-2023 Refill Viet espana MD Work Phone: Orthopaedics Comment on above: Refill Request Start: 04-15-2023 End: 04-15-2023 ambulatory Cecelia Myers PT Work Phone: [facility] Physical Therapy Comment on above: Complex regional rickey n syndrome type 1 of left lower extremity (Primary Dx) Start: 04-13-2023 End: 04-13-2023 ambulatory BETSY BILLY Facility:[facility] Start: 04-10-2023 Chart [facility]ing [facility] Work Phone: Neurology Comment on above: PSG Check In Start: 04-09-2023 End: 04-09-2023 ambulatory FAY DEVNANI Facility:[facility] Start: 04-08-2023 End: 04-08-2023 ambulatory BETSY BILLY Facility:[facility] Start: 04-06-2023 End: 04-06-2023 ambulatory BETSY BILLY Facility:[facility] Start: 04-02-2023 End: 04-02-2023 ambulatory SYLVESTER JEFFERSON Facility:[facility] Start: 04-01-2023 End: 04-01-2023 ambulatory BETSY ALLYSON Facility:[facility] Start: 03-31-2023 Telephone encounter Haley taylor MD Work Phone: General Surgery Start: 03-30-2023 End: 03-30-2023 ambulatory FAY DEVNANI Facility:[facility] Start: 03-26-2023 End: 03-26-2023 ambulatory Trent Yang PT Work Phone: [facility] Physical Therapy Comment on above: Osteoarthritis of ri ght patellofemoral joint Start: 03-25-2023 End: 03-25-2023 ambulatory Miya Crockett [employer] PSYCHIATRIST Work Phone: [facility] Physical Therapy Comment on above: Complex regional rickey n syndrome type 1 of left lower extremity (Primary Dx) Start: 03-24-2023 End: 03-24-2023 Patient encounter procedure Viet Jenkins MD Work Phone: Orthopaedics Comment on above: Osteoarthritis of ri ght patellofemoral joint (Primary Dx) Start: 03-24-2023 End: 03-24-2023 ambulatory VIET JENKINS Facility:[facility] Start: 03-24-2023 End: 03-24-2023 Subsequent hospital visit by physician Xr [facility] Comment on above: Pain [R52] Start: 03-18-2023 End: 03-18-2023 Office outpatient new 60 minutes Haley Nicholson MD Work Phone: General Surgery Comment on above: Class 3 severe obesi ty with serious comorbidity and body mass index (BMI) of 50.0 to 59.9 in adult, unspecified obesity type (HCC) (Primary Dx) Start: 03-18-2023 End: 03-18-2023 ambulatory Quentin Zaragoza [employer]YCHI[employer] Work Phone: [facility] Physical Therapy Comment on above: Complex regional rickey n syndrome type 1 of left lower extremity (Primary Dx) Start: 03-16-2023 End: 03-16-2023 ambulatory Cecelia Myers PT Work Phone: [facility] Comment on above: Complex regional rickey n syndrome type 1 of left lower extremity (Primary Dx) Start: 03-12-2023 End: 03-12-2023 ambulatory FAY DEVNANI Facility:[facility] Start: 03-11-2023 End: 03-11-2023 ambulatory FAY DEVNANI Facility:[facility] Start: 03-05-2023 End: 03-05-2023 ambulatory Miya Crockett [employer] PSYCHI[employer] Work Phone: [facility] Comment on above: Complex regional rickey n syndrome type 1 of left lower extremity (Primary Dx) Start: 03-04-2023 Telephone encounter Fya huntley MD Work Phone: Neurology Start: 03-03-2023 End: 03-03-2023 ambulatory Quentin Zaragoza [employer] PSYCHI[employer]ST Work Phone: [facility] Comment on above: Complex regional rickey n syndrome type 1 of left lower extremity (Primary Dx) Start: 03-02-2023 End: 03-02-2023 ambulatory Fay Miles MD Work Phone: Neurology Comment on above: PAKO on CPAP (Primary Dx); Morbid obesity with BMI of 50.0-59.9, adult (HCC); RLS (restless legs syndrome); Fatigue, unspecified type; Parasomnia, unspecified type Start: 03-02-2023 End: 03-02-2023 Telemedicine consultation with patient Fay Miles MD Work Phone: [facility] Start: 02-27-2023 End: 02-28-2023 ambulatory Brigitte Mckeon [facility] Start: 02-12-2023 End: 02-12-2023 ambulatory Yazan Gaitan PT [facility] Comment on above: Complex regional rickey n syndrome type 1 of left lower extremity (Primary Dx) Start: 01-14-2023 End: 01-18-2023 ambulatory UNKNOWN PROVIDER Facility:[facility] Start: 01-14-2023 End: 01-18-2023 Patient encounter procedure Darius Poole MD Work Phone: [facility] Orthopedic Spine Comment on above: Failed back syndrome (Primary Dx) Start: 12-03-2022 ambulatory [facility] Start: 12-03-2022 End: 12-03-2022 Patient encounter procedure Arielle Brown PA-C Work Phone: [facility] Comment on above: Failed back syndrome (Primary Dx) Start: 11-20-2022 End: 11-21-2022 Evaluation and management of inpatient UNKNOWN PROVIDER Facility:[facility] Start: 11-20-2022 End: 11-21-2022 Evaluation and management of inpatient DARIUS POOLE Facility:[facility] Start: 11-10-2022 Letter encounter Darius adair MD Work Phone: [facility] Start: 10-22-2022 End: 10-23-2022 ambulatory UNKNOWN PROVIDER Facility:[facility] Start: 10-22-2022 Encounter for other preprocedural examination UNKNOWN PROVIDER [facility] Start: 10-22-2022 End: 10-23-2022 Patient encounter procedure Natan Gastonmercedesada 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-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 Work Phone: [facility] Comment on above: Preop testing (Prima ry Dx); Bradycardia, unspecified Start: 10-22-2022 End: 10-23-2022 Patient encounter status Natan Franz 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-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 [facility] Start: 08-25-2022 End: 08-26-2022 ambulatory UNKNOWN PROVIDER Facility:[facility] Start: 08-20-2022 End: 08-30-2022 ambulatory UNKNOWN PROVIDER Facility:[facility] Start: 08-20-2022 End: 08-30-2022 Office outpatient new 30 minutes Darius Poole MD Work Phone: [facility] Comment on above: Back pain, unspecifi ed back location, unspecified back pain laterality, unspecified chronicity (Primary Dx); Failed back syndrome Start: 07-22-2022 End: 07-23-2022 ambulatory Blake Hoy Facility[facility] Start: 07-16-2022 End: 07-17-2022 ambulatory Erna Zavala Facility:[facility] Start: 07-09-2022 End: 07-10-2022 ambulatory Blake Hoy Facility[facility] Start: 06-11-2022 End: 06-12-2022 ambulatory Blake Hoy Facility:[facility] Start: 05-15-2022 End: 05-16-2022 ambulatory Erna Zavala Facility:[facility] Start: 04-03-2022 End: 04-04-2022 ambulatory MD Erna Zavala Facility:[facility] Start: 02-03-2022 End: 02-03-[address] BLAKE DALLAS Facility:[facility] Start: 01-01-2022 End: 01-01-[address] ANNA GARCIA Facility:[facility] Start: 12-26-[address] BLAKE DALLAS Facility :[facility] Start: 06-05-2021 End: 06-06-[address] BLAKE DALLAS Facility:[facility] Start: 04-24-2021 End: 04-25-[address] BLAKE DALLAS Facility:[facility] Start: 04-03-2021 End: 04-04-[address] BLAKE DALLAS Facility:[facility] Start: 03-13-2021 End: 03-14-[address] BLAKE DALLAS Facility:[facility] Start: 02-18-2021 End: 02-18-[address] BLAKE DALLAS Facility:[facility] Start: 02-14-[address] BLAKE DALLAS Facility :[facility] Start: 12-14-2020 End: 12-14-2020 Emergency department patient visit FELICITAS FREEDMAN JR [facility] Start: 12-14-2020 End: 12-14-2020 Emergency department patient visit Felicitas Freedman MD Work Phone: [facility] ED Comment on above: Avulsion of finger t ip, initial encounter (Primary Dx) Start: 05-12-2020 End: 05-13-2020 Evaluation and management of inpatient [facility] Start: 05-12-2020 End: 05-13-2020 Evaluation and management of inpatient [facility] Work Phone: [facility] Comment on above: Hypertension, unspec ified type; Other acute pulmonary embolism with acute cor pulmonale (HCC) Start: 05-11-2020 End: 05-12-2020 Emergency department patient visit BLAKE Dong [facility] Start: 05-11-2020 End: 05-11-2020 Emergency department patient visit Rimma Ardon Work Phone: [facility] ED Comment on above: Bilateral pulmonary embolism (HCC) (Primary Dx); History of asthma Start: 06-23-2018 End: 12-19-2018 Patient encounter procedure Provider Xavier Mckeon [facility] Comment on above: Complete tear of rig ht rotator cuff (Primary Dx) Procedures Date Procedure Procedure Detail Performing Clinician Start: 09-22-2023 Antibody screen HUAN MEEKS Comment on above: Order Comment: Speci men Type: BLOOD SPECIMENOrdering Facility: [facility] Address: [address] [place] [address] Performed By: #### T [id number] ####CC MAIN BLOOD BANKCLIA [id number] [facility] [id number] Start: 06-04-2023 Echo tthrc r-t 2d w/ wom-mode compl spec&colr d Jim Campos MD Work Phone: Start: 06-04-2023 Echocardiography HUAN MEEKS Start: 05-05-2023 Ecg routine ecg w/le ast 12 lds i&r only Jim Campos MD Work Phone: Start: 03-24-2023 Radiologic exam knee complete 4/more views Viet Jenkins MD Work Phone: Start: 10-22-2022 Ecg routine ecg w/le ast 12 lds trcg only w/o i&r 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 Work Phone: Start: 05-12-2020 12 lead ECG Julieta Taveras Work Phone: Start: 05-12-2020 APTT - reference Ignacio Turk Work Phone: Start: 05-12-2020 Contrast echocardiography Ignacio Turk Work Phone: Start: 05-12-2020 Choriogonadotropin ( test) [Presence] in Urine Ignacio Turk Work Phone: Start: 05-12-2020 Glucose [Mass/volume ] in Blood [facility] Work Phone: Start: 05-12-2020 Troponin measurement Day Turk Work Phone: Start: 05-12-2020 Troponin measurement Day Turk Work Phone: Start: 05-12-2020 Glucose [Mass/volume ] in Blood [facility] Work Phone: Start: 05-12-2020 Computerized tomogra phy, limited studies External Transcribed Start: 05-12-2020 Radiographic imaging procedure External Transcribed Start: 05-12-2020 Basic metabolic 2000 panel - Serum or Plasma Ignacio Turk Work Phone: Start: 05-12-2020 Complete blood count (hemogram) panel - Blood by Automated count Ignacio Turk Work Phone: Start: 05-12-2020 INR in Platelet poor plasma by Coagulation assay Ignacio Turk Work Phone: Start: 05-12-2020 Magnesium [Mass/volu me] in Serum or Plasma Ignacio Turk Work Phone: Start: 05-12-2020 Dup-scan xtr veins c omplete bilateral study Ignacio Turk Work Phone: Start: 05-12-2020 Glucose [Mass/volume ] in Blood [facility] Work Phone: Start: 05-11-2020 COVID-19 BLAKE HO Y Start: 05-11-2020 Ct angiography chest w/contrast/noncontrast BLAKE DALLAS Start: 05-11-2020 Ecg routine ecg w/le ast 12 lds w/i&r BLAKE DALLAS Start: 05-11-2020 Radiologic exam ches t single view BLAKE HOY Start: 05-11-2020 Assay of troponin quantitative BLAKE HOY Start: 05-11-2020 Blood count complete auto&auto difrntl wbc BLAKE HOY Start: 05-11-2020 Comprehensive metabolic panel BLAKE HOY Start: 05-11-2020 Fibrin dgradj produc ts d-dimer quantitative BLAKE HOY Start: 05-11-2020 INSERT PERIPHERAL IV DO UGLAS HOY Start: 05-11-2020 COVID-19 Mak Ardon Work Phone: Start: 05-11-2020 Ct angiography chest w/contrast/noncontrast Rimma Ardon Work Phone: Start: 05-11-2020 Ecg routine ecg w/le ast 12 lds w/i&r Rimma Ardon Work Phone: Start: 05-11-2020 Radiologic exam ches t single view Rimma Ardon Work Phone: Start: 05-11-2020 End: 05-11-2020 Assay of troponin quantitative Rimma Ardon Work Phone: Start: 05-11-2020 BASIC METABOLIC PANE L W/ REFLEX TO MG FOR LOW K Rimma Ardon Work Phone: Start: 05-11-2020 Blood count complete auto&auto difrntl wbc Rimma Ardon Work Phone: Start: 05-11-2020 Fibrin dgradj produc ts d-dimer quantitative Rimma Ardon Work Phone: Plan of Treatment Date Care Activity Detail Author Start: 2030 Shingles (RZV) Vaccine (1 of 2) Shingles (RZV) Vaccine (1 of 2) [facility] Start: 02-14-2025 End: 02-14-2025 Patient encounter procedure 02/14/2025 11:00 AM EDT Office Visit Dentistry [address] [address] Luís Treadwell, DMD [address] [place] [address] PAKO Consult Dentistry Comment on above: PAKO Consult Start: 11-03-2024 BP Controlled (<130/80) BP Controlled (<130/80) [facility] Start: 09-21-2024 BP Controlled (<130/80) BP Controlled (<130/80) [facility] Start: 06-16-2024 BP Controlled (<130/80) BP Controlled (<130/80) [facility] Start: 05-31-2024 End: 05-31-2024 Patient encounter procedure 05/31/2024 12:00 PM EST Office Visit Spine Medicine [address] [place] [address] Greg Hidalgo DO [address] [facility] [address] [place] [address] [facility]PI Spine Medicine Comment on above: TPI Start: 05-05-2024 BP Controlled (<130/80) BP Controlled (<130/80) [facility] Start: 03-25-2024 End: 03-25-2024 Patient encounter procedure 03/25/2024 10:00 AM EDT Appointment Cardiovascular Testing [address] [place] [address] echo-outside order, scanned into chart Cardiovascular Testing Comment on above: echo-outside order, scanned into chart Start: 03-24-2024 End: 03-24-2024 Patient encounter procedure 03/24/2024 1:00 PM EDT Office Visit General Surgery [address] [place] [address] Travis Castellanos, DO [address] [facility] [address] [place] [address] NON SURGICAL WEIGHT LOSS General Surgery Comment on above: NON SURGICAL WEIGHT LOSS Start: 03-22-2024 End: 03-22-2024 Admission to same day surgery center 03/22/2024 1:30 PM EDT Education General Surgery [address] [place] [address] Orlin Bowman, RD [address] [employer] [place], [place] [id number] 6 months lsg General Surgery Comment on above: 6 months lsg Start: 03-06-2024 Covid-19 Vaccine ( season) Covid-19 Vaccine ( season) [facility] Start: 03-06-2024 Influenza vaccination [facility] Start: 03-03-2024 End: 03-03-2024 Patient encounter procedure 03/03/2024 9:20 AM EDT Office Visit Spine Medicine [address] [place] [address] Greg Hidalgo DO [address] [place] [address] [facility] 3 Month Follow Up-Back Pain Spine Medicine Comment on above: [facility] 3 Month Follow Up-Back Pain Start: 03-02-2024 End: 03-02-2024 ambulatory 03/02/2024 7:30 AM EDT Results Only [facility] [address] [facility] [address] [place] [address] [facility] Start: 02-29-2024 End: 02-29-2024 Patient encounter procedure 02/29/2024 9:50 AM EDT Office Visit Otolaryngology [address] [facility] [address] [place] [address] Sandi Weber MD [address] [place] [address] INSPIRE CONSULT Otolaryngology Comment on above: INSPIRE CONSULT Start: 01-04-2024 End: 01-04-2024 Patient encounter procedure 01/04/2024 11:00 AM EDT Office Visit [facility] [address] [place] [address] France Chang DPM [address] [place], [place] [id number] 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 [address] [facility], SUJEY Comment on above: 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 coming out f rom surgery 1045 Start: 12-22-2023 End: 03-22-2024 25-hydroxyvitamin D3 [Mass/volume] in Serum or Plasma VITAMIN D 25 HYDROXY Lab Routine S/P laparoscopic sleeve gastrectomy Expected: 12/22/2023, Expires: 03/22/2024 [facility] Comment on above: Expected: 12/22/2023, Expires: Start: 12-22-2023 End: 03-22-2024 CBC W Auto Differential panel - Blood COMPLETE BLOOD COUNT AND DIFFERENTIAL Lab Routine S/P laparoscopic sleeve gastrectomy Expected: 12/22/2023, Expires: 03/22/2024 [facility] Work Phone: Comment on above: Expected: 12/22/2023, Expires: Start: 12-22-2023 End: 03-22-2024 Cobalamin (Vitamin B12) [Mass/volume] in Serum or Plasma VITAMIN B12 Lab Routine S/P laparoscopic sleeve gastrectomy Expected: 12/22/2023, Expires: 03/22/2024 [facility] Comment on above: Expected: 12/22/2023, Expires: Start: 12-22-2023 End: 03-22-2024 Comprehensive metabolic 2000 panel - Serum or Plasma COMPREHENSIVE METABOLIC PANEL Lab Routine S/P laparoscopic sleeve gastrectomy Expected: 12/22/2023, Expires: 03/22/2024 [facility] Comment on above: Expected: 12/22/2023, Expires: Start: 12-22-2023 End: 03-22-2024 Ferritin [Mass/volume] in Serum or Plasma FERRITIN Lab Routine S/P laparoscopic sleeve gastrectomy Expected: 12/22/2023, Expires: 03/22/2024 [facility] Comment on above: Expected: 12/22/2023, Expires: Start: 12-22-2023 End: 03-22-2024 Folate [Mass/volume] in Serum or Plasma FOLATE, SERUM Lab Routine S/P laparoscopic sleeve gastrectomy Expected: 12/22/2023, Expires: 03/22/2024 [facility] Comment on above: Expected: 12/22/2023, Expires: Start: 12-22-2023 End: 03-22-2024 Hemoglobin A1c in Blood HEMOGLOBIN A1C Lab Routine S/P laparoscopic sleeve gastrectomy Expected: 12/22/2023, Expires: 03/22/2024 [facility] Comment on above: Expected: 12/22/2023, Expires: 4 Start: 12-22-2023 End: 03-22-2024 Iron and Iron binding capacity panel - Serum or Plasma IRON AND TIBC Lab Routine S/P laparoscopic sleeve gastrectomy Expected: 12/22/2023, Expires: 03/22/2024 [facility] Comment on above: Expected: 12/22/2023, Expires: Start: 12-22-2023 End: 03-22-2024 Lipid 1996 panel - Serum or Plasma LIPID PANEL BASIC Lab Routine S/P laparoscopic sleeve gastrectomy Expected: 12/22/2023, Expires: 03/22/2024 [facility] Comment on above: Expected: 12/22/2023, Expires: Start: 12-22-2023 End: 03-22-2024 Thyrotropin [Units/volume] in Serum or Plasma THYROID STIMULATING HORMONE Lab Routine S/P laparoscopic sleeve gastrectomy Expected: 12/22/2023, Expires: 03/22/2024 [facility] Comment on above: Expected: 12/22/2023, Expires: Start: 12-22-2023 End: 03-22-2024 VITAMIN B1 (THIAMINE), WHOLE BLOOD VITAMIN B1 (THIAMINE), WHOLE BLOOD Lab Routine S/P laparoscopic sleeve gastrectomy Expected: 12/22/2023, Expires: 03/22/2024 [facility] Comment on above: Expected: 12/22/2023, Expires: Start: 12-22-2023 End: 12-22-2023 Admission to same day surgery center General Surgery BMI Comment on above: post op three month/lap sleeve gastrecto my 09/28/2023 post op one month / lap sleeve gastrectomy 09/28/2023 Start: 11-24-2023 End: 11-24-2023 Patient encounter procedure 11/24/2023 10:20 AM EDT Office Visit Spine Medicine [address] [place] [id number] Greg Hidalgo DO [address] [facility] [address] [place] [address] BACK PAIN Spine Medicine Comment on above: BACK PAIN Start: 11-06-2023 End: 11-06-2023 Admission to same day surgery center 11/06/2023 2:00 PM EDT [facility] General Surgery [address] [phone] Huan Meeks MD [address] [place] [address] Post Op one month / lap General Surgery Comment on above: Post Op one month / lap Start: 11-04-2023 End: 11-04-2023 Patient encounter procedure 11/04/2023 2:30 PM EDT Office Visit General Surgery [address] [phone] Haley Nicholson MD [address] [facility] [address] [place] [address] follow up General Surgery Comment on above: follow up Start: 05-08-2023 Covid-19 Vaccine ( season) Covid-19 Vaccine ( season) [facility] Start: 04-05-2023 Influenza vaccination Influenza Vaccine (#1) [facility] Start: 03-06-2023 Influenza vaccination INFLUENZA (#1) [facility] Start: 03-02-2023 End: 05-02-2023 Ferritin [Mass/volume] in Serum or Plasma FERRITIN BLD Lab Routine RLS (restless legs syndrome) Expected: 03/02/2023, Expires: 05/02/2023 [facility] Work Phone: Comment on above: Expected: 03/02/2023, Expires: Start: 03-02-2023 End: 05-02-2023 Iron and Iron binding capacity panel - Serum or Plasma IRON + TIBC Lab Routine RLS (restless legs syndrome) Expected: 03/02/2023, Expires: 05/02/2023 [facility] Work Phone: Comment on above: Expected: 03/02/2023, Expires: 3 Start: 03-02-2023 End: 05-02-2023 Transferrin [Mass/volume] in Serum or Plasma TRANSFERRIN BLD Lab Routine RLS (restless legs syndrome) Expected: 03/02/2023, Expires: 05/02/2023 [facility] Work Phone: Comment on above: Expected: 03/02/2023, Expires: 3 Start: 01-14-2023 End: 01-14-2023 Patient encounter procedure 01/14/2023 1:15 PM EDT Office Visit [facility] Orthopedic Spine [address] [place] [id number] Darius Poole MD [address] [place] [address] [facility] Start: 12-03-2022 End: 12-03-2022 Patient encounter procedure 12/03/2022 Office Visit Orthopedics Darius Poole MD [address] [place] [id number] [facility] Start: 11-20-2022 End: 11-20-2022 Admission to same day surgery center 11/20/2022 Surgery General Surgery Darius Poole MD [address] [place] [id number] INSERTION, STIMULATOR, ELECTRODE [facility] [place] Comment on above: INSERTION, STIMULATOR, ELECTRODE Start: 11-20-2022 End: 11-20-2022 INSERTION, STIMULATOR, ELECTRODE INSERTION, STIMULATOR, ELECTRODE Routine scheduled Back pain, unspecified back location, unspecified back pain laterality, unspecified chronicity Failed back syndrome 11/20/2022 1:30 PM EDT [facility] Start: 11-20-2022 Subsequent hospital visit by physician 11/20/2022 Hospital Encounter General Surgery Darius Poole MD [address] [place] [address] [facility] [place] Start: 07-06-2022 DEPRESSION ASSESSMENT DEPRESSION ASSESSMENT [facility] Start: 05-13-2022 COVID-19 Vaccine (#1) COVID-19 Vaccine (#1) [facility] Start: 03-06-2021 Influenza vaccination Flu vaccine (Season Ended) [facility] Work Phone: Start: 2020 Lipid panel Lipid screen [facility] [employer] Phone: Start: 2020 Mammography [facility] Start: 2020 Screening for malignant neoplasm of breast [facility] Start: 03-06-2020 Influenza vaccination Flu vaccine (#1) [place] Start: 03-06-2020 Influenza vaccination given Sequential Influenza Vaccine (#1) [facility] Start: 06-23-2018 End: 06-23-2018 Ambulatory 06/23/2018 Office Visit Physical Medicine & Rehabilitation Rimma Fish MD [address] [place] [address] [phone] Arrived [facility] Comment on above: Arrived Start: 03-06-2018 Influenza vaccination INFLUENZA VACCINE (#1) [facility] Work Phone: Start: 2010 HPV TESTING HPV TESTING [facility] Start: 2010 Screening for malignant neoplasm of cervix HPV Testing [facility] Start: 2007 HPV Vaccine (optional start 27-45 years) HPV Vaccine (optional start 27-45 years) [facility] Start: 2001 PAP TESTING PAP TESTING [facility] Start: 2001 Screening for malignant neoplasm of cervix [facility] Start: 1999 DTaP/Tdap/Td vaccine (1 - Tdap) DTaP/Tdap/Td vaccine (1 - Tdap) [place] Start: 1999 Hepatitis A (HAV) Vaccine (optional start 19+ years) Hepatitis A (HAV) Vaccine (optional start 19+ years) [facility] Start: 1999 Hepatitis B Vaccine (1 of 3 - 19+ 3-dose series) Hepatitis B Vaccine (1 of 3 - 19+ 3-dose series) [facility] Start: 1999 Third diphtheria, tetanus and acellular pertussis (DTaP) vaccination TDAP (ADULT) [facility] Work Phone: Start: 1999 Urine microalbumin profile [facility] Start: 1998 Annual PCP Team Chronic Disease Visit Annual PCP Team Chronic Disease Visit [facility] Start: 1998 BP Controlled (<130/80) BP Controlled (<130/80) [facility] Start: 1998 Hepatitis C antibody, confirmatory test Hepatitis C Screening [facility] Start: 1998 Hepatitis C screening [facility] Start: 1998 HEPATITIS C SCREENING HEPATITIS C SCREENING [facility] Start: 1998 HIV SCREENING HIV SCREENING [facility] Start: 1998 HIV screening HIV Screening [facility] Start: 1998 Spirometry Spirometry [facility] Start: 1998 Tetanus + diphtheria + acellular pertussis vaccine (product) Tdap Booster [facility] Start: 1998 Tetanus vaccination TETANUS [facility] Work Phone: Start: 1995 HIV screening [facility] Start: 1993 HIV screening HIV SCREENING DISCUSSION [facility] Work Phone: Start: 1992 COVID-19 Vaccine (1) COVID-19 Vaccine (1) [facility] Work Phone: Start: 1986 Pneumococcal vaccination [facility] Start: 1983 History and physical examination, annual for health maintenance Wellness Visit [facility] Start: 1981 Varicella vaccine (1 of 2 - 2-dose childhood series) Varicella vaccine (1 of 2 - 2-dose childhood series) [place] Start: 1980 HEPATITIS B (1 of 3 - 3-dose series) HEPATITIS B (1 of 3 - 3-dose series) [facility] Start: 1980 Hepatitis B vaccination Hepatitis B (HBV) Vaccine (1 of 3 - 3-dose series) [facility] Start: 1980 Hepatitis B Vaccine (1 of 3 - 3-dose series) Hepatitis B Vaccine (1 of 3 - 3-dose series) [facility] Start: 1980 Hepatitis C screening Hepatitis C screen [facility] Work Phone: Start: 1980 Tetanus vaccination Tetanus: Every 10yrs [facility] End: 11-20-2022 Blood typing serologic abo ABO RH TYPE Lab Routine Preop testing 1 Occurrences starting 10/21/2022 until 11/20/2022 [facility] Work Phone: Comment on above: 1 Occurrences starting 10/21/2022 until 11/20/2022 ECG COMPLETE ECG COMPLETE ECG Today Essential (primary) hypertension 05/05/2023 9:03 AM EDT [facility] Work Phone: End: 03-10-2025 Echocardiography ECHO Cardiology Routine Primary hypertension 1 Occurrences starting 03/11/2024 until 03/10/2025 [facility] Work Phone: Comment on above: 1 Occurrences starting 03/11/2024 until 03/10/2025 EKG 12 Lead EKG 12 Lead ECG STAT 05/11/2020 6:59 PM EST [facility] [place] [place] INSERTION, STIMULATO R, ELECTRODE INSERTION, STIMULATOR, ELECTRODE Routine scheduled Back pain, unspecified back location, unspecified back pain laterality, unspecified chronicity Failed back syndrome [facility] End: 03-01-2024 Polysomnogram POLYSOMNOGRAM (PSG) Procedures Routine PAKO on CPAP 1 Occurrences starting 03/02/2023 until 03/01/2024 [facility] Work Phone: Comment on above: 1 Occurrences starting 03/02/2023 until 03/01/2024 [facility] Immunizations Immunization Date Immunization Notes Care Provider [facility] 03-13-2023 Influenza, injectabl e, Madin Yolanda Canine Kidney, preservative free, quadrivalent [facility] Work Phone: [facility] Work Phone: 03-13-2023 influenza virus vaccine, unspecified formulation France Chang DPM Work Phone: [facility] 05-13-2022 Influenza, injectabl e, Madin Yolanda Canine Kidney, preservative free, quadrivalent Darius Poole MD Work Phone: [facility] 05-13-2022 influenza virus vaccine, unspecified formulation Darius Poole MD Work Phone: [facility] 10-14-2020 Pfizer Monovalent (1 2+ yrs) SARS-COV-2 (COVID-19) vaccine, mRNA, spike protein, LNP, pres. free, 30 mcg/0.3mL dose (KHL=651) Darius Poole MD Work Phone: [facility] 09-22-2020 Pfizer Monovalent (1 2+ yrs) SARS-COV-2 (COVID-19) vaccine, mRNA, spike protein, LNP, pres. free, 30 mcg/0.3mL dose (ZKD=767) Darius Poole MD Work Phone: [facility] 05-12-2020 pneumococcal vaccine , unspecified formulation [facility] 03-30-2020 influenza, injectabl e, quadrivalent, preservative free Darius Poole MD Work Phone: [facility] 04-21-2019 influenza, injectabl e, quadrivalent, preservative free Darius Poole MD Work Phone: [facility] 04-01-2019 influenza virus vaccine, unspecified formulation [facility] Work Phone: [facility] Work Phone: 04-21-2018 influenza, injectabl e, quadrivalent, preservative free Darius Poole MD Work Phone: [facility] Payers Date Payer Category Payer Medicaid [employer] [facility] [place] [id number] 2023-Present [phone] [address] [place] [address] Medicaid [id number] 2023 Medicaid [id number] 2022 Unknown 1980 2022 Worker's Compensation [id number] 2022 Worker's Compensation [id number] 2020 Unknown [id number] [id number]. [id number] 2020 Worker's Compensation [employer]S [employer] [id number] 2020-Present [phone] [facility] [employer] [address] [id number] Worker's Comp [id number]. [id number] 2020 Worker's Compensation [id number] Unknown [facility] MMO [id number] 2019-Present [id number] .[id number] 1980 Unknown [id number] 2.16.840.1.394931.3.579.2.1 74 1980 Unknown [id number] 2.16.840.1.334594.3.579.2.9 00 1980 Unknown [id number] 2.16.840.1.558846.3.579.2.1 1980 Unknown [id number] 2.16.840.1.175869.3.579.2.5 1980 Unknown [id number] 2.16.840.1.690062.3.579.2.5 1980 Unknown [id number] 2.16.840.1.359954.3.579.2.5 1980 Unknown [id number] 2.16.840.1.085578.3.579.2.5 1980 Unknown [id number] 2.16.840.1.025417.3.579.2.5 1980 Unknown [id number] 2.16.840.1.365643.3.579.2.5 1980 Unknown [id number] 2.16.840.1.268084.3.579.2.5 1980 Unknown [id number] 2.16.840.1.830153.3.579.2.5 1980 Unknown [id number] 2.16.840.1.779313.3.579.2.5 1980 Unknown [id number] 2.16.840.1.263590.3.579.2.7 1980 Unknown [id number] 2.16.840.1.392895.3.579.2.7 1980 Unknown [id number] 2.16.840.1.504381.3.579.2.7 1980 Unknown [id number] 2.16.840.1.609675.3.579.2.7 1980 Unknown [id number] 2.16.840.1.850590.3.579.2.7 1980 Unknown [id number] 2.16.840.1.992274.3.579.2.7 1980 Unknown [id number] 2.16.840.1.320137.3.579.2.7 27 1980 Unknown [id number] 2.16.840.1.586989.3.579.2.7 27 1980 Unknown [id number] 2.16.840.1.909475.3.579.2.7 27 1959 Self-pay [id number] 1959 Unknown [id number] 1.2.840.508680.1.13.239.2.7 .3.739941.315 1959 Unknown [id number] Unknown [id number] 2.16.840.1.715322.3.579.2.7 32 Unknown [id number] 2.16.840.1.604808.3.579.2.7 32 Unknown [id number] 2.16.840.1.231196.3.579.2.7 32 Unknown [id number] 2.16.840.1.199379.3.579.2.7 32 Unknown [id number] 2.16.840.1.903910.3.579.2.7 32 Social History Date Type Detail [facility] Work Phone: Start: 1980 Sex Assigned At Not on file [facility] Work Phone: Start: 06-23-2018 [facility] Start: 05-11-2020 End: 02-29-2024 Tobacco smoking status NHIS Former smoker [facility] Start: 04-16-2008 End: 04-16-2023 History of tobacco use Current smoker [place] Start: 05-11-2020 End: 02-29-2024 Tobacco use and exposure Never used [place] Start: 05-11-2020 End: 12-14-2020 Alcohol intake Current non-drinker of alcohol (finding) [place] Exposure to SARS-CoV -2 (event) Not sure [place] Start: 05-12-2020 End: 02-15-2024 Cigarettes smoked current (pack per day) - Reported [facility] Start: 05-12-2020 Alcohol intake Current drinke r of alcohol (finding) [facility] Start: 05-12-2020 Tobacco Comment Quit 3.5 years ago [facility] Start: 05-12-2020 Alcohol Comment Rarely -- once or twice a year [facility] Start: 08-20-2022 End: 03-18-2023 Tobacco smoking status NHIS Smokes tobacco daily [facility] Start: 04-16-2008 End: 04-16-2023 History of tobacco use Cigarette Smoker [facility] Start: 08-20-2022 Tobacco Comment vapes [facility] Start: 10-22-2022 End: 01-14-2023 Alcohol intake Ex-drinker (finding) [facility] Start: 10-15-2022 History SDOH Social Connections Phone 5 [facility] Start: 10-15-2022 History SDOH Social Connections [facility] Start: 10-15-2022 History SDOH Social Connections Buddhism 1 [facility] Start: 10-15-2022 History SDOH Social Connections Living 8 [facility] Start: 10-15-2022 History SDOH Physica l Activity DPW [facility] Start: 10-15-2022 History SDOH [facility] Start: 10-15-2022 [facility] Start: 02-04-2023 End: 02-15-2024 Gender identity Not on file [facility] National Score (1-100), lower number is lower risk 78 [facility] Start: 03-18-2023 End: 03-03-2024 Alcohol intake Lifetime non-drinker (finding) [facility] Start: 03-18-2023 Tobacco Comment [facility] Start: 06-16-2023 Tobacco use and exposure Former smokeless tobacco user [facility] End: 06-12-2023 History of tobacco use User of smokeless tobacco [facility] History of tobacco use Passive smoker [facility] Work Phone: Within the last year , have you been afraid of your partner or ex-partner? No [facility] Are you now , , , , never or living with a partner? Living with partner [facility] How hard is it for y ou to pay for the very basics like food, housing, medical care, and heating Somewhat hard [facility] Do you feel stress - tense, restless, nervous, or anxious, or unable to sleep at night because your mind is troubled all the time - these days [OSQ] Very much [facility] (I/We) worried wheth er (my/our) food would run out before (I/we) got money to buy more. Never true [facility] NEGATED: Highlighted rowStart: NINF History of tobacco use Passive smoker [facility] Medical Equipment Procedure Code Equipment Code Equipment Origin al Text Equipment Identifier Dates Clik X [place] Sterile Kit Ea1 [id number] - [id number] Start: 11-20-2022 Lead Kit 70 Cm E a1 [id number] - [id number] Start: 11-20-2022 Goals Date Patient Goal Desired Activity /State Personal health goal Clinical Notes 12-14-2020 to 03-03-2024 Greg Hidalgo, - 03/03/2024 9:54 AM Sandi Carrera MD - 02/29/2024 9:50 AM EDTPatient InstructionsTelephone Encounter - Airam Mendoza RN - 02/17/2024 2:45 PM EDTPatient Instructions Note Date & Type Note Facility 03-03-[address] [facility] 03-03-2024 History of Present illness Narrative Patient had excellent relief following prior trigger point injections for 3-4 weeks with return of bothersome symptoms. We discussed trying different medications to see if relief lasts longer. Chief complaint: Mid back pain cephalad to her scar from spinal cord stimulator placement Patient reports variable aching, burning, contraction, sharp, and tenderness involving the middle back. Symptoms are rated 7/10. Resp 16 Ht 180.3 cm (5' 11 ) Wt 127.5 kg (281 lb) LMP 09/14/2023 BMI 39.19 kg/m Patient is again a pleasant female. Spouse is present for the encounter. There is pain reproduction with palpation in the thoracic region cephalad to her scar with 6 (3 on each side)distinct trigger points identified by tissue texture change, pain, and hyperemia. DX: Myofascial pain (primary encounter diagnosis) Lumbar sprain, subsequent encounter Risks, benefits, alternatives and personnel discussed with patient who verbally consents to proceed with bilateral thoracic paravertebral trigger point injections. UNIVERSAL PROTOCOL / SAFETY CHECKLIST Procedure to be Performed: Bilateral thoracic paravertebral trigger point injections Sign In: A Moment of CARE was completed. Personnel directly involved with the procedure wore the appropriate PPE (Personal Protective Equipment). With patient seated on examination table, procedures performed in the usual manner. Trigger points identified in the thoracic paravertebral musculature -3 on the right and 3 on the left. After application of vapo coolant and sterile preparation with alcohol, a 25-gauge 1.5 inch needle was used to inject a solution containing 12 mg of Celestone and 3 cc of bupivacaine 0.5%. Patient received 1 cc per trigger point and tolerated well. Bandages were applied where needed. Patient/Surrogate Stated/Verified: PATIENT VERIFIED(optional for EMERGENT procedures): Patient name, Date of , Relevant allergies, and The intended procedure Time Out Communication: Intended patient and procedure match the source documents. Consent documented and matches the intended procedure. Correct side/site marked and visible. Medications required for procedure verified. No implant(s) inserted. Sign Out: SIGN OUT (optional for EMERGENT procedures): No specimen collected. All instruments, equipment, possible retained foreign bodies accounted for. Post-procedure follow-up management communicated and Plan of Care Visit completed when applicable. Patient encouraged to continue with normal activities and exercises. We did discuss potential short-term relief from bupivacaine and potentially longer term improvement from corticosteroid. If patient does not get sustained or long enough lasting relief, we may consider trigger point injections with anesthetic only versus dry needling. Will plan to see her back for repeat evaluation in 12 weeks. She may call sooner if needed. Greg Hidalgo DO documented in this encounter [facility] 02-29-2024 History of Present illness Narrative Images from the original note were not included. Otolaryngology - Head and Neck Surgery [facility] NOTE Chief Complaint: Patient presents with: Sleep Apnea: New self referral. PAKO- tried using cpap x 4 yrs, PAP TITRATION PSG 04/09/23, snoring, gasping for air in the night, waking up tired, wakes up 3-4 times a night for air/bathroom. ASSESSMENT/PLAN: 1. PAKO (obstructive sleep apnea) - ICD9: 327.23, ICD10: G47.33 -Long-standing history of sleep disordered breathing symptoms with PSG revealing mild PAKO. We discussed the pathophysiology of obstructive sleep apnea, as well as the diagnosis and treatment of the disease, including CPAP. She recently had bariatric surgery, but continues to be symptomatic from PAKO standpoint. -She has had difficulty tolerating CPAP. We discussed oral appliance therapy as an option. I have placed a referral to sleep dentistry for further evaluation. Furthermore, we discussed positional therapy as non-supine AHI was 3.5. I provided her with information for positional pillows. -I will follow up with her after she has completed adjustment of mandibular advancement device for repeat sleep testing. Sandi Weber MD [facility] HPI: Yunier Gaines is a 43 year old female who presents for evaluation of PAKO with CPAP intolerance. History of PAKO (Mild PAKO - AHI 9.8) due to sleep disordered symptoms of difficulty with sleep maintenance, choking/gasping arousals and excessive daytime sleepiness. She has loud snoring at night. She has witnessed apneas per her significant other. She has CPAP intolerance due to claustrophobia. She has trialed multiple mask interfaces without significant relief. She is a restless sleeper and moves around in her sleep and dislodges mask. She falls asleep with CPAP therapy but will wake up and unconsciously and pull of her mask. She has gastric bypass surgery ans has dropped 130 lbs since surgery 5 months ago. RELATED HISTORY PMH:RLS, PAKO, HTN, Depression, Asthma PSH: Spinal cord stimulator (left) placement due to CRPS, no T&A Meds:N Weight gain:N Exercise:N Occupation: Off on medical disability Caffeine: 1 cup coffee daily Alcohol:N Tobacco:N ALLERGIES ALLERGIES Allergen Reactions Nsaids (Non-Steroid* Unknown Penicillin G GI Upset MEDICATIONS Current Outpatient Medications Medication Sig REXULTI 0.5 mg tablet Take 1 tablet by mouth every afternoon. REXULTI 1 mg tablet Take 1 tablet by mouth every afternoon. topiramate (TOPAMAX) 25 mg tablet Take 1 tablet nightly x 2 weeks and then increase to 2 tablets nightly omeprazole (PRILOSEC) 20 mg capsule Take 2 capsules by mouth once daily. ondansetron (ZOFRAN) 4 mg tablet Take 1 tablet by mouth every 6 hours as needed for nausea/vomiting ursodiol (ACTIGALL) 300 mg capsule Take 1 capsule by mouth two times a day. VITAMIN B COMPLEX-100 ORAL Take by mouth. hydrOXYzine HCl (VISTARIL) 25 mg/mL injection Inject 25 mg intramuscularly one time only. CPAP/BIPAP/OTHER Auto CPAP 7 to 15 cm H2O DME: [facility] busPIRone (BUSPAR) 10 mg tablet Take 10 mg by mouth three times daily. cetirizine (ZYRTEC) 10 mg tablet Take 1 tablet by mouth every afternoon. prazosin (MINIPRESS) 1 mg cap Take 1 mg by mouth daily at bedtime. sertraline (ZOLOFT) 50 mg tablet Take 50 mg by mouth three times a day. montelukast (SINGULAIR) 10 mg tablet Take 1 tablet by mouth every afternoon. No current facility-administered medications for this visit. Past Medical History PAST MEDICAL HISTORY No date: Anxiety state No date: Arthritis 09/22/2023: Asthma No date: Backache No date: Bronchitis, chronic (HCC) No date: Depression No date: Heart murmur No date: High blood pressure SURGICAL HISTORY PAST SURGICAL HISTORY No date: CONJUNCTIVAL SURGERY UNLISTED Comment: cyst on ovaries No date: PAST SURGICAL HISTORY OF; Left Comment: L foot reconstruction No date: PAST SURGICAL HISTORY OF; Right Comment: R shoulder rotator cuff No date: PAST SURGICAL HISTORY OF Comment: SCS stimulator placement No date: PAST SURGICAL HISTORY OF; Left Comment: carpal tunnel SOCIAL HISTORY Social History Tobacco Use Smoking status: Former Current packs/day: 0.00 Average packs/day: 1 pack/day for 15.0 years (15.0 ttl pk-yrs) Types: Cigarettes Start date: 04/16/2008 Quit date: 04/16/2023 Years since quittin.8 Passive exposure: Past Smokeless tobacco: Never Substance Use Topics Alcohol use: Never Drug use: Never FAMILY HISTORY FAMILY HISTORY Problem Relation Age of Onset Cervical Cancer Mother Cervical Cancer Sister Cervical Cancer Maternal Grandmother Anesthesia Problems No Family History PHYSICAL EXAM: Wt 127.5 kg (281 lb 1.4 oz) LMP 09/14/2023 BMI 39.20 kg/m PHYSICAL EXAM Vital signs reviewed. The BMI is 39.33 GENERAL: Sitting comfortably in chair, no acute distress. RESP: Breathing comfortably on room air. No audible stridor or wheezing. CV: Normal peripheral perfusion, no peripheral edema. HEAD/FACE: Normal maxillary/mandibular development. EARS: External ear WNL bilaterally, hearing normal to conversational speech NOSE: External nose WNL. Septum midline, no turbinate hypertrophy, mucosa normal by anterior rhinoscopy. ORAL CAVITY: Normal mucous membranes. Tongue WNL, normal dental arches with minimal crowding, good dentition, no overbite or overjet. OROPHARYNX: MMP 2, tonsils 1, class 1 occlusion lateral lopes WNL, uvula WNL, palate WNL, normal retropalatal space. NECK: No LAD or thyroid masses appreciated. Hyomental distance wnl SKIN: Face and neck skin without visible scars or lesions. NEURO: Alert and oriented. REVIEW OF RADIOLOGICAL FILMS AND RECORDS: Reviewed sleep notes REVIEW OF LABS/TESTING/AUDIOLOGY RECORDS PSG 03/12/23: Mild PAKO AHI 9.8 PAP titration 04/09/23: Reviewed Head and Neck Ismay documented in this encounter [facility] 02-29-[address] [facility] 02-29-2024 Instructions Sandi Weber MD - 02/29/2024 7:56 AM EDT Dear Yunier Gaines, It was a pleasure meeting you in clinic today. Please do not hesitate to contact our office should you have any further questions or concerns. Otolaryngology - [facility]: [phone] Otolaryngology - [facility]: [phone] After hours: [phone] Sandi Coronado MD documented in this encounter [facility] 02-17-2024 Telephone encounter Note [facility] note patient has not used CPAP in over 30 days. No CPAP compliance report available. Airam Mendoza RN [facility] 02-17-2024 Miscellaneous Notes [facility] note patient has not used CPAP in over 30 days. No CPAP compliance report available. Airam Mendoza RN documented in this encounter [facility] 02-15-2024 History of Present illness Narrative Orthotic Dispensing: Patient presents for dispensing one par of UCB type custom orthotic devices. Patient is ambulatory. Due to the patient s condition and related symptoms, this device is medically necessary as part of the overall treatment. One pair of permanent functional orthotic devices is essential in eliminating the deforming factors that is causing this patient's pain. UCB type custom orthotics is required due to significant of patient's symptoms from their foot deformity requiring maximum foot control. It is anticipated that the patient will benefit functionally with the use of these devices. One pair of UCB type custom molded orthotics were dispensed and fitted to both feet at this visit. Orthotics fit comfortably and not substandard. UCB type orthotic is essential due to the required of maximum foot control due to patients foot tyope. Yunier Gaines believes the orthotics are to his satisfaction. No adjustment is needed at this time. Break in instructions were discussed with patient. Yunier Gaines is also to resume the previously discussed treatment plan. Patient will return in approx 4 weeks for reevaluation. documented in this encounter [facility] 01-21-2024 Telephone encounter Note C9 faxed in yesterday 01/19 [facility] 01-21-2024 Miscellaneous Notes C9 faxed in yesterday 01/19 documented in this encounter [facility] 01-04-2024 History of Present illness Narrative Images from the original note were not included. Podiatric Medicine and Surgery Note Yunier Gaines is a 43 year old female who presents with complaint of left foot pain. Patient previously had obstruction of the left lower extremity on 2020. Patient feels like the screw may be possibly coming out. Patient does walk outside of her left foot and was in a cam boot until just 1 month ago. Has been wearing [place] shoes. Patient presents today for sandals. Patient states its painful with weightbearing. Does not have inserts. Past Medical History: PAST MEDICAL HISTORY Diagnosis Date Anxiety state Arthritis Asthma 09/22/2023 Backache Bronchitis, chronic (HCC) Depression Heart murmur High blood pressure Past Surgical History: PAST SURGICAL HISTORY Procedure Laterality Date CONJUNCTIVAL SURGERY UNLISTED cyst on ovaries PAST SURGICAL HISTORY OF Left L foot reconstruction PAST SURGICAL HISTORY OF Right R shoulder rotator cuff PAST SURGICAL HISTORY OF SCS stimulator placement PAST SURGICAL HISTORY OF Left carpal tunnel Medications: Current Outpatient Medications Medication Sig REXULTI 0.5 mg tablet Take 1 tablet by mouth every afternoon. REXULTI 1 mg tablet Take 1 tablet by mouth every afternoon. topiramate (TOPAMAX) 25 mg tablet Take 1 tablet nightly x 2 weeks and then increase to 2 tablets nightly omeprazole (PRILOSEC) 20 mg capsule Take 2 capsules by mouth once daily. ondansetron (ZOFRAN) 4 mg tablet Take 1 tablet by mouth every 6 hours as needed for nausea/vomiting ursodiol (ACTIGALL) 300 mg capsule Take 1 capsule by mouth two times a day. VITAMIN B COMPLEX-100 ORAL Take by mouth. hydrOXYzine HCl (VISTARIL) 25 mg/mL injection Inject 25 mg intramuscularly one time only. CPAP/BIPAP/OTHER Auto CPAP 7 to 15 cm H2O DME: [facility] busPIRone (BUSPAR) 10 mg tablet Take 10 mg by mouth three times daily. cetirizine (ZYRTEC) 10 mg tablet Take 1 tablet by mouth every afternoon. prazosin (MINIPRESS) 1 mg cap Take 1 mg by mouth daily at bedtime. sertraline (ZOLOFT) 50 mg tablet Take 50 mg by mouth three times a day. montelukast (SINGULAIR) 10 mg tablet Take 1 tablet by mouth every afternoon. No current facility-administered medications for this visit. Allergies: ALLERGIES Allergen Reactions Nsaids (Non-Steroid* Unknown Penicillin G GI Upset Social History: Social History Tobacco Use Smoking status: Former Packs/day: 1.00 Years: 15.00 Additional pack years: 0.00 Total pack years: 15.00 Types: Cigarettes Quit date: 04/16/2023 Years since quittin.7 Passive exposure: Past Smokeless tobacco: Never Substance Use Topics Alcohol use: Never Drug use: Never Physical Exam: Vascular Pedal Pulse DP: R: +2/4, L: +2/4 PT: R: +2/4, L: +2/4 SPVFT: R: <3 seconds, L: <3 seconds Edema: R: none, L: none Varicosities: R: Negative, L: Negative Distal Hair Growth: R: Yes, L: Yes Temperature: R: Warm, L: Warm Neurological Epicritic sensorium grossly intact, bilateral Light touch sensations intact bilateral Dermatological Skin appearance: Well hydrated. Webspaces 1-4 b/l are clean, dry, and intact. No open lesions to foot and ankle b/l. Hyperkeratotic lesion to the plantar lateral aspect of the styloid process of the left. No underlying wound. Musculoskeletal Prominent styloid process of the left. Forefoot adduction. Calcaneal neutral. Pain to palpation of the styloid process of the left. X-Rays 3 Views of the left foot Hardware intact with no loosening or backing or breakage. Forefoot met adductus with prominence of the styloid process. Previous calcaneal osteotomy with 2 screws. Assessment: Encounter Diagnosis ICD-10-CM 1. Closed displaced fracture of fifth metatarsal bone of left foot, initial encounter S92.352A 2. Reflex sympathetic dystrophy of right leg G90.521 Treatment: Total Time Spent on Encounter: E/M code 28114 was selected for this encounter. A total of 30-39 minutes of gakt-bc-wvok and yak-pcvm-wa-face time was personally spent by me on the day of this encounter. This may include: preparations to see the patient, obtaining history, performing an examination, counseling and educating, ordering medications, tests, or procedures, referring and communicating with other health professionals, documenting in the health record, and care coordination. Treatment today consisted of complete patient examination and evaluation Discussed treatment options and findings Reviewed x-rays with patient. Pared callus of the left foot. Offloading pad dispensed for patient. Educated patient on proper placement within the shoe. Advised patient to wear supportive shoes at all times. C9 submitted for L 3000 x 2 Follow Up: A long discussion was held concerning proper home care for today's issue. All appropriate educational documentation was disseminated to the patient. Yunier Gaines fully understands the treatment plan and is to return to our office in when orthotics arrive for re-evaluation. Electronically signed : France Chang DPM Foot and Ankle Surgeon This note was generated with voice recognition software and may contain errors, including spelling, grammar, syntax and misrecognition of what was dictated, that are not fully corrected. documented in this encounter [facility] 01-04-2024 Nurse Note Patient presents with: Bwc (Worker's Comp): Left foot pain Dur 6 months Pt had foot reconstruction sx on 03/19/21 on the heel she thinks the screw is coming out from the lateral side of her foot Tx x rays New Patient: Ins bwc Ref self Ss 10.5 mens Lv 02/12/23 [facility] 01-04-2024 Nurse Note Patient presents with: Bwc (Worker's Comp): Left foot pain Dur 6 months Pt had foot reconstruction sx on 03/19/21 on the heel she thinks the screw is coming out from the lateral side of her foot Tx x rays New Patient: Ins bwc Ref self Ss 10.5 mens Lv 02/12/23 documented in this encounter [facility] 12-22-[address] - 12/22/2023 3:06 PM EDT Nutrition Action Plan 1. Continue to take all recommended vitamin/minerals: Bariatric Pal once daily MVI + 3 calcium soft chews each day 2. Protein goal: 98 grams protein/day 3. Fluid goal: 64 ounces per day (no carbonation, caffeine, calories, alcohol) 4. Exercise goal: continue swimming and strength training 5x a week 5. Practice mindful eating habits-take small portions, eat slowly, chew thoroughly 6. May add in fruit at 4 months post op Follow Up on 03/22 at 1:30 PM documented in this encounter [facility] 12-22-2023 History of Present illness Narrative AMBULATORY PATIENT EDUCATION NOTE- Shared Virtual Nutrition Group I have communicated my name and active licensure. The patient s identity and physical location were verified at the time of this visit. Either the patient or their legal nutrition representative has been informed of the risks and benefits of -- and alternatives to -- treatment through a remote evaluation and consents to proceed with the evaluation remotely. Patient reports weight (as measured by home scale) of 284 pounds. TOPIC: LIFE STYLE CHANGES: Post-op weight loss surgery: Diet and Exercise READINESS TO LEARN COGNITIVE ABILITY: Alert and oriented MOTIVATION TO LEARN: Interested FAMILY SUPPORT: Unable to assess - Family not present INSTRUCTION PROVIDED TO: Patient PATIENT LEARNS BEST BY: Multiple Methods FACTORS AFFECTING LEARNING: None PHYSICAL LIMITATIONS AFFECTING LEARNING: None LEARNING RESPONSE DIAGNOSIS: Altered Gastrointestinal Tract Function, related to, S/P bariatric surgery, as evidenced by patient report and past surgical history and Overweight/obesity, related to, food/nutrition - related knowledge deficit, as evidenced by BMI above normative standard for age and gender. Malnutrition Screening Significant unintentional weight loss? No Eating less than 75% of usual intake for more than 2 weeks? No METHOD OF INSTRUCTION: Individual instruction & Group class instruction PATIENT / FAMILY RESPONSE: Nutrition outcome statement: Expect attention to diet to assist with weight management and minimum 1000 calories/2 liters of fluids per day. 3 months post op LSG (Jeanna) Net weight loss 86 lbs (370 lbs initial) Pre-surgery weight: 336 lbs 15.5 % TWL weight loss as expected based on pre surgical weight 21 lb weight loss since last session (305 lbs) Diet recall indicates a consistent meal pattern with regular meals and snacks. Patient tolerates Phase IV diet plan without complaints. She confirms to eat slowly and separates fluids from foods as recommended. ~900-1000 calories/day meets low end recommendations 100-125 gm protein intake/day meets recommendations 60-75 oz fluid intake/day meets recommendations Consistent with appropriate vitamin/minerals (Bariatric pal once daily MVI + 3 calcium soft chews) meets recommendations Labs - no new labs to review Exercise - swimming and strength training 5x a week for 75 minutes meets recommendations Resting Metabolic Rate: 2041 Energy needs for weight loss: 7305-3280 calories per day (10-15 kcal/kg CBW) Protein needs: 98 grams protein per day (1.2 g/kg IBW kg) Reviewed nutrition principles of: 1. Continue to take all recommended vitamin/minerals: Bariatric Pal once daily MVI + 3 calcium soft chews each day 2. Protein goal: 98 grams protein/day 3. Fluid goal: 64 ounces per day (no carbonation, caffeine, calories, alcohol) 4. Exercise goal: continue swimming and strength training 5x a week 5. Practice mindful eating habits-take small portions, eat slowly, chew thoroughly 6. May add in fruit at 4 months post op Nutrition Monitoring & Evaluation:BMI <35 Criteria: weight check Need for Follow up: 6 months post op Appointment Start Time: 1:38 PM Appointment End Time: 2:28 PM Time Spent on Consult: 50 minutes - Group Orlin Bowman RD documented in this encounter [facility] 12-22-[address] [facility] 12-22-2023 History of Present illness Narrative Virtual Visit (Audio/Visual) I have discussed the nature of this visit with the patient which will occur via [facility] (Phone, Virtual Visit) and she agrees to proceed with this interaction . I have communicated my name and active licensure. The patient's identity and physical location were verified at the time of this visit. Either the patient or their legal nutrition representative has been informed of the risks and benefits of -- and alternatives to -- treatment through a remote evaluation and consents to proceed with the evaluation remotely. Name: Yunier Gaines Index Surgery Date of Surgery: 09/28/2023 Surgeon: Huan Meeks MD Surgical Procedure: Sleeve gastrectomy Pre-surgical weight: 152.4 kg (336 lb) Other Bariatric Surgeries None Visit: 3 month Today's Visit: Wt 128.8 kg (284 lb) BMI 39.63 kg/m2 BMI 39.63 kg/(m^2) Last Visit: Wt: 135.2 kg (298 lb 1 oz) BMI: 41.59 kg/(m^2) Total weight loss: 23.6 kg (52 lb) [place] weight: 81.3 kg (179 lb 2.7 oz) Excess weight: 71.1 kg (156 lb 13.3 oz) % of excess body weight lost: 23.6 kg (52 lb) (33.16% of excess weight loss) COMPLICATIONS SINCE LAST VISIT?: NONE DIET INTAKE: Protein intake: >100g/day Fluid intake: >60 oz/day DAILY SUPPLEMENTS: Calcium: Calcium Citrate w/ vitamin D (1200 - 1500mg) Multivitamin & Minerals: 1 per day Iron Supplement: included in multi-vitamin Vitamin B12: included in multivitamin Vitamin D3: included in multi-vitamin Other: Actigall 300 mg twice daily Prilosec 20mg EXERCISE: 5x/week -swimming 30 minutes -strength training 45 minutes SLEEP: +PAKO- using Cpap Are you attending any Support Groups? Not known Current Outpatient Medications Medication Sig REXULTI 0.5 mg tablet Take 1 tablet by mouth every afternoon. REXULTI 1 mg tablet Take 1 tablet by mouth every afternoon. omeprazole (PRILOSEC) 20 mg capsule Take 2 capsules by mouth once daily. ursodiol (ACTIGALL) 300 mg capsule Take 1 capsule by mouth two times a day. busPIRone (BUSPAR) 10 mg tablet Take 10 mg by mouth three times daily. sertraline (ZOLOFT) 50 mg tablet Take 50 mg by mouth three times a day. topiramate (TOPAMAX) 25 mg tablet Take 1 tablet nightly x 2 weeks and then increase to 2 tablets nightly ondansetron (ZOFRAN) 4 mg tablet Take 1 tablet by mouth every 6 hours as needed for nausea/vomiting VITAMIN B COMPLEX-100 ORAL Take by mouth. (Patient not taking: Reported on 11/04/2023) hydrOXYzine HCl (VISTARIL) 25 mg/mL injection Inject 25 mg intramuscularly one time only. (Patient not taking: Reported on 11/04/2023) CPAP/BIPAP/OTHER Auto CPAP 7 to 15 cm H2O DME: [facility] cetirizine (ZYRTEC) 10 mg tablet Take 1 tablet by mouth every afternoon. cyclobenzaprine (FLEXERIL) 10 mg tablet prazosin (MINIPRESS) 1 mg cap Take 1 mg by mouth daily at bedtime. montelukast (SINGULAIR) 10 mg tablet Take 1 tablet by mouth every afternoon. (Patient not taking: Reported on 11/04/2023) No current facility-administered medications for this visit. REVIEW OF SYSTEMS: Denies nausea, vomiting, dumping syndrome, reactive hypoglycemia, gustatory rhinorrhea, Denies abdominal pain, constipation, diarrhea, melena, hematochezia, Denies paresthesias, gait abnormality, fatigue, weakness, lower extremity edema, and Denies taking NSAIDs OBESITY MEDICINE COMORBIDITIES: Obstructive Sleep Apnea Sleep Apnea with use of CPAP, Bi-PAP, or similar technology and HTN HTN Resolved or no medication PHYSICAL EXAM: Deferred, no abdominal issues Assessment A/P: Normal post-OP course Patient Active Problem List Myofascial pain Lumbar sprain Class 3 severe obesity due to excess calories with body mass index (BMI) of 45.0 to 49.9 in adult (HCC) Asthma Chronic midline low back pain without sciatica RLS (restless legs syndrome) Obesity, Class III, BMI >= 40 Osteoarthritis of right patellofemoral joint Complex regional pain syndrome type 1 of left lower extremity Back pain Failed back surgical syndrome Calculus of kidney Anxiety disorder, unspecified Hallux valgus (acquired), left foot Hallux valgus (acquired), right foot Personal history of other venous thrombosis and embolism PAKO (obstructive sleep apnea) Essential (primary) hypertension Major depressive disorder, single episode, moderate (HCC) Resolved Hospital Problems No resolved problems to display. DISPOSITION: Return 6 month to EST/Standard office visit EDUCATION: Encouraged to continue with healthy lifestyle changes and incorporate cardiovascular and resistance training, Discussed weight loss expectations after bariatric and metabolic surgery, Advised PT to avoid NSAIDs, smoking tobacco given increased risk of marginal ulcers, or Discussed importance of protein intake as per the RDN note REFERRALS: N/A LABS: Today: See Epic Orders Rosanne Palacio APRN.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 documented in this encounter [facility] 12-22-[address] [facility] 11-24-[address] [facility] 11-24-2023 History of Present illness Narrative Spouse of one of my patients who presents today for possible trigger point injections. Patient reports her Worker's Comp. doctor is referring her. Chief complaint: Mid back pain near her scar from spinal cord stimulator placement Patient is a 43-year-old female who presents today for evaluation and plan of care. Patient reports variable poking, stabbing, and burning pain in the mid back near her scar. Symptoms are left more than right-sided. Patient has undergone extensive treatment including physical therapy with exercises on her own, activity modification, rest, and medications. Patient reports her spinal cord stimulator is helping her lower limb symptoms related to CRPS. Dr. Poole placed that. Patient reports her back symptoms are worse with activities and reduced with rest. Symptoms are rated 6/10 today. Symptoms can be rated 10/10 at worst. Patient denies any symptoms radiating around her chest. She denies any changes to her bowel or bladder function. Topical Biofreeze did not help. Massage and roller balls tried. Interested in trying trigger point injections Pain is rated 10/10 at worst. Pain is rated 6/10 today. Resp 16 Ht 180.3 cm (5' 10.98 ) Wt 135.2 kg (298 lb 1 oz) LMP 09/14/2023 BMI 41.59 kg/m Patient is a pleasant female in no acute distress. Spouse is also present for the encounter. She does have multiple tattoos and piercings. She does have scars present in the thoracic and lumbar region from placement of spinal cord stimulator and battery. She does have battery palpable in the left lumbar/gluteal region. She does have pain with palpation in the thoracic paravertebral musculature bilaterally. She does have hyperemia, tissue texture change, and pain just lateral to her scar. 3 trigger points identified on the left and 1 trigger point identified on the right. DX: Myofascial pain (primary encounter diagnosis) Lumbar sprain, subsequent encounter Complex regional pain syndrome type 1 of left lower extremity UNIVERSAL PROTOCOL / SAFETY CHECKLIST Procedure to be Performed: Bilateral thoracic paraspinal trigger point injections just lateral to her scar Sign In: A Moment of CARE was completed. Personnel directly involved with the procedure wore the appropriate PPE (Personal Protective Equipment). With patient seated on examination table, the trigger points in the thoracic region just lateral to her scar were identified and marked. There were 3 on the left and 1 on the right. After application of vapo coolant and sterile preparation with alcohol a 1.5 inch 25-gauge needle was used to inject a solution containing 40 mg of triamcinolone and 5 cc of lidocaine 1% she received 1.5 cc per trigger point and tolerated well. Bandages applied where needed. Patient/Surrogate Stated/Verified: PATIENT VERIFIED(optional for EMERGENT procedures): Patient name, Date of , Relevant allergies, and The intended procedure Time Out Communication: Intended patient and procedure match the source documents. Consent documented and matches the intended procedure. Correct side/site marked and visible. Medications required for procedure verified. No implant(s) inserted. Sign Out: SIGN OUT (optional for EMERGENT procedures): No specimen collected. All instruments, equipment, possible retained foreign bodies accounted for. Post-procedure follow-up management communicated and Plan of Care Visit completed when applicable. Patient encouraged to see how she does. She may get temporary relief with the lidocaine with potential longer duration of improvement with corticosteroid. Patient may contact office with an update next 2 to 4 weeks or sooner if needed. We did discuss consideration of repeat procedure again in the future should bothersome symptoms return. Will tentatively plan to see her back for repeat evaluation potentially repeat procedure in 3 months. Greg Hidalgo DO documented in this encounter [facility] 11-06-[address] [facility] 11-06-2023 History of Present illness Narrative Metabolic Surgery Postoperative Virtual Clinic Visit Name: Yunier Gaines This visit was performed virtually via Zoom technology due to the COVID-19 epidemic as an effort to protect patients and minimize exposure.? Virtual Visit (Audio/Visual) I have discussed the nature of this visit with the patient which will occur via Distance Health (Phone, Virtual Visit) and she agrees to proceed with this interaction . Index Surgery Date of Surgery: 09/28/2023 Surgeon: Huan Meeks MD Surgical Procedure: lap sleeve Pre-surgical weight: 336 lb HPI: Today's Visit: There were no vitals taken for this visit. No weight on file for this encounter. Last Visit: Wt: 152.4 kg (336 lb) BMI: 46.88 kg/(m^2) Total weight loss: 336 --> 315 --> 302lbs Overall, patient has been doing well. Fluid intake is on target Protein intake is on target Tolerating all soft foods BMs are now constipated. Was regular before. Pain medication use: prn tylenol No issues with incisions. Taking vitamins Walking PHYSICAL EXAM: General - Normal, healthy, cooperative, in no acute distress, obese Able to interact verbally by video conference Psych - ORIENTATION: normal to time place, person and situation Mood/Affect: AFFECT AND MOOD: Normal Head/Neuro - Normal size and shape Facial appearance normal Pulmonary - respiratory effort normal Cardiovascular - patient describes extremities normal, warm, no cyanosis,no clubbing, and no edema Abdominal - Obese, Visible protrusions or hernias: No Incisions/scars: deferred, Skin - abnormal lesions not visualized Motor - patient seen sitting with Normal appearing strength and coordination Assessment A/P: Normal post-OP course Patient Active Problem List Class 3 severe obesity due to excess calories with body mass index (BMI) of 45.0 to 49.9 in adult (HCC) Asthma Chronic midline low back pain without sciatica RLS (restless legs syndrome) Obesity, Class III, BMI >= 40 Osteoarthritis of right patellofemoral joint Complex regional pain syndrome type 1 of left lower extremity Back pain Failed back surgical syndrome Calculus of kidney Anxiety disorder, unspecified Hallux valgus (acquired), left foot Hallux valgus (acquired), right foot Personal history of other venous thrombosis and embolism PAKO (obstructive sleep apnea) Essential (primary) hypertension Major depressive disorder, single episode, moderate (HCC) Resolved Hospital Problems No resolved problems to display. DISPOSITION: Return 1 month to Post-op follow up/ individual office visit EDUCATION: Encouraged to continue with healthy lifestyle changes and incorporate cardiovascular and resistance training, Discussed weight loss expectations after bariatric and metabolic surgery, Advised PT to avoid NSAIDs, smoking tobacco given increased risk of marginal ulcers, or Discussed importance of protein intake as per the RDN note REFERRALS: N/A LABS: Huan Meeks MD Advanced Laparoscopic & Bariatric Surgery Bariatric & Metabolic [facility] documented in this encounter [facility] 11-04-2023 Instructions Haley Nicholson MD - 11/04/2023 3:26 PM EDT -start topiramate as directed -excellent nutrition -weights as recommended by surgeonquintin with cardio documented in this encounter [facility] 11-04-[address] [facility] 11-04-2023 History of Present illness Narrative Images from the original note were not included. BMI Obesity Medicine FollowUp Note November 04, 2023 Patient Summary: Yunier Gaines is 42 year old who presents virtually for follow-up evaluation of her obesity and related complications to the [facility] Bariatric and Metabolic Ismay. In our previous visits we have outlined an individualized lifestyle intervention including a personalized nutrition recommendations and physical activity optimization. Yunier comes to me in follow up;. Hx of excessive hunger and cravings, s/p gastric sleeve in 09/28/23 now with a 30lb weight loss in 1 month. Prior, she was on trulcity 4.5mg and topiramate 50mg. Her headaches started two weeks off topiramate and they 've gotten worse and her irritability has worsened very notably. She saw her psychiatrist. She can't wait to start doing strength training, she is still going to the gym 4-5 days a week Pre-surgical weight: 152.4 kg (336 lb) Total weight loss: 13.4 kg (29 lb 8 oz) [place] weight: 81.3 kg (179 lb 2.7 oz) Excess weight: 71.1 kg (156 lb 13.3 oz) % of excess body weight lost: 13.4 kg (29 lb 8 oz) (18.81% of excess weight loss) Surgeon: Dr Ashley Meeks Index surgery: sleeve gastrectomy Current wt: 306lb She is down 8.9% of her total body weight at this time. Relevant Co-Morbidities: PAKO on cpap Hypertension (carvedilol) due to heart flutters. She had a heart test at 16 (she saw a sugar grinder) she is still symptomatic occasionally but this medication has controlled. DVT 05/12/2020 PE 05/12/2020 Asthma Complex regional pain syndrome Depression, PTSD Weight Graph; (please see graph scanned in chart or EPIC synopsis below) Obesity Medications: Nothing now Diet: Soft foods B: 1 egg white with cottage cheese with turkey sausage L: chicken gouda mushroom burger 20g protein with 190 tonio - plain with low fat cheese and mustard D: chicken with low fat sour cream (cracked chicken) Protein pudding - protein powder 1% milk and 2 TB SF jello blend well and put in refrigerator. 2 TB SF whip cream Exercise: Gym 4-5 days ?Sleep: Has PAKO, has cpap and is using this Has 6-8 hours a night, much better. Exploring other mask options, she is following with sleep ??Stress: manageable Review of Systems: Negative History reviewed in Epic ALLERGIES Allergen Reactions Penicillin G GI Upset Current Outpatient Medications Medication Sig omeprazole (PRILOSEC) 20 mg capsule Take 2 capsules by mouth once daily. ondansetron (ZOFRAN) 4 mg tablet Take 1 tablet by mouth every 6 hours as needed for nausea/vomiting ursodiol (ACTIGALL) 300 mg capsule Take 1 capsule by mouth two times a day. CPAP/BIPAP/OTHER Auto CPAP 7 to 15 cm H2O DME: [facility] busPIRone (BUSPAR) 10 mg tablet Take 10 mg by mouth three times daily. cetirizine (ZYRTEC) 10 mg tablet Take 1 tablet by mouth every afternoon. prazosin (MINIPRESS) 1 mg cap Take 1 mg by mouth daily at bedtime. sertraline (ZOLOFT) 50 mg tablet Take 50 mg by mouth three times a day. VITAMIN B COMPLEX-100 ORAL Take by mouth. (Patient not taking: Reported on 11/04/2023) hydrOXYzine HCl (VISTARIL) 25 mg/mL injection Inject 25 mg intramuscularly one time only. (Patient not taking: Reported on 11/04/2023) cyclobenzaprine (FLEXERIL) 10 mg tablet montelukast (SINGULAIR) 10 mg tablet Take 1 tablet by mouth every afternoon. (Patient not taking: Reported on 11/04/2023) No current facility-administered medications for this visit. PAST MEDICAL HISTORY Diagnosis Date Asthma 09/22/2023 PAST SURGICAL HISTORY Procedure Laterality Date PAST SURGICAL HISTORY OF Left L foot reconstruction PAST SURGICAL HISTORY OF Right R shoulder rotator cuff PAST SURGICAL HISTORY OF SCS stimulator placement PAST SURGICAL HISTORY OF Left carpal tunnel Social Connections: Moderately Isolated (10/15/2022) Received from [facility] Social Connection and Isolation Panel [NHANES] Frequency of Communication with Friends and Family: More than three times a week Frequency of Social Gatherings with Friends and Family: Once a week Attends Anabaptism Services: Never Active Member of Clubs or Organizations: No Attends Club or Organization Meetings: Never Marital Status: Living with partner Family History Problem Relation Age of Onset Anesthesia Problems No Family History Physical Exam: BP 115/68 Pulse 90 Ht 180.3 cm (5' 10.98 ) Wt (!) 139 kg (306 lb 8 oz) LMP 09/14/2023 BMI 42.77 kg/m NAD Results: reviewed labs with the patient. Impression: Yunier Gaines is a 42 year old year old female with class III obesity BMI 49 with PAKO on cpap, HTN, asthma and excessive hunger and strong FH of obesity. Negative genetic testing. S/P gastric sleeve x 1 mo and down 8.9% of her total body weight Plan: -start topiramate as directed for headaches and mood. This will also help her weight loss although not being used for this -excellent nutrition -weights as recommended by surgeon, great work with cardio. 1 mo post op visit with surgeon on Thursday RTC in 2 mo for 3 mo post-op follow up Haley Nicholson MD I spent a total of 30 minutes on the date of the service which included preparing to see the patient, [id number] patient care, completing clinical documentation, obtaining and/or reviewing separately obtained history, counseling and educating the patient/family/caregiver, and ordering medications, tests, or procedures. documented in this encounter [facility] 11-03-[address] - 11/03/2023 8:09 AM EDT Nutrition Action Plan 1. Continue to take all recommended vitamin/minerals: Bariatric Pal once daily MVI + 1300 mg calcium citrate 2. Protein goal: 98 grams protein/day 3. Fluid goal: 64 ounces per day (no carbonation, caffeine, calories, alcohol) 4. Exercise goal: continue water aerobics and swimming laps with at least 150-200 minutes per week; make sure to include strength training 2-3 times per week once cleared by surgery team 5. Practice mindful eating habits-take small portions, eat slowly, chew thoroughly 6. May advance to Phase IV diet plan at weeks 8-10 post op Follow Up on 12/21 at 3 PM documented in this encounter [facility] 11-02-2023 History of Present illness Narrative AMBULATORY PATIENT EDUCATION NOTE- Shared Virtual Nutrition Group I have communicated my name and active licensure. The patient s identity and physical location were verified at the time of this visit. Either the patient or their legal nutrition representative has been informed of the risks and benefits of -- and alternatives to -- treatment through a remote evaluation and consents to proceed with the evaluation remotely. Patient reports weight (as measured by home scale) of 305 pounds. TOPIC: LIFE STYLE CHANGES: Post-op weight loss surgery: Diet and Exercise READINESS TO LEARN COGNITIVE ABILITY: Alert and oriented MOTIVATION TO LEARN: Interested FAMILY SUPPORT: High - Very involved in pt care INSTRUCTION PROVIDED TO: Patient PATIENT LEARNS BEST BY: Multiple Methods FACTORS AFFECTING LEARNING: None PHYSICAL LIMITATIONS AFFECTING LEARNING: None LEARNING RESPONSE DIAGNOSIS: Inadequate protein-energy intake, related to s/p bariatric surgery, as evidenced by patient report and diet recall, Altered Gastrointestinal Tract Function, related to, S/P bariatric surgery, as evidenced by patient report and past surgical history and Overweight/obesity, related to, food/nutrition - related knowledge deficit, as evidenced by BMI above normative standard for age and gender. Malnutrition Screening Significant unintentional weight loss? No Eating less than 75% of usual intake for more than 2 weeks? Yes, but advancing per diet protocol METHOD OF INSTRUCTION: Individual instruction & Group class instruction PATIENT / FAMILY RESPONSE: Nutrition outcome statement: Expect attention to diet to assist with weight management and minimum 800 calories/2 liters of fluids per day. 1 months post op LSG (Jeanna) Net weight loss 65 lbs (370 lbs initial) Pre-surgery weight: 336 lbs 9 % TWL weight loss as expected based on pre surgical weight 10 lb weight loss since last session (315 lbs) Diet recall indicates a consistent meal pattern with regular meals and snacks. Patient tolerates Phase III diet plan without complaints. She confirms to eat slowly and separates fluids from foods as recommended. ~600-800 calories/day inadequate, but progressing 75-85 gm protein intake/day inadequate, but progressing 70+ oz fluid intake/day meets recommendations Consistent with appropriate vitamin/minerals (Bariatric Pal once daily MVI + 1300 mg calcium per day) meets recommendations Labs - no new labs to review Exercise - water aerobics 2-3 times a week for 50 minutes; swimming 4-5 times a week for 45 minutes meets recommendations Resting Metabolic Rate: 2136 Energy needs for weight loss: 7668-8552 calores per day (10-15 kcal/kg CBW) Protein needs: 98 grams protein per day (1.2 g/kg IBW kg) Reviewed nutrition principles of: 1. Continue to take all recommended vitamin/minerals: Bariatric Pal once daily MVI + 1300 mg calcium citrate 2. Protein goal: 98 grams protein/day 3. Fluid goal: 64 ounces per day (no carbonation, caffeine, calories, alcohol) 4. Exercise goal: continue water aerobics and swimming laps with at least 150-200 minutes per week; make sure to include strength training 2-3 times per week once cleared by surgery team 5. Practice mindful eating habits-take small portions, eat slowly, chew thoroughly 6. May advance to Phase IV diet plan at weeks 8-10 post op Nutrition Monitoring & Evaluation:BMI <40 Criteria: weight check Need for Follow up: 3 months post op Appointment Start Time: 2:30 PM Appointment End Time: 3:10 PM Time Spent on Consult: 40 minutes - Group Orlin Bowman RD documented in this encounter [facility] 11-02-[address] [facility] 11-02-[address] [facility] 10-14-2023 Note HNO ID: [id number] Author: NISREEN REY RD Service: ? Author Type: Registered Dietitian Type: Progress Notes Filed: 10/14/2023 09:27 Note Text: This visit was performed virtually due to the COVID-19 epidemic as an effort to protect patients and minimize exposure. Consent from patient received to conduct visit virtually. This Team Access Model visit is a virtual GROUP encounter. It required patient-provider interaction for the medical decision making as documented below. I have communicated my name and active licensure. The patient?s identity and physical location were verified at the time of this visit. Either the patient or their legal nutrition representative has been informed of the risks and benefits of -- and alternatives to -- treatment through a remote evaluation and consents to proceed with the evaluation remotely. Patient reports weight (as measured by home scale) of 315 pounds. AMBULATORY PATIENT EDUCATION NOTE-Shared Nutrition Group TOPIC: LIFE STYLE CHANGES: Post-op weight loss surgery: Diet and Exercise READINESS TO LEARN COGNITIVE ABILITY: Alert and oriented MOTIVATION TO LEARN: Interested FAMILY SUPPORT: Unable to assess - Family not present INSTRUCTION PROVIDED TO: Patient PATIENT LEARNS BEST BY: Multiple Methods FACTORS AFFECTING LEARNING: None PHYSICAL LIMITATIONS AFFECTING LEARNING: None LEARNING RESPONSE DIAGNOSIS: Inadequate protein-energy intake, related to: altered GI function, as evidenced by post-op diet advancement Overweight Obesity, related to; food/nutrition - related knowledge deficit, as evidenced by BMI above normative standard for age and gender Malnutrition Screening Significant unintentional weight loss? No Eating less than 75% of usual intake for more than 2 weeks? Yes - advancing post-op bariatric diet Nutritional status: METHOD OF INSTRUCTION: Individual instruction Group class instruction PATIENT / FAMILY RESPONSE: Nutrition outcome statement: Expect attention to diet to assist with weight management and minimum 500 calories/2 liters of fluids per day. Patient participated in a 2 week post-op shared nutrition group. Post-op weight loss surgery (LSG) (Dr. Meeks) . Weight loss: 55 lbs since initial assessment (370 lbs); 15% loss total body weight from initial appointment. Pre surgery weight: 336 lbs. 6% TWL; Weight loss tracking adequately from surgery Tolerating phase III diet without difficulty. Protein needs estimated at 98 grams protein per day (1.2 g/kg IBW kg). Current intake meeting ~ 76% (60-80 gm/day) protein needs. Fluid consumption adequate (60-75 oz/day) and includes water Patient is taking recommended vitamin/minerals. Exercise includes walking. Labs not available to evaluate. Reviewed nutrition principles of: 1. Continue vitamins Bariatric Pal, 5454-2042 mg calcium citrate from your bariatric pal by at least 2 hours. 2. Protein goal: 98 grams protein/day 3. Fluid goal: 64 ounces per day (no carbonation, caffeine, calories, alcohol) - separate foods and fluids by 20 minutes, small sips, no straw 4. Exercise goal: begin low intensity exercise until cleared by surgeon. 5. Practice mindful eating habits-take small portions, eat slowly, and chew thoroughly You have lost 6% weight loss from surgery (average 6-9% at 1 month) Blog: [employer] The Bariatric AND Metabolic Is[facility] at [facility] has 2 virtual support group meetings This is the Tujia link with meeting number that will be used for all of the THURSDAY virtual support groups this year, on the Thursday of each month 5:30-6:30PM Join from the meeting link [email or web address] Join by meeting number Meeting number (access code): [phone] Meeting password: [email or web address] The schedule with dates, times, topics, and facilitators can be found here: [email or web address] This is the Tujia link with meeting number that will be used for the Open Discussion ( Food for Thought ) support group on the Thursday of each month 5:30-6:30PM Join from the meeting link [email or web address] Join by meeting number Meeting number (access code): [phone] Meeting password: [email or web address] Hope to see you there! Monitoring AND Evaluation: BMI < 40 Criteria: patient update, weight check Follow up: 2 weeks, scheduling Start time: 8:30 am End time: 8:53 am Billed time: 23 minutes Referred by: Jeanna Rey RDN, [facility] SILVER[facility] 10-14-2023 Instructions Nisreen Rey, CARMEN - 10/14/2023 9:27 AM EDT Reviewed nutrition principles of: 1. Continue vitamins Bariatric Pal, 9501-2186 mg calcium citrate from your bariatric pal by at least 2 hours. 2. Protein goal: 98 grams protein/day 3. Fluid goal: 64 ounces per day (no carbonation, caffeine, calories, alcohol) - separate foods and fluids by 20 minutes, small sips, no straw 4. Exercise goal: begin low intensity exercise until cleared by surgeon. 5. Practice mindful eating habits-take small portions, eat slowly, and chew thoroughly You have lost 6% weight loss from surgery (average 6-9% at 1 month) Blog: [employer] The Bariatric & Metabolic Is[facility] at [facility] has 2 virtual support group meetings This is the Tujia link with meeting number that will be used for all of the THURSDAY virtual support groups this year, on the Thursday of each month 5:30-6:30PM Join from the meeting link [email or web address] Join by meeting number Meeting number (access code): [phone] Meeting password: [facility] The schedule with dates, times, topics, and facilitators can be found here: [email or web address] This is the Tujia link with meeting number that will be used for the Open Discussion ( Food for Thought ) support group on the Thursday of each month 5:30-6:30PM Join from the meeting link [email or web address] Join by meeting number Meeting number (access code): [phone] Meeting password: [email or web address] Hope to see you there! Monitoring & Evaluation: BMI < 40 Criteria: patient update, weight check Follow up: 2 weeks, scheduling documented in this encounter [facility] 10-14-2023 History of Present illness Narrative This visit was performed virtually due to the COVID-19 epidemic as an effort to protect patients and minimize exposure. Consent from patient received to conduct visit virtually. This Team Access Model visit is a virtual GROUP encounter. It required patient-provider interaction for the medical decision making as documented below. I have communicated my name and active licensure. The patient s identity and physical location were verified at the time of this visit. Either the patient or their legal nutrition representative has been informed of the risks and benefits of -- and alternatives to -- treatment through a remote evaluation and consents to proceed with the evaluation remotely. Patient reports weight (as measured by home scale) of 315 pounds. AMBULATORY PATIENT EDUCATION NOTE-Shared Nutrition Group TOPIC: LIFE STYLE CHANGES: Post-op weight loss surgery: Diet and Exercise READINESS TO LEARN COGNITIVE ABILITY: Alert and oriented MOTIVATION TO LEARN: Interested FAMILY SUPPORT: Unable to assess - Family not present INSTRUCTION PROVIDED TO: Patient PATIENT LEARNS BEST BY: Multiple Methods FACTORS AFFECTING LEARNING: None PHYSICAL LIMITATIONS AFFECTING LEARNING: None LEARNING RESPONSE DIAGNOSIS: Inadequate protein-energy intake, related to: altered GI function, as evidenced by post-op diet advancement Overweight Obesity, related to; food/nutrition - related knowledge deficit, as evidenced by BMI above normative standard for age and gender Malnutrition Screening Significant unintentional weight loss? No Eating less than 75% of usual intake for more than 2 weeks? Yes - advancing post-op bariatric diet Nutritional status: METHOD OF INSTRUCTION: Individual instruction Group class instruction PATIENT / FAMILY RESPONSE: Nutrition outcome statement: Expect attention to diet to assist with weight management and minimum 500 calories/2 liters of fluids per day. Patient participated in a 2 week post-op shared nutrition group. Post-op weight loss surgery (LSG) (Dr. Meeks) . Weight loss: 55 lbs since initial assessment (370 lbs); 15% loss total body weight from initial appointment. Pre surgery weight: 336 lbs. 6% TWL; Weight loss tracking adequately from surgery Tolerating phase III diet without difficulty. Protein needs estimated at 98 grams protein per day (1.2 g/kg IBW kg). Current intake meeting ~ 76% (60-80 gm/day) protein needs. Fluid consumption adequate (60-75 oz/day) and includes water Patient is taking recommended vitamin/minerals. Exercise includes walking. Labs not available to evaluate. Reviewed nutrition principles of: 1. Continue vitamins Bariatric Pal, 2131-5042 mg calcium citrate from your bariatric pal by at least 2 hours. 2. Protein goal: 98 grams protein/day 3. Fluid goal: 64 ounces per day (no carbonation, caffeine, calories, alcohol) - separate foods and fluids by 20 minutes, small sips, no straw 4. Exercise goal: begin low intensity exercise until cleared by surgeon. 5. Practice mindful eating habits-take small portions, eat slowly, and chew thoroughly You have lost 6% weight loss from surgery (average 6-9% at 1 month) Blog: [employer] The Bariatric & Metabolic [facility] at [facility] has 2 virtual support group meetings This is the Tujia link with meeting number that will be used for all of the THURSDAY virtual support groups this year, on the Thursday of each month 5:30-6:30PM Join from the meeting link [email or web address] Join by meeting number Meeting number (access code): [phone] Meeting password: [email or web address] The schedule with dates, times, topics, and facilitators can be found here: [email or web address] This is the Tujia link with meeting number that will be used for the Open Discussion ( Food for Thought ) support group on the Thursday of each month 5:30-6:30PM Join from the meeting link [email or web address] Join by meeting number Meeting number (access code): [phone] Meeting password: [email or web address] Hope to see you there! Monitoring & Evaluation: BMI < 40 Criteria: patient update, weight check Follow up: 2 weeks, scheduling Start time: 8:30 am End time: 8:53 am Billed time: 23 minutes Referred by: Jeanna Rey RDN, LD, MFN documented in this encounter [facility] 10-09-[address] [facility] 10-05-2023 Miscellaneous Notes BMI SPECIALTY CARE COORDINATION POST-OP TELEPHONE CALL BMI Post Op Telephone Call Pt was called on the 5 day after discharge. DO YOU HAVE A COPY OF YOUR DISCHARGE INSTRUCTIONS YES Is there anything in your discharge instructions that you do not understand? YES Pain: tolerable. and taking Tylenol. On a scale of 0-10, 0 being not satisfied and 10 being very satisfied, how satisfied were you with your pain management strategy after surgery? 10 Patient instructed not to take any narcotic pain medications (such as Roxicodone) within three hours before bedtime as it may cause breathing difficulty. If you are having pain at bedtime you may take Tylenol (liquid form or two extra strength tablets). Phase 2 full liquid diet:: tolerating diet. and pt estimates 75 grams of protein and 64 oz of fluid daily. Incisions: surgical glue intact GI: + BM and +flatus : WNL Medications: Taking as instructioned at discharge PPI, Zofran, and lovenox CPAP USE: Yes Remind patient of post op appt. Reminded patient of how to reach [facility] or their surgeons office. Patient reminded to seek medical attention if they develop chest pain, a sudden onset of shortness of breath or persistent pain in the calf of their legs - BEST TO ALWAYS present to [facility] hospital where you had your surgery Patient verbalized understanding of all advice and instructions given. Katina Alvarez RN documented in this encounter [facility] 09-29-[address] [facility] 09-29-[address] [facility] 09-28-[address] [facility] 09-28-[address] [facility] 09-28-2023 History of Present illness Narrative Summary: IRB [id number] STUDY TITLE: Bariatric and Metabolic [facility] Tissue Repository IRB NO.: [id number] ONCOLOGY TECHNICIAN: Dr. Oracio Cristina COORDINATOR: Calvin Irving Samples Collected Kit 1 Blood: YES Urine: YES Saliva: YES Tissue Containers Dropped off at OR YES documented in this encounter [facility] 09-28-[address] [facility] 09-28-[address] [facility] 09-22-[address] [facility] 09-22-2023 History of Present illness Narrative Summary: IRB [id number] STUDY TITLE: Bariatric and Metabolic [facility] Tissue Repository IRB NO.: [id number] ONCOLOGY TECHNICIAN: Dr. Oracio Cristina COORDINATOR: Calvin Irving Patient was consented on 09/22/2023. Patient started her liquid diet on 09/14/2023. K 1 samples will be collected on the day of Surgery. documented in this encounter [facility] 09-22-[address] [facility] 09-22-2023 History of Present illness Narrative BMI SPECIALTY CARE COORDINATION SURGERY PRE-OP EDUCATION NOTE AMBULATORY PATIENT EDUCATION NOTE TOPIC: SURVIVAL SKILLS: Blood Pressure Monitoring Complication Prevention Diet Medical Equipment CPAP Pain Management Symptom Management Wound Care HEALTH PROMOTION: Complication prevention Coping skills Diet Exercise Follow up management Self management Stress management VTE Prevention Measure Mechanical READINESS TO LEARN COGNITIVE ABILITY: Alert and oriented MOTIVATION TO LEARN: Eager FAMILY SUPPORT: High - Very involved in pt care INSTRUCTION PROVIDED TO: Patient PATIENT LEARNS BEST BY: Individual Instruction Written Instruction - Hand-outs Verbal Instruction FACTORS AFFECTING LEARNING: None PHYSICAL LIMITATIONS AFFECTING LEARNING: None LEARNING RESPONSE DIAGNOSIS: Morbid Obesity METHOD OF INSTRUCTION: Teach Back HELP card s/s of dehydration PATIENT / FAMILY RESPONSE: Verbalizes understanding of: MEDICAL REGIMEN-Importance of following prescribed medical regimen PAIN MANAGEMENT-Effective strategies to manage pain in addition to pain medication POST-OPERATIVE INSTRUCTIONS-Correct actions to take to reduce postoperative complications SYMPTOM MANAGEMENT-Correct actions to take to manage symptoms associated with his/her disease/illness WOUND CARE-Correct procedure to perform wound care FOLLOW-UP PLAN: Patient instructed to call with any further issues Follow up phone call. SUPPLEMENTAL MATERIAL: Your Surgical Guide REFERRAL (RECOMMENDATION): None Surgery Pre-Op Education Note in Nurse Visit Education video modules viewed by the patient: Yes Postop prescriptions provided to the patient: Yes Postop Surgeon Visit scheduled: Yes On-Call & Clinic Phone Number given to the Patient: Yes Pre surgery checklist reviewed: Yes Patient Instructions for the Liquid Diet: Day Before Surgery - Liquid Diet Instruction Review 1. Last Protein shake should be before 6 pm. 2. It is important that you stay hydrated - 64 ounces of fluid per day. 3. Drink a 28-32 ounce bottle of a regular (not sugar free) sport drink (Gatorade, Powerade, etc.) the night prior to surgery. If the sport drinks aren t tolerable, may substitute with no sugar added - no pulp juice - apple, cranberry, lemonade, white grape or orange. Day of Surgery Clear Liquid Diet Drink 12-20 ounces of a regular sport drink (or juice as above) stop liquids 2 hours before scheduled arrival time. Other Instructions Reviewed: Skin Preparation: Skin cleanse with antibacterial soap, Natasha, wound care, vitamin & nutrients, activity restrictions post op, discharge instructions & surgical guide, incentive spirometry;diet progression-carlie phase I & II & 2wk liquid diet prior to surgery, activity level & pt responsibility during hospitalization. Sleep Apnea: Patient has sleep apnea? Yes. Reviewed with patient that it is important to bring their machine, mask and tubing to the hospital on the day of surgery. Patient instructed that they should wear their C-pap when arriving in room as they will have anesthesia on board that will make them sleep periodically throughout the remainder of the day of surgery. Following the first day, patient instructed that they should wear the C-pap in the hospital any time they are napping or sleeping. Explanation of the dangerous drops in oxygen level that can occur if C-pap is not applied day of surgery or subsequent days when napping or sleeping. Patient understands they are not to refuse to wear the treatment even if they feel it is uncomfortable as wearing C-pap is essential for their safety. Patient agrees to bring C-pap and wear it upon arrival from recovery room and when napping or sleeping. Yes. Do not take pain medication three hours before bedtime as it may cause breathing difficulty. If you are having pain at bedtime you may take two Extra Strength Tylenol. Bariatric Fire Eater Reminder discussion Yes Katina Alvarez RN documented in this encounter [facility] 09-22-[address] [facility] 09-22-2023 History of Present illness Narrative BARIATRIC SURGERY PREOPERATIVE VISIT NOTE SERVICE DATE: 09/22/2023 SUBJECTIVE: Preoperative visit Yunier Gaines is a 43 year old female seen in Bariatric Surgery clinic today for their final preoperative assessment. WEIGHT Current BMI: Body mass index is 46.88 kg/m . 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, anxiety/depression, asthma, HTN, PAKO needs CPAP, May 2022 L DVT and PE after L foot was immobilized due to an injury - was on AC for one year and then stopped Patient has a pain stimulator in her back - no medications, electrical stimulator PSH: R shoulder rotator cuff, L hand carpal tunnel, L foot reconstruction, spine pain stimulator, ovarian cyst removal Patient Active Problem List Asthma Chronic midline low back pain without sciatica RLS (restless legs syndrome) Obesity, Class III, BMI >= 40 Osteoarthritis of right patellofemoral joint Complex regional pain syndrome type 1 of left lower extremity Back pain Failed back surgical syndrome Calculus of kidney Anxiety disorder, unspecified Hallux valgus (acquired), left foot Hallux valgus (acquired), right foot Personal history of other venous thrombosis and embolism PAKO (obstructive sleep apnea) Essential (primary) hypertension Major depressive disorder, single episode, moderate (HCC) Resolved Hospital Problems No resolved problems to display. PAST MEDICAL HISTORY Diagnosis Date Asthma 09/22/2023 PAST SURGICAL HISTORY Procedure Laterality Date PAST SURGICAL HISTORY OF Left L foot reconstruction PAST SURGICAL HISTORY OF Right R shoulder rotator cuff PAST SURGICAL HISTORY OF SCS stimulator placement PAST SURGICAL HISTORY OF Left carpal tunnel Social History Tobacco Use Smoking status: Former Packs/day: 1.00 Years: 15.00 Additional pack years: 0.00 Total pack years: 15.00 Types: Cigarettes Quit date: 04/16/2023 Years since quittin.4 Passive exposure: Past Smokeless tobacco: Never Substance Use Topics Alcohol use: Never Drug use: Never ALLERGIES Allergen Reactions Penicillin G GI Upset BMI PHYSICAL EXAM: General - Normal, healthy, cooperative, in no acute distress, obese Able to interact verbally by video conference Psych - ORIENTATION: normal to time place, person and situation Mood/Affect: AFFECT AND MOOD: Normal Head/Neuro - Normal size and shape Facial appearance normal Pulmonary - respiratory effort normal Cardiovascular - patient describes extremities normal, warm, no cyanosis,no clubbing, and no edema Abdominal - Obese, Visible protrusions or hernias: No Incisions/scars: None, Skin - abnormal lesions not visualized Motor - patient seen sitting with Normal appearing strength and coordination MEDICATIONS: Prior to Admission Medications: VITAMIN B COMPLEX-100 ORAL Take by mouth. dulaglutide (TRULICITY) 4.5 mg/0.5 mL pen injector Inject 4.5 mg subcutaneously one time a week. hydrOXYzine HCl (VISTARIL) 25 mg/mL injection Inject 25 mg intramuscularly one time only. topiramate (TOPAMAX) 25 mg tablet Take 1 tablet nightly x 2 weeks, then increase to 2 tablets nightly CPAP/BIPAP/OTHER Auto CPAP 7 to 15 cm H2O DME: [facility] celecoxib (CELEBREX) 200 mg capsule take 1 capsule by mouth twice a day busPIRone (BUSPAR) 10 mg tablet Take 10 mg by mouth three times daily. cetirizine (ZYRTEC) 10 mg tablet Take 1 tablet by mouth every afternoon. cyclobenzaprine (FLEXERIL) 10 mg tablet prazosin (MINIPRESS) 1 mg cap Take 1 mg by mouth daily at bedtime. sertraline (ZOLOFT) 50 mg tablet Take 50 mg by mouth three times a day. carvedilol (COREG) 25 mg tablet Take 1 tablet by mouth every 12 hours 6am/6pm. montelukast (SINGULAIR) 10 mg tablet Take 1 tablet by mouth every afternoon. No current facility-administered medications for this visit. VISIT NOTE: This patient was seen in clinic today to obtain informed consent, to discuss the details of their upcoming operation including the appropriate expectations for perioperative and postoperative care. In addition, preoperative and postoperative relevant prescriptions were provided and explained during this clinic visit. The consent discussion included the risks, benefits and anticipated outcomes of the procedure, the risks and benefits of the alternatives to the procedure, and the roles and tasks of the personnel to be involved. Potential complications of surgery (post-operative and beyond) such as (but no limited to) bleeding, infections, anesthesia problems, blood clots (VTE and pulmonary embolism), GI leak, organ injuries, bowel obstruction and ischemia, hernia formation (port site, internal, hiatal, etc), cardiopulmonary complications (such as heart attack, arrhythmias, pneumonia, pulmonary insufficiency), GERD (heartburn), nausea, vomiting, pain, dumping syndrome, nutritional deficiencies/consequences, , etc were discussed. The risk of failure to lose weight, weight regain, and the need for revisional surgery was explained. Health risks associated with obesity, alternatives to surgery, alternative forms of surgery, pre-surgical strategies to reduce risks, potential psychological adjustment issues, and post-surgical commitment (aftercare program) were also explained. Patient understood the risks and benefits and agreed to proceed with surgery after all questions by the patient were answered by me and patient indicated understanding of my answers, the surgery, the process, and the risks involved. The patient had an opportunity to ask additional questions that were answered. The patient expressed that they understood. 2-4 weeks extended VTE prophylaxis for discharge SIGNATURE: Huan Meeks MD PATIENT NAME: Yunier Gaines Advanced Laparoscopic & Bariatric Surgery DATE: September 22, 2023 CSN: [id number] TIME: 10:29 AM documented in this encounter [facility] 09-22-2023 Instructions Libby Gray APRN.CLOTH 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 - 09/22/2023 8:12 AM EDT PATIENT PREOPERATIVE INSTRUCTIONS Huan Meeks MD has scheduled you for your procedure at this surgery center: If no call by 4pm the day before surgery, please call this number. [facility] [place] Scheduling Office: [phone] --[address] [place] [address]. Please read below carefully for your personalized instructions. Dietary Restrictions: - No solid food after midnight. - You may have 12 ounces of clear liquids (water, clear juices such as apple juice or gatorade, carbonated beverages, clear tea, black coffee, jello) until 2 hours before scheduled arrival at facility. - Do not drink any alcohol after midnight the night before your surgery. Medications: Unless instructed differently below, stay on all of your medications until your surgery. If you start any new medications after today's visit, please contact your surgeon. Pre-Surgery Med Instructions Medication Instructions VITAMIN B COMPLEX-100 ORAL Take the day of surgery with a small sip of water busPIRone (BUSPAR) 10 mg tablet Take the day of surgery with a small sip of water cetirizine (ZYRTEC) 10 mg tablet Ok to take morning of surgery if needed prazosin (MINIPRESS) 1 mg cap Take the day of surgery with a small sip of water sertraline (ZOLOFT) 50 mg tablet Take the day of surgery with a small sip of water carvedilol (COREG) 25 mg tablet Take the day of surgery with a small sip of water montelukast (SINGULAIR) 10 mg tablet Take the day of surgery with a small sip of water If you start any new medications after today's visit, please contact the surgeon's office. Blood Thinning Medications: - Stop NSAIDS (Ibuprofen, Advil, Aleve, Motrin, Celebrex, Mobic, etc.) 7 days before surgery, as directed by your surgeon. - Stop Aspirin 7 days before surgery, as directed by your surgeon. - Stop Vitamin E, ALL multi-vitamins, herbals and dietary supplements 7 days before surgery. - You may take Tylenol (Acetaminophen) or any of your pain medications that do not contain aspirin or NSAIDS as needed. Important Reminders: - If you use CPAP/BIPAP, bring the machine with you to the surgery center. - Candy, mints, and tobacco products are NOT permitted the morning of surgery. - Hearing aids, dentures and glasses may be worn the morning of surgery. - NO jewelry, body piercings, makeup, hairpins or contacts are to be worn the day of surgery. If you develop symptoms such as a fever, cold, or flu, or have other changes to your health within TWO DAYS of scheduled surgery or the morning of surgery, please contact the surgery center above. Personal Belongings: -Please have photo ID and insurance cards. -If you do not have a copy of advance directives on file with us, please bring a copy with you on the day of surgery. - Leave ALL valuables and money at home or with family members. Arrival Time for Surgery: - To obtain your arrival time for surgery, call your physician's office the day before your surgery. - If your surgery is scheduled for Thursday, call the Thursday before. Your surgeon s automatic hemmer will tell you what time to call the office. - If you have not reached the departmental automatic hemmer by 5 P.M., call [phone] after 5 P.M. the day before your surgery. Please be aware that emergency situations arise, which may delay or change your surgical time. If this happens, we will notify you as soon as possible and regret any inconvenience. If you already have an Advance Directive, please fax a copy to [phone] or email to for it to be added to your chart. If you do not have an Advance Directive, you can find the appropriate form and more information at [email or web address]. We recommend that you complete the Advance Directive form found on the website and bring it with you the day of your surgery. It can be witnessed and scanned into your chart that day. Libby Gray APRN.CNP documented in this encounter [facility] 09-22-2023 History and physical note HISTORY AND PHYSICAL EXAMINATION SERVICE DATE: 09/22/2023 SERVICE TIME: 8:00 AM PRIMARY CARE PHYSICIAN: Blake Dallas MD Assessment Patient has the following medical conditions which may affect moises-operative course: Complex regional pain syndrome type 1 of left lower extremity Related to L foot reconstruction Personal history of other venous thrombosis and embolism Hx dvt and pe in May 2020 PAKO (obstructive sleep apnea) Compliant with CPAP Essential (primary) hypertension Managed on Coreg BP today 102/57 Denies cardiac symptoms EKG reviewed and accepted Asthma Managed on singulair Denies use of inhalers or any respiratory symptoms Obesity, Class III, BMI >= 40 BMI 46.89 Holloway Activity Status Index: METS: Climb a flight of stairs or walk up a hill (5.50 METs) DASI Score: 5.5 Patient denies any chest pain or undue shortness of breath with the above physical activity. Clinical Frailty Scale: 2. Well STOP-Bang Score: STOP-Bang Score: (+pako Compliant with CPAP ) [id number] Score: Hypertension history: Yes [id number] Score: ANESTHESIA FINDINGS: Intubation History: No history of difficult intubation. No abnormal airway history Significant Anesthesia Considerations: patient states that postop prior surgery had to stay on oxygen for a bit longer and once was more awake she was fine none Airway History: No history of difficult airway No abnormal airway history I - PHYSICAL EVALUATION AIRWAY Patient intubated: No. Tracheostomy tube not present Short neck: yes. Thick neck: yes Ga present: no Microretrognathia/Micronagthia/Reces sed Chin: Yes DENTAL Dental findings: broken tooth and missing tooth/teeth. Additional comments: Upper R rear broken molar. II - ANESTHESIA PLAN Anesthetic plan additional comments: *PACC/TCI - anesthesia choice. Beta Joe Monitoring Plan Post Procedure Analgesic Plan Prepared for Surgery: optimally prepared for surgery, pending [see comment]. T&S, Con, CMP, CBC ordered by surgical service CONSULTS: Patient does not require consults for optimization at this time Planned Anesthetic: anesthesia choice The Following Tests/Procedures Have Been Initiated: Orders Placed This Encounter VITAMIN B COMPLEX-100 ORAL Sig: Take by mouth. REASON FOR VISIT: Yunier Gaines is a 43 year old female who is scheduled for Procedure(s): LAPAROSCOPIC LONGITUDINAL GASTRECTOMY, GASTRIC RESTRICTIVE PROCEDURE (N/A) at the request of Huan Elam MD for consultation. My final recommendation will be communicated back to the requesting physician by way of shared medical record or letter. Subjective The patient has the following: ACTIVE PROBLEM LIST Complex Regional Pain Syndrome Type 1 of Left Lower Extremity Osteoarthritis of Right Patellofemoral Joint Anxiety Disorder, Unspecified Calculus of Kidney Hallux Valgus (Acquired), Left Foot Hallux Valgus (Acquired), Right Foot Personal History of Other Venous Thrombosis and Embolism Pako (Obstructive Sleep Apnea) Back Pain Failed Back Surgical Syndrome Essential (Primary) Hypertension Obesity, Class III, BMI >= 40 Rls (Restless Legs Syndrome) Major Depressive Disorder, Single Episode, Moderate (Hcc) Chronic Midline Low Back Pain Without Sciatica Asthma COVID-19 Immunization Status Overdue - Covid-19 Vaccine () Overdue since 05/08/2023 03/13/2023 Imm Admin: COVID-19 vaccine, age 12+ yr, bivalent (PFIZER-BIONTECH) 05/13/2022 Imm Admin: COVID-19 vaccine, age 12+ yr, bivalent (MODERNA) 10/14/2020 Imm Admin: COVID-19 original vaccine, age 12+ yr, monovalent (PFIZER-BIONTECH - PURPLE TOP) Only the first 3 history entries have been loaded, but more history exists. CHIEF COMPLAINT: Preop exam HPI: Yunier Gaines is a 43 year old female with PMHx chronic pain, HTN, morbid obesity, PAKO, RLS, hx PE. Presents to PACC today for preop exam. Patient is scheduled for the above procedure on 09/28/23. Patient with morbid obesity. Plan for above procedure. Denies fevers, chills, chest pain, and SOB. REVIEW OF SYSTEMS: General: Morbid obesity- trulicity and topiramate Negative for: weight loss >10% of BW in last 6 months, malaise and fever. Neurological: Negative for: GRIEVANCE MANAGER tumor, delirium, dementia, headaches, multiple sclerosis, seizures, TIA and strokes. Respiratory: Allergies - singulair Positive for: asthma (singulair) and obstructive sleep apnea. Negative for: COPD, current cough, dyspnea, home oxygen, pneumonia within 6 weeks, tobacco use and URI < 2 weeks. Cardiovascular: Positive for: DVT/PE (DVT and PE in May 2020), hypertension (coreg) and murmur/valvular heart disease Negative for: angina, arrhythmia, CAD, chest pain, CHF, hyperlipidemia and recent [place]. GI: Positive for: nausea Negative for: abdominal pain, colon cancer, dysphagia, GERD, heartburn, irritable bowel syndrome, inflammatory bowel disease, liver disease, pancreatitis, rectal cancer and vomiting. : Positive for: nephrolithiasis (HX). Negative for: BPH, dysuria, hematuria, urinary incontinence, renal failure and urinary tract infection. POTLINE MONITOR: Negative for abnormal vaginal bleeding, abnormal vaginal discharge. Endocrine: Uterine fibroids Negative for: diabetes mellitus, diabetic neuropathy, hyperthyroidism, hypothyroidism, hyperparathyroidism and steroid for chronic problem. Hematology: Negative for: anemia, bruises/bleeds easily and chronic anti-coagulation/platelet meds. Oncology: Negative for: CA metastasis and chemo within 30 days. Psych: Chronic pain Positive for: depression (buspar, hydroxyzine, zoloft). Negative for: anxiety and bipolar disorder. Musculoskeletal: Positive for: back pain (flexeril, celebrex) and joint pain (L foot). Skin: Positive for: rash (under pannus - no infectious concern). Negative for: lesions and itching. PAST MEDICAL HISTORY Diagnosis Date Asthma 09/22/2023 PAST SURGICAL HISTORY Procedure Laterality Date PAST SURGICAL HISTORY OF Left L foot reconstruction PAST SURGICAL HISTORY OF Right R shoulder rotator cuff PAST SURGICAL HISTORY OF SCS stimulator placement PAST SURGICAL HISTORY OF Left carpal tunnel FAMILY HISTORY Problem Relation Age of Onset Anesthesia Problems No Family History Social History Tobacco Use Smoking status: Former Packs/day: 1.00 Years: 15.00 Additional pack years: 0.00 Total pack years: 15.00 Types: Cigarettes Quit date: 04/16/2023 Years since quittin.4 Passive exposure: Past Smokeless tobacco: Never Substance Use Topics Alcohol use: Never Drug use: Never Prior to Admission medications as of 09/22/23 0803 Medication Sig Last Dose Taking VITAMIN B COMPLEX-100 ORAL Take by mouth. Taking Yes busPIRone (BUSPAR) 10 mg tablet Take 10 mg by mouth three times daily. Taking Yes cetirizine (ZYRTEC) 10 mg tablet Take 1 tablet by mouth every afternoon. Taking Yes prazosin (MINIPRESS) 1 mg cap Take 1 mg by mouth daily at bedtime. Taking Yes sertraline (ZOLOFT) 50 mg tablet Take 50 mg by mouth three times a day. Taking Yes carvedilol (COREG) 25 mg tablet Take 1 tablet by mouth every 12 hours 6am/6pm. Taking Yes montelukast (SINGULAIR) 10 mg tablet Take 1 tablet by mouth every afternoon. Taking Yes dulaglutide (TRULICITY) 4.5 mg/0.5 mL pen injector Inject 4.5 mg subcutaneously one time a week. hydrOXYzine HCl (VISTARIL) 25 mg/mL injection Inject 25 mg intramuscularly one time only. topiramate (TOPAMAX) 25 mg tablet Take 1 tablet nightly x 2 weeks, then increase to 2 tablets nightly CPAP/BIPAP/OTHER Auto CPAP 7 to 15 cm H2O DME: [facility] celecoxib (CELEBREX) 200 mg capsule take 1 capsule by mouth twice a day cyclobenzaprine (FLEXERIL) 10 mg tablet No medication comments found. ALLERGIES Allergen Reactions Penicillin G GI Upset Objective PHYSICAL EXAM: General: alert and oriented, healthy appearance and morbidly obese. Pertinent negatives noted - not distressed. Skin: normal color, no rash or lesions. HEENT: EOM intact and pupils equal round. Cardiovascular: regular rate and rhythm, normal S1 and S2, no rub, murmurs, or gallop. Respiratory: normal breath sounds, no wheezes or crackles. No chest wall deformity or tenderness. Abdomen: bowel sounds present and soft. Pertinent negatives noted - not tender. Extremities: no deformity, no edema or tenderness, no joint swelling or clubbing. Neurological: normal cognition and motor skills. Gait normal. No weakness or sensory deficit. PAIN ASSESSMENT: VITALS: BP 102/57 Pulse 65 Temp (Src) 97.2 (Oral) Ht 5' 11 (1.80m) Wt 336 lb 3.2 oz (152.5kg) SpO2 95% LMP 09/14/2023 BMI 46.91 kg/(m^2). Diagnostic tests reviewed for today's visit: Lab Value Units Date High Low HB No results within date range. HCT No results within date range. WBC No results within date range. PLT No results within date range. NA No results within date range. K No results within date range. GLUC No results within date range. BUN No results within date range. CREAT No results within date range. PTSEC No results within date range. INR No results within date range. APTT No results within date range. ALT No results within date range. AST No results within date range. TBILI No results within date range. TSH No results within date range. Lab Value Units Date High Low HCGQT No results within date range. UHCG No results within date range. HCG, BODY* No results within date range. Lab Value Units Date High Low ABORHD No results within date range. ABSCREEN No results within date range. Hemoglobin A1C (%) Date Value 02/10/2023 5.2 Recent Results (from the past 8760 hour(s)) ECG COMPLETE Collection Time: 05/05/23 9:03 AM Result Value Ventricular Rate 57 Atrial Rate 57 P-R Interval 196 QRS Duration 78 QT Interval 406 QTC Calculation (Bazett) 395 Calculated P Kitzmiller 14 Calculated R Kitzmiller 33 Calculated T Kitzmiller 57 Impression SINUS BRADYCARDIA LOW VOLTAGE QRS, CONSIDER PULMONARY DISEASE, PERICARDIAL EFFUSION, OR NORMAL VARIANT BORDERLINE ECG NO PREVIOUS ECGS AVAILABLE Confirmed by SMITHA [facility]ID [facility] ([id number]) on 05/06/2023 10:02:17 AM Recent Results (from the past 94772 hour(s)) ECHO Collection Time: 06/04/23 3:45 PM Impression CONCLUSIONS: - Technically difficult exam due to body habitus. - Exam indication: Pre-op, non cardiac - The left ventricle is normal in size. Left ventricular systolic function is normal. EF = 61 5% (2D biplane) Definity contrast used for endocardial border detection. - Normal left ventricular diastolic function. - The right ventricle is normal in size. Right ventricular systolic function is normal. - There are no significant valvular abnormalities. - No obvious wall motion abnormalities as seen with definity. - The patient has not had a prior CC echocardiographic exam for comparison. * * * Final * * * Instructions Given to Patient: Instructions located in the after visit summary. Patient given verbal and written preop instructions and voices comprehension and compliance. SIGNATURE: Libby Gray APRN.CNP PATIENT NAME: Yunier Gaines DATE: September 22, 2023 TIME: 8:31 AM PAGER/CONTACT #: documented in this encounter [facility] 09-14-2023 Miscellaneous Notes Requester: Patient Patients last Endocrinology visit occurred 08/06/2023 Follow-up evaluation has been established 11/04/2023. Requested Prescriptions Pending Prescriptions Disp Refills dulaglutide (TRULICITY) 4.5 mg/0.5 mL pen injector 4 Each 2 Sig: Inject 4.5 mg subcutaneously one time a week. If patient is due for an appointment please route to provider for refill consideration and also to the endo scheduling pool. PSS NOTE: Patient needs scheduled appointment No documented in this encounter [facility] 09-10-[address] - 09/10/2023 2:10 PM EST Instructions for Liquid Diet before surgery Follow the full liquid diet 2 weeks before surgery - Use only the approved protein shakes: 4.5 bottles/day Slim Fast Advanced Nutrition OR 5.5 packets/day Light Start [place] Breakfast Essentials mixed with 1% or skim milk OR 5 bottles/day Atkins Protein Shake (15 gm protein version) OR 4.5 bottles/day Boost Glucose Control OR 4.5 bottles/day OWYN (20 gm protein and 180 calories version) - Drink at least 64 oz of fluid per day (no calories, no caffeine, no carbonation) - Other clear liquids you can include: clear broth, sugar free jello or popsicles, decaffeinated coffee or tea, no sugar added flavoring packets such as Crystal Lite - Take a Super B Complex vitamin (75-100 mg of Thiamin) daily during the liquid diet 2. Day before surgery: - Finish your last protein shake before 6 pm - Drink at least 64 oz of fluid per day (no calories, no caffeine, no carbonation) - Drink 28-32 fl oz of regular sports drink (Gatorade, Powerade, etc.) 3. Day of surgery: - Drink 12-20 fl oz of regular sports drink - Stop drinking liquids 2 hours before scheduled arrival time 4. Advance diet as tolerated after surgery: - Phase 1- Clear liquids (only in the hospital) - Phase 2- Full liquids. Try to consume at least 60 grams of protein per day in the form of a liquid, high protein shake. Aim to drink 4-8 fl oz of protein shake 3 times per day. Try to drink at least 64 oz per day of water or other clear liquids between shakes. - Phase 3- Soft, high protein foods. Try to consume 3-4 oz of protein 3 times per day from poultry, beef, fish, seafood, eggs, cheese, Slovak yogurt, cottage cheese, beans, lentils, tofu. Choose meat products that are tender, shredded and/or ground to increase tolerance. Remember to chew food well, eat slow, take small bites documented in this encounter [facility] 09-10-[address] [facility] 03-07-2024 History of Present illness Narrative I have communicated my name and active licensure. The patient's identity and physical location were verified at the time of this visit. Either the patient or their legal nutrition representative has been informed of the risks and benefits of -- and alternatives to -- treatment through a remote evaluation and consents to proceed with the evaluation remotely. TOPIC: LIFE STYLE CHANGES: Pre-op weight loss surgery (LSG): Diet and Exercise Nutrition Intervention 09/10/2023: Instructions for Liquid Diet before surgery Follow the full liquid diet 2 weeks before surgery - Use only the approved protein shakes: 4.5 bottles/day Slim Fast Advanced Nutrition OR 5.5 packets/day Light Start [place] Breakfast Essentials mixed with 1% or skim milk OR 5 bottles/day Atkins Protein Shake (15 gm protein version) OR 4.5 bottles/day Boost Glucose Control OR 4.5 bottles/day OWYN (20 gm protein and 180 calories version) - Drink at least 64 oz of fluid per day (no calories, no caffeine, no carbonation) - Other clear liquids you can include: clear broth, sugar free jello or popsicles, decaffeinated coffee or tea, no sugar added flavoring packets such as Crystal Lite - Take a Super B Complex vitamin (75-100 mg of Thiamin) daily during the liquid diet 2. Day before surgery: - Finish your last protein shake before 6 pm - Drink at least 64 oz of fluid per day (no calories, no caffeine, no carbonation) - Drink 28-32 fl oz of regular sports drink (Gatorade, Powerade, etc.) 3. Day of surgery: - Drink 12-20 fl oz of regular sports drink - Stop drinking liquids 2 hours before scheduled arrival time 4. Advance diet as tolerated after surgery: - Phase 1- Clear liquids (only in the hospital) - Phase 2- Full liquids. Try to consume at least 60 grams of protein per day in the form of a liquid, high protein shake. Aim to drink 4-8 fl oz of protein shake 3 times per day. Try to drink at least 64 oz per day of water or other clear liquids between shakes. - Phase 3- Soft, high protein foods. Try to consume 3-4 oz of protein 3 times per day from poultry, beef, fish, seafood, eggs, cheese, Slovak yogurt, cottage cheese, beans, lentils, tofu. Choose meat products that are tender, shredded and/or ground to increase tolerance. Remember to chew food well, eat slow, take small bites CHANGES IN TREATMENT: Patient met goal(s): Partially Diagnosis: has not changed. Allergies: Penicillin G Anthropometrics: Height: Last 1 Encounter Ht Readings: Date: Ht: 09/10/2023 180.3 cm (5' 10.98 ) Weight: Last 1 Encounter Wt Readings: Date: Wt: 08/19/2023 157.5 kg (347 lb 3.2 oz) Body mass index is 48.45 kg/m . Resting Metabolic Rate: 2327 Malnutrition Screening Significant unintentional weight loss? No Eating less than 75% of usual intake for more than 2 weeks? No Nutritional status: Educational materials provided: none this visit READINESS TO LEARN Cognitive ability: Alert and oriented Motivation to learn: Interested Family support: Unable to assess - Family not present Instruction provided to: Patient Patient learns best by: Multiple Methods Factors affecting learning: None Physical limitations affecting learning: None Likelihood of Adherence: Moderate Patient participated in preop bariatric surgery shared nutrition appointment. Patient participated actively in group. She is scheduled for surgery 09/28/23 and directed to start the pre-op diet 2 weeks before. She will follow the full liquid diet and is using Slim Fast protein shakes. Patient has all appropriate beverages and B complex supplement. Nutrition Diagnosis: Overweight/obesity, related to, decreased energy needs, as evidenced by BMI above normative standard for age and gender. PROGRESS: Nutrition Intervention (date of last encounter 07/01/23): CONTINUE: 64 oz fluids per day (no carbonation, no caffeine, no calories, no alcohol) 3 meals per day, do not skip meals Use a protein shake to replace skipped meals or for breakfast, add fruit GOAL: 98 grams protein each day, have a protein food with each meal/snack Follow the Healthy Plate for lunch and dinner Continue Mindful Eating Take small bites, chew slowly Meals should last 20-30 min Separate eating/drinking Stop when full Activity (both cardio and strength exercises): continue current exercise Continue to investigate pre-op protein shakes - in preparation for 3 weeks pre-op liquid diet Continue to investigate post-op vitamins, as needed. Pre-op goal weight: 351 pounds Protein needs: 98 gm per day Nutrition Monitoring & Evaluation: Follow pre op diet and fluid guidelines Criteria: weight check Need for Follow up: 2 weeks post op Appointment Start Time: 1:00 pm Appointment End Time: 1:34 pm Time Spent on Consult: 34 minutes - Group SIGNATURE: Deirdre Sr RD PATIENT NAME: Yunier Gaines DATE: 09/10/2023 TIME: 2:09 PM PAGER: documented in this encounter [facility] 08-21-[address] [facility] 08-19-2023 History of Present illness Narrative Images from the original note were not included. [facility] SECTION OF REGIONAL CARDIOLOGY OUTPATIENT VISIT DATE August 19, 2023 Yunier Gaines [id number] PRIMARY CARE PHYSICIAN: To use this Smartlink, specify the provider ID whose address you want to display, e.g., .[email or web address] (where 1 is the provider ID). REFERRING PROVIDER: No referring provider defined for this encounter. This note was written using medical terminology and is intended to be used for medical purposes by other health manager wound care ASSESSMENT AND PLAN: Ms. Gaines is a 43 year old female with PMH of: Hypertension PAKO DVT/PE Obesity CRPS s/p spinal stimulator Tobacco use Presented for consultation for preoperative cardiac risk stratification for bariatric surgery Overall impression: Low risk for major cardiac events given excellent functional status. RCRI score of zero Changes today: No ischemia workup prior to cardiac surgery. There is no indication for prophylactic therapeutic anticoagulation prior or after her surgery as below RTC: as needed Preoperative cardiac risk stratification for bariatric surgery Low risk for major cardiac events given excellent functional status (goes to the gym 4-5 times a week, exercises for at least an hour without limitation). RCRI score of zero Echo showed normal biventricular function Plan: No ischemia workup prior to cardiac surgery. Left sided provoked DVT in 2019-- due to leg immobilization for 30 days prior. No recurrence since that episode. There is no indication for prophylactic therapeutic anticoagulation prior or after her surgery. Defer to the surgery team. Obesity On Trulicity Following with bariatric surgery PAKO She is in the process of getting a new machine. Emphasized importance of PAKO treatment in terms of heart health Hypertension Well controlled Plan: Continue carvedilol 25 mg BID Goal BP<130/80 Treat PAKO as above Tobacco use Quit vaping few months ago Encouraged to continued cessation Primary prevention The 10-year ASCVD risk score (Shaq GARCIA, et al., 2019) is: 0.8% Values used to calculate the score: Age: 43 years Sex: Female Is Non- : No Diabetic: No Tobacco smoker: No Systolic Blood Pressure: 121 mmHg Is BP treated: Yes HDL Cholesterol: 43 mg/dL Total Cholesterol: 157 mg/dL Plan: -We discussed recommendation of 150 min moderate intensity exercise /week or at least twice a week resistance training. - We discussed the need for heart healthy diet including a diet high in fruits, vegetables, whole grain, lean protein and low in refined carbs, saturated/trans fat and processed meat I have personally reviewed the Electrocardiogram and Laboratory Testing. Jim Campos MD Cardiovascular disease staff August 19, 2023 11:15 AM HISTORY OF PRESENT ILLNESS: Ms. Gaines is a very pleasant 43 year old female with PMH as above was originally referred to cardiology for preoperative cardiac risk stratification for bariatric surgery. Initial visit 05/05/2023: She has been having palpitations for the last 8 years, now barely noticeable. She has mild chronic left lower extremity edema. She denies any chest pain, dyspnea at rest or with exertion, PND, orthopnea, palpitations, lightheadedness, syncope or significant weight gain. She exercises 4 times a week (cardio and strength training). FH : negative for premature CAD or SCD Interval history 08/19/23 : Since last visit, she has been doing well . She exercises 6 days a week with no limitation. She denies having chest pain , shortness of breath, orthopnea, cough, edema, palpitations, PND, lightheadedness or syncope. No significant weight gain or loss. There is no claudication. PHYSICAL EXAMINATION: BP 121/80 (BP Site: Right Arm, BP Position: Sitting, BP Cuff Size: Extra Large Adult) Pulse 75 Ht 180.3 cm (5' 11 ) Wt (!) 157.5 kg (347 lb 3.2 oz) SpO2 96% BMI 48.42 kg/m GENERAL APPEARANCE: healthy, alert and no distress RESPIRATORY: lungs clear to auscultation - CARDIOVASCULAR: regular S1 and S2. No murmurs. EXTREMITIES: no edema CARDIOVASCULAR MEDICINE TESTING: I have personally reviewed the following lab and imaging tests: Last ECHO Result Conclusion ECHO Collected: 06/04/2023 3:45 PM (Final result) Impression: CONCLUSIONS: - Technically difficult exam due to body habitus. - Exam indication: Pre-op, non cardiac - The left ventricle is normal in size. Left ventricular systolic function is normal. EF = 61 5% (2D biplane) Definity contrast used for endocardial border detection. - Normal left ventricular diastolic function. - The right ventricle is normal in size. Right ventricular systolic function is normal. - There are no significant valvular abnormalities. - No obvious wall motion abnormalities as seen with definity. - The patient has not had a prior CC echocardiographic exam for comparison. * * * Final * * * Last EKG Result Conclusion ECG COMPLETE Collected: 05/05/2023 9:03 AM (Final result) Impression: SINUS BRADYCARDIA LOW VOLTAGE QRS, CONSIDER PULMONARY DISEASE, PERICARDIAL EFFUSION, OR NORMAL VARIANT BORDERLINE ECG NO PREVIOUS ECGS AVAILABLE Confirmed by SMITHA [facility] ([id number]) on 05/06/2023 10:02:17 AM EKG 05/05/2023 NSR, normal QRS/ME/QTc intervals Echo 06/04/2023 - Technically difficult exam due to body habitus. - Exam indication: Pre-op, non cardiac - The left ventricle is normal in size. Left ventricular systolic function is normal. EF = 61 5% (2D biplane) Definity contrast used for endocardial border detection. - Normal left ventricular diastolic function. - The right ventricle is normal in size. Right ventricular systolic function is normal. - There are no significant valvular abnormalities. - No obvious wall motion abnormalities as seen with definity. - The patient has not had a prior CC echocardiographic exam for comparison. TTE OS report 05/12/2020 Summary 1. This study was technically limited, Definity IV contrast was used to enhance endocardial definition. 2. The left ventricular diastolic function is grade I diastolic dysfunction, consistent with low or normal atrial pressures. 3. Left ventricular systolic function is normal, with ejection fraction estimated at 60 +/- 5%. 4. Right ventricular systolic function is mildly reduced, on very limited views. 5. There is borderline pulmonary hypertension, estimated right ventricle systolic pressure is 40 mmHg. 6. There is no comparison study available. Cholesterol, Total (mg/dL) Date Value 02/10/2023 157 HDL Cholesterol (mg/dL) Date Value 02/10/2023 43 LDL Cholesterol (mg/dL) Date Value 02/10/2023 87 Triglyceride (mg/dL) Date Value 02/10/2023 135 Creatinine Date Value Ref Range Status 02/10/2023 0.71 0.58 - 0.96 mg/dL Final NT Pro BNP Date Value Ref Range Status 05/21/2023 42 <125 pg/mL Final WBC (k/uL) Date Value 02/10/2023 6.83 RBC (m/uL) Date Value 02/10/2023 4.55 Hemoglobin (g/dL) Date Value 02/10/2023 13.2 Hematocrit (%) Date Value 02/10/2023 41.5 MCV (fL) Date Value 02/10/2023 91.2 MCH (pg) Date Value 02/10/2023 29.0 MCHC (g/dL) Date Value 02/10/2023 31.8 RDW-CV (%) Date Value 02/10/2023 12.8 Platelet Count (k/uL) Date Value 02/10/2023 223 MPV (fL) Date Value 02/10/2023 10.4 Glucose (mg/dL) Date Value 02/10/2023 99 BUN (mg/dL) Date Value 02/10/2023 15 Creatinine (mg/dL) Date Value 02/10/2023 0.71 Sodium (mmol/L) Date Value 02/10/2023 137 Potassium (mmol/L) Date Value 02/10/2023 5.2 (H) Chloride (mmol/L) Date Value 02/10/2023 102 CO2 (mmol/L) Date Value 02/10/2023 26 Protein, Total (g/dL) Date Value 02/10/2023 6.9 Albumin (g/dL) Date Value 02/10/2023 3.9 Calcium, Total (mg/dL) Date Value 02/10/2023 9.8 Alkaline Phosphatase (U/L) Date Value 02/10/2023 56 Bilirubin, Total (mg/dL) Date Value 02/10/2023 0.4 AST (U/L) Date Value 02/10/2023 23 ALT (U/L) Date Value 02/10/2023 21 PMH: No past medical history on file. No past surgical history on file. Social History Tobacco Use Smoking status: Former Types: Cigarettes Quit date: 04/16/2023 Years since quittin.3 Passive exposure: Never Smokeless tobacco: Former Quit date: 06/12/2023 Tobacco comments: Vape Substance Use Topics Alcohol use: Never Drug use: Never No family history on file. ALLERGIES Allergen Reactions Penicillin G GI Upset Cholesterol, Total (mg/dL) Date Value 02/10/2023 157 CURRENT MEDICATIONS: hydrOXYzine HCl (VISTARIL) 25 mg/mL injection Inject 25 mg intramuscularly one time only. topiramate (TOPAMAX) 25 mg tablet Take 1 tablet nightly x 2 weeks, then increase to 2 tablets nightly dulaglutide (TRULICITY) 4.5 mg/0.5 mL pen injector Inject 4.5 mg subcutaneously one time a week. CPAP/BIPAP/OTHER Auto CPAP 7 to 15 cm H2O DME: [facility] celecoxib (CELEBREX) 200 mg capsule take 1 capsule by mouth twice a day busPIRone (BUSPAR) 10 mg tablet Take 10 mg by mouth three times daily. cetirizine (ZYRTEC) 10 mg tablet Take 1 tablet by mouth every afternoon. cyclobenzaprine (FLEXERIL) 10 mg tablet prazosin (MINIPRESS) 1 mg cap Take 1 mg by mouth daily at bedtime. sertraline (ZOLOFT) 50 mg tablet Take 50 mg by mouth three times a day. carvedilol (COREG) 25 mg tablet Take 1 tablet by mouth every 12 hours 6am/6pm. montelukast (SINGULAIR) 10 mg tablet Take 1 tablet by mouth every afternoon. documented in this encounter [facility] 08-19-[address] [facility] 08-18-2023 Note HNO ID: [id number] Author: BURAK CAMPBELL RRT Service: ? Author Type: Registered Resp Therapist Type: Progress Notes Filed: 08/18/2023 10:47 Note Text: Pt chose Dreamwear nasal fitpack medium for use with her pap machine. [facility] 08-18-2023 History of Present illness Narrative Pt chose Dreamwear nasal fitpack medium for use with her pap machine. documented in this encounter [facility] 08-12-2023 Instructions Haley Nicholson MD - 08/12/2023 2:55 PM EST -START topiramate 25mg --> 50mg qhs after two weeks -continue trulicity -great work with exercise documented in this encounter [facility] 08-12-2023 History of Present illness Narrative Images from the original note were not included. BMI Obesity Medicine FollowUp Note June 16, 2023 Patient Summary: Yunier Gaines is 42 year old who presents virtually for follow-up evaluation of her obesity and related complications to the [facility]. In our previous visits we have outlined an individualized lifestyle intervention including a personalized nutrition recommendations and physical activity optimization. I saw Yunier for her initial visit on 03/18/23. She has lifelong obesity. Rare genetic testing came back inconclusive from [facility] (scanned docs). Hx notable for ++hunger, lack of satiety, ++cravings. Loves being active at baseline. Baseline palpitations at times on carvedilol. She was open to surgery but wanted to trial lifestyle + pharmacotherapy first. She was put on trulicity and has titrated up to 4.5mg since her initial visit. She feels that her hunger is coming back as well as cravings. She continues to work hard at the gym and just feels quite hungry. She is not getting up at night to eat, but she is hungry when she wakes up at nighit. She will have water or lemonade and go back to sleep. I did recommend EMDR for trauma support. Initial Wt: 365lb BMI: 51.6 Current Wt: 348 (355) Ericka Wt: 350lb a few days ago -7lb TWL: -17lb (-4.6%) She has decided to do bariatric surgery and she is undergoing the program and she cardiac clearance already. She did see Brittany Jefferson for medical clearance. Relevant Co-Morbidities: PAKO on cpap Hypertension (carvedilol) due to heart flutters. She had a heart test at 16 (she saw a sugar grinder) she is still symptomatic occasionally but this medication has controlled. DVT 05/12/2020 PE 05/12/2020 Asthma Complex regional pain syndrome Depression, PTSD Weight Graph; (please see graph scanned in chart or EPIC synopsis below) Obesity Medications: Trulicity 3.0mg. Started on 06/17/23 Diet: B: protein pancakes x 2. Stopped caffeine S: protein brownie from protein bites (220 tonio, 15g protein) L: pizza with lavash yesenia bread (homemade) with mala's lavash with 2TB wit 1/4 cup tomato sauce with 1/4 cup easy melt mozz cheese and 1/2 serving turkey pepperoni D: lavash bread + rotisserie chicken + artichoke dip and mozz cheese + salas sauce 1/2 cup ivorian yogurt wit 2 TB wit PB fit + some SF chips + SF butter pecan syrup Woke up hungry but didn't snack Exercise: Gym 3 days a week, 2 cardio 2 strength (1-1.5 hours) Aqua fit - on Thursday and today ?Sleep: Has PAKO, has cpap and is using this Has 6-8 hours a night, much better. Exploring other mask options, she is following with sleep ??Stress: manageable Review of Systems: Negative History reviewed in Epic ALLERGIES Allergen Reactions Penicillin G GI Upset Current Outpatient Medications Medication Sig hydrOXYzine HCl (VISTARIL) 25 mg/mL injection Inject 25 mg intramuscularly one time only. CPAP/BIPAP/OTHER Auto CPAP 7 to 15 cm H2O DME: [facility] homecare dulaglutide (TRULICITY) 4.5 mg/0.5 mL pen injector Inject 4.5 mg subcutaneously one time a week. busPIRone (BUSPAR) 10 mg tablet Take 10 mg by mouth three times daily. cetirizine (ZYRTEC) 10 mg tablet Take 1 tablet by mouth every afternoon. cyclobenzaprine (FLEXERIL) 10 mg tablet prazosin (MINIPRESS) 1 mg cap Take 1 mg by mouth daily at bedtime. sertraline (ZOLOFT) 50 mg tablet Take 50 mg by mouth three times a day. carvedilol (COREG) 25 mg tablet Take 1 tablet by mouth every 12 hours 6am/6pm. montelukast (SINGULAIR) 10 mg tablet Take 1 tablet by mouth every afternoon. topiramate (TOPAMAX) 25 mg tablet Take 1 tablet nightly x 2 weeks, then increase to 2 tablets nightly celecoxib (CELEBREX) 200 mg capsule take 1 capsule by mouth twice a day (Patient not taking: Reported on 08/12/2023) No current facility-administered medications for this visit. No past medical history on file. No past surgical history on file. Social Connections: Not on file No family history on file. Physical Exam: BP 139/83 Pulse 78 Ht 180.3 cm (5' 10.98 ) Wt (!) 158 kg (348 lb 4.8 oz) BMI 48.60 kg/m NAD Results: reviewed labs with the patient. Impression: Yunier Gaines is a 42 year old year old female with class III obesity BMI 49 with PAKO on cpap, HTN, asthma and excessive hunger and strong FH of obesity. Negative genetic testing. Hunger is rebounding with trulicyt 4.5, down 4.6% TBW. Plan: -START topiramate 25mg qhs x 2 weeks, then increase to 50mg qhs. Hx of aflutter, on carvedilol, so avoiding phentermine/contrave -careful with transitioning to a high fat tasting diet as this may lead to more a high fat preference later -continue trulicity to 4.5mg -great exercise and nutrition -prior DVT with broken foot two weeks later; given obesity, will refer to vascular medicine to see if there are add'l recommendations re: pre-operative bariatric surgery ppx or increased post-op lovenox dosing/duration. RTC in 12 weeks Haley Nicholson MD Discussed with Dr. Real I spent a total of 30 minutes on the date of the service which included preparing to see the patient, [id number] patient care, completing clinical documentation, performing a medically appropriate examination, counseling and educating the patient/family/caregiver, and ordering medications, tests, or procedures. documented in this encounter [facility] 08-12-[address] [facility] 08-11-2023 Instructions Seema Maynard PA-C - 08/11/2023 3:30 PM EST Continue PAP Therapy - Continue Auto CPAP at 7-15 cmH2O. - Remember to clean your mask and equipment regularly, as directed. - You should be eligible for new supplies approximately every 3-6 months, depending on your insurance coverage. Contact your [employer] (DME) company for new supplies as needed. - Follow up in 12 months with me. PAP Supply Guidelines Below are the guidelines for reordering your supplies. You will be responsible for your deductible, co-payments, and out of pocket expenses. Item Medicare & Commercial Insurance Medicaid & HCAP Nasal Mask (no headgear) 1 every 3 months 1 per year Nasal Mask Cushion 1 every month 2 per year Full Face Mask (no headgear) 1 every 3 months 1 per year Full Face Mask Cushion 1 every month *Self-Pay Nasal Pillows 2 every month 2 per year Headgear 1 every 6 months 1 per year Chin Strap 1 every 6 months 2 per year Tubing 1 every 3 months 1 per year Filters: Reusable 1 every 6 months 4 per year Filters: Disposable 2 every month 1 per month Humidifier Chamber(disposable) 1 every 6 months *Self-Pay documented in this encounter [facility] 08-11-[address] [facility] 08-11-2023 History of Present illness Narrative Images from the original note were not included. [facility] Follow up/ Established patient visit Date of last visit : 05/18/2023 IMPRESSION/PLAN: 42 years old female with Hx of CPAP and RLS, Pako on cpap (primary encounter diagnosis) Rls (restless legs syndrome) Pako (obstructive sleep apnea) Morbid obesity with bmi of 50.0-59.9, adult (hcc) For PAKO - Auto titrating PAP device 7-15 cmH2O with humidification, will adjust - currently set at fixed 5 cm H2O - Remember to clean your mask and equipment regularly, as directed. - You should be eligible for new supplies approximately every 3-6 months, depending on your insurance coverage. Contact your Durable Medical Equipment (DME) company for new supplies as needed. Formal mask fitting and was recommended RLS Reviewed ferritin levels, transferrin 24.2, ferritin 128 -Advised that nicotine can worsen symptoms Non-pharmacological Therapy Treatment of RLS depends on the suspected cause and severity of symptoms. Strategies to improve RLS include: -Avoidance or reduction of nicotine, caffeine, alcohol, and certain antidepressants, anti-nausea medications, and antihistamines (including diphenylamine) . Treatment of underlying medical conditions associated with RLS -Cold/warm compresses, warm/hot baths or showers, gentle massage, stretching at nighttime, exercise, and mental alerting activities such as puzzles. -Magnesium supplements (500-1000 mg daily) - consult your healthcare provider before starting any [id number] medication if you have chronic health issues or take prescription medications -Diets rich in iron including meats, green leafy vegetables, and legumes -Trial of magnesium supplement and then if not tolerating consider horizon -slow titration, adverse effect shared in MyChart - Avoid driving when drowsy. Recommend that if you are dozing off while driving, that you do not drive until your sleepiness is appropriately treated. F/U 2 months Yelitza Landa MD I have personally seen and evaluated the patient and agree with the documentation by the fellow as above, which I have edited where appropriate. Fay Miles MD,[facility] I have communicated my name and active licensure. The patient's identity and physical location were verified at the time of this visit. Either the patient or their legal nutrition representative has been informed of the risks and benefits of -- and alternatives to -- treatment through a remote evaluation and consents to proceed with the evaluation remotely. Interval history: The patient is a 43 year old female presenting to the office with PMH significant for CRPS, OA, anxiety, HTN, obesity, chronic sciatica, RLS, and PAKO on PAP thearpy. Here today for follow up in regard to CPAP compliance for bariatrics. DME, [facility] home care. RLS: - Stable and improved. - Similar to her CRPS. Tylenol takes care of it with improvement with the CPAP and only affects her 1/7 per week. Ferritin Date Value Ref Range Status 03/11/2023 128.0 14.7 - 205.1 ng/mL Final Transferrin Saturation Date Value Ref Range Status 03/11/2023 24.2 15.0 - 57.0 % Final Hemoglobin Date Value Ref Range Status 02/10/2023 13.2 11.5 - 15.5 g/dL Final SLEEP APNEA Sleep apnea type : PAKO, Most Recent Apnea-Hypopnea Index (AHI): 9.8. Treatment : PAP therapy DME: [facility] PAP History: Uses AutoPAP for 5 hours per night, 50 nights per week. Current PAP settin-15 cm H2O. Difficulties with AutoPAP: None Reviewed objective PAP compliance data: Mask type: full face mask Mask issues: air leak Uses chin strap: No Uses ramp function: Yes. There is a perceived benefit by the patient: Yes. Observers report abolition of snoring with AutoPAP use. - SLEEP HYGIENE QUESTIONS: Bedtime: 10-11 PM Wake up Time: 5 AM. Time it takes to fall sleep: Quickly. Number of times patient wakes up per night: Improved, 1 time. Previously was waking up every 1 hour. Reason (s) why patient wakes up during the night: PTSD, working with psychiatrist. Estimated total sleep time ( in a 24 hour period of time): 6 Naps: No PATIENT-ENTERED QUESTIONNAIRE SLEEP SCORES Sleep Questions 08/10/2023 Reason for visit: Sleep apnea Average hours slept in 24 hours: - Average hours of CPAP per night: - Percent of nights CPAP used at least 4 hours: - Accidents or near accidents due to drowsy drivin [place] Sleepiness Scale 03/23/2023 05/11/2023 08/10/2023 Score 18 (severe daytime sleepiness) 18 (severe daytime sleepiness) 14 (present daytime sleepiness) PROMIS CAT Sleep Disturbance 03/23/2023 05/11/2023 08/10/2023 PROMIS Sleep Disturbance T-Score 68 (moderate) 59 (mild) 54 (within normal limits) PROMIS Sleep Disturbance Percentile 4% 18% 34% Insomnia Severity Index 02/23/2023 05/11/2023 Score 20 15 Restless Leg Syndrome 03/23/2023 05/11/2023 08/10/2023 Score 30 22 21 PHQ-9 05/11/2023 06/05/2023 08/10/2023 Score 9 7 13 PROMIS Global Health - (T-Scores - the mean of general population = 50. Five points is a clinically meaningful difference.) 02/09/2023 05/11/2023 07/12/2023 Physical T-Score 29.6 34.9 34.9 Mental T-Score 28.4 25.1 31.3 PMH, PSH, SH: Reviewed. SLEEP RELATED ROS Review of Systems Constitutional: Positive for fatigue. Respiratory: Negative for difficulty breathing. Cardiovascular: Negative for chest pain and palpitations. Gastrointestinal: Negative for heartburn. Genitourinary: Negative for nocturia. Musculoskeletal: Positive for arthralgias and myalgias. CRPS. Neurological: Negative for dizziness and headaches. ALLERGIES Allergen Reactions Penicillin G GI Upset CURRENT MEDICATIONS: CPAP/BIPAP/OTHER Type .CPAPSettings into a note to see current settings/supplies/DME information. dulaglutide (TRULICITY) 4.5 mg/0.5 mL pen injector Inject 4.5 mg subcutaneously one time a week. CPAP/BIPAP/OTHER Type .CPAPSettings into a note to see current settings/supplies/DME information. celecoxib (CELEBREX) 200 mg capsule take 1 capsule by mouth twice a day busPIRone (BUSPAR) 10 mg tablet Take 10 mg by mouth three times daily. CPAP/BIPAP/OTHER Type .CPAPSettings into a note to see current settings/supplies/DME information. cetirizine (ZYRTEC) 10 mg tablet Take 1 tablet by mouth every afternoon. cyclobenzaprine (FLEXERIL) 10 mg tablet prazosin (MINIPRESS) 1 mg cap Take 1 mg by mouth daily at bedtime. sertraline (ZOLOFT) 50 mg tablet Take 50 mg by mouth three times a day. carvedilol (COREG) 25 mg tablet Take 1 tablet by mouth every 12 hours 6am/6pm. montelukast (SINGULAIR) 10 mg tablet Take 1 tablet by mouth every afternoon. CPAP/BIPAP/OTHER Type .CPAPSettings into a note to see current settings/supplies/DME information. PHYSICAL EXAM: General appearance: Well appearing, in NAD. Well groomed and maintained. Mental status: Alert and oriented x 3. Constitutional: WNL. ENT : Nasal congestion absent, Nasal valve incompetence absent. Extremities: WNL. Neuro: No focal deficit. IMPRESSION/PLAN: No diagnosis found. Clinical Global Impression of Change ( CGI-C) Compared to the patient's condition at baseline, how much has the patient changed? Very much improved The patient is a 43 year old female presenting to the office with PMH significant for CRPS, OA, anxiety, HTN, obesity, chronic sciatica, RLS, and PAKO on PAP thearpy. Here today for follow up in regard to CPAP compliance for bariatrics. DME, [facility] home care. She has been compliant and benefiting on current device with residual AHI under 5 and patient reaching greater than 70% compliance. She admits to significant benefit in her sleep quality as well as her quality of life and RLS has since been significantly improved to near resolution. At this point from sleep medicine standpoint her sleep apnea is well-controlled for her to proceed with bariatric evaluation. - We discussed the pathophysiology, risk factors and consequences of untreated sleep apnea. We reviewed the data that in particular identified severe obstructive sleep apnea as a risk for increased mortality and increased cardiovascular risk as well as tied with insulin resistance, hypertension and cardiac arrhythmia. We also discussed treatment options for sleep apnea including positive airway pressure, upper airway surgery, oral appliances and hypoglossal nerve stimulation. - We reviewed the most recent sleep study. - Continue auto CPAP at 7 to 15 cm H2O. - New prescription for supplies sent to [facility] today. - Remember to clean your mask and equipment regularly, as directed. - You should be eligible for new supplies approximately every 3-6 months, depending on your insurance coverage. Contact your Durable Medical Equipment (DME) company for new supplies as needed. - We encourage a healthy lifestyle with adequate sleep (7-8 hours), diet and exercise. - Discussed safe sleeping strategies for both patient and bed partner. - Avoid driving when drowsy. Would recommend that if you are dozing off while driving, that you do not drive until your sleep apnea and sleepiness are appropriately treated. - Avoid the use of alcohol, sedatives, and narcotic pain medication at bedtime - Discussed insurance requirements. - Follow up in 1 year. - Sleep apnea is well-controlled from sleep medicine standpoint to proceed with evaluation through bariatrics. I spent a total of 30 minutes on the date of the service which included preparing to see the patient, [id number] patient care, completing clinical documentation, obtaining and/or reviewing separately obtained history, performing a medically appropriate examination, counseling and educating the patient/family/caregiver, and ordering medications, tests, or procedures. Seema Maynard PA-C documented in this encounter [facility] 08-06-2023 Miscellaneous Notes XIPWIRE message sent documented in this encounter [facility] 08-02-[address] [facility] 07-31-[address] [facility] 07-30-[address] [facility] 07-30-[address] [facility] 07-28-[address] [facility] 07-28-[address] [facility] 07-23-[address] [facility] 07-21-[address] [facility] 07-16-[address] [facility] 07-14-[address] [facility] 07-09-[address] [facility] 07-09-[address] [facility] 07-01-2023 Note HNO ID: [id number] Author: Maricel Caraballo RD Service: ? Author Type: Registered Dietitian Type: Progress Notes Filed: 07/01/2023 4:09 PM Note Text: Nutritional Therapy Re-Assessment I have communicated my name and active licensure. The patient?s identity and physical location were verified at the time of this visit. Either the patient or their legal nutrition representative has been informed of the risks and benefits of -- and alternatives to -- treatment through a remote evaluation and consents to proceed with the evaluation remotely. I have confirmed and edited as necessary the Nutrition Assessment or Re-Assessment obtained from Cynthia Samson RD on 06/04/23 and all reflect current status. Nutrition Diagnosis: Overweight/obesity, related to, food/nutrition - related knowledge deficit, as evidenced by BMI above normative standard for age and gender RECOMMENDED MALNUTRITION DIAGNOSIS: NO MALNUTRITION IDENTIFIED NUTRITION CARE PLAN: Nutrition Intervention 07/01/2023: Modify type and amount of food consumed at meals and snacks CONTINUE: 64 oz fluids per day (no carbonation, no caffeine, no calories, no alcohol) 3 meals per day, do not skip meals Use a protein shake to replace skipped meals or for breakfast, add fruit GOAL: 98 grams protein each day, have a protein food with each meal/snack Follow the Healthy Plate for lunch and dinner Continue Mindful Eating Take small bites, chew slowly Meals should last 20-30 min Separate eating/drinking Stop when full Activity (both cardio and strength exercises): continue current exercise Continue to investigate pre-op protein shakes - in preparation for 3 weeks pre-op liquid diet Continue to investigate post-op vitamins, as needed. Pre-op goal weight: 351 pounds Protein needs: 98 gm per day Nutrition Monitoring AND Evaluation: wt loss of 1-2 lbs/week Need for Follow up: 4 weeks PROGRESS: Interval History: Patient presents for Virtual MNT Nutrition Re-Assessment and counseling in preparation for weight loss surgery, LSG (Dr. Meeks). Weight change: loss of 22 lbs since start of MNT. Initial weight 370 lbs/71 inches on 02/04/23. Creatine 02/10/23 WNL. Diet recall indicates a regular meal pattern with daily, appropriate use of protein shake as meal replacement. Protein intake meets needs (98 g/day). Fluids meet recommendations (64 oz fluids,/day), primarily with 0-calorie beverages. Physical activity is consistent and includes both aerobic and strength training, weekly duration inconsistently meeting recommended, 150-250 minutes per week of aerobic activity and muscle strengthening activity at least 2 non-consecutive days per week. Labs: No new/recent labs to assess. Patient meets the National Institutes of Health guidelines for weight loss surgery and has [employer] therefore is required to complete 6 months of Nutrition Intervention for clearance for surgery. Today is visit 5 of 6 ([place] 02/04/23, [place] 03/18/23, [place] 04/27/23, 06/04/23, Ilya 07/01/23). PROGRESS: Nutrition Intervention (date of last encounter 04/27/23): Modify type and amount of foods consumed for meals and snacks 1. Read Nutritional Guidelines Section of Your Guide to Surgery by next session [email or web address] 2. Do not skip meals. 3. Use protein shake 1x per day to replace any skipped meals or for breakfast. Aim for shakes ~150-200 calories, ~15-20 grams of protein, <5 grams of total sugar. Choose from these options that are approved for the pre-op liquid diet: Slim Fast High Protein (20 g protein), Atkins (15 g protein), Boost Glucose Control (20 g protein), Owyn (20 g protein), [place] Breakfast Essentials Light Start mixed with fat free or 1% milk 4. Use the Healthy Plate Method of portion control for meals 1/4 plate (3-4 oz) lean meat, fish, chicken, pork tenderloin, turkey, seafood, eggs/cheese 1/2 plate non-starchy vegetables (salad, greens, cabbage, spinach, brussels sprouts, broccoli, carrots, celery, peppers, green beans, cauliflower) 1/4 plate (up to 1 cup) whole grain, starch/starchy vegetables (corn, peas, harvey beans, winter squash, sweet potato, rice, pasta, potato) 5. Physical activity: Aim for 150 minutes of physical activity per week. Include 10-20 minutes of strength/resistance exercise 2-3x/week. 6. Drink 64 ounces per day water. Fluids should follow these guidelines: No carbonation, no caffeine, no calories, no alcohol. 7. Start to explore post surgery bariatric vitamins/minerals: Daily multivitamin, iron 45-60 mg, calcium citrate w/ Vit D 3209-9385 mg, Vit B12 500 mcg sublingual pill or liquid, Vit D3 3000 international unit(s), B complex with 75-100 mg thiamin It is ok to take a combination bariatric vitamin to limit pill volume. Here are a few options to consider: - Bariatric Fusion: 4 Complete Multiv (more content not included)... [facility] 06-26-[address] [facility] 06-25-[address] [facility] 06-25-2023 History of Present illness Narrative Pt presents for therapy. Upon review of documentation, discovered that the C-9 was extended to 06/24/23. Due to this date being outside of the parameter, unable to treat the patient. Patient was instructed to contaact MCO. documented in this encounter [facility] 06-16-2023 Instructions Haley Nicholson MD - 06/16/2023 4:53 PM EST -INCREASE trulicity to 4.5mg -great exercise and nutrition documented in this encounter [facility] 06-16-2023 History of Present illness Narrative Images from the original note were not included. BMI Obesity Medicine FollowUp Note June 16, 2023 Patient Summary: Yunier Gaines is 42 year old who presents virtually for follow-up evaluation of her obesity and related complications to the [facility] Bariatric and Metabolic Ismay. In our previous visits we have outlined an individualized lifestyle intervention including a personalized nutrition recommendations and physical activity optimization. I saw Yunier for her initial visit on 03/18/23. She has lifelong obesity. Rare genetic testing came back inconclusive from [facility] (scanned docs). Hx notable for ++hunger, lack of satiety, ++cravings. Loves being active at baseline. Baseline palpitations at times on carvedilol. She was open to surgery but wanted to trial lifestyle + pharmacotherapy first. She was put on trulicity and has titrated up to 3.0mg since her initial visit. I did recommend EMDR for trauma support. Initial Wt: 365lb BMI: 51.6 Current Wt: 355 Ericka Wt: 350lb a few days ago TWL: -10lb When she first started taking the 3.0mg dose, she was full, but now this has reverted. She is wking up in the middle of the night and she is really hungry and she prevents herself. She also has started to snack a little but more so b/c they are making [place] cookies. She has a little nausea on day 2-3 and it comes and goes. Her hunger is much less comparatively. She has decided to do bariatric surgery and she is undergoing the program and she cardiac clearance already. She did see Brittany Jefferson for medical clearance. Relevant Co-Morbidities: PAKO on cpap Hypertension (carvedilol) due to heart flutters. She had a heart test at 16 (she saw a sugar grinder) she is still symptomatic occasionally but this medication has controlled. DVT 05/12/2020 PE 05/12/2020 Asthma Complex regional pain syndrome Depression, PTSD Weight Graph; (please see graph scanned in chart or EPIC synopsis below) Obesity Medications: Trulicity 3.0mg. Started on 06/17/23 Diet: B: protein coffee and mandarin orange S: mitch cookie L: cauliflower pizza with chicken and bianchi (aldi's - she'll typically have half) + cookie D: turkey chili Woke up hungry but didn't snack Exercise: Gym 3-4 days a week, 2 cardio 2 strength (1-1.5 hours) ?Sleep: Has PAKO, has cpap and is using this Has 6-8 hours a night, much better. Exploring other mask options, she is following with sleep ??Stress: manageable Review of Systems: Negative History reviewed in Epic ALLERGIES Allergen Reactions Penicillin G GI Upset Current Outpatient Medications Medication Sig CPAP/BIPAP/OTHER Type .CPAPSettings into a note to see current settings/supplies/DME information. celecoxib (CELEBREX) 200 mg capsule take 1 capsule by mouth twice a day busPIRone (BUSPAR) 10 mg tablet Take 10 mg by mouth three times daily. CPAP/BIPAP/OTHER Type .CPAPSettings into a note to see current settings/supplies/DME information. cetirizine (ZYRTEC) 10 mg tablet Take 1 tablet by mouth every afternoon. cyclobenzaprine (FLEXERIL) 10 mg tablet prazosin (MINIPRESS) 1 mg cap Take 1 mg by mouth daily at bedtime. sertraline (ZOLOFT) 50 mg tablet Take 50 mg by mouth three times a day. carvedilol (COREG) 25 mg tablet Take 1 tablet by mouth every 12 hours 6am/6pm. montelukast (SINGULAIR) 10 mg tablet Take 1 tablet by mouth every afternoon. CPAP/BIPAP/OTHER Type .CPAPSettings into a note to see current settings/supplies/DME information. dulaglutide (TRULICITY) 4.5 mg/0.5 mL pen injector Inject 4.5 mg subcutaneously one time a week. No current facility-administered medications for this visit. No past medical history on file. No past surgical history on file. Social Connections: Not on file No family history on file. Physical Exam: BP 118/70 Pulse 80 Ht 180.3 cm (5' 10.98 ) Wt (!) 161 kg (355 lb) BMI 49.53 kg/m NAD Results: reviewed labs with the patient. Impression: Yunier Gaines is a 42 year old year old female with class III obesity BMI 49 with PAKO on cpap, HTN, asthma and excessive hunger and strong FH of obesity. Negative genetic testing. Plan: -INCREASE trulicity to 4.5mg -great exercise and nutrition -she has been cleared for bariatric surgery and is an appropriate candidate for this and our combined approach with pharmacotherapy, lifestyle and surgery RTC in 6-8 weeks Haley Nicholson MD I have discussed the case with the OM Fellow. I agree with the assessment and plan as documented in the OM Fellow s note. She is still on the pathway for bariatric surgery and appears to have completed all the testing to include a chest x-ray, EKG, RUQ ultrasound, and echocardiogram. The echocardiogram revealed normal left ventricular/right ventricular systolic function no evidence of valvular heart disease. Preop labs were all reviewed and were normal except for slightly elevated potassium 5.2. The right upper quadrant revealed hepatic steatosis. She was started on CPAP after a recent titration sleep study revealed a PAP setting of 12 cmH2O, during which supine REM sleep was recorded, the apnea-hypopnea and arousal indices were normalized, snoring was eliminated, and the oxygen saturation was maintained above 90%. Travis Castellanos DO documented in this encounter [facility] 06-16-[address] [facility] 06-16-[address] [facility] 06-08-[address] [facility] 06-05-[address] [facility] 06-05-2023 Miscellaneous Notes Echo showed normal biventricular function and no evidence of pulmonary hypertension. No further cardiac workup is needed prior to her surgery. Jim Campos MD Cardiovascular disease staff 06/05/2023 9:06 AM documented in this encounter [facility] 06-04-[address] [facility] 06-04-2023 History of Present illness Narrative 06/04/2023 4:19 PM IV Access: IV IV Site: left Hand IV GAUGE 24 gauge IV Removal Date 06/04/2023 Time 1619 Reactions: WNL Order reviewed by nurse:yes Medications: Definity - dosage 2cc Reaction: No Joshua Vega RN documented in this encounter [facility] 06-04-[address] - 06/04/2023 2:59 PM EST Nutrition Intervention: Modify type and amount of foods consumed for meals and snacks 1. Do not skip meals. 2. Use protein shake 1x per day to replace any skipped meals or for breakfast. 3. Use the Healthy Plate Method of portion control for lunch and dinner 4 oz lean meat (fish, chicken, pork tenderloin, turkey, seafood, eggs/cheese 1/2 plate non starchy vegetables (salad, greens, cabbage, spinach, brussels sprouts, broccoli, carrots, celery, peppers, green beans, cauliflower) 1 cup starch/starchy vegetables (corn, peas, harvey beans, winter squash, sweet potato, rice, pasta, potato) 4. Protein goal: 98 grams/day 5. Practice these: * Eat in this order protein first, vegetable and fruit second and whole grain carbohydrates last. * Separate eating and drinking by 30 minutes * Chew your food 20-30x per bite * Meals should last 30 minutes. 6. Fluids: Drink 64 oz minimum/day. Fluids should follow these guidelines: No carbonation, no caffeine, no calories, no alcohol. 7. Physical activity: Goal of 150-250 minutes per week cardio/aerobic exercise, and 10-20 minutes strength training 2-3x per week 8. Start to explore vitamins and minerals for post-op. Pre-op goal weight: 351 lbs Nutrition Monitoring & Evaluation: 1-2 lb weight loss per week prior to surgery Criteria: weight check and patient update Need for Follow up: 1 month, scheduling [phone] documented in this encounter [facility] 06-04-2023 Miscellaneous Notes Pharmacy calls in requesting the following refill(s): Requested Prescriptions Pending Prescriptions Disp Refills dulaglutide (TRULICITY) 3 mg/0.5 mL pen injector 2 mL 0 Sig: Inject 3 mg subcutaneously one time a week. DUPLICATE REQUEST documented in this encounter [facility] 06-04-2023 History of Present illness Narrative AMBULATORY PATIENT EDUCATION NOTE- Shared Virtual Nutrition Group I have communicated my name and active licensure. The patient's identity and physical location were verified at the time of this visit. Either the patient or their legal nutrition representative has been informed of the risks and benefits of -- and alternatives to -- treatment through a remote evaluation and consents to proceed with the evaluation remotely. Patient reports weight (as measured by home scale) of 351 pounds (?- Dr. Meeks) PROGRESS: Nutrition Intervention (date of last encounter 04/27/23): Modify type and amount of foods consumed for meals and snacks 1. Read Nutritional Guidelines Section of Your Guide to Surgery by next session [email or web address] 2. Do not skip meals. 3. Use protein shake 1x per day to replace any skipped meals or for breakfast. Aim for shakes ~150-200 calories, ~15-20 grams of protein, <5 grams of total sugar. Choose from these options that are approved for the pre-op liquid diet: Slim Fast High Protein (20 g protein), Atkins (15 g protein), Boost Glucose Control (20 g protein), Owyn (20 g protein), [place] Breakfast Essentials Light Start mixed with fat free or 1% milk 4. Use the Healthy Plate Method of portion control for meals 1/4 plate (3-4 oz) lean meat, fish, chicken, pork tenderloin, turkey, seafood, eggs/cheese 1/2 plate non-starchy vegetables (salad, greens, cabbage, spinach, brussels sprouts, broccoli, carrots, celery, peppers, green beans, cauliflower) 1/4 plate (up to 1 cup) whole grain, starch/starchy vegetables (corn, peas, harvey beans, winter squash, sweet potato, rice, pasta, potato) 5. Physical activity: Aim for 150 minutes of physical activity per week. Include 10-20 minutes of strength/resistance exercise 2-3x/week. 6. Drink 64 ounces per day water. Fluids should follow these guidelines: No carbonation, no caffeine, no calories, no alcohol. 7. Start to explore post surgery bariatric vitamins/minerals: Daily multivitamin, iron 45-60 mg, calcium citrate w/ Vit D 0863-2392 mg, Vit B12 500 mcg sublingual pill or liquid, Vit D3 3000 international unit(s), B complex with 75-100 mg thiamin It is ok to take a combination bariatric vitamin to limit pill volume. Here are a few options to consider: - Bariatric Fusion: 4 Complete Multivitamin chewables per day OR 1 Multivitamin capsule and 2528-7534 mg calcium citrate per day OR 2 Multivitamin soft chews per day + 3 calcium citrate soft chews + 1 iron soft chew per day [email or web address] - Bariatric Choice: 4 All-in-One Bariatric Multivitamin chewables per day OR 1 Once Daily Bariatric Multivitamin capsule and 4509-7564 mg calcium citrate per day [email or web address] - Bariatric Pal: 4 All-in-One Multivitamin chewables per day OR 1 Multivitamin One (chewable or capsule) and 9013-4886 mg calcium citrate per day [email or web address] [email or web address] - Bariatric Advantage: 1 Ultra Solo multivitamin w/ iron (chewable or capsule) OR 2 chewable Advanced Multi EA w/ iron and 8693-3842 mg calcium citrate per day OR 2 Multi Chewy Bites and 4993-8565 mg calcium citrate and 45-60 mg iron per day [email or web address] - Procare Health: 1 Bariatric Multivitamin w/ iron (capsule or chewable) and 2941-2916 mg calcium citrate per day [email or web address] - Celebrate: 2 Multi-Complete (chewable or capsule) OR 1 CelebrateOne Multivitamin capsule and 5250-6321 mg calcium citrate per day OR 2 Multivitamin soft chews + 3 calcium citrate soft chews + 1 iron soft chew per day [email or web address] - Barilife: 1 Just One Bariatric Multivitamin w/ iron (chewable or capsule) and 3150-4440 mg calcium citrate per day [email or web address] - Barimelts: 2 Multivitamin w/ iron tablets and 9150-5358 mg calcium citrate per day [email or web address] Pre-op goal weight: 351 pounds Protein needs: 98 gm per day CHANGES IN TREATMENT: Patient met goal(s): Partially Diagnosis: has not changed. Allergies: Penicillin G Medications: Current Outpatient Medications Medication Sig Dispense Refill dulaglutide (TRULICITY) 3 mg/0.5 mL pen injector Inject 3 mg subcutaneously one time a week. 4 Each 1 CPAP/BIPAP/OTHER Type .CPAPSettings into a note to see current settings/supplies/DME information. 1 Each 0 celecoxib (CELEBREX) 200 mg capsule take 1 capsule by mouth twice a day 60 capsule 0 busPIRone (BUSPAR) 10 mg tablet Take 10 mg by mouth three times daily. CPAP/BIPAP/OTHER Type .CPAPSettings into a note to see current settings/supplies/DME information. 1 Each 0 cetirizine (ZYRTEC) 10 mg tablet Take 1 tablet by mouth every afternoon. cyclobenzaprine (FLEXERIL) 10 mg tablet prazosin (MINIPRESS) 1 mg cap Take 1 mg by mouth daily at bedtime. sertraline (ZOLOFT) 50 mg tablet Take 50 mg by mouth three times a day. carvedilol (COREG) 25 mg tablet Take 1 tablet by mouth every 12 hours 6am/6pm. montelukast (SINGULAIR) 10 mg tablet Take 1 tablet by mouth every afternoon. CPAP/BIPAP/OTHER Type .CPAPSettings into a note to see current settings/supplies/DME information. 1 Each 0 No current facility-administered medications for this visit. (currently taking) ; Anthropometrics: Height: Last 1 Encounter Ht Readings: Date: Ht: 05/05/2023 180.3 cm (5' 11 ) Current weight: Last 1 Encounter Wt Readings: Date: Wt: 05/05/2023 164.1 kg (361 lb 12.8 oz) Body mass index is 48.95 kg/m . Resting Metabolic Rate: 2398 Malnutrition Screening Significant unintentional weight loss? No Eating less than 75% of usual intake for more than 2 weeks? No Nutritional status: Educational materials provided: none this visit READINESS TO LEARN Cognitive ability: Alert and oriented Motivation to learn: Interested Family support: Unable to assess - Family not present Instruction provided to: Patient Patient learns best by: Multiple Methods Factors affecting learning: None Physical limitations affecting learning: None Likelihood of Adherence: High Patient participated in preop bariatric surgery shared nutrition appointment. Patient participated actively in group. Since last visit patient -15 lbs (366 lbs). Diet recall reveals consistent eating pattern with no skipped meals and appropriate use of Atkins protein shake to replace breakfast. She is meal prepping with attention to meals that follow healthy plate. Fluid intake is adequate with sufficient water. Physical activity is routine and meets recommendations with cardio and strength. Patient meets the National Institutes of Health guidelines for weight loss surgery and has [employer]em[employer] Insurance therefore is required to complete 6 months of Nutrition Intervention for clearance for surgery. Today is visit 4 of 6 ([place] 02/04/23, [place] 03/18/23, [place] 04/27/23, 06/04/23). Nutrition Diagnosis: Overweight/obesity, related to, food/nutrition - related knowledge deficit, as evidenced by BMI above normative standard for age and gender. Nutrition Intervention: Modify type and amount of foods consumed for meals and snacks 1. Do not skip meals. 2. Use protein shake 1x per day to replace any skipped meals or for breakfast. 3. Use the Healthy Plate Method of portion control for lunch and dinner 4 oz lean meat (fish, chicken, pork tenderloin, turkey, seafood, eggs/cheese 1/2 plate non starchy vegetables (salad, greens, cabbage, spinach, brussels sprouts, broccoli, carrots, celery, peppers, green beans, cauliflower) 1 cup starch/starchy vegetables (corn, peas, harvey beans, winter squash, sweet potato, rice, pasta, potato) 4. Protein goal: 98 grams/day 5. Practice these: * Eat in this order protein first, vegetable and fruit second and whole grain carbohydrates last. * Separate eating and drinking by 30 minutes * Chew your food 20-30x per bite * Meals should last 30 minutes. 6. Fluids: Drink 64 oz minimum/day. Fluids should follow these guidelines: No carbonation, no caffeine, no calories, no alcohol. 7. Physical activity: Goal of 150-250 minutes per week cardio/aerobic exercise, and 10-20 minutes strength training 2-3x per week 8. Start to explore vitamins and minerals for post-op. Pre-op goal weight: 351 lbs Nutrition Monitoring & Evaluation: 1-2 lb weight loss per week prior to surgery Criteria: weight check and patient update Need for Follow up: 1 month, scheduling [phone] Appointment Start Time: 9:45am Appointment End Time: 10:33am Time Spent on Consult: 48 minutes Signed by: Cynthia Samson RD, LD documented in this encounter [facility] 06-04-[address] [facility] 06-01-2023 Telephone encounter Note Refused, refilled at 3.0mg, pt needs a f/u visit. I did send in the 3.0mg dose [facility] Work Phone: 06-01-2023 Miscellaneous Notes Refused, refilled at 3.0mg, pt needs a f/u visit. I did send in the 3.0mg dose 2 days ago [place] This patient called she is taking Trulicity Medication. She needs a refill and she wants To know if you are going to increase her Dosage. Please reach out . Thanks documented in this encounter [facility] 06-01-2023 Miscellaneous Notes MyChart message sent documented in this encounter [facility] 05-29-2023 Telephone encounter Note 2 days ago [place] This patient called she is taking Trulicity Medication. She needs a refill and she wants To know if you are going to increase her Dosage. Please reach out . Thanks [facility] 05-27-2023 Miscellaneous Notes This patient called she is taking Trulicity Medication. She needs a refill and she wants To know if you are going to increase her Dosage. Please reach out . Thanks documented in this encounter [facility] 05-22-[address] [facility] 05-22-2023 History of Present illness Narrative Episode Visit Count: 15 Therapist That Will Accept/Oversee The Plan Of Care: Yazan Gaitan Start of Care Date: 03/26/23 Onset Date: 01/21/23 Plan of Care Certification Date: 04/15/23 Next Certification Due Date: 06/14/23 REHABILITATION AND SPORTS THERAPY PHYSICAL THERAPY AQUATIC TREATMENT NOTE ASSESSMENT: Yunier Gaines tolerated the session with no issues. She demonstrated 100% recall of exercises with good technique. The patient will continue to benefit from ongoing skilled physical therapy to progress toward set goals. PLAN FOR NEXT VISIT: Progress land-based program to tolerance, progress independence with aquatics SUBJECTIVE: Back was sore after last land appointent but was better after taking ibuprofen. Pain: Pain Pain Level: 3 Pain Location: Back Description: Aching Frequency: Continuous Pain Level 2: 5 Pain Location 2: Foot - Left Description 2: Burning Frequency 2: Continuous Post Treatment Pain Post Treatment Pain Level: No Change OBJECTIVE MEASURES WITH LEVEL OF FUNCTION: Posture / Alignment Posture: Forward head, Rounded shoulders Gait Gait Observation: ambulated on pool deck without AD TREATMENT: Aquatic Therapy: Footwear on pool deck pre-treatment: Yes, patient wearing appropriate footwear and appeared safe on pool deck Footwear on pool deck post-treatment: Yes, patient wearing appropriate footwear and appeared safe on pool deck Entered the pool: Forward on stairs Entered the pool assist level: Supervision Entered the pool step pattern: Step over step Exited the pool: Forward on stairs Exited the pool assist level: Supervision Exited the pool step pattern: Step over step Aquatic Therapy (19821): Walking, Lower Extremity, Vertical / Mobile - Buoyancy Supported, Posture / Trunk Exercise, Stretching and Flexibility Walking: Forward Walking, Backward Walking, Lateral/ Side Stepping Water Depth: 4.5 Forward Walkin Backward Walkin Lateral/Side Steppin Posture/Trunk Exercise: Abdominal Stabilization Pull Downs, Abdominal Stabalization Push Downs, Abdominal Stabalization Push - Pull, 1 Water Depth: 4.5 Abdominal Stabilization Pull Downs : 30 Abdominal Stabalization Push Downs : 30 Abdominal Stabalization Push - Pull: 30 1: red KB Water Depth: 4.5 at wall Squats: 25 Hip Flexion: 25 Hip Extension: 25 Hip Abduction: 25 Hip Adduction: 25 Hip Internal /External Rotation: 25 Hip Circumduction: 25 Knee LAQ: 25 up/out/in/dn Knee Hamstring Curls: 25 Heel Raises: 25 Ankle Circles: 25 Ankle Inversion/ Eversion: 25 Ankle Plantarflexion/ Dorsiflexion: 25 Stretching and Flexibility: Hamstrings, 1, Gastroc Water Depth: deep end steps Hamstrings: 2 x 30 sec B Gastroc : 2 x 30 sec Abbreviation Cannon: BA = buoyancy assisted BR = buoyancy resisted BS = buoyancy supported reps = repetitions HEP = home exercise program Skilled Intervention: Patient education: Weight bearing effects of immersion Proper hydration following aquatic session Rationale/technique for exercises and activities performed this visit Expectation of fatigue/discomfort with exercise progressions and normal response Goal to gradually decrease water depth to tolerance in preparation for transition to land based physical therapy and daily living Advised to rest as needed upon exiting pool prior to walking to locker room to re-acclimate to full weight bearing status Patient with good understanding Education and demonstration for posture and positioning. Group Therapy: 1: Noodle work: 2: ab/adduction 2min 3: bicycle 2min 4: distraction x 5min Skilled Intervention: Aquatic Cueing for exercise technique Billing Aquatic Therapy Treatment Minutes: 47 * Group Therapy: 1 unit Skilled Treatment Time Minutes (timed and untimed codes): 57 Total Session Time (minutes): 57 Session Start Time : 832 Session Stop Time : 929 Stephania Alvarez PT documented in this encounter [facility] 05-19-2023 Miscellaneous Notes Faxed order, office notes, demographics, and sleep study to: DME name: [facility] DME fax: [phone] DME ph: documented in this encounter [facility] 05-18-2023 Instructions Fay Miles MD - 05/18/2023 1:54 PM EST About Your PAP Therapy Continuous Positive Airway Pressure/Bilevel Therapy You have been prescribed Positive Airway Pressure (PAP) therapy to treat sleep apnea. The most common type of sleep apnea is obstructive sleep apnea (PAKO), a condition in which the upper airway collapses during sleep. This obstruction keeps air from getting into your lungs. The prescribed PAP machine (CPAP or Bilevel or ASV) will smoothly blow air into your airway to prevent it from closing. The machine will use a mask to deliver the air through your nose and/or mouth. These devices are available in various sizes and styles. It will take some time for you to get used to the new equipment and it may take a while for you to begin to feel the benefits of PAP therapy. Please be patient. If you are having problems adjusting to your machine, please contact us for help. Beginning your PAP Therapy Assembly: Place your PAP machine on a level surface near your bed. To prevent injury, do not place the machine higher than your head. Keep the machine at least 12 inches away from anything that may block the vents. Plug the machine into a properly grounded electrical outlet. It is better to avoid using an extension cord. If necessary, use a heavy-duty one. If you are NOT using a humidifier with you PAP equipment: Attach one end of your 6-foot tubing to the PAP unit outlet and the other end to your mask. (If your mask does not have a built-in exhalation port, a special exhalation valve should be used between the mask and the 6-foot tubing.) Attach the headgear to your mask. If you are using a humidifier with your PAP equipment: Fill the humidifier with DISTILLED water to the maximum fill line. Attach the humidifier to the PAP unit s outlet as instructed by the respiratory therapist with your home care company. Attach one end of your 6-foot tubing to the humidifier outlet and the other end to your mask. (If your mask does not have a built-in exhalation port, a special exhalation valve should be used between the mask and the 6-foot tubing.) If you have been prescribed oxygen to be used with the PAP machine, you will be instructed on how to attach your oxygen tubing. Always turn off the oxygen tank before turning off your PAP machine. Getting Started: Wash your face and apply the mask and headgear as instructed by the environmental health technologist or respiratory therapist. The mask should fit snugly to prevent air leaks, but not so tight as to cause skin irritation or discomfort. Turn the PAP power switch to the ON position. You should feel air blowing through the mask. Breathe normally and adjust the mask gently if you feel an air leak. If there are no leaks, activate the ramp feature on your PAP machine. The ramp allows a lower pressure to be delivered for a designated period of time (usually 5 to 45 minutes) to allow you to relax and fall asleep more easily. The pressure will then gradually increase to the prescribed pressure that controls your apnea. Remember to turn OFF your PAP unit when it is not in use. Care and Maintenance Headgear should be washed as needed. Daily inspection and weekly washings are recommended. Do not disassemble the straps. Machine wash in warm water, making sure to attach Velcro hooks and tabs before washing. Line dry or machine dry on a low setting. Masks should be washed every other day. Daily inspection is recommended. Leave the mask and tubing attached. Gently wash the mask with a soft cloth using warm water and mild detergent, concentrating on the mask cushion flaps. DO NOT use alcohol or bleach. Rinse thoroughly and air dry. Tubing should be washed every other day. Daily inspection is recommended. Wash in warm water and mild detergent and rinse thoroughly. Hook the tubing to the machine and blow until dry. Humidifier should be washed daily and filled with DISTILLED water before use. Wash with warm water and mild detergent. Disinfect weekly by soaking with a solution of 1 part white vinegar and 3 parts water for 30 minutes. Rinse thoroughly and air dry. Disposable filters should be replaced once a month. Wash reusable foam filters with warm water and mild detergent at least once a month. Rinse thoroughly and dry with paper towels. Avoid account installation specialist that contain fragrance or conditioners, as these will leave a residue. NEVER iron any soft goods. Troubleshooting If the machine fails to turn on: Make sure that the PAP machine is plugged into a grounded outlet. Make sure that the ON/OFF switch is in the ON position. Make sure that the wall outlet has power. If there is no pressure coming from your machine: Make sure that the inlet filter is clean and unblocked. Make sure that the cooling fan is unblocked and that air is flowing freely. Make sure that all tubing is securely connected. If your PAP machine still fails to operate, please call [phone] or your home care company for assistance. What You Should Know About Insurance There are many different insurance policies and coverage for PAP equipment will vary. Find out what your coverage provides and what your responsibilities are as a consumer. PAP therapy equipment is considered Durable Medical Equipment (DME). Here are a few questions to ask your insurance provider. What benefits do I have for DME? Do I have a deductible and/or co pay for DME? Is there a repair or replacement plan for durable medical equipment? How often can I receive a replacement mask, tubing, headgear and filters? Do I have to demonstrate that I am using my PAP device? How do I do that? Important Information It is very important to keep your PAP equipment and supplies clean. The life of the supplies depends on the care they receive. Under normal circumstances, expect the mask and headgear to last 9-12 months. Refer to the brass pickler s manual for more information. Important Safety Reminders Keep equipment free from obstruction. Use your PAP equipment as directed. DO NOT try to adjust your pressure setting. DO NOT block the exhalation port or valve. Keep filters clean to prevent overheating. If a humidifier is being used, place it at a level lower than your head. If using a heated humidifier, allow unit to cool before cleaning or refilling. Follow safety guidelines regarding oxygen equipment.DO NOT operate multiple electrical devices from one outlet. If you have a medical emergency, contact the Emergency Medical Services. Below are the links to follow to watch a PAP education video: http://my.[facility].org/home_c are/services/home_respiratory_therap y.aspx http://www.[employer].com/watch?v=peJ_e pDGzEw http://my.[facility].org/neurol ogical_institute/xdjba-wfgjondqw-bpx ter/treatment-services/pap-therapy.a spx Auto titrating PAP device 7-15 cmH2O with humidification, - I will have a prescription sent to a [employer] (durable medical equipment) company - [facility] who will be calling you in the next 1-2 weeks or so. Please call them directly or us if you do not hear from them in this time frame. - You should be eligible for new supplies approximately every 3-6 months, depending on your insurance coverage. - If your mask doesn't fit well, call the [employer] company before 30 days are up to get a new mask without an additional charge. - Insurance requires regular usage and periodic office follow ups for PAP therapy, to continue to cover supplies. Non-pharmacological Therapy Treatment of RLS depends on the suspected cause and severity of symptoms. Strategies to improve RLS include: -Avoidance or reduction of nicotine, caffeine, alcohol, and certain antidepressants, anti-nausea medications, and antihistamines (including diphenylamine) . Treatment of underlying medical conditions associated with RLS -Cold/warm compresses, warm/hot baths or showers, gentle massage, stretching at nighttime, exercise, and mental alerting activities such as puzzles. -Magnesium supplements (500-1000 mg daily) - consult your healthcare provider before starting any vsmk-hzr-enydqjg medication if you have chronic health issues or take prescription medications -Diets rich in iron including meats, green leafy vegetables, and legumes -Nbdij-0-rqxbx calcium channel ligands: gabapentin enacarbil (FDA-approved), gabapentin, pregablin. These medications allow calcium to move into the nerve cells which reduces abnormal movements and sensations. This class of medication is usually preferred in people who suffer from nerve and/or chronic pain. Side effects include drowsiness, dizziness and unsteadiness. Despite their low potential for abuse, gabapentin and pregabalin are controlled substances that require monitoring through regular follow-up visits. Links to additional information on gabapentin and pregablin: https://www.accessdata.fda.gov/drugs atfda_docs/label/2017/020235s064_020 882s047_021129s046lbl.pdf https://www.accessdata.fda.gov/drugs atfda_docs/label/2017/765186p144,022 030g381rgk.pdf - Avoid driving when drowsy. Recommend that if you are dozing off while driving, that you do not drive until your sleepiness is appropriately treated. - Follow up in 2 months in the office. Recommend scheduling this appointment now to ensure the best time for you. documented in this encounter [facility] 05-18-[address] [facility] 05-18-2023 History of Present illness Narrative Episode Visit Count: 14 Therapist That Will Accept/Oversee The Plan Of Care: Yazan Gaitan Start of Care Date: 03/26/23 Onset Date: 01/21/23 Plan of Care Certification Date: 04/15/23 Next Certification Due Date: 06/14/23 Patient Identified by Name and Date of : Yes REHABILITATION AND SPORTS THERAPY PHYSICAL THERAPY PROGRESS REPORT PLAN OF CARE UPDATE: Assessment: Yunier Gaines demonstrates improvements in standing and walking. She has progressed toward goals. Patient continues to present with impairments in gait, independence in exercise, strength, and symptom management that interfere with walking, walking in the community, stair negotiation, rising from a chair, standing . Current prognosis is Fair due to: clinical presentation, chronic nature of impairments . The patient is improving and reports decreased pain with improving functional output. Pt with improved activity tolerance and is able to tolerate longer bouts of activity. She will benefit from continued skilled therapy services to meet the updated goals for this plan of care as noted below. Goals for Episode of Care: created on 02/12/23 through 06/14/23; Updated 04/15/23 Patient will be independent with aquatic program and transition to a community pool. PROGRESSING [place] in home exercise program. PROGRESSING Patient will decrease pain rating by 2 points to meet minimal clinical important difference for numeric pain rating scale. PROGRESSING Patient will demonstrate increase in hip strength to 5/5 during manual muscle testing in order to improve function for basic self-care tasks. PROGRESSING Patient will increase flexibility of left ankle DF to 5+ degrees to improve mechanics. N/T Patient will improve 30 second sit to stand to >11 reps to demonstrate decreased risk of falls. NEAR MET Improve postural awareness. PROGRESSING Normal gait. PROGRESSING Stand / Walk 15+ min without pain/symptoms. PROGRESSING Sleep through night without pain/symptoms. PROGRESSING Patient Goals: improve core strength, improve walking distances Goals for Episode of Care: created on 03/26/23 through 06/23/23 [place] in home exercise program. Patient will decrease pain rating by 2 points to meet minimal clinical important difference for numeric pain rating scale. Patient will increase active ROM of right knee pain free 0-140 to allow pt to to improve performance of ADLs. Patient will demonstrate increase in right lower extremity strength to 5/5 during manual muscle testing in order to improve function for basic self-care tasks and home management tasks. Patient will be independent with aquatic program and transition to a community pool Patient Goals: improve knee function Planned Interventions, Frequency, and Duration: 2x/week, 4 weeks Total Number of Visits Planned: 8 Patient to be seen for Therapeutic exercise (14746), Neuromuscular re-education (42753), Manual therapy (26138), Therapeutic activities (19739), Self-skilled nursing management (00565), Gait Training (60954), Aquatic PT ([id number]), Patient/Family/Caregiver Education, Body Mechanics Training, Functional training, General Conditioning PLAN FOR NEXT VISIT: Progress land-based program to tolerance, progress independence with aquatics SUBJECTIVE: Therapy has been helping at this time. Have some knee pain which is not on the worker comp claim, but will look into this after bout of therapy.. Functional Limitations: walking, walking in the community, stair negotiation, rising from a chair, standing Prior Level of Function: Independent without limitations Intake Information: Prescription present Previous Treatment: NSAIDs Falls Interview: No positive findings with falls interview Pain: Pain Pain Level: 2 Pain Location: Back Description: Aching Pain Level 2: 5 Pain Location 2: Foot - Left Description 2: Burning Frequency 2: Continuous PROMIS Scales Higher is Better 04/11/2023 03/15/2023 02/09/2023 Phys Func - Score 31 (moderate dysfunction) 31 (moderate dysfunction) 31 (moderate dysfunction) Phys Func - Percentile 3 % 3 % 3 % Self-Eff Symptom - Score 36 (Low) 38 (Low) 34 (Low) Self-Eff Symptom - Percentile 8 % 12 % 5 % T-scores: mean of general population = 50. 5 points is clinically meaningfully difference Percentiles provide an indication of how the patient's score ranks in relation to the general population. Higher percentile rankings indicate better function/quality of life. 50th percentile is the average of the general population and indicates half of respondents had a worse score. OBJECTIVE MEASURES WITH LEVEL OF FUNCTION: Posture / Alignment Posture: Forward head, Rounded shoulders Gait Gait Observation: Min L ankle inversion, limited DF/PF, maintains WB on lateral aspect of foot Functional Performance Test Results Assistive Device: None 2 Minute Walk Test (feet): 315 feet 2 Minute Walk Test Gait Speed (calculated): 0.8 m/s 30 Second Chair Stand Test: 11 reps TREATMENT: Therapeutic Exercise: 1: Discussion on the benefits of contiued therapy with aquatics 2: Reviewed exercise program 3: NuStep, lvl 1: x7 min 4: SLR: 2x10 reps bilat 5: Bridges: 2x10 reps 6: PPT: x15 reps 7: Sahrmann lvl 1: 2x10 reps 8: standing rows (green band): 2x10 reps 9: Standing straight arm extension (green band): 2x10 reps 10: Paloff press (green band): 2x10 reps bilat 11: 2 MWT and objective measures taken for progress report Skilled Intervention: Patient was educated in proper exercise technique and purpose for exercises. Skilled judgment was used in selection of appropriate interventions. Correct performance of therapeutic exercises was facilitated with verbal, visual, and tactile cuing. Patient education as noted. Billing Therapeutic Exercise Treatment Minutes: 53 Skilled Treatment Time Minutes (timed and untimed codes): 53 Total Session Time (minutes): 53 Session Start Time : 1339 Session Stop Time : 1432 Yazan Gaitan PT documented in this encounter [facility] 05-18-[address] [facility] 05-18-2023 History of Present illness Narrative Images from the original note were not included. [facility] Virtual Visit Follow up/ Established patient visit Date of last visit : 03/30/2023 I have communicated my name and active licensure. The patient's identity and physical location were verified at the time of this visit. Either the patient or their legal nutrition representative has been informed of the risks and benefits of -- and alternatives to -- treatment through a remote evaluation and consents to proceed with the evaluation remotely. Interval history : Here for follow up for Follow up sleep study and RLS Was having problem wearing the CPAP, reports the pressure is not appropriate, Has been using the CPAP on / off but not regularly and would like to be fitted for nasal pillow. Reports DME- [employer] [facility] did adjustment for the pressures in the past Now getting 6-8 hours of sleep, feels slightly better but still needs improvement, takes pills for nightmares (prazosin) which is helping. Her RLS is better, symptoms improved on horizon, recalls dose was possible 600mg, was helping but her physician stopped it , was getting sedation on Gabapentin 300mg and tolerated horizon better, doesn't take the magnesium. Is interested in addressing medication for the RLS. Started taking Zoloft , few months ago, does not feel this exacerbated RLS in addition had an accident and had a surgery and recovered. Past medical history: PAKO, RLS PRIOR SLEEP STUDIES: polysomnogram on 03/12/2023 showed an overall apnea-hypopnea index (AHI) of 9.8, Supine AHI of 14.1, REM AHI of 27.7, and an oxygen saturation ericka of 78% Pap titration showed At a PAP setting of 12 cmH2O, during which supine REM sleep was recorded, the apnea-hypopnea and arousal indices were normalized, snoring was eliminated, and the oxygen saturation was maintained above 90% recommendation of Auto titrating PAP device 7-15 cmH2O with humidification PATIENT-ENTERED QUESTIONNAIRE SLEEP SCORES Sleep Questions 05/11/2023 Reason for visit: Sleep apnea, Difficulty falling or staying asleep or poor sleep quality, Excessive daytime sleepiness, Restless Legs Syndrome, Abnormal sleep/wake timing Average hours slept in 24 hours: - Average hours of CPAP per night: 6 Percent of nights CPAP used at least 4 hours: 30 Accidents or near accidents due to drowsy drivin [place] Sleepiness Scale 02/23/2023 03/23/2023 05/11/2023 Score 18 (severe daytime sleepiness) 18 (severe daytime sleepiness) 18 (severe daytime sleepiness) PROMIS CAT Sleep Disturbance 02/23/2023 03/23/2023 05/11/2023 PROMIS Sleep Disturbance T-Score 64 (moderate) 68 (moderate) 59 (mild) PROMIS Sleep Disturbance Percentile 8 % 4 % 18 % Insomnia Severity Index 02/23/2023 05/11/2023 Score 20 15 Restless Leg Syndrome 02/23/2023 03/23/2023 05/11/2023 Score 30 30 22 PHQ-9 02/23/2023 03/23/2023 05/11/2023 Score 19 22 9 PROMIS Global Health - (T-Scores - the mean of general population = 50. Five points is a clinically meaningful difference.) 02/09/2023 05/11/2023 Physical T-Score 29.6 34.9 Mental T-Score 28.4 25.1 ALLERGIES Allergen Reactions Penicillin G GI Upset CURRENT MEDICATIONS: celecoxib (CELEBREX) 200 mg capsule take 1 capsule by mouth twice a day dulaglutide (TRULICITY) 3 mg/0.5 mL pen injector Inject 3 mg subcutaneously one time a week. busPIRone (BUSPAR) 10 mg tablet Take 10 mg by mouth three times daily. CPAP/BIPAP/OTHER Type .CPAPSettings into a note to see current settings/supplies/DME information. cetirizine (ZYRTEC) 10 mg tablet Take 1 tablet by mouth every afternoon. cyclobenzaprine (FLEXERIL) 10 mg tablet prazosin (MINIPRESS) 1 mg cap Take 1 mg by mouth daily at bedtime. sertraline (ZOLOFT) 50 mg tablet Take 50 mg by mouth three times a day. carvedilol (COREG) 25 mg tablet Take 1 tablet by mouth every 12 hours 6am/6pm. montelukast (SINGULAIR) 10 mg tablet Take 1 tablet by mouth every afternoon. CPAP/BIPAP/OTHER Type .CPAPSettings into a note to see current settings/supplies/DME information. Prior RLS Medications (last 20 years) Some values may be hidden. Unless noted otherwise, only the newest values recorded on each date are displayed. RLS Medications No data to display. IMPRESSION/PLAN: 42 years old female with Hx of CPAP and RLS, Pako on cpap (primary encounter diagnosis) Rls (restless legs syndrome) Pako (obstructive sleep apnea) Morbid obesity with bmi of 50.0-59.9, adult (hcc) For PAKO - Auto titrating PAP device 7-15 cmH2O with humidification, will adjust - currently set at fixed 5 cm H2O - Remember to clean your mask and equipment regularly, as directed. - You should be eligible for new supplies approximately every 3-6 months, depending on your insurance coverage. Contact your Durable Medical Equipment (DME) company for new supplies as needed. Formal mask fitting and was recommended RLS Reviewed ferritin levels, transferrin 24.2, ferritin 128 -Advised that nicotine can worsen symptoms Non-pharmacological Therapy Treatment of RLS depends on the suspected cause and severity of symptoms. Strategies to improve RLS include: -Avoidance or reduction of nicotine, caffeine, alcohol, and certain antidepressants, anti-nausea medications, and antihistamines (including diphenylamine) . Treatment of underlying medical conditions associated with RLS -Cold/warm compresses, warm/hot baths or showers, gentle massage, stretching at nighttime, exercise, and mental alerting activities such as puzzles. -Magnesium supplements (500-1000 mg daily) - consult your healthcare provider before starting any crio-drh-rjmfcxl medication if you have chronic health issues or take prescription medications -Diets rich in iron including meats, green leafy vegetables, and legumes -Trial of magnesium supplement and then if not tolerating consider horizon -slow titration, adverse effect shared in MyChart - Avoid driving when drowsy. Recommend that if you are dozing off while driving, that you do not drive until your sleepiness is appropriately treated. F/U 2 months Yelitza Landa MD I have personally seen and evaluated the patient and agree with the documentation by the fellow as above, which I have edited where appropriate. Fay Miles MD,[facility] Staff Neurologist [facility] I have communicated my name and active licensure. The patient's identity and physical location were verified at the time of this visit. Either the patient or their legal nutrition representative has been informed of the risks and benefits of -- and alternatives to -- treatment through a remote evaluation and consents to proceed with the evaluation remotely. I spent a total of 25 minutes on the date of the service which included preparing to see the patient, [id number] patient care, performing a medically appropriate examination, counseling and educating the patient/family/caregiver and ordering medications/devices documented in this encounter [facility] 05-18-2023 Miscellaneous Notes Images from the original note were not included. documented in this encounter [facility] 05-05-2023 History of Present illness Narrative Images from the original note were not included. [facility] SECTION OF REGIONAL CARDIOLOGY OUTPATIENT VISIT DATE May 05, 2023 Yunier Gaines [id number] PRIMARY CARE PHYSICIAN: To use this Smartlink, specify the provider ID whose address you want to display, e.g., .PROVADDR[1 (where 1 is the provider ID). REFERRING PROVIDER: No referring provider defined for this encounter. This note was written using medical terminology and is intended to be used for medical purposes by other health manager wound care ASSESSMENT AND PLAN: Ms. Gaines is a 42 year old female with PMH of: Hypertension PAKO DVT/PE Obesity CRPS s/p spinal stimulator Tobacco use Presented for consultation for preoperative cardiac risk stratification for bariatric surgery Overall impression: Low risk for major cardiac events given excellent functional status. RCRI score of zero Changes today: No further cardiac workup prior to cardiac surgery RTC: as needed Preoperative cardiac risk stratification for bariatric surge Low risk for major cardiac events given excellent functional status (goes to the gym 4-5 times a week, exercises for at least an hour without limitation). RCRI score of zero Plan: No further cardiac workup prior to cardiac surgery Obesity On Trulicity Following with bariatric surgery PAKO She is in the process of getting a new machine. Emphasized importance of PAKO treatment in terms of heart health Hypertension Well controlled Plan: Continue carvedilol 25 mg BID Goal BP<130/80 Treat PAKO as above Tobacco use Now vaping (switched from smoking). Encouraged stopping vaping. Primary prevention The 10-year ASCVD risk score (Shaq GARCIA, et al., 2019) is: 2.9% Values used to calculate the score: Age: 42 years Sex: Female Is Non- : No Diabetic: No Tobacco smoker: Yes Systolic Blood Pressure: 119 mmHg Is BP treated: Yes HDL Cholesterol: 43 mg/dL Total Cholesterol: 157 mg/dL Plan: -We discussed recommendation of 150 min moderate intensity exercise /week or at least twice a week resistance training. - We discussed the need for heart healthy diet including a diet high in fruits, vegetables, whole grain, lean protein and low in refined carbs, saturated/trans fat and processed meat I have personally reviewed the Electrocardiogram and Laboratory Testing. Jim Campos MD Cardiovascular disease staff May 05, 2023 9:30 AM HISTORY OF PRESENT ILLNESS: Ms. Gaines is a very pleasant 42 year old female with PMH as above was originally referred to cardiology for preoperative cardiac risk stratification for bariatric surgery. Initial visit 05/05/2023: She has been having palpitations for the last 8 years, now barely noticeable. She has mild chronic left lower extremity edema. She denies any chest pain, dyspnea at rest or with exertion, PND, orthopnea, palpitations, lightheadedness, syncope or significant weight gain. She exercises 4 times a week (cardio and strength training). FH : negative for premature CAD or SCD PHYSICAL EXAMINATION: BP 119/76 Pulse 86 Ht 180.3 cm (5' 11 ) Wt (!) 164.1 kg (361 lb 12.8 oz) SpO2 99% BMI 50.46 kg/m GENERAL APPEARANCE: healthy, alert and no distress RESPIRATORY: lungs clear to auscultation - CARDIOVASCULAR: regular S1 and S2. No murmurs. EXTREMITIES: no edema CARDIOVASCULAR MEDICINE TESTING: I have personally reviewed the following lab and imaging tests: EKG 05/05/2023 NSR, normal QRS/ME/QTc intervals TTE OS report 05/12/2020 Summary 1. This study was technically limited, Definity IV contrast was used to enhance endocardial definition. 2. The left ventricular diastolic function is grade I diastolic dysfunction, consistent with low or normal atrial pressures. 3. Left ventricular systolic function is normal, with ejection fraction estimated at 60 +/- 5%. 4. Right ventricular systolic function is mildly reduced, on very limited views. 5. There is borderline pulmonary hypertension, estimated right ventricle systolic pressure is 40 mmHg. 6. There is no comparison study available. Cholesterol, Total (mg/dL) Date Value 02/10/2023 157 HDL Cholesterol (mg/dL) Date Value 02/10/2023 43 LDL Cholesterol (mg/dL) Date Value 02/10/2023 87 Triglyceride (mg/dL) Date Value 02/10/2023 135 Creatinine Date Value Ref Range Status 02/10/2023 0.71 0.58 - 0.96 mg/dL Final No results found for: PBNP WBC (k/uL) Date Value 02/10/2023 6.83 RBC (m/uL) Date Value 02/10/2023 4.55 Hemoglobin (g/dL) Date Value 02/10/2023 13.2 Hematocrit (%) Date Value 02/10/2023 41.5 MCV (fL) Date Value 02/10/2023 91.2 MCH (pg) Date Value 02/10/2023 29.0 MCHC (g/dL) Date Value 02/10/2023 31.8 RDW-CV (%) Date Value 02/10/2023 12.8 Platelet Count (k/uL) Date Value 02/10/2023 223 MPV (fL) Date Value 02/10/2023 10.4 Glucose (mg/dL) Date Value 02/10/2023 99 BUN (mg/dL) Date Value 02/10/2023 15 Creatinine (mg/dL) Date Value 02/10/2023 0.71 Sodium (mmol/L) Date Value 02/10/2023 137 Potassium (mmol/L) Date Value 02/10/2023 5.2 (H) Chloride (mmol/L) Date Value 02/10/2023 102 CO2 (mmol/L) Date Value 02/10/2023 26 Protein, Total (g/dL) Date Value 02/10/2023 6.9 Albumin (g/dL) Date Value 02/10/2023 3.9 Calcium, Total (mg/dL) Date Value 02/10/2023 9.8 Alkaline Phosphatase (U/L) Date Value 02/10/2023 56 Bilirubin, Total (mg/dL) Date Value 02/10/2023 0.4 AST (U/L) Date Value 02/10/2023 23 ALT (U/L) Date Value 02/10/2023 21 PMH: No past medical history on file. No past surgical history on file. Social History Tobacco Use Smoking status: Every Day Passive exposure: Never Smokeless tobacco: Never Tobacco comments: Vape Substance Use Topics Alcohol use: Never Drug use: Never No family history on file. ALLERGIES Allergen Reactions Penicillin G GI Upset Cholesterol, Total (mg/dL) Date Value 02/10/2023 157 CURRENT MEDICATIONS: dulaglutide (TRULICITY) 3 mg/0.5 mL pen injector Inject 3 mg subcutaneously one time a week. celecoxib (CELEBREX) 200 mg capsule take 1 capsule by mouth twice a day busPIRone (BUSPAR) 10 mg tablet Take 10 mg by mouth three times daily. cetirizine (ZYRTEC) 10 mg tablet Take 1 tablet by mouth every afternoon. cyclobenzaprine (FLEXERIL) 10 mg tablet prazosin (MINIPRESS) 1 mg cap Take 1 mg by mouth daily at bedtime. sertraline (ZOLOFT) 50 mg tablet Take 50 mg by mouth three times a day. montelukast (SINGULAIR) 10 mg tablet Take 1 tablet by mouth every afternoon. CPAP/BIPAP/OTHER Type .CPAPSettings into a note to see current settings/supplies/DME information. carvedilol (COREG) 25 mg tablet Take 1 tablet by mouth every 12 hours 6am/6pm. CPAP/BIPAP/OTHER Type .CPAPSettings into a note to see current settings/supplies/DME information. documented in this encounter [facility] 05-05-[address] [facility] 05-01-[address] [facility] 05-01-2023 History of Present illness Narrative BARIATRIC H&P/PRE-OPERATIVE CONSULT SERVICE DATE: 05/01/2023 SERVICE TIME: 10:59 AM I have communicated my name and active licensure. The patient's identity and physical location were verified at the time of this visit. Either the patient or their legal nutrition representative has been informed of the risks and benefits of -- and alternatives to -- treatment through a remote evaluation and consents to proceed with the evaluation remotely. BMI Surgical Pathway Visit type: Bariatric Surgeon Visit PRIMARY CARE PHYSICIAN: No primary care provider on file. Subjective CHIEF COMPLAINT: Discussion of surgical weight loss, morbid obesity HPI: Yunier Gaines is a 42 year old female who presents on May 01, 2023 for surgical evaluation and treatment of obesity. The patient is interested in laparoscopic sleeve gastrectomy and has decided to have the procedure with Huan Meeks MD. Age at onset - childhood. Fiance had sleeve Rate of weight gain is described as gradual over years. Maximum weight 410lbs Previous treatments include self-directed dieting and very low calorie diet. Lost 125lbs on keto. An injury at work left her bedbound and she gained the weight back. Heartburn/reflux: none NSAID use: celebrex for knees 200mg BID Smoking: nicotine in vapes (took it out of her vapes 3 weeks ago), smoked since 16yo then switched to vapes a year ago EtOH: rare EXERCISE ACTIVITY: Patient goes to gym every day - cardio and strength training, walks, aquatherapy PMH: CRPS in L foot, anxiety/depression, asthma, HTN, PAKO needs CPAP, May 2022 L DVT and PE after L foot was immobilized due to an injury - was on AC for one year and then stopped PSH: R shoulder rotator cuff, L hand carpal tunnel, L foot reconstruction, spine pain stimulator, ovarian cyst removal FUNCTIONAL STATUS: Climb a flight of stairs or walk up a hill (5.50 METs) Significant Anesthesia Considerations: None No past medical history on file. No past surgical history on file. No family history on file. Social History Tobacco Use Smoking status: Every Day Passive exposure: Never Smokeless tobacco: Never Tobacco comments: Vape Substance Use Topics Alcohol use: Never Drug use: Never Current Outpatient Medications Medication Sig celecoxib (CELEBREX) 200 mg capsule take 1 capsule by mouth twice a day busPIRone (BUSPAR) 10 mg tablet Take 10 mg by mouth three times daily. dulaglutide (TRULICITY) 1.5 mg/0.5 mL pen injector Inject 1.5 mg subcutaneously one time a week. CPAP/BIPAP/OTHER Type .CPAPSettings into a note to see current settings/supplies/DME information. cetirizine (ZYRTEC) 10 mg tablet Take 1 tablet by mouth every afternoon. cyclobenzaprine (FLEXERIL) 10 mg tablet prazosin (MINIPRESS) 1 mg cap Take 1 mg by mouth daily at bedtime. sertraline (ZOLOFT) 50 mg tablet Take 1 tablet by mouth every afternoon. carvedilol (COREG) 25 mg tablet Take 1 tablet by mouth every 12 hours 6am/6pm. montelukast (SINGULAIR) 10 mg tablet Take 1 tablet by mouth every afternoon. CPAP/BIPAP/OTHER Type .CPAPSettings into a note to see current settings/supplies/DME information. No current facility-administered medications for this visit. ALLERGIES Allergen Reactions Penicillin G GI Upset REVIEW OF SYSTEMS: General: no fevers or chills Neuro: No history of stroke or neurological problems. Respiratory: No SOB or cough. +asthma, +PAKO Cardiovascular: +HTN, no CHF or [place]. GI: No abdominal pain. No reflux or heartburn. : No dysuria or hematuria. + kidney stones. Endocrine: Has not taken steroids within the past 30 days. No history of diabetes Hematology: No history of bleeding disorder. H/o L DVT and PE but not on AC Oncology: No personal history of cancer. Psych: + anxiety or depression requiring medications Skin: No ecchymoses Objective PHYSICAL EXAM: Patient reported There were no vitals taken for this visit. General - Normal, healthy, cooperative, in no acute distress, obese Able to interact verbally by video conference Psych - ORIENTATION: normal to time place, person and situation Mood/Affect: AFFECT AND MOOD: Normal Head/Neuro - Normal size and shape Facial appearance normal Pulmonary - respiratory effort normal Cardiovascular - patient describes extremities normal, warm, no cyanosis,no clubbing, and no edema Abdominal - Obese, Visible protrusions or hernias: No Incisions/scars: Healed, Skin - abnormal lesions not visualized Motor - patient seen sitting with Normal appearing strength and coordination DATA: Diagnostic tests reviewed for today's visit: Labs reviewed: cbc, bmp, lfts, hga1c Imaging reviewed: RUQ us: no stones Provider notes reviewed: roman zaragoza The following labs were reviewed: WBC (k/uL) Date Value 02/10/2023 6.83 RBC (m/uL) Date Value 02/10/2023 4.55 Hemoglobin (g/dL) Date Value 02/10/2023 13.2 Hematocrit (%) Date Value 02/10/2023 41.5 MCV (fL) Date Value 02/10/2023 91.2 MCH (pg) Date Value 02/10/2023 29.0 MCHC (g/dL) Date Value 02/10/2023 31.8 RDW-CV (%) Date Value 02/10/2023 12.8 Platelet Count (k/uL) Date Value 02/10/2023 223 MPV (fL) Date Value 02/10/2023 10.4 Glucose (mg/dL) Date Value 02/10/2023 99 BUN (mg/dL) Date Value 02/10/2023 15 Creatinine (mg/dL) Date Value 02/10/2023 0.71 Sodium (mmol/L) Date Value 02/10/2023 137 Potassium (mmol/L) Date Value 02/10/2023 5.2 (H) Chloride (mmol/L) Date Value 02/10/2023 102 CO2 (mmol/L) Date Value 02/10/2023 26 Protein, Total (g/dL) Date Value 02/10/2023 6.9 Albumin (g/dL) Date Value 02/10/2023 3.9 Calcium, Total (mg/dL) Date Value 02/10/2023 9.8 Alkaline Phosphatase (U/L) Date Value 02/10/2023 56 Bilirubin, Total (mg/dL) Date Value 02/10/2023 0.4 AST (U/L) Date Value 02/10/2023 23 ALT (U/L) Date Value 02/10/2023 21 Glucose (mg/dL) Date Value 02/10/2023 99 Creatinine (mg/dL) Date Value 02/10/2023 0.71 Potassium (mmol/L) Date Value 02/10/2023 5.2 AST (U/L) Date Value 02/10/2023 23 ALT (U/L) Date Value 02/10/2023 21 Hemoglobin A1C (%) Date Value 02/10/2023 5.2 Cholesterol, Total (mg/dL) Date Value 02/10/2023 157 HDL Cholesterol (mg/dL) Date Value 02/10/2023 43 ] LDL Cholesterol (mg/dL) Date Value 02/10/2023 87 Triglyceride (mg/dL) Date Value 02/10/2023 135 ] Hemoglobin A1C (%) Date Value 02/10/2023 5.2 Albumin (g/dL) Date Value 02/10/2023 3.9 Cholesterol, Total (mg/dL) Date Value 02/10/2023 157 HDL Cholesterol (mg/dL) Date Value 02/10/2023 43 LDL Cholesterol (mg/dL) Date Value 02/10/2023 87 Triglyceride (mg/dL) Date Value 02/10/2023 135 ] Glucose (mg/dL) Date Value 02/10/2023 99 BUN (mg/dL) Date Value 02/10/2023 15 Creatinine (mg/dL) Date Value 02/10/2023 0.71 Sodium (mmol/L) Date Value 02/10/2023 137 Potassium (mmol/L) Date Value 02/10/2023 5.2 (H) Chloride (mmol/L) Date Value 02/10/2023 102 CO2 (mmol/L) Date Value 02/10/2023 26 Protein, Total (g/dL) Date Value 02/10/2023 6.9 Albumin (g/dL) Date Value 02/10/2023 3.9 Calcium, Total (mg/dL) Date Value 02/10/2023 9.8 Alkaline Phosphatase (U/L) Date Value 02/10/2023 56 Bilirubin, Total (mg/dL) Date Value 02/10/2023 0.4 AST (U/L) Date Value 02/10/2023 23 ALT (U/L) Date Value 02/10/2023 21 WBC (k/uL) Date Value 02/10/2023 6.83 RBC (m/uL) Date Value 02/10/2023 4.55 Hemoglobin (g/dL) Date Value 02/10/2023 13.2 Hematocrit (%) Date Value 02/10/2023 41.5 MCV (fL) Date Value 02/10/2023 91.2 MCH (pg) Date Value 02/10/2023 29.0 MCHC (g/dL) Date Value 02/10/2023 31.8 RDW-CV (%) Date Value 02/10/2023 12.8 Platelet Count (k/uL) Date Value 02/10/2023 223 MPV (fL) Date Value 02/10/2023 10.4 PROBLEM LIST: Patient Active Problem List Osteoarthritis of right patellofemoral joint Complex regional pain syndrome type 1 of left lower extremity Back pain Failed back surgical syndrome History of 2019 novel coronavirus disease (COVID-19) Calculus of kidney Personal history of nicotine dependence Anxiety disorder, unspecified 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 Assessment/Plan Ms. Gaines is a 42 year old female referred to me for preoperative evaluation. IMPRESSION: Morbid obesity, BMI 51.16: - Patient is a good candidate for metabolic surgery based on NIH criteria. Had an extensive discussion regarding bariatric surgery, comparing and contrasting different procedures. - Patient is currently considering LSG - Continue through BMI program - Reviewed principles of energy metabolism, caloric intake and expenditure, and rationale for treatment program. Also reinforced need for reduced calorie, low fat diet and increased physical activity. Information regarding potential postoperative complications, dietary and medical postoperative limitations, and potential cosmetic sequelae has been received by individual. PAKO Has an appointment with sleep medicine Will need to start using CPAP Nicotine cessation Took nicotine out of vapes 3 weeks ago SIGNATURE: Huan Meeks MD PATIENT NAME: Yunier Gaines DATE: May 01, 2023 TIME: 10:59 AM Medical Decision Making: Problems: Moderate: 2+ stable chronic illnesses Data: Unique source(s) for external note(s) reviewed: 2 Unique test result(s) reviewed: 3+ Independent interpretation of test from other physician/QHCP Risk: High: Decision on elective major surgery w/ risk factors Medical Decision Making Level: 5 - High documented in this encounter [facility] 04-30-[address] [facility] 04-27-[address] [facility] 04-22-[address] [facility] 04-22-2023 History of Present illness Narrative Episode Visit Count: 13 Therapist That Will Accept/Oversee The Plan Of Care: Yazan Gaitan Start of Care Date: 03/26/23 Onset Date: 01/21/23 Plan of Care Certification Date: 04/15/23 Next Certification Due Date: 06/14/23 Patient Identified by Name and Date of : Yes REHABILITATION AND SPORTS THERAPY PHYSICAL THERAPY AQUATIC TREATMENT NOTE ASSESSMENT: Yunier Gaines demonstrated good manuela and response to today's visit w/o c/os. Req min verbal cues and demo for improved ther ex performance. Good recall of aquatic exs. Pain decreased after Rx. L foot continues to be problematic with fluctuations in pain. Slowly improving. The patient may benefit from continued skilled PT for pain reduction, strengthening, ROM, flexibility and increased functional mobility. PLAN FOR NEXT VISIT: Progress land-based program to tolerance, progress independence with aquatics SUBJECTIVE: Subjective: Back is about a 3.. L foot a 5.. Pain: Pain Pain Level: 3 Pain Location: Back Description: Aching Frequency: Continuous Pain Level 2: 5 Pain Location 2: Foot - Left Description 2: Burning Frequency 2: Continuous Post Treatment Pain Post Treatment Pain Level: (not quantified) OBJECTIVE MEASURES WITH LEVEL OF FUNCTION: Posture / Alignment Posture: Forward head, Rounded shoulders Gait Gait Observation: Min L ankle inversion, limited DF/PF, maintains WB on lateral aspect of foot TREATMENT: Aquatic Therapy: Footwear on pool deck pre-treatment: Yes, patient wearing appropriate footwear and appeared safe on pool deck Footwear on pool deck post-treatment: Yes, patient wearing appropriate footwear and appeared safe on pool deck Entered the pool: Forward on stairs Entered the pool assist level: Supervision Entered the pool step pattern: Step over step Exited the pool: Forward on stairs Exited the pool assist level: Supervision Exited the pool step pattern: Step over step Aquatic Therapy (76544): Walking, Lower Extremity, Vertical / Mobile - Buoyancy Supported, Posture / Trunk Exercise, Stretching and Flexibility Walking: Forward Walking, Backward Walking, Lateral/ Side Stepping Water Depth: 4.5 Forward Walkin Backward Walkin Lateral/Side Steppin Posture/Trunk Exercise: Abdominal Stabilization Pull Downs, Abdominal Stabalization Push Downs, Abdominal Stabalization Push - Pull, 1 Water Depth: 4.5 Abdominal Stabilization Pull Downs : 30 Abdominal Stabalization Push Downs : 30 Abdominal Stabalization Push - Pull: 30 1: red KB Lower Extremity: Squats, Hip Flexion, Hip Extension, Hip Abduction, Hip Adduction, Hip Internal/External Rotation, Hip Circumduction, Knee LAQ, Knee Hamstring Curls, Heel Raises, Ankle Circles, Ankle Plantarflexion/Dorsiflexion, Ankle Inversion/Eversion Water Depth: 4.5 Squats: 25 Hip Flexion: 25 Hip Extension: 25 Hip Abduction: 25 Hip Adduction: 25 Hip Internal /External Rotation: 25 Hip Circumduction: 25 Knee LAQ: 25 up/out/in/dn Knee Hamstring Curls: 25 Heel Raises: 25 Ankle Circles: 25 Ankle Inversion/ Eversion: 25 Ankle Plantarflexion/ Dorsiflexion: 25 Stretching and Flexibility: Hamstrings, 1, Gastroc Water Depth: 5 Hamstrings: 2 x 30 sec B Gastroc : 2 x 30 sec Skilled Intervention: Patient was educated in proper exercise technique and purpose for exercises. Skilled judgment was provided in selection of appropriate interventions. Patient education: Weight bearing effects of immersion Proper hydration following aquatic session Rationale/technique for exercises and activities performed this visit Expectation of fatigue/discomfort with exercise progressions and normal response Goal to gradually decrease water depth to tolerance in preparation for transition to land based physical therapy and daily living Advised to rest as needed upon exiting pool prior to walking to locker room to re-acclimate to full weight bearing status Patient with good understanding. Group Therapy: 1: Noodle work: 2: ab/adduction 2min 3: bicycle 2min 4: distraction x 5min Skilled Intervention: Aquatic Skilled judgment was provided in selection of appropriate progression. Required verbal cues & demonstration for proper form with exercises. Billing Aquatic Therapy Treatment Minutes: 45 * Group Therapy: 1 unit Total Session Time (minutes): 54 Session Start Time : 819 Session Stop Time : 913 Quentin Zaragoza PTA \ documented in this encounter [facility] 04-20-[address] [facility] 04-20-2023 History of Present illness Narrative Episode Visit Count: 12 Therapist That Will Accept/Oversee The Plan Of Care: Yazan Gaitan Start of Care Date: 03/26/23 Onset Date: 01/21/23 Plan of Care Certification Date: 04/15/23 Next Certification Due Date: 06/14/23 Patient Identified by Name and Date of : Yes REHABILITATION AND SPORTS THERAPY PHYSICAL THERAPY AQUATIC TREATMENT NOTE ASSESSMENT: Yunier Gaines had a fairly good response to today's session. Presented with higher pain in back today than normally reported. Good tolerance for all activities and reported decrease in back pain post session. Good recall of therex. Patient will attempt hybrid sessions of pool and land. The patient will continue to benefit from ongoing skilled physical therapy to progress toward set goals. PLAN FOR NEXT VISIT: Progress land-based program to tolerance, progress independence with aquatics SUBJECTIVE: Back is really stiff today. Pain: Pain Pain Level: 5 Pain Location: Back Description: Aching Frequency: Continuous Pain Level 2: 5 Pain Location 2: Foot - Left Description 2: Burning Frequency 2: Continuous Post Treatment Pain Post Treatment Pain Level: 3 ( foot is unchanged. ) Post Treatment Pain Location: Back OBJECTIVE MEASURES WITH LEVEL OF FUNCTION: Posture / Alignment Posture: Forward head, Rounded shoulders Gait Gait Observation: Min L ankle inversion, limited DF/PF, maintains WB on lateral aspect of foot TREATMENT: Aquatic Therapy: Footwear on pool deck pre-treatment: Yes, patient wearing appropriate footwear and appeared safe on pool deck Footwear on pool deck post-treatment: Yes, patient wearing appropriate footwear and appeared safe on pool deck Entered the pool: Forward on stairs Entered the pool assist level: Supervision Entered the pool step pattern: Step over step Exited the pool: Forward on stairs Exited the pool assist level: Supervision Exited the pool step pattern: Step over step Aquatic Therapy (80152): Walking, Lower Extremity, Vertical / Mobile - Buoyancy Supported, Posture / Trunk Exercise, Stretching and Flexibility Walking: Forward Walking, Backward Walking, Lateral/ Side Stepping Water Depth: 4.5 Forward Walkin Backward Walkin Lateral/Side Steppin Posture/Trunk Exercise: Abdominal Stabilization Pull Downs, Abdominal Stabalization Push Downs, Abdominal Stabalization Push - Pull, 1 Water Depth: 4.5 Abdominal Stabilization Pull Downs : 30 Abdominal Stabalization Push Downs : 30 Abdominal Stabalization Push - Pull: 30 1: red KB Lower Extremity: Squats, Hip Flexion, Hip Extension, Hip Abduction, Hip Adduction, Hip Internal/External Rotation, Hip Circumduction, Knee LAQ, Knee Hamstring Curls, Heel Raises, Ankle Circles, Ankle Plantarflexion/Dorsiflexion, Ankle Inversion/Eversion Water Depth: 4.5 Squats: 25 Hip Flexion: 25 Hip Extension: 25 Hip Abduction: 25 Hip Adduction: 25 Hip Internal /External Rotation: 25 Hip Circumduction: 25 Knee LAQ: 25 up/out/in/dn Knee Hamstring Curls: 25 Heel Raises: 25 Ankle Circles: 25 Ankle Inversion/ Eversion: 25 Ankle Plantarflexion/ Dorsiflexion: 25 Stretching and Flexibility: Hamstrings, 1, Gastroc Water Depth: 5 Hamstrings: 2 x 30 sec B Gastroc : 2 x 30 sec Abbreviation Cannon: BA = buoyancy assisted BR = buoyancy resisted BS = buoyancy supported reps = repetitions HEP = home exercise program Skilled Intervention: Patient was educated in proper exercise technique and purpose for exercises. Skilled judgment was provided in selection of appropriate interventions. Patient education: Rationale/technique for exercises and activities performed this visit Education and demonstration for posture and positioning. Group Therapy: 1: Noodle work: 2: ab/adduction 2min 3: bicycle 2min 4: distraction x 5min Skilled Intervention: Aquatic Skilled judgment was provided in selection of appropriate progression. Required verbal cues & demonstration for proper form with exercises. Billing Aquatic Therapy Treatment Minutes: 35 * Group Therapy: 1 unit Total Session Time (minutes): 44 Session Start Time : 829 Session Stop Time : 913 Miya Crockett PTA documented in this encounter [facility] 04-15-[address] [facility] 04-15-2023 History of Present illness Narrative Episode Visit Count: 11 Therapist That Will Accept/Oversee The Plan Of Care: Yazan Gaitan Start of Care Date: 03/26/23 Onset Date: 01/21/23 Plan of Care Certification Date: 04/15/23 Next Certification Due Date: 06/14/23 REHABILITATION AND SPORTS THERAPY PHYSICAL THERAPY PROGRESS REPORT PLAN OF CARE UPDATE: Assessment: Yunier Gaines demonstrates improvements in rising from a chair, standing, and walking. She has progressed toward goals. Patient continues to present with impairments in gait, independence in exercise, overall function, range of motion, sensation, strength, stress management, and symptom management that interfere with walking, walking in the community, stair negotiation, rising from a chair, standing (Sensitivity) . Current prognosis is Fair due to: clinical presentation, chronic nature of impairments . Patient will benefit from a mixed land and aquatics program at this time. She will benefit from continued skilled therapy services to meet the updated goals for this plan of care as noted below. Goals for Episode of Care: created on 02/12/23 through 06/14/23; Updated 04/15/23 Patient will be independent with aquatic program and transition to a community pool. PROGRESSING [place] in home exercise program. PROGRESSING Patient will decrease pain rating by 2 points to meet minimal clinical important difference for numeric pain rating scale. PROGRESSING Patient will demonstrate increase in hip strength to 5/5 during manual muscle testing in order to improve function for basic self-care tasks. PROGRESSING Patient will increase flexibility of left ankle DF to 5+ degrees to improve mechanics. N/T Patient will improve 30 second sit to stand to >11 reps to demonstrate decreased risk of falls. NEAR MET Improve postural awareness. PROGRESSING Normal gait. PROGRESSING Stand / Walk 15+ min without pain/symptoms. PROGRESSING Sleep through night without pain/symptoms. PROGRESSING Patient Goals: improve core strength, improve walking distances Planned Interventions, Frequency, and Duration: 2x/week (1x aquatics, 1x land), 8 weeks Total Number of Visits Planned: 8 Patient to be seen for Therapeutic exercise (89180), Neuromuscular re-education (68426), Manual therapy (14360), Therapeutic activities (10767), Self-skilled nursing management (55291), Gait Training (55436), Aquatic PT ([id number]), Patient/Family/Caregiver Education, Body Mechanics Training, Functional training, General Conditioning PLAN FOR NEXT VISIT: Progress land-based program to tolerance, progress independence with aquatics SUBJECTIVE: Pt reports pain is better and feels her strength is improved since doing aquatics. Foot still feels about the same. Sleep has been improved. Functional Limitations: walking, walking in the community, stair negotiation, rising from a chair, standing (Sensitivity) Pain: Pain Pain Level: 2 Pain Location: Back Description: Aching Frequency: Continuous Pain Level 2: 5 Pain Location 2: Foot - Left Description 2: Burning Frequency 2: Continuous Post Treatment Pain Post Treatment Pain Level: No Change PROMIS Scales Higher is Better 04/11/2023 03/15/2023 02/09/2023 Phys Func - Score 31 (moderate dysfunction) 31 (moderate dysfunction) 31 (moderate dysfunction) Phys Func - Percentile 3 % 3 % 3 % Self-Eff Symptom - Score 36 (Low) 38 (Low) 34 (Low) Self-Eff Symptom - Percentile 8 % 12 % 5 % T-scores: mean of general population = 50. 5 points is clinically meaningfully difference Percentiles provide an indication of how the patient's score ranks in relation to the general population. Higher percentile rankings indicate better function/quality of life. 50th percentile is the average of the general population and indicates half of respondents had a worse score. OBJECTIVE MEASURES WITH LEVEL OF FUNCTION: Posture / Alignment Posture: Forward head, Rounded shoulders LE Strength R Hip Flexion (L2): 5/5 R Knee Extension (L3): 5/5 R Knee Flexion: 5/5 R Ankle Dorsiflexion (L4): 5/5 L Hip Flexion (L2): 4/5 L Knee Extension (L3): 5/5 L Knee Flexion: 5/5 Gait Gait Observation: Min L ankle inversion, limited DF/PF, maintains WB on lateral aspect of foot Functional Performance Test Results Assistive Device: None 2 Minute Walk Test (feet): 300 feet 2 Minute Walk Test Gait Speed (calculated): 0.76 m/s 30 Second Chair Stand Test: 11 reps TREATMENT: Neuromuscular Re-Education: 3: Reassessment of functional measures, strength, balance, gait 4: Education on use of distraction with gait and exercise to improve tolerance for activity 5: Education on importance of continued mobility and exercise for overall health and wellness, NS regulation, and pain management Skilled Intervention: Skilled judgment used to assess appropriate program for balance and coordination activity. Patient education as noted. Billing Neuromuscular Re-Education Treatment Minutes: 34 Skilled Treatment Time Minutes (timed and untimed codes): 34 Total Session Time (minutes): 34 Session Start Time : 917 Session Stop Time : 951 Cecelia Myers PT, DPT documented in this encounter [facility] 04-13-[address] [facility] 04-10-[address] [facility] 04-10-2023 History of Present illness Narrative Sleep Study Check-In Documentation Date: April 10, 2023 Name: Yunier Gaines Patient was accompanied by Self. Location: [place] Latex allergy: No Tape allergy: No Current medications were reviewed with the patient:Yes Sleep aid taken by patient for the sleep study: [place] of sleep aid: Not Applicable Procedure was explained to the patient and all questions were answered. PAP treatment discussed and shown to patient: Yes If PAP used enter mask info: Mask Name Airfit P10 Make Resmed MaskTypeNasal Pillow Mask SizeSmall Chin Sharp Used No Knowledge Program (KP): KP was not completed in epic by patient and accepted Study type: PAP titration Adverse Event: No (If yes create a new abstract) Comments: Patient was advised to follow up with their ordering provider regarding test results Jacklyn Casey documented in this encounter [facility] 04-08-[address] [facility] 04-06-[address] [facility] 04-02-[address] [facility] 04-01-[address] [facility] 03-31-2023 Miscellaneous Notes Addended by: HALEY NICHOLSON on: 03/31/2023 04:29 PM Modules accepted: Orders Yes, sent! Patient called in today March 31. She says things are going great on trulicity. She wanted to know if you can up prescription documented in this encounter [facility] 03-30-[address] [facility] 03-26-[address] [facility] 03-26-2023 History of Present illness Narrative Episode Visit Count: 1 Therapist That Will Accept/Oversee The Plan Of Care: Celia Start of Care Date: 03/26/23 Onset Date: 01/21/23 Plan of Care Certification Date: 03/26/23 Next Certification Due Date: 05/24/23 Patient Identified by Name and Date of : Yes REHABILITATION AND SPORTS THERAPY PHYSICAL THERAPY EVALUATION PLAN OF CARE: Assessment: Yunier Gainse presents with chief complaint of chronic right knee pain that interferes with squatting, sitting, physical activities, lifting, heavy exertion . She presents with impairments in ADL's, independence in exercise, overall function, range of motion, and strength. PROMIS (Patient-Reported Outcomes Measurement Information System) scores were reviewed and physical function domain identified as a rehabilitation concern. Prognosis for therapy is Good due to: current objective clinical presentation . She will benefit from skilled therapy services to meet the goals established for this plan of care as noted below. Goals for Episode of Care: created on 03/26/23 through 06/23/23 [place] in home exercise program. Patient will decrease pain rating by 2 points to meet minimal clinical important difference for numeric pain rating scale. Patient will increase active ROM of right knee pain free 0-140 to allow pt to to improve performance of ADLs. Patient will demonstrate increase in right lower extremity strength to 5/5 during manual muscle testing in order to improve function for basic self-care tasks and home management tasks. Patient will be independent with aquatic program and transition to a community pool Patient Goals: improve knee function Planned Interventions, Frequency, and Duration: Current Frequency: 1x/week Duration: 4 weeks Total Number of Visits Planned: 4 Planned Treatment Interventions: Aquatic PT (49000) Patient demonstrates good understanding of plan of care and treatment. The above goals and plan of care were discussed and agreed upon by patient/family. Transfer of Care Due To: Closer to Home SUBJECTIVE: right knee pain. Started 6 months ago. Walking is okay but any strength training causes pain. Started 6 months ago. She does the gym. She has CRPS left foot. She is in PT for [employer] for 3 years. Patient Goals: improve knee function Functional Limitations: squatting, sitting, physical activities, lifting, heavy exertion Prior Level of Function: Independent without limitations Relevant History Employment: Unemployed Recreation / Current Exercise: strength training 4 times per week. Intake Information: Prescription present Previous Treatment: NSAIDs Falls Interview: No positive findings with falls interview Pain: Pain Pain Level: 5 Pain Location: Knee - Right Description: Aching Frequency: Continuous Detailed Pain Score: Yes Worst Pain Level: 10 Average Pain Level: 4 Best Pain Level: 1 Post Treatment Pain Post Treatment Pain Level: No Change PROMIS Scales Higher is Better 03/15/2023 02/09/2023 Phys Func - Score 31 (moderate dysfunction) 31 (moderate dysfunction) Phys Func - Percentile 3 % 3 % Self-Eff Symptom - Score 38 (Low) 34 (Low) Self-Eff Symptom - Percentile 12 % 5 % T-scores: mean of general population = 50. 5 points is clinically meaningfully difference Percentiles provide an indication of how the patient's score ranks in relation to the general population. Higher percentile rankings indicate better function/quality of life. 50th percentile is the average of the general population and indicates half of respondents had a worse score. OBJECTIVE MEASURES WITH LEVEL OF FUNCTION: Knee Observations R Knee Palpation Tenderness: Lateral joint line, Medial joint line, Patellar inferior pole LE AROM R Knee Extension: 0 Degrees (pain) R Knee Flexion: 130 Degrees (pain) LE Strength L LE Strength: held R Hip Extension: 4/5 R Hip Flexion (L2): 4/5 R Hip ABduction: 4-/5 R Hip ADduction: 4/5 R Knee Extension (L3): 4/5 (knee pain) R Knee Flexion: 3/5 (knee pain) Functional Strength Functional Strength: pain with sit to stand Gait Gait Observation: Pounding, decreased stance Left LE due to CRPS Education: Education Learning Preferences: Explanation, Demonstration, Performance, Printed Materials Barriers: None Learning/educational needs: Home exercise program, Plan of Care Education Provided: Yes, see treatment interventions for education provided Education Provided To: Patient, Family Education Mode/Type: Explanation/Discussion, Demonstration, Literature/Printed Materials, Performance Response to Education/Teach Back: States/Identifies, Return Demonstration TREATMENT: PT Treatment Interventions: Therapeutic Exercise, Therapeutic Activity, Aquatic Therapy Evaluation Therapeutic Exercise: 1: Prone HS curls, 3x15* 2: LAQ at high rep, pain free ROM, x25* 3: Seated rapid heel raises, 1 minute* 4: Education on use of bike withour resistance for knee nutrition, pain free exercise education, use of heat as needed. Skilled Intervention: Patient was educated in proper exercise technique and purpose for exercises. Reviewed and educated patient on additions/changes for home exercise program as above (*). Billing * Evaluation Low Complexity: 1 Unit Therapeutic Exercise Treatment Minutes: 23 Skilled Treatment Time Minutes (timed and untimed codes): 38 Total Session Time (minutes): 40 Session Start Time : 1010 Session Stop Time : 1050 Trent Yang PT documented in this encounter [facility] 03-25-[address] [facility] 03-25-2023 History of Present illness Narrative Episode Visit Count: 6 Therapist That Will Accept/Oversee The Plan Of Care: Yazan Gaitan Start of Care Date: 02/12/23 Onset Date: 01/21/23 Patient Identified by Name and Date of : Yes REHABILITATION AND SPORTS THERAPY PHYSICAL THERAPY AQUATIC TREATMENT NOTE ASSESSMENT: Yunier Gaines had a good response to today's session. Reported increased back pain this date. Able to increase reps for LE therex and core therex with good tolerance. Minimal cues for form and posture. Reported decreased pain in back though foot with no change post session. She demonstrated improvements in exercise tolerance. The patient will continue to benefit from ongoing skilled physical therapy to progress toward set goals. PLAN FOR NEXT VISIT: Cont w/aquatics per pt manuela and response to Rx SUBJECTIVE: I tweaked my back this weekend, it's tight. Pain: Pain Pain Level: 6 Pain Location: Back Description: Tightness Frequency: Intermittent Pain Level 2: 5 Pain Location 2: Foot - Left Description 2: Burning Frequency 2: Continuous Post Treatment Pain Post Treatment Pain Level: ( back is better a 2, foot is the same. ) OBJECTIVE MEASURES WITH LEVEL OF FUNCTION: Posture / Alignment Posture: Forward head, Rounded shoulders Gait Gait Observation: L ankle inversion, limited DF/PF, maintains WB on lateral aspect of foot TREATMENT: Aquatic Therapy: Footwear on pool deck pre-treatment: Yes, patient wearing appropriate footwear and appeared safe on pool deck Footwear on pool deck post-treatment: Yes, patient wearing appropriate footwear and appeared safe on pool deck Entered the pool: Forward on stairs Entered the pool assist level: Supervision Entered the pool step pattern: Step over step Exited the pool: Forward on stairs Exited the pool assist level: Supervision Exited the pool step pattern: Step over step Aquatic Therapy (10430): Walking, Lower Extremity, Vertical / Mobile - Buoyancy Supported, Posture / Trunk Exercise Walking: Forward Walking, Backward Walking, Lateral/ Side Stepping Water Depth: 4.5 Forward Walkin Backward Walkin Lateral/Side Steppin Posture/Trunk Exercise: Abdominal Stabilization Pull Downs, Abdominal Stabalization Push Downs, Abdominal Stabalization Push - Pull, 1 Water Depth: 4.5 Abdominal Stabilization Pull Downs : 20 Abdominal Stabalization Push Downs : 20 Abdominal Stabalization Push - Pull: 20 1: red KB Lower Extremity: Squats, Hip Flexion, Hip Extension, Hip Abduction, Hip Adduction, Hip Internal/External Rotation, Hip Circumduction, Knee LAQ, Knee Hamstring Curls, Heel Raises, Ankle Circles, Ankle Plantarflexion/Dorsiflexion, Ankle Inversion/Eversion Water Depth: 4.5 Squats: 20 Hip Flexion: 20 Hip Extension: 20 Hip Abduction: 20 Hip Adduction: 20 Hip Internal /External Rotation: 20 Hip Circumduction: 20 Knee LAQ: 20 up/out/in/dn Knee Hamstring Curls: 20 Heel Raises: 20 Ankle Circles: 20 Ankle Inversion/ Eversion: 20 Ankle Plantarflexion/ Dorsiflexion: 20 Vertical/Mobile - Buoyancy Supported : Hip Abduction/ Adduction, Bicycle, Sitting Unloading, 1 Water Depth: 5 Hip Abduction/Adduction: 2 min Bicycle: 2 min Sitting Unloadin min 1: with noodle at wall Abbreviation Cannon: BA = buoyancy assisted BR = buoyancy resisted BS = buoyancy supported reps = repetitions HEP = home exercise program Skilled Intervention: Patient was educated in proper exercise technique and purpose for exercises. Skilled judgment was provided in selection of appropriate interventions. Patient education: Rationale/technique for exercises and activities performed this visit Education and demonstration for posture and positioning. Billing Aquatic Therapy Treatment Minutes: 45 Total Session Time (minutes): 45 Session Start Time : 829 Session Stop Time : 914 Miya Crockett PTA documented in this encounter [facility] 03-24-2023 History of Present illness Narrative Images from the original note were not included. Yunier Gaines is a pleasant 42 year old female who presents today with a chief complaint of right knee pain. There was no associated injury. It is localized to the right anterior knee. There is no radiation. The pain is made better with rest, flat walking and worse with kneeling, stairs. There is weakness. Intermittent swelling. PAIN EVALUATION 03/18/2023 0904 Pain Level: 5 Pain Location: Knee-Right Description: Aching;Cramping;Sore;Stiffness;Throb lauren Duration Amount of Time: 6 Duration Units: Months Frequency: Intermittent Intervention/Comfort measure: Medication;Reposition;Massage Employment history: na Treatments to date: PT- none for this (recently, for >6wks) Medications- ibuprofen (recently, for >6wks) Injections- none ALLERGIES Allergen Reactions Penicillin G GI Upset Current Outpatient Medications Medication Sig busPIRone (BUSPAR) 5 mg tablet Take 1 tablet by mouth every 12 (twelve) hours. cetirizine (ZYRTEC) 10 mg tablet Take 1 tablet by mouth every afternoon. cyclobenzaprine (FLEXERIL) 10 mg tablet doxepin capsule 25 mg Take 50 mg by mouth. prazosin (MINIPRESS) 1 mg cap Take 1 mg by mouth daily at bedtime. sertraline (ZOLOFT) 50 mg tablet Take 1 tablet by mouth every afternoon. dulaglutide (TRULICITY) 0.75 mg/0.5 mL pen injector Inject 0.75 mg subcutaneously one time a week. carvedilol (COREG) 25 mg tablet Take 1 tablet by mouth every 12 hours 6am/6pm. montelukast (SINGULAIR) 10 mg tablet Take 1 tablet by mouth every afternoon. CPAP/BIPAP/OTHER Type .CPAPSettings into a note to see current settings/supplies/DME information. celecoxib (CELEBREX) 200 mg capsule Take 1 capsule by mouth twice daily. No current facility-administered medications for this visit. No past medical history on file. ACTIVE PROBLEM LIST Complex Regional Pain Syndrome Type 1 of Left Lower Extremity Social History Tobacco Use Smoking status: Every Day Passive exposure: Never Smokeless tobacco: Never Tobacco comments: Vape Substance Use Topics Alcohol use: Never Drug use: Never FMH: noncontributory Review of Systems: GENERAL: negative for fevers, chills, night sweats, unwanted weight loss, excessive weight gain SKIN: negative for rashes, itching HEAD: negative for headaches, dizziness EYES: negative for vision loss EARS: negative for hearing loss NOSE: negative for nose bleeds MOUTH/THROAT: negative for throat pain, difficulty swallowing RESPIRATORY: negative for cough, shortness of breath CARDIOVASCULAR: negative for chest pain, rapid heartbeat, irregular heartbeat GASTROINTESTINAL: negative for abdominal pain, diarrhea, constipation, heartburn, nausea GENITOURINARY: negative for frequency, incontinence ENDOCRINE: negative for thyroid problems, heat intolerance MUSCULOSKELETAL: see HPI NEUROLOGIC: negative for memory loss, loss of balance, incoordination HEMATOLOGIC: negative for easy bruising PSYCHIATRIC: negative for depression, anxiety, insomnia The remainder of the ROS was negative Labs/Imaging/EMG: (reviewed by me today/discussed with patient) Xray right knee 03-24-23: normal Chart was extensively reviewed in regard to documentation from previous providers and previous testing results as appropriate. Physical Exam: There were no vitals filed for this visit. 42 year old female in no acute distress. Respirations are unlabored. She is pleasant and oriented x3. There is no extremity edema. Peripheral pulses are palpable. No lymphadenopathy. No rashes or lesions on the skin. Right knee examination shows no swelling, erythema, effusion, or warmth. No deformity. No tenderness along the medial joint line or lateral joint line. Mild crepitus with gentle range of motion. Varus-valgus testing shows no ligament laxity. Keagan's is negative. Posterior drawer is negative. Lashonda's is negative. Patellar grind and compression are positive. Sensation is intact to light touch. Strength testing is intact. ROM is 0/140. Gait is nonantalgic. Impression: (M17.11) Osteoarthritis of right patellofemoral joint (primary encounter diagnosis) Plan: -PT -celebrex 200 BID with food -follow up PRN. If not improved, consider csi I spent a total of 45 minutes on the date of the service which included preparing to see the patient, [id number] patient care, completing clinical documentation, performing a medically appropriate examination, counseling and educating the patient/family/caregiver, ordering medications, tests or procedures and communicating results to the patient/family/caregiver. Viet Jenkins MD State Appellate [employer] Department of Orthopaedics documented in this encounter [facility] 03-24-[address] [facility] 03-18-[address] [facility] 03-18-2023 History of Present illness Narrative Episode Visit Count: 5 Therapist That Will Accept/Oversee The Plan Of Care: Yazan Gaitan Start of Care Date: 02/12/23 Onset Date: 01/21/23 Patient Identified by Name and Date of : Yes REHABILITATION AND SPORTS THERAPY PHYSICAL THERAPY AQUATIC TREATMENT NOTE ASSESSMENT: Yunier Gaines demonstrated good manuela and response to today's visit w/o c/os. Req min verbal cues and demo for improved ther ex performance. Able to inc amb to 5 laps today. Inc reps of ther ex. Pain decreased after Rx although not quantified. The patient may benefit from continued skilled PT for pain reduction, strengthening, ROM, flexibility and increased functional mobility. PLAN FOR NEXT VISIT: Cont w/aquatics per pt manuela and response to Rx SUBJECTIVE: Subjective: I'm ok.. Pain: Pain Pain Level: 6 Pain Location: Foot - Left (6 back, foot 5) Description: Burning Frequency: Continuous Post Treatment Pain Post Treatment Pain Level: (not quantified) OBJECTIVE MEASURES WITH LEVEL OF FUNCTION: Posture / Alignment Posture: Forward head, Rounded shoulders Gait Gait Observation: L ankle inversion, limited DF/PF, maintains WB on lateral aspect of foot TREATMENT: Aquatic Therapy: Footwear on pool deck pre-treatment: Yes, patient wearing appropriate footwear and appeared safe on pool deck Footwear on pool deck post-treatment: Yes, patient wearing appropriate footwear and appeared safe on pool deck Entered the pool: Forward on stairs Entered the pool assist level: Supervision Entered the pool step pattern: Step over step Exited the pool: Forward on stairs Exited the pool assist level: Supervision Exited the pool step pattern: Step over step Aquatic Therapy (10421): Walking, Lower Extremity, Vertical / Mobile - Buoyancy Supported, Posture / Trunk Exercise Walking: Forward Walking, Backward Walking, Lateral/ Side Stepping Water Depth: 4.5 Forward Walkin Backward Walkin Lateral/Side Steppin Posture/Trunk Exercise: Abdominal Stabilization Pull Downs, Abdominal Stabalization Push Downs, Abdominal Stabalization Push - Pull, 1 Water Depth: 4.5 Abdominal Stabilization Pull Downs : 15 Abdominal Stabalization Push Downs : 15 Abdominal Stabalization Push - Pull: 15 1: red KB Lower Extremity: Squats, Hip Flexion, Hip Extension, Hip Abduction, Hip Adduction, Hip Internal/External Rotation, Hip Circumduction, Knee LAQ, Knee Hamstring Curls, Heel Raises, Ankle Circles, Ankle Plantarflexion/Dorsiflexion, Ankle Inversion/Eversion Water Depth: 4.5 Squats: 15 Hip Flexion: 15 Hip Extension: 15 Hip Abduction: 15 Hip Adduction: 15 Hip Internal /External Rotation: 15 Hip Circumduction: 15 Knee LAQ: 15 up/out/in/dn Knee Hamstring Curls: 15 Heel Raises: 15 Ankle Circles: 15 Ankle Inversion/ Eversion: 15 Ankle Plantarflexion/ Dorsiflexion: 15 Skilled Intervention: Patient was educated in proper exercise technique and purpose for exercises. Skilled judgment was provided in selection of appropriate interventions. Patient education: Weight bearing effects of immersion Proper hydration following aquatic session Rationale/technique for exercises and activities performed this visit Expectation of fatigue/discomfort with exercise progressions and normal response Goal to gradually decrease water depth to tolerance in preparation for transition to land based physical therapy and daily living Advised to rest as needed upon exiting pool prior to walking to locker room to re-acclimate to full weight bearing status Patient with good understanding. Group Therapy: 1: Noodle work: 2: ab/adduction 2min 3: hip/knee flexion/ext 2min 4: distraction x 5min Skilled Intervention: Aquatic Skilled judgment was provided in selection of appropriate progression. Required verbal cues & demonstration for proper form with exercises. Billing Aquatic Therapy Treatment Minutes: 35 * Group Therapy: 1 unit Total Session Time (minutes): 48 Session Start Time : 1352 Session Stop Time : 1440 Quentin Zaragoza PTA documented in this encounter [facility] 03-18-2023 Instructions Ciaran Real MD - 03/18/2023 10:18 AM EDT To view the surgery seminar online and register as a patient to get established, please go to [email or web address] -START trulicity 0.75mg once weekly, if doing well, let me know and I can increase the dose for month -Continue with RD at the [facility] -EM[facility] for trauma -[facility] home support DULAGLUTIDE (Trulicity) - The medication comes in a once weekly, single-dose pen. - The most common adverse reactions reported in ?5% of Trulicity-treated patients in trials were nausea, diarrhea, vomiting, abdominal pain, decreased appetite, dyspepsia, and fatigue.The side effects are usually transient in nature. Please reach out for assistance in managing these symptoms if they persist and are bothersome. Side effects typically occur 1-3 days after the injection, when starting the medication, and with dose increases. With this in mind consider timing the injection like on a Thursday night, so if you have side effects they will occur on the weekend versus while you are at work. -- We should have further discussions about taking this medication if you have a history of a pancreatitis, a disease called MEN2, or you or a family member has had medullary thyroid cancer. -- please inform me immediately if you are or plan to become . -- Although rare, there is an increased risk for inflammation of the pancreas (pancreatitis), gallbladder problems (including gallstones), low blood sugar (typically when combined with a medication called a sulfonurea), acute kidney injury (bwith nausea/vomiting and resulting dehydration), diabetic retinopathy (damage to the eye's retina), increased heart rate, and suicidal behavior or thinking. -- Please reach out if in-person pen training is needed. -- Keep medication refrigerated. It is good for 2 weeks out of the refrigerator as long as it had not been in high temperatures or direct sunlight. Instructions for Use Trulicity Patient Education How to use the pen: What is Trulicity & Easy To Use Pen Trulicity (dulaglutide) Full medication guide: Trulicity What Is Trulicity? Trulicity is a brand-name prescription drug that belongs to the drug class glucagon-like peptide-1 (GLP-1) agonists. Trulicity is available as a liquid solution self-injectable medication. It is a pre-filled, disposable, single-use injection pen. Can Trulicity Be Used for Weight Loss? While Trulicity is not a weight loss drug, Similar drugs in the same class of medication called GLP1's have recently been approved for weight loss by the FDA. These drugs are named Wegovy and Saxenda. The medication will be delivered as a once-weekly shot, in combination with diet and exercise. How Does Trulicity for Weight Loss Work? Trulicity is in a drug class called GLP-1 agonists that are used to control blood sugar, and can be taken to assist in weight loss. This drug works by - Slowing down how fast your stomach empties food - Blocking hormones that cause the liver to release sugar - Together, these combined actions cause the feeling of hunger to decrease, which leads to eating less, and finally, weight loss. How Long Does It Take for Trulicity to Work for Weight Loss? Results vary from person to person with Ozempic. Some people may have a quick initial weight drop; for others, it may take more time. Trulicity has been shown to help people lose weight in a safe, long-term, and healthy way. A [facility] doctor will help you with dosages of Trulicity for weight loss and might recommend slowly increasing dosage over time to maximize weight loss. The speed at which you lose weight is largely influenced by the amount of lifestyle changes you are able to make: there is no magic weight loss drug on the market. It s important to remember that weight loss takes time, and you ll have the best results if you use Trulicity in combination with exercise and a healthy diet. Trulicity for Weight Loss Dulaglutide: Patient drug information [employer] for additional drug information, tools, and databases. Copyright 5212-3778 [employer] All rights reserved. (For additional information see Dulaglutide: Drug information ) You must carefully read the Consumer Information Use and Disclaimer below in order to understand and correctly use this information. Brand Names: [place] Trulicity Brand Names: Andrea Trulicity Warning Drugs like this one have been shown to cause thyroid cancer in some animals. It is not known if this drug may cause thyroid cancer in humans. Call your doctor right away if you have a neck mass, trouble breathing, trouble swallowing, or hoarseness that will not go away. Do not use this drug if you have a health problem called Multiple Endocrine Neoplasia syndrome type 2 (MEN 2), or if you or a family member have had thyroid cancer. What is this drug used for? It is used to lower blood sugar in patients with high blood sugar (diabetes). It is used to lower the chance of heart attack, stroke, and in some people. What do I need to tell my doctor BEFORE I take this drug? If you are allergic to this drug; any part of this drug; or any other drugs, foods, or substances. Tell your doctor about the allergy and what signs you had. If you have any of these health problems: Type 1 diabetes or stomach or bowel problems. If you have ever had pancreatitis. If the patient is a child. Do not give this drug to a child. This is not a list of all drugs or health problems that interact with this drug. Tell your doctor and pharmacist about all of your drugs (prescription or OTC, natural products, vitamins) and health problems. You must check to make sure that it is safe for you to take this drug with all of your drugs and health problems. Do not start, stop, or change the dose of any drug without checking with your doctor. What are some things I need to know or do while I take this drug? Tell all of your health care providers that you take this drug. This includes your doctors, nurses, pharmacists, and dentists. Follow the diet and workout plan that your doctor told you about. Wear disease medical alert ID (identification). Check your blood sugar as you have been told by your doctor. Have blood work checked as you have been told by the doctor. Talk with the doctor. Do not drive if your blood sugar has been low. There is a greater chance of you having a crash. It may be harder to control blood sugar during times of stress such as fever, infection, injury, or surgery. A change in physical activity, exercise, or diet may also affect blood sugar. Kidney problems have happened with drugs like this one. Sometimes, kidney problems have needed to be treated in the hospital. Dialysis has also been needed. Talk with your doctor. Tell your doctor if you have upset stomach, throwing up, diarrhea, or too much sweating. Losing too much fluid may raise your chance of kidney problems. If you are dehydrated, talk with your doctor. This drug may prevent other drugs taken by mouth from getting into the body. If you take other drugs by mouth, you may need to take them at some other time than this drug. Talk with your doctor. Do not share pen or cartridge devices with another person even if the needle has been changed. Sharing these devices may pass infections from one person to another. This includes infections you may not know you have. Tell your doctor if you are , plan on getting , or are breast-feeding. You will need to talk about the benefits and risks to you and the baby. What are some side effects that I need to call my doctor about right away? WARNING/CAUTION: Even though it may be rare, some people may have very bad and sometimes deadly side effects when taking a drug. Tell your doctor or get medical help right away if you have any of the following signs or symptoms that may be related to a very bad side effect: Signs of an allergic reaction, like rash; hives; itching; red, swollen, blistered, or peeling skin with or without fever; wheezing; tightness in the chest or throat; trouble breathing, swallowing, or talking; unusual hoarseness; or swelling of the mouth, face, lips, tongue, or throat. Signs of a pancreas problem (pancreatitis) like very bad stomach pain, very bad back pain, or very bad upset stomach or throwing up. Signs of kidney problems like unable to pass urine, change in how much urine is passed, blood in the urine, or a big weight gain. Change in eyesight. Low blood sugar can happen. The chance may be raised when this drug is used with other drugs for diabetes. Signs may be dizziness, headache, feeling sleepy or weak, shaking, fast heartbeat, confusion, hunger, or sweating. Call your doctor right away if you have any of these signs. Follow what you have been told to do for low blood sugar. This may include taking glucose tablets, liquid glucose, or some fruit juices. What are some other side effects of this drug? All drugs may cause side effects. However, many people have no side effects or only have minor side effects. Call your doctor or get medical help if any of these side effects or any other side effects bother you or do not go away: Not hungry. Feeling tired or weak. It is common to have diarrhea, upset stomach, throwing up, or stomach pain with this drug. Call your doctor if any of these side effects get very bad, bother you, or do not go away. These are not all of the side effects that may occur. If you have questions about side effects, call your doctor. Call your doctor for medical advice about side effects. You may report side effects to your national health agency. How is this drug best taken? Use this drug as ordered by your doctor. Read all information given to you. Follow all instructions closely. It is given as a shot into the fatty part of the skin on the top of the thigh, belly area, or upper arm. If you will be giving yourself the shot, your doctor or nurse will teach you how to give the shot. Be sure you know how to use this drug. Read the instructions for use that come with this drug. If there are no instructions for use or you have any questions about how to use this drug, talk with the doctor or pharmacist. Take with or without food. Drink lots of noncaffeine liquids unless told to drink less liquid by your doctor. Take the same day each week. Do not use if the solution is cloudy, leaking, or has particles. Do not use if solution changes color. Wash your hands before and after use. Move site where you give the shot each time. If you are also using insulin, you may inject this drug and the insulin in the same area of the body but not right next to each other. Do not mix this drug in the same syringe with insulin. Keep taking this drug as you have been told by your doctor or other health care provider, even if you feel well. Throw away needles in a needle/sharp disposal box. Do not reuse needles or other items. When the box is full, follow all local rules for getting rid of it. Talk with a doctor or pharmacist if you have any questions. What do I do if I miss a dose? Take a missed dose as soon as you think about it. If it is less than 3 days (72 hours) until your next dose, skip the missed dose. Take your next dose on your normal day. Do not take 2 doses at the same time or extra doses. How do I store and/or throw out this drug? Store in a refrigerator. Do not freeze. Do not use if it has been frozen. If needed, you may store at room temperature for up to 14 days. Write down the date you take this drug out of the refrigerator. If stored at room temperature and not used within 14 days, throw this drug away. Store in the original container to protect from light. Protect from heat. Keep all drugs in a safe place. Keep all drugs out of the reach of children and pets. Throw away unused or drugs. Do not flush down a toilet or pour down a drain unless you are told to do so. Check with your pharmacist if you have questions about the best way to throw out drugs. There may be drug take-back programs in your area. General drug facts If your symptoms or health problems do not get better or if they become worse, call your doctor. Do not share your drugs with others and do not take anyone else's drugs. Some drugs may have another patient information leaflet. If you have any questions about this drug, please talk with your doctor, nurse, pharmacist, or other health care provider. If you think there has been an overdose, call your poison control center or get medical care right away. Be ready to tell or show what was taken, how much, and when it happened. Last Reviewed [id number] Consumer Information Use and Disclaimer This generalized information is a limited summary of diagnosis, treatment, and/or medication information. It is not meant to be comprehensive and should be used as a tool to help the user understand and/or assess potential diagnostic and treatment options. It does NOT include all information about conditions, treatments, medications, side effects, or risks that may apply to a specific patient. It is not intended to be medical advice or a substitute for the medical advice, diagnosis, or treatment of a health care provider based on the health care provider's examination and assessment of a patient's specific and unique circumstances. Patients must speak with a health care provider for complete information about their health, medical questions, and treatment options, including any risks or benefits regarding use of medications. This information does not endorse any treatments or medications as safe, effective, or approved for treating a specific patient. [employer] and its affiliates disclaim any warranty or liability relating to this information or the use thereof. The use of this information is governed by the Terms of Use, available at https://www.[employer].com/en/brenda ch/jose/about/ron documented in this encounter [facility] 03-18-2023 History of Present illness Narrative Images from the original note were not included. BMI Obesity Medicine NEW PT 03/17/23 Consultation requested by No ref. provider found for an opinion regarding Obesity. My final recommendations will be communicated back to the requesting physician by way of shared Medical record or letter to requesting physician via US mail. Patient Summary: Yunier Gaines is a 42 year old female with obesity who presents to the [facility] for an initial evaluation of her obesity and is interested in behavioral and pharmacological weight loss approaches. She is open to surgery, would like to try non-surgical route first. Primary reason for wanting obesity treatment : at a weight plateau after working out 4-5x/week and losing 100lb in the past, but has since regained 140lb after foot injuries. She has some limitations with her foot even after surgeries. Overall goal: 200-250lb lbs, greater mobility and buy clothes easily Initial Program Wt: 365lb BMI: 51.6 Relevant Co-Morbidities: PAKO on cpap Hypertension (carvedilol) due to heart flutters. She had a heart test at 16 (she saw a sugar grinder) she is still symptomatic occasionally but this medication has controlled. DVT 05/12/2020 PE 05/12/2020 Asthma Complex regional pain syndrome Depression, PTSD Weight History: She reports a strong family history of obesity and early onset weight gain. She states her weight gain is related to the following factors, feeling hungry, not feeling satiated, having cravings, and having had recent surgery. She was always considered obese as a child and pre-teen, but she was very active and constantly in the gym in middle school and high school. She continued to play recreational sports and her weight really climbed at age 19, and from [age] she realized she gained a lot of weight. She tried to lose weight to get ready for her brother's wedding through exercise and nutrition, lost 60lb. Got a new job then, and her weight started to climb and she finally reached at max at age 37 at 410lb. She started doing keto and began working out and got down to 265lb but then broke her foot at work. She has been gaining since then and has gained the 140lb. She has been trying to lose weight since then and lost 15lb after meeting her finance and eating higher protein and going to the gym. Her partner had bariatric surgery here at [facility]. She has R foot hyperesthesia (part of the regional complex pain syndrome after the R foot surgery on 03/18/21 with 3 screws and subsequent surgeries - pain stim trial in 06/2022, perm pain stim inserted in 11/2022). She was on gabapentin (motor issues and felt like a zombie) and lyrica (LE swelling) in the past, and she hasn't been on other pain medication. She does have heart flutter that was formally diagnosed at age 16 with occasional sx palpitations and is on carvedilol. She feels like her biggest issue is hunger, satiety issues, and cravings. She has periods of eating a lot and then restricting. Will wake up at night sometimes with cravings/hunger. 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 She comes her finance, Brigitte. Reviewed labs, normal Weight Graph: (please see graph scanned in chart) Obesigenic Medications: YES - buspar, sertraline 50mg, carvedilol 25mg Diet: Finance meal preps to help her for healthy snacks and meals. 24 Hr Food Recall: B: protein loaf - protein powder, egg whites, pumpkin 30g protein and butter. It did fill her.+ cups of coffee with SF flavored syrup - 320cal S: yogurt b ar 1.5 hours after breakfast L: 1/2c cauliflower rice + mushrooms, onions, peppers, 3/4 cup ground meat + wedge of laughing cow cheese (she was really hungry) S: cake with homemade frosting (zero sugar) - just a small sample from [employer] who was cooking D: cauliflower pizza with turkey pepperoni Gym for 1.5 hours S: protein bar - crunch bar 210 tonio, 16g protein Quality of diet: 24hr recall suggests healthy diet. Characterization of diet:Structured. Exhibit Carpenter of impaired eating habits:excessive hunger and lack of satiety and craving Eating Disorder sleep related eating - she always wakes up hungry at night, she is eating 3/7 days. This has reduced from nightly to 3 days a week with the Resting Metabolic Rate: 2417 Diet History: Past weight loss attempts? self-directed and dietitian, jaguar Exercise: Regular exercise: yes - 1.5 hours, strength and 20 min cardio (that's her limit with foot 20 min elliptical and walking) - she loves working out Strength/resistance exercise:yes Barriers to regular exercise? None Work-related activity:None ?Sleep: Has PAKO, has cpap and is using this Exploring other mask options, sleep study last week Sleep is disrupted, PTSD and depression. ??Stress: Marked, Cause:Personal (health) and financial Sees a counselor and psychiatrist Obesity Related Comorbidities: Prior Weight Loss Surgery:No ACTIVE PROBLEM LIST Complex Regional Pain Syndrome Type 1 of Left Lower Extremity No past surgical history on file. Obesity ROS/ FHx GEN: Fatigue: yes CV: h/o palpitations/cardiac arrhythmia, CP:palpitations PULM: Asthma:yes - not active GI: GERD:No; Gallstones: No; Fatty liver disease:No; H/o hernia:No MSK: Joint Pain: yes - foot : Nephrolithiasis: yes, once. (No stone analysis) Symptoms of PCOS(women): yes - it seems No history of thyroid disorder,diabetes,cold intolerance,heat,intolerance,polydyp rebecca NEURO: Migraines/GAGE: no, but she does get daily headaches recently (on zoloft) H/o seizures: No Glaucoma:No; Cataracts No Symptoms of pseudotumor cerebri:No The physical systems reviewed reveal no pathological symptoms that are pertinent to this visit No family history on file. 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 PE BP 130/70 Pulse 70 Ht 180.3 cm (5' 11 ) Wt (!) 166 kg (365 lb 14.4 oz) BMI 51.03 kg/m NAD. Mixed central and gluteofemoral adiposity. Waist circumference not measured. No acanthosis, no lipoma, no pallor. No supraclavicular adiposity. No dorsal adiposity. +Acanthosis RRR nl. s1s2 CTAB Abdomen Soft Protuberant ; No striae. NT/ND. No peripheral edema Results: reviewed with the patient Appointment on 03/11/2023 Component Date Value Ref Range Status Ferritin 03/11/2023 128.0 14.7 - 205.1 ng/mL Final Iron 03/11/2023 68 41 - 186 ug/dL Final TIBC 03/11/2023 281 232 - 386 ug/dL Final Transferrin Saturation 03/11/2023 24.2 15.0 - 57.0 % Final Transferrin 03/11/2023 241 200 - 360 mg/dL Final Results Only on 02/10/2023 Component Date Value Ref Range Status Insulin 02/10/2023 18.0 3.0 - 25.0 mU/L Final Protein, Total 02/10/2023 6.9 6.3 - 8.0 g/dL Final Albumin 02/10/2023 3.9 3.9 - 4.9 g/dL Final Calcium, Total 02/10/2023 9.8 8.5 - 10.2 mg/dL Final Bilirubin, Total 02/10/2023 0.4 0.2 - 1.3 mg/dL Final Alkaline Phosphatase 02/10/2023 56 34 - 123 U/L Final AST 02/10/2023 23 13 - 35 U/L Final ALT 02/10/2023 21 7 - 38 U/L Final Glucose 02/10/2023 99 74 - 99 mg/dL Final BUN 02/10/2023 15 7 - 21 mg/dL Final Creatinine 02/10/2023 0.71 0.58 - 0.96 mg/dL Final Sodium 02/10/2023 137 136 - 144 mmol/L Final Potassium 02/10/2023 5.2 (H) 3.7 - 5.1 mmol/L Final Chloride 02/10/2023 102 97 - 105 mmol/L Final CO2 02/10/2023 26 22 - 30 mmol/L Final Anion Gap 02/10/2023 9 9 - 18 mmol/L Final Estimated Glomerular Filtration Ra* 02/10/2023 109 >=60 mL/min/1.73m Final Cholesterol, Total 02/10/2023 157 <200 mg/dL Final Triglyceride 02/10/2023 135 <150 mg/dL Final HDL Cholesterol 02/10/2023 43 >39 mg/dL Final Non HDL Cholesterol 02/10/2023 114 <130 mg/dL Final Fasting Time 02/10/2023 12 hrs Final VLDL Cholesterol 02/10/2023 27 <30 mg/dL Final TC:HDL Ratio 02/10/2023 3.65 <5.10 Final LDL Cholesterol 02/10/2023 87 <100 mg/dL Final LDL:HDL Ratio 02/10/2023 2.02 <2.54 Final WBC 02/10/2023 6.83 3.70 - 11.00 k/uL Final RBC 02/10/2023 4.55 3.90 - 5.20 m/uL Final Hemoglobin 02/10/2023 13.2 11.5 - 15.5 g/dL Final Hematocrit 02/10/2023 41.5 36.0 - 46.0 % Final MCV 02/10/2023 91.2 80.0 - 100.0 fL Final MCH 02/10/2023 29.0 26.0 - 34.0 pg Final MCHC 02/10/2023 31.8 30.5 - 36.0 g/dL Final RDW-CV 02/10/2023 12.8 11.5 - 15.0 % Final Platelet Count 02/10/2023 223 150 - 400 k/uL Final MPV 02/10/2023 10.4 9.0 - 12.7 fL Final Neutrophils % 02/10/2023 58.6 % Final Abs Neut 02/10/2023 4.00 1.45 - 7.50 k/uL Final Lymphocytes % 02/10/2023 28.3 % Final Abs Lymph 02/10/2023 1.93 1.00 - 4.00 k/uL Final Monocytes % 02/10/2023 7.6 % Final Abs Graves 02/10/2023 0.52 <0.87 k/uL Final Eosinophils % 02/10/2023 5.0 % Final Abs Eosin 02/10/2023 0.34 <0.46 k/uL Final Basophils % 02/10/2023 0.4 % Final Abs Baso 02/10/2023 0.03 <0.11 k/uL Final Immature Granulocytes % 02/10/2023 0.1 % Final Abs Immature Gran 02/10/2023 <0.03 <0.10 k/uL Final NRBC 02/10/2023 0.0 /100 WBC Final Absolute nRBC 02/10/2023 <0.01 <0.01 k/uL Final Diff Type 02/10/2023 Auto Final Hemoglobin A1C 02/10/2023 5.2 4.3 - 5.6 % Final Estimated Average Glucose 02/10/2023 103 mg/dL Final TSH 02/10/2023 2.260 0.270 - 4.200 mIU/L Final Impression: Yunier Gaines is a 42 year old female with Class III obesity (Body mass index is 51.03 kg/m .) who has early onset obesity with gradual weight gain. The causes of her obesity are multifactorial, biological, psychological and social and environmental. Specific factors include a genetic component related to a strong family of obesity as well as excessive hunger and lack of satiety. She has few weight-related medical comorbidities which increase her cardiovascular mortality risk. There are no several additional metabolic obesity complications including hypertension, obstructive sleep apnea, and PCOS. Other medical conditions as above. Regarding her lifestyle, as above, she has a few behavioral contributors ; her physical activity is regular. Overall, it is clear that her quality of life is severely compromised by her weight. It is likely a combination of weight loss therapies will be needed. She appears motivated today. Plan: -Discussed that overall, she would be a great candidate for multi-modal therapies including surgery and pharmacotherapy. She is open to this but prefers pharmacotherapy first. -will send genetic testing given her hyperphagia before age 5 -Given her multiple issues in the past and present, including recent treatment of depression with new medication and PTSD, hx of sx palpitations and heart flutter, nephrolithasis and current headache (likely related to recent zoloft start) we decide to pursue off label use of trulicity. I do think this will be very effective for her hunger and lack of satiety. No hx of MTC or pancreatitis. Reviewed mechanism in detail and side effects. We could consider metformin, or trial topiramate in the future if needed (no stone analysis and only one time stone passage) -continue with BMI RD as she has been seeing, nutrition is excellent -she may be overcompensating with exercise, but she has always really enjoyed this and it's reasonable for her to continue with strength training for a hour 5 days a week with 20 min of cardio as this is all she can tolerate given her R foot pain -continue with cpap for PAKO -labs reviewed -discussed wt set point in detail and surgery, will revisit this over time I spent a total of 60 minutes on the date of the service which included preparing to see the patient, [id number] patient care, completing clinical documentation, obtaining and/or reviewing separately obtained history, performing a medically appropriate examination, and counseling and educating the patient/family/caregiver. Haley Nicholson MD Attending Note: I have personally seen and examined the patient independently. I have discussed the case with the obesity medicine fellow (Dr. Haley Nicholson) and agree with the assessment and plan as documented in the fellow's note. Discussed both surgical and medical options. Will go with GLP1Ra and pt to enroll in surgical program. Genetic testing for genetic obesity. Briana Real MD MSc FTOS documented in this encounter [facility] 03-18-[address] [facility] 03-16-[address] [facility] 03-16-2023 History of Present illness Narrative Episode Visit Count: 4 Therapist That Will Accept/Oversee The Plan Of Care: Yazan Hernan Start of Care Date: 02/12/23 Onset Date: 01/21/23 Patient Identified by Name and Date of : Yes REHABILITATION AND SPORTS THERAPY PHYSICAL THERAPY PROGRESS REPORT PLAN OF CARE UPDATE: Assessment: Yunier Gaines demonstrates improvements in rising from a chair, standing, walking, heavy exertion, physical activities, and recreational activities. She has progressed toward goals. Patient continues to present with impairments in balance, gait, independence in exercise, overall function, posture, strength, stress management, and symptom management that interfere with rising from a chair, standing, walking, stair negotiation, sleeping . Current prognosis is Fair due to: clinical presentation, chronic nature of impairments . She will benefit from continued skilled therapy services to meet the updated goals for this plan of care as noted below. Goals for Episode of Care: created on 02/12/23 through 04/14/23; Updated 03/16/23 Patient will be independent with aquatic program and transition to a community pool. PROGRESSING [place] in home exercise program. PROGRESSING Patient will decrease pain rating by 2 points to meet minimal clinical important difference for numeric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 conjunctivae/corneas clear, anicteric sclera, EOMI ENT : External ears normal. Nasal congestion present, Nasal valve incompetence absent. Posterior airspace: Florian tongue position 3, retrognathia absent. Overbite absent. High arched palate absent. Tongue scalloping/ridging absent. Uvula: nl Dentition: nl Neuro: NL CN Psych: NL affect IMPRESSION/PLAN: G47.33 PAKO on CPAP (primary encounter diagnosis) E66.01, Z68.43 Morbid obesity with BMI of 50.0-59.9, adult ([facility]) G25.81 RLS (restless legs syndrome) R53.83 Fatigue, unspecified type G47.50 Parasomnia, unspecified type - Discussed with the patient the possible diagnosis, causes, and conditions associated with obstructive sleep apnea. Untreated sleep apnea is associated with a variety of consequences, including, but not limited to hypertension, heart disease, stroke, obesity, and daytime sleepiness that can affect normal daytime functioning. Because of these consequences, treatment of sleep apnea is recommended. Treatment options for sleep apnea, including positive airway pressure (PAP) therapy, surgery, oral appliance and conservative measures (avoidance of alcohol, sedative medications and sleeping in the back position, management of nasal obstruction and weight loss)were discussed Counseled in regards to PAP therapy - Polysomnogram (PSG) -split night protocol to evaluate severity for obstructive sleep apnea and optimum PAP therapy. - Results are usually available within 7-10 business days. If you do not hear from us within 1-2 weeks after testing, please contact us directly. - Continue Auto CPAP at present settings, advise formal mask fitting- was sleeping in prone position secondary to foot injury and now habitual side/back sleeper, would like to try nasal pillows again - Remember to clean your mask and equipment regularly, as directed. - You should be eligible for new supplies approximately every 3-6 months, depending on your insurance coverage. Contact your [employer] company for new supplies as needed. - Check iron studies today (ferritin, total iron, TIBC). Low iron stores (indicated by a ferritin level below 50 may be making your RLS symptoms worse. It may help to take iron supplements. - Try taking ferrous sulfate 325mg (65mg elemental iron) two to three times a day with vitamin C 100mg (to help absorption). If your stomach is irrtitated, you can take it with meals. - Will recheck your ferritin level in 3-6 months. Nonmedical therapy for restless legs syndrome includes : cold/warm compresses, warm/hot baths or showers, gentle massage, mild leg stretching at nighttime, or magnesium supplements ( 250- 1000 mg at nighttime daily). Mentally alerting activities help too. Note the caffeine, alcohol, nicotine, antidepressants, anti-nausea meds and antihistamines can cause or worsen symptoms. Parasomnias are sleep disorders that involve undesirable physical events or experiences that occur while falling asleep, sleeping or waking from sleep. They may involve abnormal movements, behaviors, emotions, perceptions and dreams. They commonly produce physical injuries, adverse health effects, psychological disturbances and disrupted sleep. Behaviors related to parasomnias are disconnected from conscious awareness and are devoid of sound judgment. There is no conscious, deliberate control of these actions More than one parasomnia often occurs in the same person, and they can emerge in close association with other sleep disorders such as obstructive sleep apnea and periodic limb movements. -Counseled in regards to falls prevention and safety to self and others. BEFORE GETTING INTO BED: -Establish a regular routine for bedtime. -Create a positive sleep environment. -Relax before getting into bed. -Avoid alcohol, smoking, caffeine for at least a few hours before bedtime. -Do not go to bed unless you are sleepy. WHILE IN BED: -Turn your clock around (or cover it) and use your alarm if needed. - If you can't fall asleep in 20 minutes (based on your internal sense of time), get out of bed and do something relaxing or boring (reading, listening to music, etc). Return to bed only when sleepy. -Use your bed only for sleep. N THE MORNING AND DURING THE DAYTIME: -Wake up at the same time every morning, even on weekends. -Avoid naps during the day. -Avoid caffeinated beverages and food in the evening. -Exercise regularly but not within 4 hours of bedtime. - Avoid driving when drowsy. Recommend that if you are dozing off while driving, that you do not drive until your sleepiness is appropriately treated. -Encouraged healthy lifestyle with adequate sleep ( 7-9 hours per night), diet and exercise. - Follow up in 2 months Appointment on 03/02/23 POLYSOMNOGRAM (PSG) FERRITIN BLD IRON + TIBC TRANSFERRIN BLD carvedilol (COREG) 25 mg tablet montelukast (SINGULAIR) 10 mg tablet CPAP/BIPAP/OTHER PAP THERAPY ORDER Fay Miles MD I spent a total of 55 minutes on the date of the service which included preparing to see the patient, [id number] patient care, performing a medically appropriate examination, counseling and educating the patient/family/caregiver and ordering medications/devices. documented in this encounter [facility] 02-12-2023 History of Present illness Narrative Episode Visit Count: 1 Therapist That Will Accept/Oversee The Plan Of Care: Yazan Gaitan Start of Care Date: 02/12/23 Onset Date: 01/21/23 Patient Identified by Name and Date of : Yes REHABILITATION AND SPORTS THERAPY PHYSICAL THERAPY EVALUATION PLAN OF CARE: Assessment: Yunier Gaines presents with chief complaint of left lower extremity pain that interferes with rising from a chair, standing, walking, stair negotiation, sleeping . She presents with impairments in flexibility, independence in exercise, range of motion, strength, symptom management, and tissue tenderness. PROMIS (Patient-Reported Outcomes Measurement Information System) scores were reviewed and all domains identified as a rehabilitation concern. Prognosis for therapy is Fair due to: clinical presentation, chronic nature of impairments . Pt has decreased core strength and impaired gait which may benefit from aquatics program. She will benefit from skilled therapy services to meet the goals established for this plan of care as noted below. Goals for Episode of Care: created on 02/12/23 through 04/14/23 Patient will be independent with aquatic program and transition to a community pool [place] in home exercise program. Patient will decrease pain rating by 2 points to meet minimal clinical important difference for numeric pain rating scale. Patient will demonstrate increase in hip strength to 5/5 during manual muscle testing in order to improve function for basic self-care tasks. Patient will increase flexibility of left ankle DF to 5+ degrees to improve mechanics. Patient will improve 30 second sit to stand to >11 reps to demonstrate decreased risk of falls. Improve postural awareness. Normal gait. Stand / Walk 15+ min without pain/symptoms. Sleep through night without pain/symptoms. Patient Goals: improve core strength, improve walking distances Planned Interventions, Frequency, and Duration: Current Frequency: 2x/week Duration: 8 weeks Total Number of Visits Planned: 16 Planned Treatment Interventions: Therapeutic exercise (34684), Neuromuscular re-education (93895), Manual therapy (52629), Therapeutic activities (63923), Self-skilled nursing management (70692), Gait Training (98619), Aquatic PT (54163), Patient/Family/Caregiver Education, Body Mechanics Training, Functional training, General Conditioning, Group Therapy (27925) PLAN FOR NEXT VISIT: Inititate aquatics program Patient demonstrates good understanding of plan of care and treatment. The above goals and plan of care were discussed and agreed upon by patient/family. 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 States that she had a pain stimulator inserted into the spine about 3 months ago. Pt states that she has core weaekness from the surgery and has not walked normally for about 3 years. Was in a CAM boot for about 16 months. The original injury was sustained in 2019, patient was rounding a corner at work and broke the 5th metatarsal in the foot. While waiting to see the doctor, the patient developed blood clots in the heart and lungs. By the time the patient saw the doctor, she had sustained another break in the foot. Throughout the whole process, developed CRPS. Has not had aquatics before. Patient Goals: improve core strength, improve walking distances Functional Limitations: rising from a chair, standing, walking, stair negotiation, sleeping Onset: 2019 Commenced as a result of: See above Is this a work related injury? Yes - BW At Worst: 04/14, At Best: 11/12 Location: left foot Quality: numbness and burning Duration: constant Pain is worse: Walking (5 min), standing (5 min), touch, socks/shoes Pain is better: Stimulator, stopping activity Sleep affected by pain: Pain keeps from falling asleep and Pain awakens Work Status: No Relevant medical history/ comorbidities: No past medical history on file. No past surgical history on file. Prior Level of Function: Independent without limitations Intake Information: Prescription present Previous Treatment: Surgery Falls Interview: No positive findings with falls interview Aquatic Screen: Yes Patient Weight: is 400 lbs or less Contra-indications to Aquatic Therapy: No noted contra-indications Ability to ascend /descend 5 stairs with assist of railing: Yes Pain: Pain Pain Level: 5 Pain Location: Foot - Left Description: Numbness, Burning Frequency: Continuous Post Treatment Pain Post Treatment Pain Level: No Change PROMIS Scales Higher is Better 02/09/2023 Phys Func - Score 31 (moderate dysfunction) Phys Func - Percentile 3 % Self-Eff Symptom - Score 34 (Low) Self-Eff Symptom - Percentile 5 % T-scores: mean of general population = 50. 5 points is clinically meaningfully difference Percentiles provide an indication of how the patient's score ranks in relation to the general population. Higher percentile rankings indicate better function/quality of life. 50th percentile is the average of the general population and indicates half of respondents had a worse score. OBJECTIVE MEASURES WITH LEVEL OF FUNCTION: Posture / Alignment Posture: Forward head, Rounded shoulders LE AROM R Ankle Dorsiflexion: 0 Degrees R Ankle Plantar Flexion: 35 Degrees L Ankle Dorsiflexion: 8 Degrees L Ankle Plantar Flexion: 55 Degrees LE Strength R Hip Flexion (L2): 5/5 R Hip ABduction: 4-/5 R Hip ADduction: 5/5 R Knee Extension (L3): 5/5 R Knee Flexion: 5/5 R Ankle Dorsiflexion (L4): 5/5 R Ankle Plantar Flexion: 5/5 L Hip Flexion (L2): 5/5 L Hip ABduction: 4-/5 L Hip ADduction: 5/5 L Knee Extension (L3): 5/5 L Knee Flexion: 5/5 Gait Gait: Independent Gait Device: None Gait Observation: Walks with L foot in slight supination with weight to lateral aspect Functional Performance Test Results 30 Second Chair Stand Test: 7 reps Education: Education Learning Preferences: Demonstration, Explanation, Performance, Printed Materials Barriers: None Learning/educational needs: Plan of Care, Safety, Health promotion Education Provided: Yes, see treatment interventions for education provided Education Provided To: Patient Education Mode/Type: Explanation/Discussion, Literature/Printed Materials Response to Education/Teach Back: States/Identifies TREATMENT: PT Treatment Interventions: Aquatic Therapy Evaluation Evaluation Aquatic Therapy: Aquatic Therapy (15234): 4 1: Discussion on the benefits of aquatic therapy as it pertains to the pt current condition 2: Provided written handouts for the expectations for aquatic therapy. Questions answered 3: education on intrinsicn arch lifts and gastroc stretch to supplemtn aquatic training Abbreviation Cannon: BA = buoyancy assisted BR = buoyancy resisted BS = buoyancy supported reps = repetitions HEP = home exercise program Skilled Intervention: Patient was educated in proper exercise technique and purpose for exercises. Patient education: Weight bearing effects of immersion Expectation of fatigue/discomfort with exercise progressions and normal response Patient with good understanding. Billing * Evaluation Low Complexity: 1 Unit Aquatic Therapy Treatment Minutes: 10 Total Treatment Time Minutes (timed/untimed): 40 Session Start Time : 1637 Session Stop Time : 1717 Yazan Gaitan PT documented in this encounter [facility] 01-14-2023 History of Present illness Narrative HISTORY OF PRESENT ILLNESS Health Record Technician: not needed - patient preferred language is Belarusian. HIPAA: Verbal permission granted from patient to discuss case, including protected health information, in front of family / friends in room at the time of the evaluation. Yunier Gaines is a very pleasant 42 year old female here for follow-up s/p Spinal Cord stimulator paddle placement done on 11/20/22, which she feels has helped her symptoms. She is working on fine tuning her spinal stimulator with her spinal stimulator nutrition representative. She would like to begin physical therapy. REVIEW OF SYSTEMS --- The following systems were reviewed and are negative except as noted: Constitutional, Eye, ENT, Cardiovascular, Respiratory, GI, , Musculoskeletal, Skin, Neurologic (No bowel/bladder incontinence, gait instability, or hand dexterity issues), Endocrine, Hematology/Lymphatic and Allergic/Immunologic --- PAST HISTORY -------- Past Medical History: No past medical history on file. Past Surgical History: Review of patient's past surgical history indicates: INSERTION, STIMULATOR, ELECTRODE (11/20/2022) Procedure: INSERTION, STIMULATOR, ELECTRODE; Surgeon: Darius Poole MD; Location: PERIOPERATIVE SERVICES; Service: Neurosurgery Social History: Social History Socioeconomic History Marital status: Single Highest education level: 12th grade Tobacco Use Smoking status: Every Day Types: Cigarettes Smokeless tobacco: Never Tobacco comments: vapes Substance and Sexual Activity Alcohol use: Not Currently Drug use: Not Currently Social Determinants of Health Financial Resource Strain: Medium Risk (10/15/2022) Overall Financial Resource Strain (CARDIA) Difficulty of Paying Living Expenses: Somewhat hard Food Insecurity: No Food Insecurity (10/15/2022) Hunger Vital Sign Worried About Running Out of Food in the Last Year: Never true Ran Out of Food in the Last Year: Never true Transportation Needs: No Transportation Needs (10/15/2022) PRAPARE - Transportation Lack of Transportation (Medical): No Lack of Transportation (Non-Medical): No Physical Activity: Inactive (10/15/2022) Exercise Vital Sign Days of Exercise per Week: 0 days Minutes of Exercise per Session: 0 min Stress: Stress Concern Present (10/15/2022) [employer] - Occupational Stress Questionnaire Feeling of Stress : Very much Social Connections: Moderately Isolated (10/15/2022) Social Connection and Isolation Panel [NHANES] Frequency of Communication with Friends and Family: More than three times a week Frequency of Social Gatherings with Friends and Family: Once a week Attends Anabaptism Services: Never Active Member of Clubs or Organizations: No Attends Club or Organization Meetings: Never Marital Status: Living with partner Intimate Partner Violence: Not At Risk (10/15/2022) Humiliation, Afraid, Rape, and Kick questionnaire Fear of Current or Ex-Partner: No Emotionally Abused: No Physically Abused: No Sexually Abused: No Family History: No family history on file. Medications: The patient's home medications have been reviewed. Allergies: Penicillins --- PHYSICAL EXAM ------ Constitutional: Awake & alert. No distress. Head: Atraumatic. Eyes: No scleral icterus. ENT: Normal external inspection. Airway patent. Neck: Supple. No cervical midline bony tenderness, deformities, or step-offs. Cardiovascular: Equal pulses. Well perfused. Pulmonary/Chest: No respiratory distress. Abdominal: Non-distended. Musculoskeletal: No peripheral edema. Back: No midline bony tenderness, deformities, or step-offs of the thoracic, lumbar, and sacral spine. No abrasions or bruising. No erythema, induration or fluctuance. Skin: Normal color. Neurological: Alert, awake, and appropriate. 5/5 strength bilateral upper and lower extremities. No myelopathic reflexes. No sensory deficits to light touch. DTR s 2+ and equal. Normal gait. ----- IMAGING Imaging reviewed: None ASSESSMENT & PLAN - Failed back syndrome Today the patient and I discussed the nature and progression of their condition. Both pt and I are happy with her level of improvement from the spinal cord stimulator. However, I agree that she would benefit from physical therapy and core strengthening, which she is amenable to. Please call with any concerns. Return to clinic 6 months Patient to return sooner if worsening or if there are any changes. Orders: Orders & Meds Signed During This Encounter PHYS THERAPY ADULT EVAL/TREAT SERVICE RQST - SCRIBE ATTESTATION 01/14/2023, 3:14 PM. This note is prepared by Chantel Dior acting as Scribe for Dr. Darius Poole All medical record entries made by the Scribe were at my direction and personally dictated by me. I have reviewed the record and confirm that the note above accurately reflects all work, treatment, procedures, and medical decision making performed by me. Dr. Darius Poole. Patient was identified by name and date of . Cecelia Hurt RN Patient at risk for falls:NoNo Falls Risk protocol implemented: No documented in this encounter [facility] 12-03-2022 History of Present illness Narrative Patient at risk for falls:No Falls Risk protocol implemented: No HISTORY OF PRESENT ILLNESS Yunier Gaines is a 42 year old female here as 2 week follow-up for 2 week follow-up for Spinal Cord stimulator paddle placement done on 11/20/22. Doing well, taking no pain meds. Denies difficulty with bowel movements. PHYSICAL EXAM Musculoskeletal: No peripheral edema. Back: No deformities or step-offs. No tenderness to palpation of midline spine or paraspinal musculature. Able to flex and extend, twist, and sideways bend. Well healing incisions. Neurological: 5/5 strength bilateral lower extremity muscle groups including hip flexion, knee flexion and extension, ankle plantar and dorsiflexion, toe flexion and extension. No sensory deficits to light touch. DTRs 2+ and equal including patellar, achilles, biceps, and brachioradialis. Normal Gait. IMAGING Imaging reviewed: None ASSESSMENT & PLAN S/p Stimulator placement I feel that this patient is doing well at this point. Good wound care was discussed. Ordered some flexeril. Miya from [employer] also saw the patient is did some programming adjustments. Continue current restrictions: No bending, lifting more than 10lbs, twisting. Walk more every day. Return to clinic in 4 weeks Patient to return sooner if worsening or if there are any changes. documented in this encounter [facility] 11-20-2022 Note Surgical Attestation : I have reviewed the patient's History and Physical Examination. I have personally seen and evaluated the patient, repeating cannon portions. There is no significant interval change. Surgery is still indicated. Yes Consent reviewed and signed by patient/family: Yes Operative site verified and marked: Yes ------ Rimma Chung MD Orthopaedic Surgery PGY3 9:56 AM 11/20/22 [facility] 10-22-2022 Note Formatting of this n ote might be different from the original. Patient was identified by name and date of . Brooke Guthrie Performed EKG pt tolerated well, results given to Doctor for review Patient at risk for falls:No Falls Risk protocol implemented: N/A [facility] 10-22-2022 Miscellaneous Notes Patient was identified by name and date of . Brooke Guthrie Performed EKG pt tolerated well, results given to Doctor for review Patient at risk for falls:No Falls Risk protocol implemented: N/A Images from the original note were not included. Presurgical Evaluation Yunier Gaines, [id number] 42 year old Female 10/23/2022 VITAL SIGNS: BP 121/50 Pulse 57 Temp 95.5 F (35.3 C) Resp 18 Ht 1.803 m (5' 11 ) Wt (!) 172.4 kg (380 lb) SpO2 96% BMI 53.00 kg/m ALLERGIES: Allergies Allergen Reactions Penicillins Upset Stomach, Rash and Difficulty Breathing HISTORY OF PRESENT ILLNESS: Yunier Gaines is a 42 year old female pt who is seen here today for pre-surgical evaluation for INSERTION, STIMULATOR, ELECTRODE. She has a h/o back pain, unspecified back location, unspecified back pain laterality, unspecified chronicity and failed back syndrome. Currently denies fever and chills, new cough, SOB or CP. She is scheduled for surgery w/ Dr. Poole on 11/20/2022. RECENT ILLNESS: Serious illness or hospitalization within the last six months. No STOP-BANG Row Name 10/22/22 1030 History of sleep apnea? Yes Compliant with therapy PSG: No testing available. Patient reports her sleep study revealed moderate PAKO. EXERCISE CAPACITY: 4-10 mets. Patient states she can walk 1 flight of stairs without difficulty. SOCIAL HISTORY: Social History Tobacco Use Smoking status: Every Day Types: Cigarettes Smokeless tobacco: Never Tobacco comments: vapes Substance Use Topics Alcohol use: Not Currently Drug use: Not Currently reports that she does not currently use drugs. MEDICAL HISTORY: No past medical history on file. SURGICAL HISTORY: No past surgical history on file. PROBLEM LIST: Patient Active Problem List: Back pain [M54.9] Failed back syndrome [M96.1] FAMILY HISTORY: No family history on file. ANESTHESIA REVIEW OF SYSTEMS: Eyes/ENT: Contacts Teeth: Broken tooth Pulmonary: current smoker (vapes), asthma-well controlled per patient Cardio-vascular: HTN and denies CP, SOB, RACHEL, Syncope or palpitations G.I./ Hepatic: vitamin d deficiency Renal/: Negative Neurological: headaches, s/p left CT release Gynecological: LMP: unknown--IUD implanted Psychiatric: Depression and anxiety Musculoskeletal: back pain, unspecified back location, unspecified back pain laterality, unspecified chronicity, failed back syndrome, s/p left foot fx repair d/t injury at work, left foot pain, s/p right rotator cuff repair Endocrine: Obesity Hematologic: Hx of PE and LLE DVT postoperatively 2019--completed anticoagulation and no issues since Constitutional: CRPS Skin: Intact PREVIOUS ANESTHETIC COMPLICATIONS: None FAMILY HISTORY OF ANESTHETIC COMPLICATIONS: No PHYSICAL EXAM: Eyes: PERRL and EOM's intact ENT: Mucosa normal, Neck supple, Carotids normal pulse without bruits, and Thyroid normal Pulmonary: Chest clear to auscultation bilaterally Cardiovascular: RRR with S1S2 and No murmurs, gallops, or rubs Abdomen: Soft and non-tender and Bowel sounds normal Extremities: No gross or obvious abnormalities Neurologic: Awake, alert, oriented, No motor deficits, and Sensation grossly intact Psychiatric: alert and oriented to person, place and time, Appropriate mood/affect Skin: No gross or obvious abnormalities on visible skin AIRWAY EXAM: Mallampati score: 1 TMD: Adequate Neck Extension/ Flexion: Adequate Mouth Opening: Adequate Dentition: Intact Micrognathia/Overbite: No PAIN ASSESSMENT: Severity: 9 Location: left foot LABORATORY DATA: Type & Screen (Last result in the past 30 days) ABO Rh Screen Int. 10/22/22 1006 A Positive Negative CBC (last 3 years, up to 5 values) WBC RBC Hgb Hct MCV RDW Plt 10/22/22 1006 7.0 4.35 12.9 38.9 90 13.3 230 Basic Metabolic Panel Na K Cl CO2 Gap Glu BUN Cr Ca 10/22/22 1006 136 4.6 103 21 17 91 19 0.53 9.4 Basic Metabolic Panel Na K Cl CO2 Gap Glu BUN Cr Ca Mg PO4 10/22/22 1006 136 4.6 103 21 17 91 19 0.53 9.4 PT/PTT/INR (last 3 years, up to 5 values) PT aPTT INR 10/22/22 1006 33 10/22/22 1006 1.11 Arterial Blood Gases None No result for BNP LFT's (last 3 years, up to 5 values) None Vitamin D, 25-OH (ng/mL) Date Value 10/22/2022 19.4 (L) TESTS REVIEWED: CXRay: 05/11/[address] [facility] FINDINGS: The heart, mediastinum, lungs and pleural spaces appear within normal limits. IMPRESSION: No acute cardiopulmonary disease. EK10/22/2022 Sinus bradycardia Low voltage QRS, consider pulmonary disease, pericardial effusion, or normal variant Borderline No previous ECGs available Confirmed by HERNAN LEWIS ([id number]) on 10/22/2022 4:38:19 PM ECHO: 05/12/2020 at [facility] Summary 1. This study was technically limited, Definity IV contrast was used to enhance endocardial definition. 2. The left ventricular diastolic function is grade I diastolic dysfunction, consistent with low or normal atrial pressures. 3. Left ventricular systolic function is normal, with ejection fraction estimated at 60 +/- 5%. 4. Right ventricular systolic function is mildly reduced, on very limited views. 5. There is borderline pulmonary hypertension, estimated right ventricle systolic pressure is 40 mmHg. 6. There is no comparison study available. Stress test date: Last StressTest: none found going back to 01/07/2018 CURRENT MEDICATION LIST: Current Outpatient Medications Medication Sig Dispense Refill CARvedilol (COREG) 25 MG tablet carvedilol 25 mg tablet Take 1 tablet every day by oral route. cetirizine (ZyrTEC) 10 MG tablet Take 10 mg by mouth daily. citalopram (CeleXA) 40 MG tablet citalopram 40 mg tablet TAKE 1 TABLET BY MOUTH EVERY DAY montelukast (SINGULAIR) 10 MG tablet montelukast 10 mg tablet TAKE 1 TABLET BY MOUTH EVERY DAY No current facility-administered medications for this visit. CURRENT MEDICATIONS: Aspirin: No NSAIDS: No Other Antiplatelet Medication: No Anticoagulants: No Steroids: No PATIENT MEDICATION INSTRUCTIONS: On the morning of your surgery please take only the following medications, with a small sip of water: See patient instruction for details Chlorhexidine preoperative skin solution with instructions given to patient LABS, TESTS, CONSULTS ORDERED: Orders & Meds Signed During This Encounter BASIC METABOLIC PANEL [CH8] COMPLETE BLOOD COUNT W/DIFF (RAPID RESPONSE LABS) PROTHROMBIN TIME AND INR [PT] PARTIAL THROMBOPLASTIN TIME [APTT] TYPE AND SCREEN [TS] 25-Hydroxy Vitamin D Abo Rh Type Complete Blood Count W/Diff EKG 12-LEAD TRACING [51957] PLAN: Documentation complete. Labs, Images, and Medications reviewed, and patient questions answered. Telephone encounter with patient: 10/23/2022 Spoke to patient regarding vitamin d deficiency and to follow-up with PCP regarding abnormal lab value. Patient reported an understanding. Interviewer signature: RA Angel 12:36 PM 10/23/2022 documented in this encounter [facility] 10-22-2022 Instructions Natan Franz APRN-CNP - 10/22/2022 10:14 AM EDT On the morning of your surgery please take only the following medications, with a small sip of water: CARvedilol (COREG) 25 MG tablet cetirizine (ZyrTEC) 10 MG tablet citalopram (CeleXA) 40 MG tablet montelukast (SINGULAIR) 10 MG tablet Do not take any Aspirin after 11/12. Do not take any Ibuprofen, Aleve, Advil, or Motrin or any other NSAIDS after 11/16. May take over the counter Acetaminophen (Tylenol) as needed for pain Please hold all Vitamin E, [place] 3, fish oil and herbal supplements for 1 week prior to surgery documented in this encounter [facility] 10-21-2022 Note Presurgical Evaluati on Yunier Gaines, [id number] 42 year old Female 10/23/2022 VITAL SIGNS: BP 121/50 Pulse 57 Temp 95.5 ???F (35.3 ???C) Resp 18 Ht 1.803 m (5' 11 ) Wt (!) 172.4 kg (380 lb) SpO2 96% BMI 53.00 kg/m??? ALLERGIES: Allergies Allergen Reactions Penicillins Upset Stomach, Rash and Difficulty Breathing HISTORY OF PRESENT ILLNESS: Yunier Gaines is a 42 year old female pt who is seen here today for pre-surgical evaluation for INSERTION, STIMULATOR, ELECTRODE. She has a h/o back pain, unspecified back location, unspecified back pain laterality, unspecified chronicity and failed back syndrome. Currently denies fever and chills, new cough, SOB or CP. She is scheduled for surgery w/ Dr. Poole on 11/20/2022. RECENT ILLNESS: Serious illness or hospitalization within the last six months. No STOP-BANG Row Name 10/22/22 1030 History of sleep apnea? Yes Compliant with therapy PSG: No testing available. Patient reports her sleep study revealed moderate PAKO. EXERCISE CAPACITY: 4-10 mets. Patient states she can walk 1 flight of stairs without difficulty. SOCIAL HISTORY: Social History Tobacco Use Smoking status: Every Day Types: Cigarettes Smokeless tobacco: Never Tobacco comments: vapes Substance Use Topics Alcohol use: Not Currently Drug use: Not Currently reports that she does not currently use drugs. MEDICAL HISTORY: No past medical history on file. SURGICAL HISTORY: No past surgical history on file. PROBLEM LIST: Patient Active Problem List: Back pain [M54.9] Failed back syndrome [M96.1] FAMILY HISTORY: No family history on file. ANESTHESIA REVIEW OF SYSTEMS: Eyes/ENT: Contacts Teeth: Broken tooth Pulmonary: current smoker (vapes), asthma-well controlled per patient Cardio-vascular: HTN and denies CP, SOB, RACHEL, Syncope or palpitations G.I./ Hepatic: vitamin d deficiency Renal/: Negative Neurological: headaches, s/p left CT release Gynecological: LMP: unknown--IUD implanted Psychiatric: Depression and anxiety Musculoskeletal: back pain, unspecified back location, unspecified back pain laterality, unspecified chronicity, failed back syndrome, s/p left foot fx repair d/t injury at work, left foot pain, s/p right rotator cuff repair Endocrine: Obesity Hematologic: Hx of PE and LLE DVT postoperatively 2019--completed anticoagulation and no issues since Constitutional: CRPS Skin: Intact PREVIOUS ANESTHETIC COMPLICATIONS: None FAMILY HISTORY OF ANESTHETIC COMPLICATIONS: No PHYSICAL EXAM: Eyes: PERRL and EOM's intact ENT: Mucosa normal, Neck supple, Carotids normal pulse without bruits, and Thyroid normal Pulmonary: Chest clear to auscultation bilaterally Cardiovascular: RRR with S1S2 and No murmurs, gallops, or rubs Abdomen: Soft and non-tender and Bowel sounds normal Extremities: No gross or obvious abnormalities Neurologic: Awake, alert, oriented, No motor deficits, and Sensation grossly intact Psychiatric: alert and oriented to person, place and time, Appropriate mood/affect Skin: No gross or obvious abnormalities on visible skin AIRWAY EXAM: Mallampati score: 1 TMD: Adequate Neck Extension/ Flexion: Adequate Mouth Opening: Adequate Dentition: Intact Micrognathia/Overbite: No PAIN ASSESSMENT: Severity: 9 Location: left foot LABORATORY DATA: Type AND Screen (Last result in the past 30 days) ABO Rh Screen Int. 10/22/22 1006 A Positive Negative CBC (last 3 years, up to 5 values) WBC RBC Hgb Hct MCV RDW Plt 10/22/22 1006 7.0 4.35 12.9 38.9 90 13.3 230 Basic Metabolic Panel Na K Cl CO2 Gap Glu BUN Cr Ca 10/22/22 1006 136 4.6 103 21 17 91 19 0.53 9.4 Basic Metabolic Panel Na K Cl CO2 Gap Glu BUN Cr Ca Mg PO4 10/22/22 1006 136 4.6 103 21 17 91 19 0.53 9.4 PT/PTT/INR (last 3 years, up to 5 values) PT aPTT INR 10/22/22 1006 33 10/22/22 1006 1.11 Arterial Blood Gases None No result for BNP LFT's (last 3 years, up to 5 values) None Vitamin D, 25-OH (ng/mL) Date Value 10/22/2022 19.4 (L) TESTS REVIEWED: CXRay: 05/11/[address] [facility] FINDINGS: The heart, mediastinum, lungs and pleural spaces appear within normal limits. IMPRESSION: No acute cardiopulmonary disease. EK10/22/2022 Sinus bradycardia Low voltage QRS, consider pulmonary disease, pericardial effusion, or normal variant Borderline No previous ECGs available Confirmed by HERNAN LEWIS ([id number]) on 10/22/2022 4:38:19 PM ECHO: 05/12/2020 at [facility] Summary 1. This study was technically limited, Definity IV contrast was used to enhance endocardial definition. 2. The left ventricular diastolic function is grade I diastolic dysfunction, consistent with low or normal atrial pressures. 3. Left ventricular systolic function is normal, with ejection fraction estimated at 60 +/- 5%. 4. Right ventricular systolic function is mildly reduced, on very limit (more content not included)... [facility] Note Formatting of this n ote is different from the original. Images from the original note were not included. Presurgical Evaluation Yunier Gaines, [id number] 42 year old Female 10/23/2022 VITAL SIGNS: BP 121/50 Pulse 57 Temp 95.5 F (35.3 C) Resp 18 Ht 1.803 m (5' 11 ) Wt (!) 172.4 kg (380 lb) SpO2 96% BMI 53.00 kg/m ALLERGIES: Allergies Allergen Reactions Penicillins Upset Stomach, Rash and Difficulty Breathing HISTORY OF PRESENT ILLNESS: Yunier Gaines is a 42 year old female pt who is seen here today for pre-surgical evaluation for INSERTION, STIMULATOR, ELECTRODE. She has a h/o back pain, unspecified back location, unspecified back pain laterality, unspecified chronicity and failed back syndrome. Currently denies fever and chills, new cough, SOB or CP. She is scheduled for surgery w/ Dr. Poole on 11/20/2022. RECENT ILLNESS: Serious illness or hospitalization within the last six months. No STOP-BANG Row Name 04/19/23 1030 History of sleep apnea? Yes Compliant with therapy PSG: No testing available. Patient reports her sleep study revealed moderate PAKO. EXERCISE CAPACITY: 4-10 mets. Patient states she can walk 1 flight of stairs without difficulty. SOCIAL HISTORY: Social History Tobacco Use Smoking status: Every Day Types: Cigarettes Smokeless tobacco: Never Tobacco comments: vapes Substance Use Topics Alcohol use: Not Currently Drug use: Not Currently reports that she does not currently use drugs. MEDICAL HISTORY: No past medical history on file. SURGICAL HISTORY: No past surgical history on file. PROBLEM LIST: Patient Active Problem List: Back pain [M54.9] Failed back syndrome [M96.1] FAMILY HISTORY: No family history on file. ANESTHESIA REVIEW OF SYSTEMS: Eyes/ENT: Contacts Teeth: Broken tooth Pulmonary: current smoker (vapes), asthma-well controlled per patient Cardio-vascular: HTN and denies CP, SOB, RACHEL, Syncope or palpitations G.I./ Hepatic: vitamin d deficiency Renal/: Negative Neurological: headaches, s/p left CT release Gynecological: LMP: unknown--IUD implanted Psychiatric: Depression and anxiety Musculoskeletal: back pain, unspecified back location, unspecified back pain laterality, unspecified chronicity, failed back syndrome, s/p left foot fx repair d/t injury at work, left foot pain, s/p right rotator cuff repair Endocrine: Obesity Hematologic: Hx of PE and LLE DVT postoperatively 2019--completed anticoagulation and no issues since Constitutional: CRPS Skin: Intact PREVIOUS ANESTHETIC COMPLICATIONS: None FAMILY HISTORY OF ANESTHETIC COMPLICATIONS: No PHYSICAL EXAM: Eyes: PERRL and EOM's intact ENT: Mucosa normal, Neck supple, Carotids normal pulse without bruits, and Thyroid normal Pulmonary: Chest clear to auscultation bilaterally Cardiovascular: RRR with S1S2 and No murmurs, gallops, or rubs Abdomen: Soft and non-tender and Bowel sounds normal Extremities: No gross or obvious abnormalities Neurologic: Awake, alert, oriented, No motor deficits, and Sensation grossly intact Psychiatric: alert and oriented to person, place and time, Appropriate mood/affect Skin: No gross or obvious abnormalities on visible skin AIRWAY EXAM: Mallampati score: 1 TMD: Adequate Neck Extension/ Flexion: Adequate Mouth Opening: Adequate Dentition: Intact Micrognathia/Overbite: No PAIN ASSESSMENT: Severity: 9 Location: left foot LABORATORY DATA: Type & Screen (Last result in the past 30 days) ABO Rh Screen Int. 10/22/22 1006 A Positive Negative CBC (last 3 years, up to 5 values) WBC RBC Hgb Hct MCV RDW Plt 10/22/22 1006 7.0 4.35 12.9 38.9 90 13.3 230 Basic Metabolic Panel Na K Cl CO2 Gap Glu BUN Cr Ca 10/22/22 1006 136 4.6 103 21 17 91 19 0.53 9.4 Basic Metabolic Panel Na K Cl CO2 Gap Glu BUN Cr Ca Mg PO4 10/22/22 1006 136 4.6 103 21 17 91 19 0.53 9.4 PT/PTT/INR (last 3 years, up to 5 values) PT aPTT INR 10/22/22 1006 33 10/22/22 1006 1.11 Arterial Blood Gases None No result for BNP LFT's (last 3 years, up to 5 values) None Vitamin D, 25-OH (ng/mL) Date Value 10/22/2022 19.4 (L) TESTS REVIEWED: CXRay: 05/11/[address] [facility] FINDINGS: The heart, mediastinum, lungs and pleural spaces appear within normal limits. IMPRESSION: No acute cardiopulmonary disease. EK10/22/2022 Sinus bradycardia Low voltage QRS, consider pulmonary disease, pericardial effusion, or normal variant Borderline No previous ECGs available Confirmed by HERNAN LEWIS ([id number]) on 10/22/2022 4:38:19 PM ECHO: 05/12/2020 at [facility] Summary 1. This study was technically limited, Definity IV contrast was used to enhance endocardial definition. 2. The left ventricular diastolic function is grade I diastolic dysfunction, consistent with low or normal atrial pressures. 3. Left ventricular systolic function is normal, with ejection fraction estimated at 60 +/- 5%. 4. Right ventricular systolic function is mildly reduced, on very limited views. 5. There is borderline pulmonary hypertension, estimated right ventricle systolic pressure is 40 mmHg. 6. There is no comparison study available. Stress test date: Last StressTest: none found going back to 01/07/2018 CURRENT MEDICATION LIST: Current Outpatient Medications Medication Sig Dispense Refill CARvedilol (COREG) 25 MG tablet carvedilol 25 mg tablet Take 1 tablet every day by oral route. cetirizine (ZyrTEC) 10 MG tablet Take 10 mg by mouth daily. citalopram (CeleXA) 40 MG tablet citalopram 40 mg tablet TAKE 1 TABLET BY MOUTH EVERY DAY montelukast (SINGULAIR) 10 MG tablet montelukast 10 mg tablet TAKE 1 TABLET BY MOUTH EVERY DAY No current facility-administered medications for this visit. CURRENT MEDICATIONS: Aspirin: No NSAIDS: No Other Antiplatelet Medication: No Anticoagulants: No Steroids: No PATIENT MEDICATION INSTRUCTIONS: On the morning of your surgery please take only the following medications, with a small sip of water: See patient instruction for details Chlorhexidine preoperative skin solution with instructions given to patient LABS, TESTS, CONSULTS ORDERED: Orders & Meds Signed During This Encounter BASIC METABOLIC PANEL [CH8] COMPLETE BLOOD COUNT W/DIFF (RAPID RESPONSE LABS) PROTHROMBIN TIME AND INR [PT] PARTIAL THROMBOPLASTIN TIME [APTT] TYPE AND SCREEN [TS] 25-Hydroxy Vitamin D Abo Rh Type Complete Blood Count W/Diff EKG 12-LEAD TRACING [09722] PLAN: Documentation complete. Labs, Images, and Medications reviewed, and patient questions answered. Telephone encounter with patient: 10/23/2022 Spoke to patient regarding vitamin d deficiency and to follow-up with PCP regarding abnormal lab value. Patient reported an understanding. Interviewer signature: RA Angel 12:36 PM 10/23/2022 [facility] 08-20-2022 History of Present illness Narrative HISTORY OF PRESENT ILLNESS Health Record Technician: not needed - patient preferred language is Bel[place]ian. HIPAA: Verbal permission granted from patient to discuss case, including protected health information, in front of family / friends in room at the time of the evaluation. Yunier Gaines is a very pleasant 42 year old female here as new patient. She is here today with her partner. She has a very sordid history with her left ankle. She has had a back strain that stems from a work injury. She has had a paddle trial that gave good relief of her foot pain. REVIEW OF SYSTEMS --- The following systems were reviewed and are negative except as noted above and per scanned intake form: Constitutional, Eye, ENT, Cardiovascular, Respiratory, GI, , Musculoskeletal, Skin, Neurologic (No bowel/bladder incontinence, gait instability, or hand dexterity issues), Endocrine, Hematology/Lymphatic and Allergic/Immunologic --- PAST HISTORY -------- Past Medical History: No past medical history on file. Past Surgical History: There is no previous surgical history on file. Social History: Social History Socioeconomic History Marital status: Single Tobacco Use Smoking status: Every Day Types: Cigarettes Smokeless tobacco: Never Tobacco comments: vapes Family History: No family history on file. Medications: The patient's home medications have been reviewed. Allergies: Penicillins --- PHYSICAL EXAM ------ Constitutional: Awake & alert. No distress. Head: Atraumatic. Eyes: No scleral icterus. ENT: Normal external inspection. Airway patent. Neck: Supple. No cervical midline bony tenderness, deformities, or step-offs. Cardiovascular: Equal pulses. Well perfused. Pulmonary/Chest: No respiratory distress. Abdominal: Non-distended. Musculoskeletal: No peripheral edema. Back: No midline bony tenderness, deformities, or step-offs of the thoracic, lumbar, and sacral spine. No abrasions or bruising. No erythema, induration or fluctuance. Skin: Normal color. Neurological: Alert, awake, and appropriate. 5/5 strength bilateral upper and lower extremities. No myelopathic reflexes. No sensory deficits to light touch. DTR s 2+ and equal. Normal gait. ----- IMAGING Imaging reviewed: MRI from outside hospital shows stenosis L4-5 and a mild spondylolisthesis ASSESSMENT & PLAN - Back pain Today the patient and I discussed the nature and progression of their condition. I am happy to do that surgery for her. I discussed the higher risk of complications given her body habitus. If this helps her pain I am happy to do it. She understands the risks and benefits. As far as her MRI goes she has stenosis L4-5 and a mild spondylolisthesis. She has plenty of space in her T spine for paddle. We will get her set up for the surgery. Please call with any concerns. Return to clinic for paddle placement surgery Patient to return sooner if worsening or if there are any changes. Orders: Orders & Meds Signed During This Encounter Download [employer] Images [employer] - [employer] 08/20/2022, 2:45 PM. This note is prepared by Jarod Ram acting as Scribe for Dr. Darius Poole All medical record entries made by the Scribe were at my direction and personally dictated by me. I have reviewed the record and confirm that the note above accurately reflects all work, treatment, procedures, and medical decision making performed by me. Dr. Darius Poole. Patient was identified by name and date of . Cecelia Hurt RN Patient at risk for falls:No Falls Risk protocol implemented: No documented in this encounter [facility] 07-16-2022 Note [id number] [facility] 06-11-2022 Note HOSPITAL REGULATIONS : All Positive and Important Negative Findings Shall Be Recorded Date of Consultation: 06/11/2022 Attending Physician: Blake Dallas M.D. Consulting Physician: Erna Zavala M.D. CHIEF COMPLAINT: Left foot pain. HISTORY OF PRESENT ILLNESS: This is a 41 year old female seen for a chief complaint of left foot pain. She rates her symptoms as a 8/10. She describes it as a sharp and burning sensation in her left foot. She reports that since her last visit the symptoms have been persistent and unchanged. We had discussed a spinal cord stimulator at her last visit. In preparation for that we had ordered magnetic resonance imagings and she went for a psychiatric consultation. She reports that she has completed those and she would like to move forward with a trial. She still will get some radiation just past the ankle as well as swelling, color change and temperature change in the left foot. She still has sensitivity to light touch and difficulty wearing shoes and socks. She has some weakness but overall there have been no major changes. She denies additional neurologic symptoms or issues with bladder or bowel control. PAST MEDICAL, PSYCHOSOCIAL, FAMILY HISTORY, ALONG WITH MEDICATIONS AND ALLERGIES is available and was reviewed. PHYSICAL EXAMINATION: General: She is a pleasant white female. Vital signs: Vital signs including blood pressure, heart rate and respirations are stable. Head: Head is normocephalic and external ears are normal. Neck: Neck is supple with no lesions. Cardiovascular: No signs of poor perfusion. No peripheral edema. Lungs: Breathing is unlabored. There is no wheezing present. Abdomen: Abdomen is soft and non-distended. Back: There is no thoracic tenderness. Musculoskeletal: Strength is 5/5 with the exception of 4/5 with dorsiflexion of the left foot and left great toe although some of the weakness could be due to pain. There is edema of the left foot compared with the right as well as some mottling which is basically the same as her last visit. Neurologic: She has normal sensation throughout with the exception of diminished sensation in the distal left lower leg and allodynia throughout her left foot. Her reflexes are normal and symmetric. Psychiatric: Affect is appropriate and she is alert and oriented. ASSESSMENT:This is a 41 year old female seen for a chief complaint of left foot pain. 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 I reviewed her thoracic magnetic resonance imaging which is unremarkable. I reviewed her lumbar magnetic resonance imaging which is notable for some facet arthropathy at L4-5 but no significant neural impingement that would account for her symptoms. PLAN: I addressed options with her and since she has failed NSAIDS, gabapentin, opiates and therapy and has had severe pain limiting her function for the past two years she is an appropriate candidate for a spinal cord stimulator trial. We went over the potential risks and benefits and she would like to move forward with this. She does not have any contraindications such as coagulopathy or an ongoing infection. I will see her for follow up as soon as the trial is approved. Rina Ferraro Dictated: 06/11/2022 [id number] Transcribed: 06/11/2022 cc:Blake Dallas M.D. [facility] Comment on above: Result Comment: Elec tronically Signed By: Erna Zavala MD\.br\Date and Time Signed: 06/11/22 21:44 EST 04-09-2022 Note HOSPITAL REGULATIONS : All Positive and Important Negative Findings Shall Be Recorded Date of Consultation: 04/03/2022 Attending Physician: Betsy Billy NP Consulting Physician: Erna Zavala M.D. CHIEF COMPLAINT: Left foot pain. HISTORY OF PRESENT ILLNESS: This is a 41 year old female seen for a chief complaint of left lower leg and foot pain. She rates her symptoms as an 8/10. She describes it as a sharp burning aching sensation that is worst with weight bearing. She reports that this has been present since a work injury that she sustained on 04/19/2020. She ended up with a fifth metatarsal fracture and ended up having surgery but unfortunately she has had residual pain since. She states the pain is present in the foot and radiates up just past the ankle circumferentially. She reports the foot swells, is a different color than the other side and will feel intermittently hot or cold. She has sensitivity to light touch and has a lot of difficulty wearing a sock or shoe. She feels like the foot is a little bit weak but she has done a lot of physical therapy and reports that has helped some for her strength. She has tried gabapentin, Lyrica, NSAIDS and Tylenol which have not been beneficial. She was referred here to see if a neurostimulator would be an option. She reports the symptoms interrupt her function during the day and her sleep at night. She would like to get back to normal. She denies additional neurologic symptoms or issues with bladder or bowel control. She denies any pain in the opposite foot. She denies any pain in the proximal leg. PAST MEDICAL, PSYCHOSOCIAL, FAMILY HISTORY, ALONG WITH MEDICATIONS AND ALLERGIES is available and was reviewed. REVIEW OF SYSTEMS:Done on ten systems. PHYSICAL EXAMINATION: General: She is a pleasant white female. Vital signs: Vital signs including blood pressure, heart rate and respirations are stable. Head: Head is normocephalic and external ears are normal. Neck: Neck is supple with no lesions. Cardiovascular: No signs of poor perfusion. No peripheral edema. Lungs: Breathing is unlabored. There is no wheezing present. Abdomen: Abdomen is soft and non-distended. Back: There is no lumbar tenderness. Musculoskeletal: Strength is 5/5 with the exception of 4/5 with dorsiflexion of the left foot and left great toe. There is edema of the left foot as well as mottling compared with the right. Neurologic: Sensation is intact throughout with the exception of significant allodynia in the left foot circumferentially. Her reflexes are normal and symmetric. Her straight leg raise is negative bilaterally. Psychiatric: Affect is appropriate and she is alert and oriented. ASSESSMENT:This is a 41 year old female seen for a chief complaint of left foot pain. Her diagnosis is a fracture of the fifth metatarsal bone of the left foot and more importantly reflex sympathic dystrophy of the left lower extremity. Both her history and examination are very consistent with this. I reviewed an [place] [facility] report on her which was benign. I also reviewed the notes from [facility]. PLAN: I addressed options with her and at this point in time she has had 24 months of continued pain in spite of trials of gabapentin, Lyrica, hydrocodone, oxycodone, steroids, Tylenol and NSAIDS. She has done extensive physical therapy and would most certainly be doing worse had she not but she still has significant dysfunction due to this issue. I think she is an appropriate candidate for a trial of spinal cord stimulation. We discussed the pros and cons of this and she would like to proceed. In preparation for that she will need psychological clearance as well as a thoracolumbar magnetic resonance imaging to ensure that there was adequate space in the spinal canal for the device to be placed. I will see her for follow up after the magnetic resonance imaging and psych consult for a repeat evaluation. Over 45 minutes was spent caring for the patient in total. Erna Zavala M.D. lr Dictated: 04/03/2022 [id number] Transcribed: 04/04/2022 cc:Betsy Billy NP [facility] Comment on above: Result Comment: Elec tronically Signed By: Sally CID, Erna\.br\Date and Time Signed: 04/09/22 15:53 EDT 02-06-2022 History of Past i llness Narrative Problem Noted Date Diagnosed Date Resolved Date History of 2019 novel gold virus disease (COVID-19) 02/06/2022 04/02/2023 09/22/2023 Personal history of nicotine dependence 01/03/2022 0 04/02/2023 09/22/2023 jail (current) use of anticoagulants 02/26/2021 04/02/2023 09/22/2023 Closed displaced fracture of fifth metatarsal bone of right foot 02/18/2021 04/02/2023 04/02/2023 Acute pulmonary embolism wit h acute cor pulmonale 05/12/2020 04/02/2023 09/22/2023 Overview: Last Assessment & Plan: Acute onset of SOB and lightheadedness 11/6 CT at [facility] with extensive bilat PE and right heart strain Trop decreasing, PESI 59 Duplex- acute LLE distal fem, pop, PT, Peroneal and soleal vein DVT Echo Right ventricular systolic function is mildly reduced, on very limited views. There is borderline pulmonary hypertension, estimated right ventricle systolic pressure is 40 mmHg. No intervention indicated Ok to transition to oral AC DC home per your recs IR to sign off documented as of this encounter (statuses as of 09/22/2023) [facility]08-04-2022 History of Past illness Narrative* Problem Noted Date Diagnosed Date Resolved Date History of 2019 novel gold virus disease (COVID-19) 02/06/2022 04/02/2023 09/22/2023 Personal history of nicotine dependence 01/03/2022 0 04/02/2023 09/22/2023 jail (current) use of anticoagulants 02/26/2021 04/02/2023 09/22/2023 Closed displaced fracture of fifth metatarsal bone of right foot 02/18/2021 04/02/2023 04/02/2023 Acute pulmonary embolism wit h acute cor pulmonale 05/12/2020 04/02/2023 09/22/2023 Overview: Last Assessment & Plan: Acute onset of SOB and lightheadedness 11/6 CT at [facility] with extensive bilat PE and right heart strain Trop decreasing, PESI 59 Duplex- acute LLE distal fem, pop, PT, Peroneal and soleal vein DVT Echo Right ventricular systolic function is mildly reduced, on very limited views. There is borderline pulmonary hypertension, estimated right ventricle systolic pressure is 40 mmHg. No intervention indicated Ok to transition to oral AC DC home per your recs IR to sign off documented as of this encounter (statuses as of 09/22/2023) [facility]08-04-2022 History of Past illness Narrative* Problem Noted Date Diagnosed Date Resolved Date History of 2019 novel gold virus disease (COVID-19) 02/06/2022 04/02/2023 09/22/2023 Personal history of nicotine dependence 01/03/2022 0 04/02/2023 09/22/2023 jail (current) use of anticoagulants 02/26/2021 04/02/2023 09/22/2023 Closed displaced fracture of fifth metatarsal bone of right foot 02/18/2021 04/02/2023 04/02/2023 Acute pulmonary embolism wit h acute cor pulmonale 05/12/2020 04/02/2023 09/22/2023 Overview: Last Assessment & Plan: Acute onset of SOB and lightheadedness 11/6 CT at [facility] with extensive bilat PE and right heart strain Trop decreasing, PESI 59 Duplex- acute LLE distal fem, pop, PT, Peroneal and soleal vein DVT Echo Right ventricular systolic function is mildly reduced, on very limited views. There is borderline pulmonary hypertension, estimated right ventricle systolic pressure is 40 mmHg. 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 There is borderline pulmonary hypertension, estimated right ventricle systolic pressure is 40 mmHg. No intervention indicated Ok to transition to oral AC DC home per your recs IR to sign off documented as of this encounter (statuses as of 09/28/2023) [facility]08-04-2022 History of Past illness Narrative* Problem Noted Date Diagnosed Date Resolved Date History of 2019 novel gold virus disease (COVID-19) 02/06/2022 04/02/2023 09/22/2023 Personal history of nicotine dependence 01/03/2022 0 04/02/2023 09/22/2023 jail (current) use of anticoagulants 02/26/2021 04/02/2023 09/22/2023 Closed displaced fracture of fifth metatarsal bone of right foot 02/18/2021 04/02/2023 04/02/2023 Acute pulmonary embolism wit h acute cor pulmonale 05/12/2020 04/02/2023 09/22/2023 Overview: Last Assessment & Plan: Acute onset of SOB and lightheadedness 05/11 CT at [facility] with extensive bilat PE and right heart strain Trop decreasing, PESI 59 Duplex- acute LLE distal fem, pop, PT, Peroneal and soleal vein DVT Echo Right ventricular systolic function is mildly reduced, on very limited views. There is borderline pulmonary hypertension, estimated right ventricle systolic pressure is 40 mmHg. 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 There is borderline pulmonary hypertension, estimated right ventricle systolic pressure is 40 mmHg. 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 There is borderline pulmonary hypertension, estimated right ventricle systolic pressure is 40 mmHg. No intervention indicated Ok to transition to oral AC DC home per your recs IR to sign off documented as of this encounter (statuses as of 10/15/2023) [facility]12-01-2021 NotePROCEDURE: XR FOOT LT MIN 3 VIEWS HISTORY: Pain in left foot COMPARISON: XR foot left 04/24/2021 FINDINGS: BONES:Prior repair of the fifth metatarsal fracture via a single lag screw with slowly increasing density at the fracture line consistent with ongoing bone healing. Mild degenerative changes of the tarsal-metatarsal joints. Prior calcaneal osteotomy and repair. SOFT TISSUES:Mild dorsal soft tissue swelling. EFFUSION:None visible. OTHER: Negative. IMPRESSION: 1. Stable alignment and ongoing bone healing of the prior fifth metatarsal fracture. 2. Stable surgical changes without evidence of hardware failure. Electronically authenticated by: COTY ULRICH Date: 2021-06-05 12:55[facility] [id number] NotePROCEDURE: XR FOOT LT MIN 3 VIEWS HISTORY: Pain in left foot COMPARISON: XR foot left 04/03/2021 FINDINGS: BONES:Surgical repair of the fifth metatarsal fracture with slowly increasing density of the fracture line. Prior calcaneal osteotomy and repair with stable hardware. SOFT TISSUES:No visible soft tissue swelling. EFFUSION:None visible. OTHER: Negative. IMPRESSION: 1. Ongoing bone healing of fifth metatarsal fracture. 2. Stable hardware. Electronically authenticated by: COTY ULRICH Date: 2021-04-24 10:43[facility]09-29-2021 NotePROCEDURE: XR FOOT LT MIN 3 VIEWS COMPARISON: 03/13/2021 HISTORY: Pain in left foot FINDINGS: BONES:Again demonstrated is a transverse fracture through the mid diaphysis of the fifth metatarsal fixed with a single screw. No significant change in bony bridging. No new fracture or dislocation. Stable posterior calcaneal osteotomy and fusion with 2 screws SOFT TISSUES:Negative. No visible soft tissue swelling. EFFUSION:None visible. OTHER: Negative. IMPRESSION: Stable postsurgical changes Electronically authenticated by: BELKYS DAVILA Date: 2021-04-03 16:36[facility]09-08-2021 NotePROCEDURE: XR FOOT LT MIN 3 VIEWS COMPARISON: 02/18/2021 HISTORY: Pain in left foot FINDINGS: BONES:Stable posterior calcaneal osteotomy transfixed with 2 cannulated lag screws. Partial bony bridging. Stable screw across a mid fifth metatarsal transverse fracture. Slight curvature of the screw on the lateral projection without failure. Partial bony bridging across the fracture site. Mild stable degenerative changes. SOFT TISSUES:Moderate dorsal forefoot soft tissue swelling EFFUSION:None visible. OTHER: Negative. IMPRESSION: Stable postsurgical changes Moderate dorsal soft tissue swelling Electronically authenticated by: BELKYS DAVILA Date: 2021-03-13 10:50[facility] [id number] NotePROCEDURE: XR FOOT LT 2V HISTORY: Pain COMPARISON: XR foot left 01/09/2021 FINDINGS: BONES:Intraoperative images demonstrate posterior calcaneal osteotomy and repair. Longitudinal placement of a screw within the base of the fifth metatarsal for repair. IMPRESSION: Surgical repair as detailed above. Electronically authenticated by: COTY ULRICH Date: 2021-02-18 17:11[facility]08-16-2021 NotePROCEDURE: XR FOOT LT MIN 3 VIEWS HISTORY: Closed fracture of fifth metatarsal bone of left foot COMPARISON: XR foot left 02/18/2021 intraoperative images FINDINGS: BONES:Screw placed longitudinally within the base of the fifth metatarsal for fracture repair. Osteotomy and repair of the posterior calcaneus via 2 lag screws. SOFT TISSUES:Expected soft tissue swelling. Images were obtained through cast material which limits evaluation. EFFUSION:None visible. OTHER: Negative. IMPRESSION: 1. Surgical repair as detailed above. No change in alignment compared to intraoperative imaging. Electronically authenticated by: COTY ULRICH Date: 2021-02-18 17:10[facility] [id number] History of Past illness Narrative* Problem Noted Date Diagnosed Date Resolved Date Closed displaced fracture of fifth metatarsal bone of right foot 02/18/2021 04/02/2023 04/02/2023 documented as of this encounter (statuses as of 04/11/2023) [facility]08-16-2021 History of Past illness Narrative* Problem Noted Date Diagnosed Date Resolved Date Closed displaced fracture of fifth metatarsal bone of right foot 02/18/2021 04/02/2023 04/02/2023 documented as of this encounter (statuses as of 04/16/2023) [facility]08-16-2021 History of Past illness Narrative* Problem Noted Date Diagnosed Date Resolved Date Closed displaced fracture of fifth metatarsal bone of right foot 02/18/2021 04/02/2023 04/02/2023 documented as of this encounter (statuses as of 04/17/2023) [address]16-2021 History of Past illness Narrative* Problem Noted Date Diagnosed Date Resolved Date Closed displaced fracture of fifth metatarsal bone of right foot 02/18/2021 04/02/2023 04/02/2023 documented as of this encounter (statuses as of 04/20/2023) [facility]08-16-2021 History of Past illness Narrative* Problem Noted Date Diagnosed Date Resolved Date Closed displaced fracture of fifth metatarsal bone of right foot 02/18/2021 04/02/2023 04/02/2023 documented as of this encounter (statuses as of 04/22/2023) [facility]08-16-2021 History of Past illness Narrative* Problem Noted Date Diagnosed Date Resolved Date Closed displaced fracture of fifth metatarsal bone of right foot 02/18/2021 04/02/2023 04/02/2023 documented as of this encounter (statuses as of 05/01/2023) [address]16-2021 History of Past illness Narrative* Problem Noted Date Diagnosed Date Resolved Date Closed displaced fracture of fifth metatarsal bone of right foot 02/18/2021 04/02/2023 04/02/2023 documented as of this encounter (statuses as of 05/01/2023) [facility]08-16-2021 History of Past illness Narrative* Problem Noted Date Diagnosed Date Resolved Date Closed displaced fracture of fifth metatarsal bone of right foot 02/18/2021 04/02/2023 04/02/2023 documented as of this encounter (statuses as of 05/05/2023) [facility]08-16-2021 History of Past illness Narrative* Problem Noted Date Diagnosed Date Resolved Date Closed displaced fracture of fifth metatarsal bone of right foot 02/18/2021 04/02/2023 04/02/2023 documented as of this encounter (statuses as of 05/11/2023) [address]16-2021 History of Past illness Narrative* Problem Noted Date Diagnosed Date Resolved Date Closed displaced fracture of fifth metatarsal bone of right foot 02/18/2021 04/02/2023 04/02/2023 documented as of this encounter (statuses as of 05/15/2023) [address]16-2021 History of Past illness Narrative* Problem Noted Date Diagnosed Date Resolved Date Closed displaced fracture of fifth metatarsal bone of right foot 02/18/2021 04/02/2023 04/02/2023 documented as of this encounter (statuses as of 05/18/2023) [address]16-2021 History of Past illness Narrative* Problem Noted Date Diagnosed Date Resolved Date Closed displaced fracture of fifth metatarsal bone of right foot 02/18/2021 04/02/2023 04/02/2023 documented as of this encounter (statuses as of 05/19/2023) [facility]08-16-2021 History of Past illness Narrative* Problem Noted Date Diagnosed Date Resolved Date Closed displaced fracture of fifth metatarsal bone of right foot 02/18/2021 04/02/2023 04/02/2023 documented as of this encounter (statuses as of 05/19/2023) [facility]08-16-2021 History of Past illness Narrative* Problem Noted Date Diagnosed Date Resolved Date Closed displaced fracture of fifth metatarsal bone of right foot 02/18/2021 04/02/2023 04/02/2023 documented as of this encounter (statuses as of 05/19/2023) [facility]08-16-2021 History of Past illness Narrative* Problem Noted Date Diagnosed Date Resolved Date Closed displaced fracture of fifth metatarsal bone of right foot 02/18/2021 04/02/2023 04/02/2023 documented as of this encounter (statuses as of 05/22/2023) [facility]08-16-2021 History of Past illness Narrative* Problem Noted Date Diagnosed Date Resolved Date Closed displaced fracture of fifth metatarsal bone of right foot 02/18/2021 04/02/2023 04/02/2023 documented as of this encounter (statuses as of 05/27/2023) [facility]08-16-2021 History of Past illness Narrative* Problem Noted Date Diagnosed Date Resolved Date Closed displaced fracture of fifth metatarsal bone of right foot 02/18/2021 04/02/2023 04/02/2023 documented as of this encounter (statuses as of 06/02/2023) [facility]08-16-2021 History of Past illness Narrative* Problem Noted Date Diagnosed Date Resolved Date Closed displaced fracture of fifth metatarsal bone of right foot 02/18/2021 04/02/2023 04/02/2023 documented as of this encounter (statuses as of 06/04/2023) [address]16-2021 History of Past illness Narrative* Problem Noted Date Diagnosed Date Resolved Date Closed displaced fracture of fifth metatarsal bone of right foot 02/18/2021 04/02/2023 04/02/2023 documented as of this encounter (statuses as of 06/05/2023) [address]16-2021 History of Past illness Narrative* Problem Noted Date Diagnosed Date Resolved Date Closed displaced fracture of fifth metatarsal bone of right foot 02/18/2021 04/02/2023 04/02/2023 documented as of this encounter (statuses as of 06/05/2023) [facility]08-16-2021 History of Past illness Narrative* Problem Noted Date Diagnosed Date Resolved Date Closed displaced fracture of fifth metatarsal bone of right foot 02/18/2021 04/02/2023 04/02/2023 documented as of this encounter (statuses as of 06/05/2023) [facility]08-16-2021 History of Past illness Narrative* Problem Noted Date Diagnosed Date Resolved Date Closed displaced fracture of fifth metatarsal bone of right foot 02/18/2021 04/02/2023 04/02/2023 documented as of this encounter (statuses as of 06/19/2023) [facility]08-16-2021 History of Past illness Narrative* Problem Noted Date Diagnosed Date Resolved Date Closed displaced fracture of fifth metatarsal bone of right foot 02/18/2021 04/02/2023 04/02/2023 documented as of this encounter (statuses as of 06/26/2023) [facility]08-16-2021 History of Past illness Narrative* Problem Noted Date Diagnosed Date Resolved Date Closed displaced fracture of fifth metatarsal bone of right foot 02/18/2021 04/02/2023 04/02/2023 documented as of this encounter (statuses as of 08/06/2023) [address]16-2021 History of Past illness Narrative* Problem Noted Date Diagnosed Date Resolved Date Closed displaced fracture of fifth metatarsal bone of right foot 02/18/2021 04/02/2023 04/02/2023 documented as of this encounter (statuses as of 08/12/2023) [facility]08-16-2021 History of Past illness Narrative* Problem Noted Date Diagnosed Date Resolved Date Closed displaced fracture of fifth metatarsal bone of right foot 02/18/2021 04/02/2023 04/02/2023 documented as of this encounter (statuses as of 08/13/2023) [facility]08-16-2021 History of Past illness Narrative* Problem Noted Date Diagnosed Date Resolved Date Closed displaced fracture of fifth metatarsal bone of right foot 02/18/2021 04/02/2023 04/02/2023 documented as of this encounter (statuses as of 08/18/2023) [facility]08-16-2021 History of Past illness Narrative* Problem Noted Date Diagnosed Date Resolved Date Closed displaced fracture of fifth metatarsal bone of right foot 02/18/2021 04/02/2023 04/02/2023 documented as of this encounter (statuses as of 08/18/2023) [facility]08-16-2021 History of Past illness Narrative* Problem Noted Date Diagnosed Date Resolved Date Closed displaced fracture of fifth metatarsal bone of right foot 02/18/2021 04/02/2023 04/02/2023 documented as of this encounter (statuses as of 08/19/2023) [facility]08-16-2021 History of Past illness Narrative* Problem Noted Date Diagnosed Date Resolved Date Closed displaced fracture of fifth metatarsal bone of right foot 02/18/2021 04/02/2023 04/02/2023 documented as of this encounter (statuses as of 09/10/2023) [facility]08-16-2021 History of Past illness Narrative* Problem Noted Date Diagnosed Date Resolved Date Closed displaced fracture of fifth metatarsal bone of right foot 02/18/2021 04/02/2023 04/02/2023 documented as of this encounter (statuses as of 09/14/2023) [facility]06-11-2021 Hospital Discharge instructions* Instructions* Felicitas Freedman Jr., MD - 12/14/2020 Leave the Gelfoam on for 24 to 48 hours and then redress. Clean the area with soap and water once aday. Return if any evidence of infection. * Attachments The following attachments cannot be sent through Care Everywhere. * Lacerations ([place]ian) [facility] Phone: evaluation note* Diagnosis Avulsion of finger tip, initial encounter- Primary documented in this encounter [employer] Phone: evaluation note* Diagnosis Back pain, unspecified back location, unspecified back pain laterality, unspecified chronicity- Primary Failed back syndrome Other unspecified back disorder [facility] Diagnosis Back pain Backache, unspecified Failed back syndrome Other unspecified back disorder Preop testing- Primary Preoperative examination, unspecified Bradycardia, unspecified Back pain, unspecified back location, unspecified back pain laterality, unspecified chronicity Failed back syndrome Other unspecified back disorder documented in this encounter [facility] Diagnosis Failed back syndrome- Primary Other unspecified back disorder [facility] Diagnosis Failed back syndrome- Primary Other unspecified back disorder [facility]* Diagnosis Complex regional pain syndrome type 1 of left lower extremity- Primary [facility] Diagnosis PAKO on CPAP- Primary Obstructive sleep apnea (adult) (pediatric) Morbid obesity with BMI of 50.0-59.9, adult (HCC) Morbid obesity RLS (restless legs syndrome) Restless legs syndrome (RLS) Fatigue, unspecified type Parasomnia, unspecified type [facility] Diagnosis Complex regional pain syndrome type 1 of left lower extremity- Primary [facility] Diagnosis Complex regional pain syndrome type 1 of left lower extremity- Primary [facility]* Diagnosis Complex regional pain syndrome type 1 of left lower extremity- Primary [facility]* Diagnosis Class 3 severe obesity with serious comorbidity and body mass index (BMI) of 50.0 to 59.9 in adult, unspecified obesity type (HCC)- Primary [facility]* Diagnosis Complex regional pain syndrome type 1 of left lower extremity- Primary [facility]* Diagnosis Osteoarthritis of right patellofemoral joint- Primary documented in this encounter [facility] note* Diagnosis Complex regional pain syndrome type 1 of left lower extremity- Primary documented in this encounter [facility] note* Diagnosis Osteoarthritis of right patellofemoral joint documented in this encounter [facility] note* Diagnosis Complex regional pain syndrome type 1 of left lower extremity- Primary documented in this encounter [facility] note* Diagnosis Complex regional pain syndrome type 1 of left lower extremity- Primary documented in this encounter [facility] note* Diagnosis Complex regional pain syndrome type 1 of left lower extremity- Primary documented in this encounter [facility] note* Diagnosis Body mass index 50.0-59.9, adult (HCC)- Primary Body Mass Index 50.0-59.9, adult Obstructive sleep apnea (adult) (pediatric) documented in this encounter [facility] note* Diagnosis Preoperative cardiovascular examination- Primary Pre-operative cardiovascular examination Essential (primary) hypertension Unspecified essential hypertension Obesity, Class III, BMI >= 40 Morbid obesity documented in this encounter [facility] note* Diagnosis Pain Generalized pain documented in this encounter [facility] note* Diagnosis Complex regional pain syndrome type 1 of left lower extremity- Primary Chronic midline low back pain without sciatica documented in this encounter [facility] note* Diagnosis PAKO on CPAP- Primary Obstructive sleep apnea (adult) (pediatric) RLS (restless legs syndrome) Restless legs syndrome (RLS) PAKO (obstructive sleep apnea) Obstructive sleep apnea (adult) (pediatric) Morbid obesity with BMI of 50.0-59.9, adult (HCC) Morbid obesity documented in this encounter [facility] note* Diagnosis Complex regional pain syndrome type 1 of left lower extremity- Primary documented in this encounter [facility] note* Diagnosis Obesity, Class III, BMI 40-49.9 (morbid obesity) ([facility])- Primary Morbid obesity Dietary counseling and surveillance Dietary surveillance and counseling documented in this encounter [facility] note* Diagnosis Preoperative cardiovascular examination Pre-operative cardiovascular examination documented in this encounter [facility] note* Diagnosis Obesity, Class III, BMI 40-49.9 (morbid obesity) ([facility])- Primary Morbid obesity documented in this encounter [facility] note* Diagnosis Complex regional pain syndrome type 1 of left lower extremity- Primary documented in this encounter [facility] note* Diagnosis PAKO (obstructive sleep apnea)- Primary Obstructive sleep apnea (adult) (pediatric) RLS (restless legs syndrome) Restless legs syndrome (RLS) documented [facility]* Diagnosis Class 3 severe obesity with serious comorbidity and body mass index (BMI) of 45.0 to 49.9 in adult, unspecified obesity type (HCC)- Primary Obesity, Class III, BMI 40-49.9 (morbid obesity) (HCC) Morbid obesity History of DVT in adulthood documented [facility] this [facility]* Diagnosis Mask refit- Primary Obstructive sleep apnea (adult) (pediatric) documented [facility] this [facility]* Diagnosis Class 3 severe obesity due to excess calories with body mass index (BMI) of 45.0 to 49.9 in adult, unspecified whether serious comorbidity present (HCC)- Primary documented in this encounter [facility] note* Diagnosis Essential (primary) hypertension- Primary Unspecified essential hypertension History of pulmonary embolism Personal history of pulmonary embolism PAKO (obstructive sleep apnea) Obstructive sleep apnea (adult) (pediatric) Obesity, unspecified classification, unspecified obesity type, unspecified whether serious comorbidity present [facility]* Diagnosis Obesity, Class III, BMI 40-49.9 (morbid obesity) (HCC)- Primary Morbid obesity Dietary counseling and surveillance Dietary surveillance and counseling Class 3 severe obesity due to excess calories with body mass index (BMI) of 45.0 to 49.9 in adult, unspecified whether serious comorbidity present (HCC) documented in this encounter [facility] note* Diagnosis Obesity, Class III, BMI 40-49.9 (morbid obesity) (HCC) Morbid obesity Class 3 severe obesity due to excess calories with body mass index (BMI) of 45.0 to 49.9 in adult, unspecified whether serious comorbidity present (HCC) documented [facility]* Diagnosis Preop examination- Primary Preoperative examination, unspecified Complex regional pain syndrome type 1 of left lower extremity Personal history of other venous thrombosis and embolism PAKO (obstructive sleep apnea) Obstructive sleep apnea (adult) (pediatric) Essential (primary) hypertension Unspecified essential hypertension Mild intermittent asthma, unspecified whether complicated Obesity, Class III, BMI >= 40 Morbid obesity Class 3 severe obesity due to excess calories with body mass index (BMI) of 45.0 to 49.9 in adult, unspecified whether serious comorbidity present (HCC) [facility]* Diagnosis Body mass index 45.0-49.9, adult (HCC)- Primary Body Mass Index 45.0-49.9, adult Class 3 severe obesity due to excess calories with body mass index (BMI) of 45.0 to 49.9 in adult, unspecified whether serious comorbidity present (HCC) [facility]* Diagnosis Dietary counseling- Primary Dietary surveillance and counseling BMI 40.0-44.9, adult (HCC) Body Mass Index 40.0-44.9, adult Impaired intestinal absorption Unspecified intestinal malabsorption documented in this encounter [facility] note* Diagnosis Class 3 obesity (HCC)- Primary Dietary counseling and surveillance Dietary surveillance and counseling S/P laparoscopic sleeve gastrectomy Bariatric surgery status documented in this encounter [facility] note* Diagnosis Class 3 obesity (HCC)- Primary [facility]* Diagnosis Bariatric surgery status- Primary documented in this encounter [facility]* Diagnosis Myofascial pain- Primary Mylagia and myositis, unspecified Lumbar sprain, subsequent encounter Complex regional pain syndrome type 1 of left lower extremity [facility]* Diagnosis S/P laparoscopic sleeve gastrectomy- Primary Bariatric surgery status documented in this encounter [facility]* Diagnosis Class 2 obesity- Primary Dietary counseling and surveillance Dietary surveillance and counseling S/P laparoscopic sleeve gastrectomy Bariatric surgery status [facility]* Diagnosis Closed displaced fracture of fifth metatarsal bone of left foot, initial encounter- Primary Reflex sympathetic dystrophy of right leg Reflex sympathetic dystrophy of the lower limb documented [facility]* Diagnosis Instability of subtalar joint, left- Primary Subtalar joint instability, right documented [facility] this [facility]* Diagnosis Preop examination- Primary Preoperative examination, unspecified Complex regional pain syndrome type 1 of left lower extremity Personal history of other venous thrombosis and embolism PAKO (obstructive sleep apnea) Obstructive sleep apnea (adult) (pediatric) Essential (primary) hypertension Unspecified essential hypertension Mild intermittent asthma, unspecified whether complicated Obesity, Class III, BMI >= 40 Morbid obesity PAKO (obstructive sleep apnea)- Primary Obstructive sleep apnea (adult) (pediatric) documented in this encounter [facility] note* Diagnosis Preop examination- Primary Preoperative examination, unspecified Complex regional pain syndrome type 1 of left lower extremity Personal history of other venous thrombosis and embolism PAKO (obstructive sleep apnea) Obstructive sleep apnea (adult) (pediatric) Essential (primary) hypertension Unspecified essential hypertension Mild intermittent asthma, unspecified whether complicated Obesity, Class III, BMI >= 40 Morbid obesity Myofascial pain- Primary Mylagia and myositis, unspecified Lumbar sprain, subsequent encounter documented in this encounter [facility] note* Diagnosis Preop examination- Primary Preoperative examination, unspecified Complex regional pain syndrome type 1 of left lower extremity Personal history of other venous thrombosis and embolism PAKO (obstructive sleep apnea) Obstructive sleep apnea (adult) (pediatric) Essential (primary) hypertension Unspecified essential hypertension Mild intermittent asthma, unspecified whether complicated Obesity, Class III, BMI >= 40 Morbid obesity Primary hypertension- Primary Unspecified essential hypertension documented in this encounter [facility] for referral (narrative)* Outpatient Procedure (Routine) - Pending Review Specialty Diagnoses / Procedures Referred By Contac t Referred To [facility] Diagnoses Essential (primary) hypertension Procedures ECG COMPLETE ECG ROUTINE ECG W/LEAST 12 LDS W/I&[place] [address] [place] [address] [facility] [place] [address] Referral ID Status Reason Start Date Expiration Date Visits Requested Visits Authorized [id number] Pending Review Auto-Generat ed Referral 3 05/04/2024 1 1 [facility] for referral (narrative)* Diagnostic Procedure Only (Routine) - Closed Specialty Diagnoses / Procedures Referred By Contac t Referred To Contact XR IMAGING Diagnoses Pain Procedures XR KNEE GENERAL 4V AP BOTH/PA BOTH/LAT/MERC RIGHT RADIOLOGIC EXAM KNEE COMPLETE 4/MORE VIEWS Viet Jenkins MD [address] [place] [address] [place] [address] Referral ID Status Reason Start Date Expiration Date V isits Requested Visits Authorized [id number] Closed Auto-Generate d Referral 01/21/2023 02/20/2024 1 1 [facility] for referral (narrative)* Outpatient Procedure (Routine) - New Request Specialty Diagnoses / Procedures Referred By Contac t Referred To Contact [facility] [place] Diagnoses Primary hypertension Procedures ECHO ECHO TTHRC R-T 2D W/WOM-MODE COMPL SPEC&COLR D Blake Dallas MD [address] [place] [address] [facility] [address] [place] [id number] Referral ID Status Reason Start Date Expiration Date Visits Requested Visits Authorized [id number] New Request Auto-Generat ed Referral 03/11/2024 03/10/2025 1 1 [facility] for visit Narrative* Diagnostic Procedure Only (Routine) - Closed Specialty Diagnoses / Procedures Referred By Contac t Referred To Contact XR IMAGING Diagnoses Pain Procedures XR KNEE GENERAL 4V AP BOTH/PA BOTH/LAT/MERC RIGHT RADIOLOGIC EXAM KNEE COMPLETE 4/MORE VIEWS Viet Jenkins MD [address] [place] [address] [place] [address] Referral ID Status Reason Start Date Expiration Date V isits Requested Visits Authorized [id number] Closed Auto-Generate d Referral 01/21/2023 02/20/2024 1 1 [facility] for visit Narrative* Outpatient Procedure (Routine) - Closed Specialty Diagnoses / Procedures Referred By Contac t Referred To Contact [facility] [place] Diagnoses Preoperative cardiovascular examination Procedures ECHO ECHO TTHRC R-T 2D W/WOM-MODE COMPL SPEC&[place] [address] [place] [address] [facility] [address] [place] [address] Referral ID Status Reason Start Date Expiration Date V isits Requested Visits Authorized [id number] Closed Auto-Generate d Referral 05/11/2023 07/10/2023 1 1 [facility] History of Present Illness * Rimma Fish MD - 06/23/2018 2:15 PM EST Patient name: Yunier Gaines Claim #: [id number] Date of exam: 06/23/18 HPI: Ms. 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 She is 37-years of age, right-hand dominant. On the date of injury she was pulling on a wrench to remove steel that was caught in the rollers of the machine. Indoing so she injured her right shoulder. She felt a burn and tear and pop. She went to [place] emergency room. She followed up with the occupational medicine clinic as well. MRI of the right shoulder on 04/01/17 showing full thickness tear of the anterior aspect of the supraspinatus tendon with theposterior aspect of the supraspinatus showing partial thickness tear. Right shoulder was performed on 08/12/[address] Bagley. This included a open right supraspinatus rotator cuff repair using metal anchors, a distal clavicle resection. 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 Regarding pain, her pain level is 0/10 during the day while working to 2/10 at night after working a long day. It is more of a dull aching pain. In the morning she describes her pain level as a 3/10, more stiffness and popping sensation. The more active she is the better her shoulder feels. She will take ibuprofen once in the morning and once in the evening for pain. She still feels weak in the right shoulder. No numbness or tingling. She does not use heat or ice. Physical examination: Examination reveals range of motion of the right shoulder to be 160 degrees of forward flexion, 180 degrees of abduction, 70 degrees of external rotation, 70 degrees of internalrotation, 60 degrees extension, 60 degrees adduction. She has a 12 cm scar anteriorly of the shoulder that is healed. The scar was tender to palpation and she was tender over the right bicipital tendon. Her right shoulder impingement test was negative. Apprehension test negative, and negative drop arm test. She has the following strength for right shoulder abduction and external rotation graded 4/5, otherwise normal strength in the right upper limb. Pinprick and light touch normal in the right u pper limb with reflexes 2+ and equal of the right biceps, triceps and brachial radialis. No obviousatrophy noted. Allowed conditions: 1. Right shoulder strain, unspecified muscle/fascia/tendon. 2. Right rotator cuff tear. Recommendation/Opinion: Ms. Gaines presents with persistent right shoulder pain, limited range of motion. She is status post right shoulder surgery including open rotator cuff tear repair and distal clavicle resection. Based on the Guides to the Evaluation of Permanent Impairment Fifth Edition by theAmerican Medical Association using Figure 16-46 on page 479, she has a 1% upper extremity impairment for loss of range of motion for shoulder internal rotation. Using Figure 16-40 on page 476, she has a 1% upper extremity impairment for loss of range of motion for shoulder forward flexion. Added together this is a 2% upper extremity impairment which translates into a 1% whole person impairment using Table 16-3 on page 439. However, considering she has had the above described surgery as well as persistent pain, she has an additional 3% whole person impairment. Therefore in total for injuries sustained on 03/17/17, Ms. Gaines has a 4% whole person impairment. in this encounter* Opal Sandra, 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 - 05/13/2020 10:15 AM EST Progress Note Subjective/Objective: Pt states her breathing is back to baseline today and she feels great Anxious for discharge Mom at bedside and updated Review of Systems: The following system(s) were reviewed: CV and Resp. Physical Examination: BP 115/74 (BP Location: Right arm, Patient Position: Lying) Pulse 61 Temp 97.5 F (36.4 C) (Oral) Resp 12 Ht 5' 11 Wt 133.7 kg (294 lb 12.1 oz) SpO2 99% BMI 41.11 kg/m General: A&O 3, pleasant CV: SR on tele Resp: unlabored on NC Abd: soft, NT, ND Ext: No edema to BLE. Left foot in walking boot Intake/Output last 3 shifts: I/O last 3 completed shifts: In: 0 Out: 1125 [Urine:1125] Problem List: Patient Active Problem List Diagnosis Acute pulmonary embolism with acute cor pulmonale (HCC) Results/Medications Reviewed 05/13/20 10:15 AM: Laboratory, Radiology, Cardiology, Medications and Transcriptions * Acute pulmonary embolism with acute cor pulmonale (HCC) Assessment & Plan Acute onset of SOB and lightheadedness 05/11 CT at [facility] with extensive bilat PE and right heart strain Trop decreasing, PESI 59 Duplex- acute LLE distal fem, pop, PT, Peroneal and soleal vein DVT Echo Right ventricular systolic function is mildly reduced, on very limited views. There is borderline pulmonary hypertension, estimated right ventricle systolic pressure is 40 mmHg. No intervention indicated Ok to transition to oral AC DC home per your recs IR to sign off Interventional Radiology/Neuroradiology Sign-Off VIR Procedures Performed: consulted for PEs. No intervention Medications: Anticoagulation decision is deferred to the primary medical service Follow-up: with PCP Home Health Needs: N/A Opal Sandra CNP Interventional Radiology 05/13/2020 * Coco Pino MD - 05/13/2020 9:18 AM EST [facility] In[facility] Progress Note 05/13/2020 Yunier Gaines 1980 [id number] Assessment/Plan: Yunier Gaines is a 39 year old female with a history of Hypertension and Asthma who [facility] 05[facility]2020 for abrupt shortness of breath. OSH work-up remarkable for acute hypoxic respiratory failure and extensive bilateral pulmonary emboli with right heart strain. COVID-19 negative. Transferred to [facility] 05/12/2020 for IR consult. 1. Acute Submassive PEs: with acutesuspect provoked from immobilization from recent metatarsal fracture and taking OCPs. OSH CTA chest 05/11/20 with extensive bilateral pulmonary arterial emboli with associated right heart strain. PESI 59 (class I, very low risk). Echo 05/12/2020 with EF 60%, grade 1diastolic dysfunction, RVSP 40 mmHg. BLEVD 05/12/2020 as discussed. s/p therapeutic Lovenox at OSH, transitioned to Heparin drip. Continue to hold control pills . No interventions needed per IR.Okay to switch to DOAC. Switched to Eliquis 05/13/2020 prior to discharge. 2. Acute LLE DVT: of distal femoral, popliteal, one of paired PT, peroneal, and soleal veins in LLEper BLEVD 05/12/2020 in setting of immobility from recent fracture. Was on Heparin drip. No interventions needed per IR. Okay to switch to DOAC. Switched to Eliquis 05/13/2020 prior to discharge. IR followed. 3. Acute Hypoxic Respiratory Failure: secondary to above. No home Oxygen demands but requiring up to 3L NC for SpO2 81%. Pulmonary hygiene. Titrate and wean as able. 4. Elevated Troponin: of 38, repeat 33 on 05/12/2020. Suspect secondary to PE. Denied angina. Continuous cardiac monitoring. Echo as mentioned. ECG non ischemic. 5. Left 5th Metatarsal Fracture: 3 weeks ago, boot in place. Continue outpatient follow-up. 6. Hypertension: per history. Continued Coreg. BP stable. 7. Asthma: per history. Not in acute exacerbation. Continued Zyrtec and Singulair. 8. Control: hold Natazia for now (has been on for 3 years). 9. Constipation: bowel regimen. 10. Morbid Obesity: Body mass index is 41.11 kg/m . Lifestyle modifications. Current living situation: home with parents. Expected disposition: same. Estimated discharge date: 05/13/2020 Subjective: Patient is new to me. Resting. Ready to go home. Discussed with RN. Physical Exam: BP 115/74 (BP Location: Right arm, Patient Position: Lying) Pulse 61 Temp 97.5 F (36.4 C) (Oral) Resp 12 Ht 5' 11 Wt 133.7 kg (294 lb 12.1 oz) SpO2 99% BMI 41.11 kg/m General: NAD Eyes: EOMI ENT: neck supple Cardiovascular: Regular rate. No extra heart sounds Respiratory: Clear to auscultation, on supplemental oxygen Gastrointestinal: Soft, non tender Genitourinary: no suprapubic tenderness Musculoskeletal: boot on left foot. Skin: warm, dry Neuro: Alert. Psych: Mood appropriate. Current Medications: carvediloL 25 mg Oral Daily docusate sodium 100 mg Oral Daily loratadine 10 mg Oral Daily montelukast 10 mg Oral Daily Labs, Imaging and Studies reviewed: Results from last 7 days Lab Units 05/12/20 0558 WBC K/mcL 13.40* HGB g/dL 14.6 HCT % 44.6 PLT K/mcL 247 Results from last 7 days Lab Units 05/12/20 0558 SODIUM mmol/L 138 POTASSIUM mmol/L 4.4 CHLORIDE mmol/L 108 BICARB mmol/L 22 BUN mg/dL 13 CREATININE mg/dL 0.42 EGFR mL/min/1.73 m2 130 GLUCOSE mg/dL 161* CALCIUM mg/dL 9.7 Results from last 7 days Lab Units 05/12/20 0558 INR 1.1 * Julieta Simpson CNP - 05/12/2020 3:04 PM EST [facility] In[facility] Progress Note 05/12/2020 Yunier Gaines 1980 [id number] Assessment/Plan: Yunier Gaines is a 39 y.o. female with a history of HTN and asthma who presented to [facility] 05/11[facility]20 for abrupt shortness of breath. OSH work-up remarkable for acute hypoxic respiratory failure and extensive bilateral pulmonary emboli with right heart strain. COVID-19 negative. Tra ns[facility]red [facility] 05/12/2020 for IR consult. 1. Acute Submassive PEs: suspect provoked from immobilization from recent metatarsal fracture and taking OCPs. OSH CTA chest 05/11/20 with extensive bilateral pulmonary arterial emboli with associatedright heart strain. PESI 59 (class I, very low risk). ECHO 05/12/20 EF 60%, grade 1 diastolic dysfunction, RVSP 40 mmHg. BLEVD 05/12/20 as discussed. S/p therapeutic Lovenox at OSH, transitioned to heparin gtt. IR following, awaiting ECHO for further discussion regarding thrombectomy, lysis, or AC. 2. Acute LLE DVT: of distal femoral, popliteal, one of paired PT, peroneal, and soleal veins in LLEper BLEVD 05/12/20 in setting of immobility from recent fracture. Heparin gtt continued. IR following. 3. Acute Hypoxic Respiratory Failure: secondary to above. No home oxygen demands but requiring up to 3L NC for SpO2 81%. Pulmonary hygiene. Titrate and wean as able. 4. Elevated Troponin: of 38, repeat 33 on 05/12/20. Suspect secondary to PE. Denied angina. Continuous cardiac monitoring. ECHO and EKG pending. 5. Left 5th Metatarsal Fracture: 3 weeks ago, boot in place. Continue outpatient follow-up. 6. HTN: per hx. Continued Coreg. BP stable per trend review 7. Asthma: per hx. Not in acute exacerbation. Continued Zyrtec and Singulair. 8. Control: hold Natazia for now (has been on for 3 years). 9. Morbid Obesity: Body mass index is 41.11 kg/m . 10. DVT Prophylaxis: Heparin gtt Current living situation: home with parents. Expected disposition: same. Estimated discharge date: 1-2 days. Subjective: Patient is new to me. Today I personally did a review of prior medical records and have summarized my findings in my assessment and plan as noted. Today I also reviewed recent labs, diagnostics, vitals including pulse ox, and baby registry sales consultant/other provider recommendations. Resting in bed. Family at bedside. Denied chest pain, shortness of breath, abdominal pain, n/v/d, urinary discomfort, fevers, chills. Discussed waiting for IR plan pending ECHO. Denied additional complaint at this time. Physical Exam: BP 112/75 Pulse 92 Temp 97.6 F (36.4 C) (Oral) Resp (!) 21 Ht 5' 11 Wt 133.7 kg (294 lb 12.1 oz) SpO2 96% BMI 41.11 kg/m General: NAD Eyes: EOMI ENT: neck supple Cardiovascular: Regular rate. No extra heart sounds Respiratory: Clear to auscultation, on supplemental oxygen Gastrointestinal: Soft, non tender Genitourinary: no suprapubic tenderness Musculoskeletal: No edema. Skin: warm, dry Neuro: Alert. Psych: Mood appropriate. Current Medications: carvediloL 25 mg Oral Daily loratadine 10 mg Oral Daily montelukast 10 mg Oral Daily Labs, Imaging and Studies reviewed: Results from last 7 days Lab Units 05/12/20 0558 WBC K/mcL 13.40* HGB g/dL 14.6 HCT % 44.6 PLT K/mcL 247 Results from last 7 days Lab Units 05/12/20 0558 SODIUM mmol/L 138 POTASSIUM mmol/L 4.4 CHLORIDE mmol/L 108 BICARB mmol/L 22 BUN mg/dL 13 CREATININE mg/dL 0.42 EGFR mL/min/1.73 m2 130 GLUCOSE mg/dL 161* CALCIUM mg/dL 9.7 Results from last 7 days Lab Units 05/12/20 0558 INR 1.1 documented in this encounter Assessments Diagnosis Complete tear of right rotat or cuff - Primary Diagnosis Bilateral pulmonary embolism (HCC) Other pulmonary embolism and infarction History of asthma Personal history of other diseases of respiratory system Diagnosis Hypertension, unspecified type Other acute pulmonary embolism with acute cor pulmonale (HCC) Summary Purpose Family History No Family History Records FoundNo Family History Records FoundNo Family History Records FoundNo Family History Records FoundNo Family History Records FoundNo Family History Records FoundNo Family History Records FoundNo Family History Records FoundNo Family History Records FoundNo Family History Records Found Advance Directives Documents on File Type Date Recorded Patient Deck Scaler Expl anation ACP-Advance Directive ACP-Power of Kennel Staff Member Documents on File Type Date Recorded Patient Deck Scaler Expl anation Advance Directives and Livin g Will 05/12/2020 2:43 AM Latest Code Status on File Code Status Date Activated Date Inactivated Comments Full Code 05/12/2020 3:05 AM 05/13/2020 3:48 PM Hospital Course * Coco Pino MD - 05/13/2020 12:58 PM EST [facility] DISCHARGE SUMMARY Yunier Gaines Account: [id number] Admitted: 05/12/2020 Discharge Date/Time: 05/13/20 / 12:58 PM Handoff to PCP Routine hospital follow up. Acute PE/DVTs. Started Eliquis. Clinical Summary Assessment/Plan: Yunier Gaines is a 39 year old female with a history of Hypertension and Asthma who presented to [facility] 05/11/2020 for abrupt shortness of breath. OSH work-up remarkable for acute hypoxic respiratory failure and extensive bilateral pulmonary emboli with right heart strain. COVID-19 negative. Transferred to [facility] 05/12/2020 for IR consult. 1. Acute Submassive PEs: with acutesuspect provoked from immobilization from recent metatarsal fracture and taking OCPs. OSH CTA chest 05/11/20 with extensive bilateral pulmonary arterial emboli with associated right heart strain. PESI 59 (class I, very low risk). Echo 05/12/2020 with EF 60%, grade 1diastolic dysfunction, RVSP 40 mmHg. BLEVD 05/12/2020 as discussed. s/p therapeutic Lovenox at OSH, transitioned to Heparin drip. Continue to hold control pills . No interventions needed per IR.Okay to switch to DOAC. Switched to Eliquis 05/13/2020 prior to discharge. 2. Acute LLE DVT: of distal femoral, popliteal, one of paired PT, peroneal, and soleal veins in LLEper BLEVD 05/12/2020 in setting of immobility from recent fracture. Was on Heparin drip. No interventions needed per IR. Okay to switch to DOAC. Switched to Eliquis 05/13/2020 prior to discharge. IR followed. 3. Acute Hypoxic Respiratory Failure: secondary to above. No home Oxygen demands but requiring up to 3L NC for SpO2 81%. Pulmonary hygiene. Weaned off Oxygen. Saturating in the low 90s. Follow up with PCP. 4. Elevated Troponin: of 38, repeat 33 on 05/12/2020. Suspect secondary to PE. Denied angina. Continuous cardiac monitoring. Echo as mentioned. ECG non ischemic. 5. Left 5th Metatarsal Fracture: 3 weeks ago, boot in place. Continue outpatient follow-up. 6. Hypertension: per history. Continued Coreg. BP stable. 7. Asthma: per history. Not in acute exacerbation. Continued Zyrtec and Singulair. 8. Control: hold Natazia for now (has been on for 3 years). 9. Constipation: bowel regimen. 10. Morbid Obesity: Body mass index is 41.11 kg/m . Lifestyle modifications. Discharge Medications Medication List START taking these medications acetaminophen 325 MG tablet Commonly known as: TYLENOL Take 2 (two) tablets (650 mg total) by mouth every 4 (four) hours as needed . * apixaban 5 mg Tab Commonly known as: ELIQUIS Take 2 (two) tablets (10 mg total) by mouth 2 (two) times a day for 7 days . * apixaban 5 mg Tab Commonly known as: ELIQUIS Take 1 (one) tablet (5 mg total) by mouth 2 (two) times a day . docusate sodium 100 MG capsule Commonly known as: COLACE Take 1 (one) capsule (100 mg total) by mouth daily for 10 days Start: 05/14/20. Start taking on: May 14, 2020 polyethylene glycol 17 gram powder Commonly known as: MIRALAX Take 17 (seventeen) g by mouth daily as needed (Constipation) . * This list has 2 medication(s) that are the same as other medications prescribed for you. Read thedirections carefully, and ask your doctor or other care provider to review them with you. CONTINUE taking these medications carvediloL 25 MG tablet Commonly known as: COREG cetirizine 10 MG tablet Commonly known as: ZYRTEC montelukast 10 mg tablet Commonly known as: SINGULAIR STOP taking these medications Natazia 3 mg/2 mg-2 mg/ 2 mg-3 mg/1 mg Tab Generic drug: estradiol valerate-dienogest Where to Get Your Medications These medications were sent to [facility]/pharmacy #[id number] [place] [id number] apixaban 5 mg Tab apixaban 5 mg Tab polyethylene glycol 17 gram powder Information about where to get these medications is not yet available Ask your nurse or doctor about these medications acetaminophen 325 MG tablet docusate sodium 100 MG capsule Physician(s) Family: Blake Dallas MD, , Address: [address] [facility] / [place] [id number] Follow Up: Blake Dallas MD [address] [place] [address] Follow up Additional Information: Patient seen and examined day of discharge. For more information regarding patient's care, including complete radiology reports, please contact [facility] at Patient instructions, including activity, were given to the patient/family at discharge. Please seethe After Visit Summary in the medical record for details. Time spent on discharge: > 30 minutes Completed by: Coco Pino on 05/13/20, 12:58 PM documented in this encounter Reason for Referral Specialty Diagnoses / Procedures Referred By Jeannie snowden Referred To Contact Physical Therapy Diagnoses Failed back syndrome Darius Poole MD [address] [place] [address] Physical Therapy [address] [place], [place] [id number] Referral ID Status Reason Start Date Expiration Date Visits Requested Visits Authorized [id number] Pending Review [facility] 01/14/2023 01/15/2024 10 10 Scheduling Instructions SCHEDULING INSTRUCTIONS: Call [phone] to schedule your Physical Therapy appointment. We offer therapy services at many convenient locations. Please arrive 20 minutes prior to your appointment to register. It is important to bring your insurance cards and a personal identification card to your appointment. If you are unable to keep your appointment, cancel or reschedule by calling [phone] or via [employer]. Thank you! Question Answer Is this for a new patient or continuation of treatment? (New = hasn't been seen for referring dx/problem for outpatient therapy in the last 3 mo.) New Patient What is the main reason for visit? Urgent/Acute Is the reason for this visit Workers' Comp related? No What is the reason for visit? Musculoskeletal/Pain Reason for Ortho Visit Post Op Precautions? low impact core strengthening Specialty Diagnoses / Procedures Referred By Jeannie snowden Referred To Contact Physical Therapy / PHYSICAL THERAPY Diagnoses Osteoarthritis of right patellofemoral joint Procedures CONSULT TO PHYSICAL THERAPY Viet Jenkins MD [address] [place] [address] Pt [facility] [address] [place] [address] Referral ID Status Reason Start Date Expiration Date Visits Re quested Visits Authorized [id number] Closed 03/24/2023 06/22/2023 1 1 Specialty Diagnoses / Procedures Referred By Jeannie snowden Referred To Contact [facility] Diagnoses Osteoarthritis of right patellofemoral joint Procedures PT AQUATIC REHAB FOLLOW UP ORDER THER PX 1/> AREAS EACH 15 MIN AQUA THER W/XERSS Pt [facility] [address] [place] [address] [facility] [address] [place] [address] Referral ID Status Reason Start Date Expiration Date Visits Requested Visits Authorized [id number] Pending Review PCP Requested Referral Auto-Generate d Referral 03/26/2023 06/24/2023 1 1 Specialty Diagnoses / Procedures Referred By Contac t Referred To Contact Vascular Medicine Diagnoses Obesity, Class III, BMI 40-49.9 (morbid obesity) (HCC) History of DVT in adulthood Procedures CONSULT TO VASCULAR MEDICINE OFFICE/OUTPATIENT [facility] 60 MINUTES Haley Nicholson MD [address] [address] Referral ID Status Reason Start Date Expiration Date Visits Requested Visits Authorized [id number] Authorized PCP Requested Referral 08/12/2023 11/10/2023 1 1 Specialty Diagnoses / Procedures Referred By Contac t Referred To Contact Dentistry Diagnoses PAKO (obstructive sleep apnea) Procedures CONSULT TO DENTISTRY OFFICE/OUTPATIENT [facility] 60 MINUTES Sandi Weber MD [address] [place] [address] Referral ID Status Reason Start Date Expiration Date Visits Requested Visits Authorized [id number] New Request PCP Requested Referral 02/29/2024 02/28/2025 1 1 Medications Administered Section Inactive Administered Medications - up to 3 most recent administrations Medication Order MAR Action Action Date Dose Rate Site perflutren lipid microspheres 1.3 mL in NaCl (PF) 0.9% 10 mL injection (DEFINITY) INTRAVENOUS, DIRECTED NEEDED, 1 dose, Starting on Juliet 06/04/23 at 1616, Until Juliet 06/04/23 at 1617, Per Protocol - for use during ECHO procedure only, If no IV access, insert saline lock prior to administering contrast. Discontinue saline lock post exam. If patient has central line or IVAD, may access for administration according to line specific nursing protocol. 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 Active Problems Noted Date Diagnosed Date 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 Active Problems Noted Date Diagnosed Date 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 Active Problems Noted Date Diagnosed Date 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 Active Problems Noted Date Diagnosed Date 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 Additional Source Comments Reason for Visit (unrecogniz ed section and content) Reason Comments Follow Up Specialty Diagnoses / Procedures Referred By Jeannie snowden Referred To Contact Spine Health / SPINE Diagnoses [facility] 3 Month Follow Up-Back Pain Procedures REFERRAL TO [facility] FINANCIAL COUNSELOR EST NI PATIENT Greg Hidalgo DO [address] [place] [address] Greg Hidalgo DO [address] [facility] [address] [address] Referral ID Status Reason Start Date Expiration Date Visits Re quested Visits Authorized [id number] Closed 03/03/2024 03/03/2024 1 1 Reason Comments Physical Therapy Specialty Diagnoses / Procedures Referred By Jeannie snowden Referred To Contact [facility] Diagnoses Osteoarthritis of right patellofemoral joint Procedures PT AQUATIC REHAB FOLLOW UP ORDER THER PX 1/> AREAS EACH 15 MIN AQUA THER W/SHARSS Viet Jenkins MD [address] [place] [address] [facility] [address] [place] [address] Referral ID Status Reason Start Date Expiration Date Visits Requested Visits Authorized [id number] Authorized PCP Requested Referral Auto-Generate d Referral 03/31/2023 06/30/2023 10 10 Specialty Diagnoses / Procedures Referred By Jeannie snowden Referred To Contact Physical Therapy / PHYSICAL THERAPY Diagnoses back pain [facility]-C9 IN SCAN DOCS Procedures NEW RS PT AQUATIC ORTHO WALK Betsy Billy, CLOTH 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 [address] [place] [address] Yazan Gaitan, PT Referral ID Status Reason Start Date Expiration Date V isits Requested Visits Authorized [id number] Authorized 01/21/2023 03/07/2023 16 16 Reason Comments Shoulder Pain [facility] C-92 Exam Reason Comments Asthma states around 2:30 t jillian started to feel light headed and as time progressed became SOB and felt an asthma attack coming on Status Reason Specialty Diagnoses / Procedures Referre d By Contact Referred To Contact Diagnoses Acute pulmonary embolism with acute cor pulmonale, unspecified pulmonary embolism type (HCC) Bilateral PEs w/right heart strain Reason Comments Laceration Left index finger, o nset 30mins ago using a pocket knife Reason Comments New patient, to establish relationship B ack pain Specialty Diagnoses / Procedures Referred By Jeannie snowden Referred To Contact General Surgery Diagnoses Back pain, unspecified back location, unspecified back pain laterality, unspecified chronicity Failed back syndrome Back pain, unspecified back location, unspecified back pain laterality, unspecified chronicity [M54.9] Failed back syndrome [M96.1] Procedures INSERTION, STIMULATOR, ELECTRODE Darius Poole MD [address] [place] [address] [facility] [employer] [facility] [address] [place] [id number] Phone: [phone] Referral ID Status Reason Start Date Expiration Date Visits Re quested Visits Authorized [id number] 3 3 Reason Comments Post Op Check Reason Comments Post Op Check Reason Comments PT Eval Reason Comments Sleep Apnea Trouble falling and/or staying asleep Reason Comments PT Progress Note Specialty Diagnoses / Procedures Referred By Jeannie snowden Referred To Contact Physical Therapy / PHYSICAL THERAPY Diagnoses Complex regional pain syndrome type 1 of left lower extremity [G90.522] Per FYI, Early Childhood Teacher extended auth until 04/24, per FYI on 02/09, patient authorized for 16 visits Procedures REFERRAL TO [facility] FINANCIAL COUNSELOR EST RS Betsy Plasencia, CLOTH 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 [address] [place] [address] Quentin Zaragoza, CORRECTIONAL FACILITY PSYCHIATRIST [address] [place] [address] Referral ID Status Reason Start Date Expiration Date Visits Re quested Visits Authorized [id number] Closed 03/16/2023 05/15/2023 16 16 Reason Comments New Patient Referral ID Status Reason Start Date Expiration Date V isits Requested Visits Authorized [id number] Waiting for Response 01/21/2023 04/24/2023 16 16 Reason Comments New Reason Comments PT Eval Specialty Diagnoses / Procedures Referred By Contac t Referred To Contact Physical Therapy / PHYSICAL THERAPY Diagnoses Osteoarthritis of right patellofemoral joint Procedures CONSULT TO PHYSICAL THERAPY Viet Jenkins MD [address] [place] [address] Pt [facility] [address] [place] [address] Referral ID Status Reason Start Date Expiration Date Visits Re quested Visits Authorized [id number] Closed 03/24/2023 06/22/2023 1 1 Reason Comments PSG Check In Specialty Diagnoses / Procedures Referred By Contac t Referred To Contact Physical Therapy / PHYSICAL THERAPY Diagnoses back pain [facility] IN SCAN DOCS Procedures NEW RS PT AQUATIC ORTHO WALK Betsy Billy, CLOTH 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 [address] [place] [address] Yazan Gaitan PT Reason Comments Refill Request Reason Comments Weight Loss Surgery Reason Comments Pre-Op Exam Reason Comments PAP Therapy Follow Up 04/11/23 - 05/10/23 Specialty Diagnoses / Procedures Referred By Contac t Referred To Contact Physical Therapy / PHYSICAL THERAPY Diagnoses Bback pain [facility]9 IN SCAN DOCS Procedures NEW RS PT AQUATIC ORTHO WALK Betsy Billy, CLOTH 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 [address] [place] [address] Yazan Gaitan PT Referral ID Status Reason Start Date Expiration Date V isits Requested Visits Authorized [id number] Authorized 01/21/2023 06/03/2023 16 16 Reason Comments Sleep Apnea Reason Comments PAP Rx Faxed DME: [facility] Reason Comments Medication Problem Reason Onset Date Comments Refill Request 06/01/2023 Reason Comments Patient Education Reassessment Reason Comments Obesity Reason Comments Follow Up 3 months follow up Reason Comments Mask Refit Reason Comments Established Patient Follow up Reason Onset Date Comments Refill Request 09/11/2023 Reason Comments Pre-op education Reason Comments Research IRB 8353 [address]ore[address] Reason Comments Pre-Op Exam Reason Comments Research F/U IRB 8353 Biorepos[address] ry Surgery Reason Comments Post Op Call Reason Comments Reassessment Patient Education Reason Comments Obesity Follow up Reason Comments Post-Op Visit Reason Comments Back Pain Specialty Diagnoses / Procedures Referred By Contac t Referred To Contact Spine Health / SPINE Diagnoses BACK PAIN REQUESTING TRIGGER POINT INJECTIONS Procedures NEW MEDICAL Pcp, Gricelda, Greg Cordoba DO [address] [place] [address] Referral ID Status Reason Start Date Expiration Date Visits Re quested Visits Authorized [id number] Closed 09/15/2023 11/03/2023 1 1 Reason Onset Date Comments Refill Request 05/29/2023 Reason Comments Bwc (Worker's Comp) Left foot painDur 6 months Pt had foot reconstruction sx on 03/19/21 on the heel she thinks the screw is coming out from the lateral side of her foot Tx x rays New Patient Ins bwc Ref selfSs 1 0.5 mensLv 02/12/23 Reason Comments 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 O SA- tried using cpap x 4 yrs, PAP TITRATION PSG 04/09/23, snoring, gasping for air in the night, waking up tired, wakes up 3-4 times a night for air/bathroom. INFORMATION SOURCE (unrecogn ized section and content) DATE CREATED AUTHOR 07/02/2018 [facility] DATE CREATED AUTHOR AUTHOR'S ORGANIZ ATION 05/11/2020 [facility] DATE CREATED AUTHOR AUTHOR'S ORGANIZ ATION 06/06/2020 [facility] DATE CREATED AUTHOR AUTHOR'S ORGANIZ ATION 12/16/2020 [facility] DATE CREATED AUTHOR AUTHOR'S ORGANIZ ATION 02/07/2022 [facility] DATE CREATED AUTHOR AUTHOR'S ORGANIZ ATION 01/18/2023 [facility] DATE CREATED AUTHOR AUTHOR'S ORGANIZ ATION 03/10/2023 [facility] DATE CREATED AUTHOR AUTHOR'S ORGANIZ ATION 07/02/2023 [facility] DATE CREATED AUTHOR AUTHOR'S ORGANIZ ATION 10/15/2023 [facility] DATE CREATED AUTHOR AUTHOR'S ORGANIZ ATION 03/06/2024 [facility] Ignacoi Turk MD - 05/12/2020 2:48 AM EST H&P Notes (unrecognized sect ion and content) [facility] History and Physical Note 05/12/20 Yunier Gaines 1980 [id number] Assessment/Plan: Yunier Gaines is a 39 y.o. female with a history of HTN and asthma who presented to [facility] 05/11/20 for abrupt shortness of breath. OSH work-up remarkable for acute hypoxic respiratory failure and extensive bilateral pulmonary emboli with right heart strain. COVID-19 negative. Transferred to [facility] 05/12/2020 for IR consult. 1. Acute Submassive PEs: suspect provoked from immobilization from recent metatarsal fracture and taking OCPs. OSH CTA chest 05/11/20 with extensive bilateral pulmonary arterial emboli with associated right heart strain. PESI 59 (class I, very low risk). S/p therapeutic Lovenox at OSH, transitioned to heparin gtt. Consult IR, check TTE, troponin and LE duplex. 2. Acute Hypoxic Respiratory Failure: secondary to above. Was found to be hypoxic at 81% at OSH. Wean as able. 3. Left 5th Metatarsal Fracture: 3 weeks ago, boot in place. Continue outpatient follow-up. 4. HTN: per hx, continue Coreg. 5. Asthma: per hx, continue Zyrtec and Singulair. 6. Control: hold Natazia for now (has been on for 3 years). 7. Morbid Obesity: Body mass index is 41.11 kg/m . 8. DVT Prophylaxis: s/p therapeutic Lovenox at OSH with plan to start heparin gtt 11 hours from that without bolus. Current living situation: home with parents. Expected disposition: same. Estimated discharge date: 1-2 days. Chief Complaint: Shortness of Breath. History of Present Illness: Yunier Gaines is a 39 y.o. female with a history of HTN and asthma who presented to [facility] 05/11/20 for abrupt shortness of breath. OSH work-up remarkable for acute hypoxic respiratory failure and extensive bilateral pulmonary emboli with right heart strain. COVID-19 negative. Transferred to [facility] 05/12/2020 for IR consult. History obtained from OSH chart review and patient. Stated around 2:30PM yesterday she was leaving work and started feeling immediate shortness of breath and light-headed. Stated she cound not catch her breath. Stated albuterol helped a little. Stated she broke her left 5th metatarsal around 3 weeks ago and was only WBAT until 3-4 days ago but otherwise was sedentary at home. She is a former smoker, no history of miscarriages, no prior history of blood clots or family history of clots. She has been on OCPs for 3 years now. Currently feeling well without shortness of breath or chest pain. OSH work-up reviewed. Presented for lightheadedness and shortness of breath around 2:30PM. Found to be hypoxic at 81%. Troponin 0.07, WBC 14.3, Hg 14.6, D-Dimer 7.61. CTA chest with extensive bilateral pulmonary arterial emboli with associate right heart strain. CXR non-acute. Placed on 2.5L NC. Received therapeutic Lovenox, Solumedrol and duonebs. ROS: 10 systems were reviewed and negative, except as noted above. Past Medical, Surgical, Social, Family History: Past Medical History: Diagnosis Date Asthma Murmur Past Surgical History: Procedure Laterality Date OVARIAN CYST SURGERY ROTATOR CUFF REPAIR Right Social History Socioeconomic History Marital status: Single Spouse name: Not on file Number of children: Not on file Years of education: Not on file Highest education level: Not on file Occupational History Not on file Social Needs Financial resource strain: Not on file Food insecurity Worry: Not on file Inability: Not on file Transportation needs Medical: Not on file Non-medical: Not on file Tobacco Use Smoking status: Former Smoker Packs/day: 1.00 Years: 15.00 Pack years: 15.00 Quit date: 08/06/2016 Years since quittin.7 Smokeless tobacco: Never Used Tobacco comment: Quit 3.5 years ago Substance and Sexual Activity Alcohol use: Yes Comment: Rarely -- once or twice a year Drug use: Never Sexual activity: Not on file Lifestyle Physical activity Days per week: Not on file Minutes per session: Not on file Stress: Not on file Relationships Social connections Talks on phone: Not on file Gets together: Not on file Attends gnosticism service: Not on file Active member of club or organization: Not on file Attends meetings of clubs or organizations: Not on file Relationship status: Not on file Other Topics Concern Not on file Social History Narrative Not on file Family History Problem Relation Age of Onset Ovarian cancer Mother Sarcoidosis Father Home Medications: Outpatient Medications as of 05/12/2020 Medication Sig carvediloL (COREG) 25 MG tablet Take 25 mg by mouth daily . cetirizine (ZYRTEC) 10 MG tablet Take 10 mg by mouth daily . estradiol valerate-dienogest (Natazia) 3 mg/2 mg-2 mg/ 2 mg-3 mg/1 mg Tab Take 1 tablet by mouth daily . montelukast (SINGULAIR) 10 mg tablet Take 10 mg by mouth daily . Physical Exam: BP (!) 131/91 (BP Location: Right arm, Patient Position: Lying) Pulse 92 Temp 97.7 F (36.5 C) (Oral) Resp (!) 20 Ht 5' 11 Wt 133.7 kg (294 lb 12.1 oz) SpO2 94% BMI 41.11 kg/m General: NAD. Obese. Eyes: EOMI. ENT: Neck supple. Cardiovascular: Mildly tachycardic. Respiratory: Clear to auscultation. On 4L NC, non-labored, mildly dyspneic with conversation. Gastrointestinal: Soft, non tender. Genitourinary: No suprapubic tenderness. Musculoskeletal: No edema. LLE with boot in place. Skin: Warm, dry. Neuro: Alert. Psych: Mood appropriate. Labs, Imaging, and Studies reviewed: Results from last 7 days Lab Units 05/12/20 0558 WBC K/mcL 13.40* HGB g/dL 14.6 HCT % 44.6 PLT K/mcL 247 Invalid input(s): MAG GRACIELA documented in this encounter Elida Acevedo, PT - 05/13/2020 11:30 AM Opal Bryant, CLOTH 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 - 05/12/2020 8:20 AM EST Consult Notes (unrecognized section and content) Physical Therapy PHYSICAL THERAPY EVALUATION and discharge NOTE Skilled Therapy Needs After Discharge Are Skilled Therapy Services Needed After Discharge: No DME Recommendation: None Rehab Potential: Good Outcomes Measures Prior Function - Basic Mobility Raw Score: 24 Points Prior Function - Basic Mobility % Impaired: 0% functionally impaired AM-PAC - Basic Mobility Raw Score: 24 Points AM-PAC - Basic Mobility % Impaired: 0% functionally impaired Physical Therapy Assessment History: The following factors influence the patient's participation in the PT plan of care: Personal Factors: Body Habitus Environmental Factors: Steps to enter home The following co-morbidities (from this admission or prior) influence the patient's participation in this plan of care: recent metatarsal fx, Left LE DVT and PE Number of History elements affecting this patient's PT plan of care: 1 to 2 Examination of Body Systems: The patient presents with: Musculoskeletal impairments: Functional Endurance Cardiopulmonary Impairments: O2 Saturation Regulation with Activity. These impairments result in limitations of Activity Tolerance. These impairments result in restrictions of Household mobility, Community mobility, Work-related activities, Leisure activities. Number of Body Systems elements affecting this patient's PT plan of care: 4 or more. Clinical Presentation: The patient's clinical presentation for this PT evaluation is evolving as evidenced by current PT documentation. Activity Tolerance Activity Tolerance: Tolerates 30 min acitivty with multiple rests Therapy Precautions Orthotic Devices: Yes Lower Extremity: Cam / Walk Boot, Left Weight Bearing Status: X LLE: Wt bearing as tolerated General Rehab Precautions: Fall risk Balance Sitting Balance - Static: (independent) Sitting Balance - Dynamic: (independent) Standing Balance - Static: (independent with crutches) Standing Balance - Dynamic: (independent with crutches) Skilled Intervention: no loss of balance with use of crutches. Bed Mobility Supine to Sit: Independent Sit to Supine: Independent Transfers Sit to Stand: Modified independence Heat Treater Apprentice: Crutches Gait/Locomotion Gait Assistance: Modified independence Assistive Device: Crutches Distance: 150 Feet Pattern: Step through, Over reliance on upper extremities Skilled Intervention: Monitored O2 sats on room air while ambulating. Patient dropped form 97 percent on 2L to 91 percent on room air.. Patient reports she already knows how to go up/down the stairs with crutches and doesnt need to practice Home Living Type of Home: House Home Layout: One level, Stairs to enter with rails(4STE) Home Equipment: (crutches and knee scooter) Prior Level of Function Level of [place]: Independent with ADLs and functional transfers, Independent with homemaking with ambulation Lives With: (parents) Receives Help From: Family ADL Assistance: Independent Homemaking Assistance: Independent Comments: patient injured foot at work about 2 weeks ago and has been getting assist with IADLS, but normally is independent Past Medical History: Diagnosis Date Asthma Hypertension Murmur Past Surgical History: Procedure Laterality Date OVARIAN CYST SURGERY ROTATOR CUFF REPAIR Right For complete objective data, detailed plan of care and patient education refer to: PT EVALUATION flow sheet, PT TREATMENT flow sheet, patient Plan of Care, Plan of Care progress note, and Patient Education. This note stands as the current Discharge Summary upon patient discharge from the hospital or completion of Physical Therapy Plan of Care. Associated Order(s): IP CONSULT TO INTERVENTIONAL RADIOLOGY INTERVENTIONAL RADIOLOGY CONSULT NOTE Patient Name: Yunier Gaines Admit Date: MR #: [id number] : 1980 Date of Consult: 05/12/20 Clinician: Opal Sandra CNP Physicians: Blake Dallas MD (Family); No ref. provider found (Referring) Assessment and Plan: Cardiovascular and Mediastinum * Acute pulmonary embolism with acute cor pulmonale (HCC) Assessment & Plan Acute onset of SOB and lightheadedness 05/11 CT at [facility] with extensive bilat PE and right heart strain Trop neg, PESI 59 Duplex- acute LLE distal fem, pop, PT, Peroneal and soleal vein DVT Echo pending Discussed with patient plan of care. Will await on echo report and discuss possible thrombectomy, lysis or anticoagulation with Heparin gtt Dr Dave aware [address] Dave- Right ventricular chamber dimension is mildly enlarged. Right ventricular systolic function is mildly reduced Will hold on intervention. Continue Hep gtt. Will evaluate pt in am. [facility] aware Chief Complaint/Reason for Visit: SOB History of Present Illness: Yunier Gaines, admitted 05/12/2020 for SOB. Pt with acute onset of SOB with lightheadedness while leaving work 05/11. Pt went home and thought she was having asthma attack. Noted her HR and BP to be elevated and presented to [facility] where CT demonstrated acute extensive bilat PEs with Right heart strain. Trop neg. PESI 59. Pt with left metatarsal fx and NWB for last 3 weeks and on OCPs. She only recently was allowed weightbearing with boot 3-4 days ago. She denies LE edema or pain. No history of clotting, surgeries or cancers. [facility] has been consulted for PE. History: Past Medical History: Diagnosis Date Asthma Murmur Past Surgical History: Procedure Laterality Date OVARIAN CYST SURGERY ROTATOR CUFF REPAIR Right Allergy Information: I have reviewed the patient's allergies. Penicillins Home Medications: Outpatient Medications as of 05/12/2020 Medication Sig carvediloL (COREG) 25 MG tablet Take 25 mg by mouth daily . cetirizine (ZYRTEC) 10 MG tablet Take 10 mg by mouth daily . estradiol valerate-dienogest (Natazia) 3 mg/2 mg-2 mg/ 2 mg-3 mg/1 mg Tab Take 1 tablet by mouth daily . montelukast (SINGULAIR) 10 mg tablet Take 10 mg by mouth daily . Physical Examination: Vital Signs: BP (!) 131/91 (BP Location: Right arm, Patient Position: Lying) Pulse 92 Temp 97.7 F (36.5 C) (Oral) Resp (!) 20 Ht 5' 11 Wt 133.7 kg (294 lb 12.1 oz) SpO2 94% BMI 41.11 kg/m Physical Exam General:LOC x3 pleasant CV: ST 90s on tele Resp:unlaobred at rest and with talking on 2L/NC-97% Abd:NT, Obese Ext:no LE edema Laboratory and Additional Data Reviewed: Laboratory 05/12/20 8:23 AM Radiology 05/12/20 8:23 AM Cardiology 05/12/20 8:23 AM Medications 05/12/20 8:23 AM Transcriptions 05/12/20 8:23 AM Lab Results Component Value Date NA 138 05/12/2020 K 4.4 05/12/2020 CL 108 05/12/2020 BICARB 22 05/12/2020 ANIONGAP 12 05/12/2020 GLUCOSE 161 (H) 05/12/2020 BUN 13 05/12/2020 CREATININE 0.42 05/12/2020 EGFR 130 05/12/2020 BCR 31.0 (H) 05/12/2020 CALCIUM 9.7 05/12/2020 Lab Results Component Value Date PROTIME 14.3 05/12/2020 INR 1.1 05/12/2020 Lab Results Component Value Date WBC 13.40 (H) 05/12/2020 RBC 5.21 (H) 05/12/2020 HGB 14.6 05/12/2020 HCT 44.6 05/12/2020 MCV 85.6 05/12/2020 MCH 28.0 05/12/2020 MCHC 32.7 05/12/2020 PLT 247 05/12/2020 RDW 12.5 05/12/2020 MPV 10.4 05/12/2020 Disposition or Comment: Thank you for the consult. Call [facility] with questions or concerns. Opal Sandra CNP Interventional Radiology 05/12/2020 documented in this encounter Vicky Mendez RN - 05/12/2020 1:18 AM EST ED Notes (unrecognized secti on and content) [facility] [place] [facility] report received at 0052. Receiving unit notified of patient's ETA. Vital signs: BP 122/100, HR 102 st, RR 20, Pulse Ox 95% on 02 4l nc . Chief complaint of PE. Patient does have patent IV access. Patient was on patient monitor during transport. Patient will be transported to room 3503 on arrival. documented in this encounter Quick Note - Kelvin Shanks RN - 05/13/2020 1:38 PM ESTSubjective & Objective - Opal Sandra CNP - 05/13/2020 10:13 AM ESTQuick Note - Kelvin Shanks RN - 05/13/2020 9:01 AM EST Miscellaneous Notes (unrecog nized section and content) Pt IV taken out and discharge instructions given to patient with beba jordan Pt states her breathing is back to baseline today and she feels great Anxious for discharge Mom at bedside and updated Secure chat to MD: Eusebio Pino. This patient would like to have a stool softener or laxative for constipation. She usually takes colace at home and is beginning to become uncomfortable. Also, patient takes a control medicaiton Natazia for heavy menstrual bleeding. Can she restart this? i wasn't sure if we could because she is here for bilateral PEs/DVTS on a heparin drip. thank you Problem: Actual or potential alteration in health Goal: Absence of healthcare acquired conditions Outcome: Met Goal: Knowledge of Interdisciplinary Plan of Care Outcome: Met Goal: Knowledge of Enviroment Outcome: Met Problem: Bleeding, Risk of Goal: Absence of impaired coagulation signs and symptoms Outcome: Met Problem: Pain Goal: Manage acute pain Outcome: Met Goal: Manage chronic pain Outcome: Met Goal: Reduced pain sensation Outcome: Met Goal: Achievement of comfort function goal Outcome: Met Problem: Tissue Perfusion - Peripheral, Altered Goal: Absence of thromboembolism signs and symptoms Outcome: Partially Met Central [facility] Utilization Review Notes HISTORY OF PRESENT ILLNESS 05/12/20:Yunier Gaines is a 39 y.o. female with a history of HTN and asthma who [facility] 05[facility]11[facility]20 for abrupt shortness of breath. OSH work-up remarkable for acute hypoxic respiratory failure and extensive bilateral pulmonary emboli with right heart strain. COVID-19 negative. Transferred to [facility] 05/12/2020 for IR consult VITAL SIGNS: 97.5, HR 105, RR 19, BP 132/100, 97% O2 @4L EKG: results not on chart WEIGHT: 133.7kg LABS: (Abnormal / Relevant): WBC 13.40, Trop T 38 IMAGING: (Abnormal / Relevant): Venous Duplex: Conclusions * No evidence of deep or superficial vein thrombosis in the right lower extremity. * Acute deep vein thrombosis in the distal femoral, popliteal, one of the paired posterior tibial, peroneal, and soleal veins of the left lower extremity. DX: Acute submassive PE's, Acute Hypoxic Respiratory Failure ASSESSMENT / PLAN H&P 05/12/20: 1. Acute Submassive PEs: suspect provoked from immobilization from recent metatarsal fracture and taking OCPs. OSH CTA chest 05/11/20 with extensive bilateral pulmonary arterial emboli with associated right heart strain. PESI 59 (class I, very low risk). S/p therapeutic Lovenox at OSH, transitioned to heparin gtt. Consult IR, check TTE, troponin and LE duplex. 2. Acute Hypoxic Respiratory Failure: secondary to above. Was found to be hypoxic at 81% at OSH. Wean as able. 3. Left 5th Metatarsal Fracture: 3 weeks ago, boot in place. Continue outpatient follow-up. 4. HTN: per hx, continue Coreg. 5. Asthma: per hx, continue Zyrtec and Singulair. 6. Control: hold Natazia for now (has been on for 3 years). 7. Morbid Obesity: Body mass index is 41.11 kg/m . 8. DVT Prophylaxis: s/p therapeutic Lovenox at OSH with plan to start heparin gtt 11 hours from that without bolus. IR consult 05/12/20: Yunier Gaines, admitted 05/12/2020 for SOB. Pt with acute onset of SOB with lightheadedness while leaving work 05/11. Pt went home and thought she was having asthma attack. Noted her HR and BP to be elevated and presented to [facility] where CT demonstrated acute extensive bilat PEs with Right heart strain. Trop neg. PESI 59. Pt with left metatarsal fx and NWB for last 3 weeks and on OCPs. She only recently was allowed weightbearing with boot 3-4 days ago. She denies LE edema or pain. No history of clotting, surgeries or cancers. [facility] has been consulted for PE. Acute pulmonary embolism with acute cor pulmonale (HCC) Assessment & Plan Acute onset of SOB and lightheadedness 05/11 CT at [facility] with extensive bilat PE and right heart strain Trop neg, PESI 59 Duplex- acute LLE distal fem, pop, PT, Peroneal and soleal vein DVT Echo pending Discussed with patient plan of care. Will await on echo report and discuss possible thrombectomy, lysis or anticoagulation with Heparin gtt MEDS / ORDERS: Heparin gtt, cardiac monitoring, oxygen, PT/OT eval DISPO: TBD Associated Problem(s): Acute pulmonary embolism with acute cor pulmonale (HCC) Acute onset of SOB and lightheadedness 05/11 CT at [facility] with extensive bilat PE and right heart strain Trop decreasing, PESI 59 Duplex- acute LLE distal fem, pop, PT, Peroneal and soleal vein DVT Echo Right ventricular systolic function is mildly reduced, on very limited views. There is borderline pulmonary hypertension, estimated right ventricle systolic pressure is 40 mmHg. No intervention indicated Ok to transition to oral AC DC home per your recs IR to sign off documented in this encounter Scheduled Active and Recently Administ ered Medications (unrecognized section and content) Medication Order 12/12/2020 12/13/2020 12/14/2020 gelatin adsorbable (GELFOAM) sponge 1 each (COMPLETED) 1 each, Apply externally, ONCE, On Thu12/14/20 at 1415, For 1 dose 1513 (Given - Provid er: Kimmy Montoya RN) Care Teams (unrecognized sec tion and content) Certified Coding Specialist Relationship Specialty Start Date End Date Darius Poole MD [address] [place] [id number] Physician Orthopaedic Surgery 09/06/22 Certified Coding Specialist Relationship Specialty Start Date End Date Darius Poole MD [address] [place] [id number] Physician Orthopaedic Surgery 09/06/22 Certified Coding Specialist Relationship Specialty Start Date End Date Darius Poole MD [address] [place] [id number] Physician Orthopaedic Surgery 09/06/22 Certified Coding Specialist Relationship Specialty Start Date End Date Darius Poole MD [address] [place] [address] Physician Orthopaedic Surgery 09/06/22 Certified Coding Specialist Relationship Specialty Start Date End Date Blake Dallas MD [address] [id number] PCP - General Family Medicine 09/10/23 Certified Coding Specialist Relationship Specialty Start Date End Date Blake Dallas MD [address] [place] [address] PCP - General Family Medicine 09/10/23 Certified Coding Specialist Relationship Specialty Start Date End Date Blake Dallas MD [address] [id number] PCP - General Family Medicine 09/10/23 Certified Coding Specialist Relationship Specialty Start Date End Date Blake Dallas MD [address] [place] [address] PCP - General Family Medicine 09/10/23 Certified Coding Specialist Relationship Specialty Start Date End Date Blake Dallas MD [address] [id number] PCP - General Family Medicine 09/10/23 Certified Coding Specialist Relationship Specialty Start Date End Date Blake Dallas MD [address] [place] [address] PCP - General Family Medicine 09/10/23 Certified Coding Specialist Relationship Specialty Start Date End Date Blake Dallas MD [address] [place] [address] PCP - General Family Medicine 09/10/23 Certified Coding Specialist Relationship Specialty Start Date End Date Blake Dallas MD [address] [place] [address] PCP - General Family Medicine 09/10/23 Certified Coding Specialist Relationship Specialty Start Date End Date Blake Dallas MD [address] [place] [address] PCP - General Family Medicine 09/10/23 Certified Coding Specialist Relationship Specialty Start Date End Date Blake Dallas MD [address] [place] [address] PCP - General Family Medicine 09/10/23 Certified Coding Specialist Relationship Specialty Start Date End Date Blake Dallas MD [address] [place] [address] PCP - General Family Medicine 09/10/23 Certified Coding Specialist Relationship Specialty Start Date End Date Blake Dallas MD [address] [place] [address] PCP - General Family Medicine 09/10/23 Certified Coding Specialist Relationship Specialty Start Date End Date Blake Dallas MD [address] [place] [address] PCP - General Family Medicine 09/10/23 Certified Coding Specialist Relationship Specialty Start Date End Date Blake Dallas MD [address] [place] [address] PCP - General Family Medicine 09/10/23 Certified Coding Specialist Relationship Specialty Start Date End Date Blake Dallas MD [address] [place] [facility] [place] [address] PCP - General Family Medicine 09/10/23 Certified Coding Specialist Relationship Specialty Start Date End Date Blake Dallas MD [address] [place] [address] PCP - General Family Medicine 09/10/23 Source Comments (unrecognize d section and content) In the event this informatio n is protected by the Federal Confidentiality of Alcohol and Drug Abuse Patient Records regulations: The Federal rules restrict any use of the information to criminally investigate or prosecute any alcohol or drug abuse patient.[facility]In the event this information is protected by the Federal Confidentiality of Alcohol and Drug Abuse Patient Records regulations: The Federal rules restrict any use of the information to criminally investigate or prosecute any alcohol or drug abuse patient.[facility] DublinIn the event this information is protected by the Federal Confidentiality of Alcohol and Drug Abuse Patient Records regulations: The Federal rules restrict any use of the information to criminally investigate or prosecute any alcohol or drug abuse patient.[facility] DublinIn the event this information is protected by the Federal Confidentiality of Alcohol and Drug Abuse Patient Records regulations: The Federal rules restrict any use of the information to criminally investigate or prosecute any alcohol or drug abuse patient.[facility] DublinIn the event this information is protected by the Federal Confidentiality of Alcohol and Drug Abuse Patient Records regulations: The Federal rules restrict any use of the information to criminally investigate or prosecute any alcohol or drug abuse patient.[facility] DublinIn the event this information is protected by the Federal Confidentiality of Alcohol and Drug Abuse Patient Records regulations: The Federal rules restrict any use of the information to criminally investigate or prosecute any alcohol or drug abuse patient.[facility] DublinIn the event this information is protected by the Federal Confidentiality of Alcohol and Drug Abuse Patient Records regulations: The Federal rules restrict any use of the information to criminally investigate or prosecute any alcohol or drug abuse patient.[facility] DublinIn the event this information is protected by the Federal Confidentiality of Alcohol and Drug Abuse Patient Records regulations: The Federal rules restrict any use of the information to criminally investigate or prosecute any alcohol or drug abuse patient.[facility] DublinIn the event this information is protected by the Federal Confidentiality of Alcohol and Drug Abuse Patient Records regulations: The Federal rules restrict any use of the information to criminally investigate or prosecute any alcohol or drug abuse patient.[facility] DublinIn the event this information is protected by the Federal Confidentiality of Alcohol and Drug Abuse Patient Records regulations: The Federal rules restrict any use of the information to criminally investigate or prosecute any alcohol or drug abuse patient.[facility] DublinIn the event this information is protected by the Federal Confidentiality of Alcohol and Drug Abuse Patient Records regulations: The Federal rules restrict any use of the information to criminally investigate or prosecute any alcohol or drug abuse patient.[facility] DublinIn the event this information is protected by the Federal Confidentiality of Alcohol and Drug Abuse Patient Records regulations: The Federal rules restrict any use of the information to criminally investigate or prosecute any alcohol or drug abuse patient.[facility] DublinIn the event this information is protected by the Federal Confidentiality of Alcohol and Drug Abuse Patient Records regulations: The Federal rules restrict any use of the information to criminally investigate or prosecute any alcohol or drug abuse patient.[facility] DublinIn the event this information is protected by the Federal Confidentiality of Alcohol and Drug Abuse Patient Records regulations: The Federal rules restrict any use of the information to criminally investigate or prosecute any alcohol or drug abuse patient.[facility] DublinIn the event this information is protected by the Federal Confidentiality of Alcohol and Drug Abuse Patient Records regulations: The Federal rules restrict any use of the information to criminally investigate or prosecute any alcohol or drug abuse patient.[facility] DublinIn the event this information is protected by the Federal Confidentiality of Alcohol and Drug Abuse Patient Records regulations: The Federal rules restrict any use of the information to criminally investigate or prosecute any alcohol or drug abuse patient.[facility] DublinIn the event this information is protected by the Federal Confidentiality of Alcohol and Drug Abuse Patient Records regulations: The Federal rules restrict any use of the information to criminally investigate or prosecute any alcohol or drug abuse patient.[facility] DublinIn the event this information is protected by the Federal Confidentiality of Alcohol and Drug Abuse Patient Records regulations: The Federal rules restrict any use of the information to criminally investigate or prosecute any alcohol or drug abuse patient.[facility] DublinIn the event this information is protected by the Federal Confidentiality of Alcohol and Drug Abuse Patient Records regulations: The Federal rules restrict any use of the information to criminally investigate or prosecute any alcohol or drug abuse patient.[facility] DublinIn the event this information is protected by the Federal Confidentiality of Alcohol and Drug Abuse Patient Records regulations: The Federal rules restrict any use of the information to criminally investigate or prosecute any alcohol or drug abuse patient.[facility] DublinIn the event this information is protected by the Federal Confidentiality of Alcohol and Drug Abuse Patient Records regulations: The Federal rules restrict any use of the information to criminally investigate or prosecute any alcohol or drug abuse patient.[facility] DublinIn the event this information is protected by the Federal Confidentiality of Alcohol and Drug Abuse Patient Records regulations: The Federal rules restrict any use of the information to criminally investigate or prosecute any alcohol or drug abuse patient.[facility] DublinIn the event this information is protected by the Federal Confidentiality of Alcohol and Drug Abuse Patient Records regulations: The Federal rules restrict any use of the information to criminally investigate or prosecute any alcohol or drug abuse patient.[facility] DublinIn the event this information is protected by the Federal Confidentiality of Alcohol and Drug Abuse Patient Records regulations: The Federal rules restrict any use of the information to criminally investigate or prosecute any alcohol or drug abuse patient.[facility] DublinIn the event this information is protected by the Federal Confidentiality of Alcohol and Drug Abuse Patient Records regulations: The Federal rules restrict any use of the information to criminally investigate or prosecute any alcohol or drug abuse patient.[facility] DublinIn the event this information is protected by the Federal Confidentiality of Alcohol and Drug Abuse Patient Records regulations: The Federal rules restrict any use of the information to criminally investigate or prosecute any alcohol or drug abuse patient.[facility] DublinIn the event this information is protected by the Federal Confidentiality of Alcohol and Drug Abuse Patient Records regulations: The Federal rules restrict any use of the information to criminally investigate or prosecute any alcohol or drug abuse patient.[facility] DublinIn the event this information is protected by the Federal Confidentiality of Alcohol and Drug Abuse Patient Records regulations: The Federal rules restrict any use of the information to criminally investigate or prosecute any alcohol or drug abuse patient.[facility] DublinIn the event this information is protected by the Federal Confidentiality of Alcohol and Drug Abuse Patient Records regulations: The Federal rules restrict any use of the information to criminally investigate or prosecute any alcohol or drug abuse patient.[facility] DublinIn the event this information is protected by the Federal Confidentiality of Alcohol and Drug Abuse Patient Records regulations: The Federal rules restrict any use of the information to criminally investigate or prosecute any alcohol or drug abuse patient.[facility] DublinIn the event this information is protected by the Federal Confidentiality of Alcohol and Drug Abuse Patient Records regulations: The Federal rules restrict any use of the information to criminally investigate or prosecute any alcohol or drug abuse patient.[facility] DublinIn the event this information is protected by the Federal Confidentiality of Alcohol and Drug Abuse Patient Records regulations: The Federal rules restrict any use of the information to criminally investigate or prosecute any alcohol or drug abuse patient.[facility] DublinIn the event this information is protected by the Federal Confidentiality of Alcohol and Drug Abuse Patient Records regulations: The Federal rules restrict any use of the information to criminally investigate or prosecute any alcohol or drug abuse patient.[facility] DublinIn the event this information is protected by the Federal Confidentiality of Alcohol and Drug Abuse Patient Records regulations: The Federal rules restrict any use of the information to criminally investigate or prosecute any alcohol or drug abuse patient.[facility] DublinIn the event this information is protected by the Federal Confidentiality of Alcohol and Drug Abuse Patient Records regulations: The Federal rules restrict any use of the information to criminally investigate or prosecute any alcohol or drug abuse patient.[facility] DublinIn the event this information is protected by the Federal Confidentiality of Alcohol and Drug Abuse Patient Records regulations: The Federal rules restrict any use of the information to criminally investigate or prosecute any alcohol or drug abuse patient.[facility] DublinIn the event this information is protected by the Federal Confidentiality of Alcohol and Drug Abuse Patient Records regulations: The Federal rules restrict any use of the information to criminally investigate or prosecute any alcohol or drug abuse patient.[facility] DublinIn the event this information is protected by the Federal Confidentiality of Alcohol and Drug Abuse Patient Records regulations: The Federal rules restrict any use of the information to criminally investigate or prosecute any alcohol or drug abuse patient.[facility] DublinIn the event this information is protected by the Federal Confidentiality of Alcohol and Drug Abuse Patient Records regulations: The Federal rules restrict any use of the information to criminally investigate or prosecute any alcohol or drug abuse patient.[facility] DublinIn the event this information is protected by the Federal Confidentiality of Alcohol and Drug Abuse Patient Records regulations: The Federal rules restrict any use of the information to criminally investigate or prosecute any alcohol or drug abuse patient.[facility] DublinIn the event this information is protected by the Federal Confidentiality of Alcohol and Drug Abuse Patient Records regulations: The Federal rules restrict any use of the information to criminally investigate or prosecute any alcohol or drug abuse patient.[facility] DublinIn the event this information is protected by the Federal Confidentiality of Alcohol and Drug Abuse Patient Records regulations: The Federal rules restrict any use of the information to criminally investigate or prosecute any alcohol or drug abuse patient.[facility] DublinIn the event this information is protected by the Federal Confidentiality of Alcohol and Drug Abuse Patient Records regulations: The Federal rules restrict any use of the information to criminally investigate or prosecute any alcohol or drug abuse patient.[facility] DublinIn the event this information is protected by the Federal Confidentiality of Alcohol and Drug Abuse Patient Records regulations: The Federal rules restrict any use of the information to criminally investigate or prosecute any alcohol or drug abuse patient.[facility] DublinIn the event this information is protected by the Federal Confidentiality of Alcohol and Drug Abuse Patient Records regulations: The Federal rules restrict any use of the information to criminally investigate or prosecute any alcohol or drug abuse patient.[facility] DublinIn the event this information is protected by the Federal Confidentiality of Alcohol and Drug Abuse Patient Records regulations: The Federal rules restrict any use of the information to criminally investigate or prosecute any alcohol or drug abuse patient.[facility] DublinIn the event this information is protected by the Federal Confidentiality of Alcohol and Drug Abuse Patient Records regulations: The Federal rules restrict any use of the information to criminally investigate or prosecute any alcohol or drug abuse patient.[facility] DublinIn the event this information is protected by the Federal Confidentiality of Alcohol and Drug Abuse Patient Records regulations: The Federal rules restrict any use of the information to criminally investigate or prosecute any alcohol or drug abuse patient.[facility] DublinIn the event this information is protected by the Federal Confidentiality of Alcohol and Drug Abuse Patient Records regulations: The Federal rules restrict any use of the information to criminally investigate or prosecute any alcohol or drug abuse patient.[facility] DublinIn the event this information is protected by the Federal Confidentiality of Alcohol and Drug Abuse Patient Records regulations: The Federal rules restrict any use of the information to criminally investigate or prosecute any alcohol or drug abuse patient.[facility] DublinIn the event this information is protected by the Federal Confidentiality of Alcohol and Drug Abuse Patient Records regulations: The Federal rules restrict any use of the information to criminally investigate or prosecute any alcohol or drug abuse patient.[facility] DublinIn the event this information is protected by the Federal Confidentiality of Alcohol and Drug Abuse Patient Records regulations: The Federal rules restrict any use of the information to criminally investigate or prosecute any alcohol or drug abuse patient.[facility] DublinIn the event this information is protected by the Federal Confidentiality of Alcohol and Drug Abuse Patient Records regulations: The Federal rules restrict any use of the information to criminally investigate or prosecute any alcohol or drug abuse patient.[facility] DublinIn the event this information is protected by the Federal Confidentiality of Alcohol and Drug Abuse Patient Records regulations: The Federal rules restrict any use of the information to criminally investigate or prosecute any alcohol or drug abuse patient.[facility] DublinIn the event this information is protected by the Federal Confidentiality of Alcohol and Drug Abuse Patient Records regulations: The Federal rules restrict any use of the information to criminally investigate or prosecute any alcohol or drug abuse patient.[facility] DublinIn the event this information is protected by the Federal Confidentiality of Alcohol and Drug Abuse Patient Records regulations: The Federal rules restrict any use of the information to criminally investigate or prosecute any alcohol or drug abuse patient.[facility] DublinIn the event this information is protected by the Federal Confidentiality of Alcohol and Drug Abuse Patient Records regulations: The Federal rules restrict any use of the information to criminally investigate or prosecute any alcohol or drug abuse patient.[facility] DublinIn the event this information is protected by the Federal Confidentiality of Alcohol and Drug Abuse Patient Records regulations: The Federal rules restrict any use of the information to criminally investigate or prosecute any alcohol or drug abuse patient.[facility] DublinIn the event this information is protected by the Federal Confidentiality of Alcohol and Drug Abuse Patient Records regulations: The Federal rules restrict any use of the information to criminally investigate or prosecute any alcohol or drug abuse patient.[facility] DublinIn the event this information is protected by the Federal Confidentiality of Alcohol and Drug Abuse Patient Records regulations: The Federal rules restrict any use of the information to criminally investigate or prosecute any alcohol or drug abuse patient.[facility] DublinIn the event this information is protected by the Federal Confidentiality of Alcohol and Drug Abuse Patient Records regulations: The Federal rules restrict any use of the information to criminally investigate or prosecute any alcohol or drug abuse patient.[facility] DublinIn the event this information is protected by the Federal Confidentiality of Alcohol and Drug Abuse Patient Records regulations: The Federal rules restrict any use of the information to criminally investigate or prosecute any alcohol or drug abuse patient.[facility] DublinIn the event this information is protected by the Federal Confidentiality of Alcohol and Drug Abuse Patient Records regulations: The Federal rules restrict any use of the information to criminally investigate or prosecute any alcohol or drug abuse patient.[facility] DublinIn the event this information is protected by the Federal Confidentiality of Alcohol and Drug Abuse Patient Records regulations: The Federal rules restrict any use of the information to criminally investigate or prosecute any alcohol or drug abuse patient.[facility] DublinIn the event this information is protected by the Federal Confidentiality of Alcohol and Drug Abuse Patient Records regulations: The Federal rules restrict any use of the information to criminally investigate or prosecute any alcohol or drug abuse patient.[facility] FOR RECORDS PERTAINING TO PATIENTS WHO ARE OR HAVE BEEN ENROLLED IN A CHEMICAL DEPENDENCY/SUBSTANCEABUSE PROGRAM, SOME INFORMATION MAY BE OMITTED. This clinical summary was aggregated from multiple sources. Caution should be exercised in using it in the provision of clinical care. This summary normalizes information from multiple sources, and as a consequence, information in this document may materially change the coding, format and clinical context of patient data. In addition, data may be omitted in some cases. CLINICAL DECISIONS SHOULD BE BASED ON THE PRIMARY CLINICAL RECORDS. [facility] [employer] [facility] provides no warranty or guarantee of the accuracy or completeness of information in this document.
== END 2024-03-16 08:50 | disposition home or self-care (01) ==
LOC: EC 08:50
PROVIDERS: PCP Family Medicine; Visit Provider Podiatrist Foot & Ankle Surgery
DX: M79.672 Pain in left foot (principal); Z98.890 Other specified postprocedural states
CPT/HCPCS: 73630